=== PATIENT | male | born 1990 | race Caucasian/White ===

== ENCOUNTER 2017-04-11 17:52 | Emergency (ER) | payer BC ==
[2017-04-11 19:34] LABS: INFLUENZA A PATIENT NEGATIVE (NEGATIVE); INFLUENZA B PATIENT NEGATIVE (NEGATIVE); OBC FLU VALID
[2017-04-12 08:51] LABS: NEGATIVE OBC STREP NEG; POSITIVE OBC STREP POS
== END 2017-04-11 19:52 | disposition home or self-care (01) ==
LOC: ER 17:52
DX: J02.0 Streptococcal pharyngitis (principal); I10 Essential (primary) hypertension; J45.909 Unspecified asthma, uncomplicated; F12.10 Cannabis abuse, uncomplicated
CPT/HCPCS: 87804; 87804-59; 87880; 99284

== ENCOUNTER 2017-06-23 23:38 | Emergency (ER) | payer OTHER, BC ==
[2017-06-24] MEDS: IBUPROFEN 600 MG TABLET. PO (00:40)
== END 2017-06-24 01:28 | disposition home or self-care (01) ==
LOC: ER 23:38
DX: S90.01XA Contusion of right ankle, initial encounter (principal); J45.909 Unspecified asthma, uncomplicated; I10 Essential (primary) hypertension; W18.09XA Striking against other object with subsequent fall, initial encounter; Y93.89 Activity, other specified; Y99.8 Other external cause status; Y92.89 Other specified places as the place of occurrence of the external cause
CPT/HCPCS: 73610; 99284

== ENCOUNTER 2018-10-15 09:51 | Emergency (ER) | payer SELFPAY ==
[2017-06-23 23:46] VITALS: BP 152/89
[~2018-10-15 09:51] MED LIST: AMOX500C PO; IBUP-1060 PO
== END 2018-10-15 12:05 | disposition left against medical advice (07) ==
LOC: ER 09:51
DX: M25.561 Pain in right knee (principal); Z53.21 Procedure and treatment not carried out due to patient leaving prior to being seen by health care provider

== ENCOUNTER 2019-10-16 18:17 | Inpatient (IN) | payer SELFPAY ==
[~2019-10-16] VITALS: Ht 188 cm; Wt 114.4 kg
--- NOTE | 2019-10-16 21:08 | PHYS DOC ---
Past Medical History Past Medical History: Asthma, Hypertension Past Surgical History: No Surgical History Smoking Status: Current Every Day Smoker Alcohol Use: Occasionally Drug Use: Marijuana General Adult EDM: Chief Complaint: FATIGUE HPI: HPI: Patient is a 29 year old male who presents with painless jaundice for the last 3 weeks. Patient reports he was in [place] by a month ago denied any significant COVID exposure but reports that for the last 2 weeks he has had troubles with generalized body aches, fatigue and decrease in appetite. He denies any pain in his abdomen but does complain of some nausea. He also complains of early satiety. He reports that the food does not make him have any pain but also does make him feel any better either. His mom came over today and noticed that he had jaundice and sent him to the emergency room for further evaluation. Patient denies any fever, chills or sweats. He denies any cough shortness of breath or chest pain. He does complain of some edema in the lower extremities but denies any significant weight loss, night sweats. Review of Systems: Review of Systems: Constitutional: Denies fever or chills. [] Eyes: Denies change in visual acuity. [] HENT: Denies nasal congestion or sore throat. [] Respiratory: Denies cough or shortness of breath. [] Cardiovascular: Denies chest pain or edema. [] GI: See HPI [] : Denies dysuria. [] Musculoskeletal: Denies back pain or joint pain. [] Integument: Denies rash. [] Neurologic: Denies headache, focal weakness or sensory changes. [] Endocrine: Denies polyuria or polydipsia. [] Lymphatic: Denies swollen glands. [] Psychiatric: Denies depression or anxiety. [] Heart Score: Risk Factors: Risk Factors: DM, Current or recent (<one month) smoker, HTN, HLP, family history of CAD, obesity. Risk Scores: Score 0 - 3: 2.5% MACE over next 6 weeks - Discharge Home Score 4 - 6: 20.3% MACE over next 6 weeks - Admit for Clinical Observation Score 7 - 10: 72.7% MACE over next 6 weeks - Early Invasive Strategies Allergies: Allergies: Allergies Coded Allergies Type Severity Reaction Last Updated Verified No Known Drug Allergies 11/30/15 No Physical Exam: PE: Constitutional: Well developed, well nourished, no acute distress, non-toxic appearance. [] HENT: Normocephalic, atraumatic, bilateral external ears normal, oropharynx dry, no oral exudates, nose normal. [] Eyes: PERRLA, EOMI, conjunctiva normal, no discharge, jaundice. [] Neck: Normal range of motion, no tenderness, supple, no stridor. [] Cardiovascular: Tachycardic, no murmur, no S3 or S4, no shift of PMI, 2 of 2 pulses distally [] Lungs & Thorax: Bilateral breath sounds clear to auscultation [] Abdomen: Bowel sounds normal, soft, no tenderness, no masses, no pulsatile masses. No fluid wave, no hepatosplenomegaly, negative Diallo sign no guarding or rebound [] Skin: Warm, dry, no erythema, no rash. [] Back: No tenderness, no CVA tenderness. [] Extremities: No tenderness, no cyanosis, no clubbing, ROM intact, 1 mm pitting edema bilaterally [] Neurologic: Alert and oriented X 3, normal motor function, normal sensory function, no focal deficits noted. [] Psychologic: Affect normal, judgement normal, mood normal. [] EKG: EKG: [] Radiology/Procedures: Radiology/Procedures: [] Course & Med Decision Making: Course & Med Decision Making Pertinent Labs and Imaging studies reviewed. (See chart for details) 0220-the patient was seen and reevaluated on multiple occasions throughout his hospitalization here in the emergency department. The patient's differential diagnosis included sepsis, cirrhosis of the liver, acute hepatitis, acute pancreatitis, choledocholithiasis amongst others. Patient was worked up extensively and after review of ultrasound and CT scan is felt the patient does not have a surgical problem but most likely it is medical. However will consult surgery for their humble opinion. At this time the patient has been started on IV antibiotics and is received IV fluids. Patient was not ever hypotensive but does have an elevated lactic acid. Lactic acid did not seem to respond to IV fluids but he seems to be hemodynamically stable and at this time no further intervention other than supportive care care instituted including IV antibiotics is is needed. I discussed the case with the patient. [] Dragon Disclaimer: Dragon Disclaimer: This electronic medical record was generated, in whole or in part, using a voice recognition dictation system. Departure Departure Impression: Primary Impression: Acute colitis Additional Impressions: Sepsis Qualified Codes: A41.9 - Sepsis, unspecified organism; R65.20 - Severe sepsis without septic shock; K72.00 - Acute and subacute hepatic failure without coma Painless jaundice Dehydration Disposition: ADMITTED INPATIENT Condition: GUARDED Referrals: NO PCP (PCP) Justicifation of Admission Dx: Justifications for Admission: Justification of Admission Dx: Yes Sepsis: End-Organ Dysfunction Date and Time of Assessment Date: Oct 16, 2019 Time: 21:20 Vital Signs Vital Signs: Vital Signs Date Time Temp Pulse Resp B/P (MAP) Pulse Ox O2 Delivery O2 Flow Rate FiO2 10/16/19 20:35 98.1 104 18 153/81 (105) 95 Room Air 98.1 Temperature Source: Oral Respirations Respiratory Effort: Normal Respiratory Pattern: Normal Cardiovascular Pulse Rhythm: Regular Lung Sounds Breath Sounds: Clear Capillary Refil Capillary Refill: Rt Hand < 3 seconds Peripheral Pulse Pulse Location: Radial Pulse Strength: Normal (2+) Pulse Assessment Method: Palpation Integumentary Skin: Warm, Dry, No Rashes Skin Moisture: Dry Skin Turgor: Normal Skin Color: warm, dry Fingernail Color: WNL Date and Time of Reassessment Date: Oct 17, 2019 Time: 01:56 Fluid Challenge Is the fluid challenge complet: No IBW Target Volume Used: No BMI > 30: Yes Vital Signs Vital Signs: Vital Signs Date Time Temp Pulse Resp B/P (MAP) Pulse Ox O2 Delivery O2 Flow Rate FiO2 10/16/19 20:35 98.1 104 18 153/81 (105) 95 Room Air 98.1 Temperature Source: Oral Respirations Respiratory Effort: Normal Respiratory Pattern: Normal Cardiovascular Pulse Rhythm: Regular Heart: Nml rate, reg. rhythm Lung Sounds Breath Sounds: Clear Capillary Refil Capillary Refill: Rt Hand < 3 seconds Peripheral Pulse Pulse Location: Radial Pulse Strength: Normal (2+) Pulse Assessment Method: Palpation Integumentary Skin: Warm, Dry Skin Moisture: Dry Skin Turgor: Normal Skin Color: warm Fingernail Color: WNL Critical Care Note Total Time (mins): 45 Comments Critical care time was billed outside of any teaching or procedure time. Critical care was charged secondary to impending collapse of the cardiovascular system as well as emergent condition of the gastrointestinal system. Critical Care Time Critical care time was 45 minutes exclusive of procedures. GO SHELDON MD Oct 16, 2019 21:08
[2019-10-16] MEDS ORDERED: IV NORMAL SALINE 1000ML BAG 1,000 ML IV ONE (21:15)
[2019-10-16] MEDS ORDERED: ONDANSETRON PF 4 MG/2 ML VIAL. IVP ONE (21:15)
[2019-10-16] MEDS ORDERED: FAMOTIDINE 20 MG TABLET. PO ONE (21:15)
[2019-10-16 21:20] LABS: BASO # 0.1 x10^3/uL (0.0-0.2); BASO % 0 % (0-3); EOS # 0.3 x10^3/uL (0.0-0.7); EOS % 2 % (0-3); HEMATOCRIT 44.1 % (39.0-53.0); HEMOGLOBIN 15.5 g/dL (13.0-17.5); LYMPH # 1.6 x10^3/uL (1.0-4.8); LYMPH % 12 % (24-48); MEAN CORPUSCULAR HEMOGLOBIN 36 pg (25-35); MEAN CORPUSCULAR HGB CONC 35 g/dL (31-37); MEAN CORPUSCULAR VOLUME 101 fL (79-100); MONO # 1.6 x10^3/uL (0.0-1.1); MONO % 11 % (0-9); NEUT # 10.3 x10^3/uL (1.8-7.7); NEUT % 74 % (31-73); PLATELET COUNT 104 x10^3/uL (140-400); RED BLOOD COUNT 4.35 x10^6/uL (4.30-5.70); RED CELL DISTRIBUTION WIDTH 14.8 % (11.5-14.5); WHITE BLOOD COUNT 13.9 x10^3/uL (4.0-11.0)
[2019-10-16 21:29] LABS: PROTHROMBIN TIME PATIENT 24.4 SEC (11.7-14.0)
[2019-10-16 21:31] LABS: CALCIUM 8.3 mg/dL (8.5-10.1); CREATININE 0.7 mg/dL (0.7-1.3); GFR 133.3; POTASSIUM 3.8 mmol/L (3.5-5.1)
[2019-10-16 21:37] LABS: ALBUMIN 2.3 g/dL (3.4-5.0); ALBUMIN/GLOBULIN RATIO 0.5 (1.0-1.7); TOTAL BILIRUBIN 15.1 mg/dL (0.2-1.0); TOTAL PROTEIN 7.2 g/dL (6.4-8.2)
[2019-10-16] MEDS ORDERED: IOHEXOL 300 MG/ML 100ML VIAL. IV ONE (21:45)
[2019-10-16] MEDS ORDERED: CONTRAST GIVEN. MC PRN (22:00)
--- NOTE | 2019-10-16 22:22 | RAD ---
Exam: CT of abdomen and pelvis with contrast INDICATION: Painless jaundice TECHNIQUE: Sequential axial images through the abdomen and pelvis obtained following the administration of 75 mL of Omni 300 IV contrast. Sagittal and coronal reformatted images were reconstructed from the axial data and reviewed. Comparisons: None FINDINGS: Heart size is normal. No pericardial effusion. Visualized lung bases are clear. No pleural effusion. Diffuse hepatic steatosis. Spleen is enlarged measuring up to 16.5 cm in long axis. Pancreas and adrenals are unremarkable. Gallbladder demonstrates diffuse wall thickening. Kidneys demonstrate symmetric enhancement. No perinephric inflammation or hydronephrosis. No renal or ureteral calculi are identified. Bladder is decompressed not well evaluated. Prostate is not enlarged. Scattered diverticula noted in the descending colon without evidence of acute diverticulitis. There is diffuse wall thickening involving the ascending and transverse colon. Small bowel is unremarkable. No free intra-abdominal air. There is trace free fluid noted in the pelvis. Abdominal aorta has a normal course and caliber. Abdominal vasculature is patent. No enlarged abdominal lymph nodes are identified. No suspicious osseous lesions or acute fractures. IMPRESSION: 1. Decreased attenuation of liver with adjacent fat stranding. Findings can be seen in setting of steatohepatitis. 2. Gallbladder is nondistended with diffuse wall thickening, may be related to systemic state. Correlate with symptomatology to determine the need for further evaluation with ultrasound. 3. There is wall thickening involving the ascending colon, which may represent colitis. Exposure: One or more of the following in the visualized dose reduction techniques were utilized for this examination: 1. Automated exposure control 2. Adjustment of the MA and/or KV according to patient size 3. Use of iterative of reconstructive technique Electronically signed by: Camille Lazo MD (10/16/2019 10:19 PM) [id number]
[2019-10-16 23:47] LABS: BILIRUBIN,URINE LARGE (NEG); CLARITY,URINE CLOUDY; COLOR,URINE ORANGE; NITRITE,URINE POSITIVE (NEG); PROTEIN,URINE 30 mg/dL (NEG-TRACE)
[2019-10-16 23:58] LABS: BACTERIA,URINE FEW /HPF (0-FEW); GRANULAR CASTS,URINE OCCASIONAL /HPF; HYALINE CASTS, URINE OCCASIONAL /HPF; SQUAMOUS EPITHELIAL CELL,UR FEW /LPF
[2019-10-17] MEDS ORDERED: PIPERACILLIN/TAZOBACTAM 4.5 GM in IV NORMAL SALINE 100ML 100 ML IV ONE (00:45)
[2019-10-17] MEDS: IV NORMAL SALINE 1000ML BAG 1,000 ML IV SCH ×6 (01:20→15:35)
--- NOTE | 2019-10-17 01:28 | RAD ---
INDICATION: Reason: Evaluate Gallbladder; PUI; NAUSEA AND VOMITING. / Spl. Instructions: / History: COMPARISON: CT from one day prior TECHNIQUE: Grayscale and color ultrasound images obtained through the abdomen. FINDINGS: Aorta/IVC: Limited visualization secondary to bowel gas obscuring. Pancreas: Obscured by bowel gas Liver: Echogenic and prominent size. Large portions of the liver are not well seen Small free fluid. Gallbladder: Difficult evaluation and appears partially contracted and with thickened wall and echogenic intraluminal content. Common Bile Duct: 6 mm Right Kidney: No hydronephrosis. Only faintly visualized. IMPRESSION: * Limited evaluation secondary to overlying structures obscuring but there is apparent gallbladder wall thickening with debris within the lumen which could be from sludge or stones. This wall thickening is nonspecific in nature and could be related to primary gallbladder inflammation or reactive to adjacent hepatic disease. The gallbladder wall lesion is also not excluded. * Liver is echogenic. Nonspecific but can be seen with fatty infiltration. * Free fluid is seen. * Mildly prominent common bile duct up to 6 mm Electronically signed by: Ubaldo lAvarez MD (10/17/2019 1:25 AM) [id number]
[2019-10-17 03:00] VITALS: BP 146/71
[2019-10-17] MEDS ORDERED: [UNRECOGNIZED DRUG - OTHER] (04:37)
[2019-10-17] MEDS ORDERED: LISINOPRIL (04:37)
[2019-10-17] MEDS ORDERED: lisino (04:37)
[2019-10-17] MEDS ORDERED: inhaler (04:37)
--- NOTE | 2019-10-17 05:49 | NUR ---
last bag of bolus fluids hung by ED
[2019-10-17] MEDS: PIPERACILLIN/TAZOBACTAM 3.375 GM in IV NORMAL SALINE 50ML 50 ML IV SCH ×3 (05:52→17:44)
[2019-10-17] MEDS ORDERED: cloNIDine HCL 0.1 MG TABLET PO PRN (06:30)
[2019-10-17] MEDS ORDERED: HALOPERIDOL LACTATE 5 MG/ML VIAL. IVP PRN (06:30)
[2019-10-17] MEDS ORDERED: diphenhydrAMINE 50 MG/ML VIAL IVP PRN (06:30)
[2019-10-17] MEDS: MORPHINE SULFATE 2 MG/ML VIAL. IV PRN ×3 (06:51→20:04)
[2019-10-17 07:00] VITALS: BP 125/73
[2019-10-17] MEDS: MULTIVIT INFUSN,ADULT 4,VIT K 10 ML, THIAMINE INJ 100 MG, FOLIC ACID INJ 1 MG in IV NOR... IV SCH (08:37)
[2019-10-17 10:51] VITALS: BP 146/76
--- NOTE | 2019-10-17 11:31 | PDOC1 ---
History and Physical Date of Admission Date of Admission DATE: 10/17/19 TIME: 11:27 Identification/Chief Complaint Chief Complaint seen in er for jaundice , 29 year old male who presents with painless jaundice for the last 3 weeks. Patient reports he was in [place] by a month ago denied any significant COVID exposure but reports that for the last 2 weeks he has had troubles with generalized body aches, fatigue and decrease in appetite. He denies any pain in his abdomen but does complain of some nausea. He also complains of early satiety. He reports that the food does not make him have any pain but also does make him feel any better either. His mom came over today and noticed that he had jaundice and sent him to the emergency room for further evaluation. denies any fever, chills or sweats. He denies any cough shortness of breath or chest pain. w/o c/w alcohol associated hepatitis denies recent tick bites , admits to heavy alcohol intake sine high school, now drinking one pint of vodka daily Past Medical History Past Medical History Past Medical History Past Medical History Past Medical History: Asthma, Hypertension Past Surgical History: No Surgical History Smoking Status: Current Every Day Smoker Alcohol Use: Occasionally Drug Use: Marijuana fhx copd, obesity Psych: Addictions Family History Family History: Hypertension Social History Smoke: <1 pack per day ALCOHOL: heavy Drugs: Marijuana Current Problem List Problem List Problems Medical Problems: (1) Acute colitis Status: Acute (2) Dehydration Status: Acute (3) Painless jaundice Status: Acute (4) Sepsis Status: Acute Current Medications Current Medications Current Medications Sodium Chloride 1,000 ml @ 1,000 mls/hr 1X ONCE IV Last administered on 10/16/19at 21:19; Start 10/16/19 at 21:15; Stop 10/16/19 at 22:14; Status DC Ondansetron HCl (Zofran) 4 mg 1X ONCE IVP Last administered on 10/16/19at 21:19; Start 10/16/19 at 21:15; Stop 10/16/19 at 21:16; Status DC Famotidine (Pepcid) 20 mg 1X ONCE PO Last administered on 10/16/19at 21:20; Start 10/16/19 at 21:15; Stop 10/16/19 at 21:16; Status DC Iohexol (Omnipaque 300 Mg/ml) 75 ml 1X ONCE IV Last administered on 10/16/19at 21:54; Start 10/16/19 at 21:45; Stop 10/16/19 at 21:46; Status DC Info (CONTRAST GIVEN -- Rx MONITORING) 1 each PRN DAILY PRN MC SEE COMMENTS; Start 10/16/19 at 22:00; Stop 10/18/19 at 21:59 Piperacillin Sod/ Tazobactam Sod 4.5 gm/Sodium Chloride 100 ml @ 200 mls/hr 1X ONCE IV Last administered on 10/17/19at 01:24; Start 10/17/19 at 00:45; Stop 10/17/19 at 01:14; Status DC Sodium Chloride 1,000 ml @ 2,460 mls/hr Q25M IV Last administered on 10/17/19at 01:56; Start 10/17/19 at 00:30; Stop 10/17/19 at 01:30; Status DC Sodium Chloride 1,000 ml @ 75 mls/hr [id number] IV Last administered on 10/17/19at 03:49; Start 10/17/19 at 02:15; Stop 10/18/19 at 02:14 Piperacillin Sod/ Tazobactam Sod 3.375 gm/Sodium Chloride 50 ml @ 100 mls/hr Q6HRS IV Last administered on 10/17/19at 05:52; Start 10/17/19 at 06:00 Morphine Sulfate (Morphine Sulfate) 2 mg PRN Q2HR PRN IV PAIN Last administered on 10/17/19at 06:51; Start 10/17/19 at 06:30 Lorazepam (Ativan Inj) 2 mg PRN Q1HR PRN IV For CIWA 8-14 Last administered on 10/17/19at 08:38; Start 10/17/19 at 06:30 Lorazepam (Ativan Inj) 4 mg PRN Q1HR PRN IV For CIWA 15 or greater; Start 10/17/19 at 06:30 Haloperidol Lactate (Haldol Inj) 5 mg PRN Q4HRS PRN IVP Hallucinatns,Confusn,Delirium; Start 10/17/19 at 06:30 Diphenhydramine HCl (Benadryl) 25 mg PRN Q15MIN PRN IVP EPS symptoms 2'Haldol admin; Start 10/17/19 at 06:30 Clonidine HCl (Catapres) 0.1 mg PRN Q1HR PRN PO SBP > 180 or DBP > 100, MRX3; Start 10/17/19 at 06:30 Multivitamins 10 ml/Thiamine HCl 100 mg/Folic Acid 1 mg/Sodium Chloride 1,011.2 ml @ 100 mls/ hr DAILY IV Last administered on 10/17/19at 08:37; Start 10/17/19 at 09:00; Stop 10/21/19 at 19:07 Active Scripts Active Reported [inhaler] PRN [lisinopril +] DAILY [lisino] Allergies Allergies: Coded Allergies: No Known Drug Allergies (Unverified , 11/30/15) ROS Review of System Constitutional: Denies fever or chills. [] Eyes: Denies change in visual acuity. [] HENT: Denies nasal congestion or sore throat. [] Respiratory: Denies cough or shortness of breath. [] Cardiovascular: Denies chest pain or edema. [] GI: See HPI [] : Denies dysuria. [] Musculoskeletal: Denies back pain or joint pain. [] Integument: Denies rash. [] Neurologic: Denies headache, focal weakness or sensory changes. [] Endocrine: Denies polyuria or polydipsia. [] Lymphatic: Denies swollen glands. [] Psychiatric: Denies depression or anxiety. [] 14 pt ros otherwise neg General: YES: Fatigue, Malaise Hematological and Lymphatic: No: Bleeding Problems, Blood Clots, Blood Transfusions, Brusing, Night Sweats, Pallor, Swollen Lymph Nodes, Other Respiratory: No: Cough, Hemoptysis, Orthopnea, Pleuritic Pain, Shortness of breath, SOB with excertion, Sputum Changes, Stridor, Tachypnea, Wheezing, Other Cardiovascular: No Chest Pain, No Palpitations, No Orthopnea, No Paroxysmal Noc. Dyspnea, No Edema, No Lt Headedness, No Other Genitourinary: No Dysuria, No Frequency, No Incontinence, No Hematuria, No Retention, No Discharge, No Urgency, No Pain, No Flank Pain, No Other, No , No , No , No , No , No , No Neurological: Yes Dizziness Skin: Yes Skin Lesion Changes Physical Exam Physical Exam Constitutional: Well developed, well nourished, mild acute distress, non-toxic appearance. [] HENT: Normocephalic, atraumatic, bilateral external ears normal, oropharynx dry, no oral exudates, nose normal. [] Eyes: PERRLA, EOMI, conjunctiva normal, no discharge, jaundice. icteric [] Neck: Normal range of motion, no tenderness, supple, no stridor. [] Cardiovascular: Tachycardic, no murmur, no S3 or S4, no shift of PMI, 2 of 2 pulses distally [] Lungs & Thorax: Bilateral breath sounds clear to auscultation [] Abdomen: Bowel sounds normal, soft, no tenderness, no masses, no pulsatile masses. No fluid wave, no hepatosplenomegaly, negative Diallo sign no guarding or rebound [] Skin: Warm, dry, no erythema, no rash. jaundiced [] Back: No tenderness, no CVA tenderness. [] Extremities: No tenderness, no cyanosis, no clubbing, ROM intact, 1 mm pitting edema bilaterally [] Neurologic: Alert and oriented X 3, normal motor function, normal sensory function, no focal deficits noted. [] Psychologic: Affect normal, judgment poor , mood normal. [] General: Alert, Oriented X3, Cooperative, No acute distress, mild distress HEENT: Atraumatic, EOMI Lungs: Clear to auscultation Heart: RRR Abdomen: Normal bowel sounds, Soft Rectal Exam: not examined PELVIC: Examination not indicated Extremities: No cyanosis Skin: No rashes Neuro: Normal speech, Cranial nerves 3-12 NL Psych/Mental Status: Mental status NL, Mood NL Vitals Vitals Vital Signs Date Time Temp Pulse Resp B/P (MAP) Pulse Ox O2 Delivery O2 Flow Rate FiO2 10/17/19 10:51 98.1 98 18 146/76 (99) 95 98.1 10/17/19 06:51 Room Air Labs Labs Laboratory Tests Test 10/16/19 20:20 10/16/19 23:37 10/17/19 00:33 10/17/19 04:25 White Blood Count 13.9 x10^3/uL (4.0-11.0) Red Blood Count 4.35 x10^6/uL (4.30-5.70) Hemoglobin 15.5 g/dL (13.0-17.5) Hematocrit 44.1 % (39.0-53.0) Mean Corpuscular Volume 101 fL (79-100) Mean Corpuscular Hemoglobin 36 pg (25-35) Mean Corpuscular Hemoglobin Concent 35 g/dL (31-37) Red Cell Distribution Width 14.8 % (11.5-14.5) Platelet Count 104 x10^3/uL (140-400) Neutrophils (%) (Auto) 74 % (31-73) Lymphocytes (%) (Auto) 12 % (24-48) Monocytes (%) (Auto) 11 % (0-9) Eosinophils (%) (Auto) 2 % (0-3) Basophils (%) (Auto) 0 % (0-3) Neutrophils # (Auto) 10.3 x10^3/uL (1.8-7.7) Lymphocytes # (Auto) 1.6 x10^3/uL (1.0-4.8) Monocytes # (Auto) 1.6 x10^3/uL (0.0-1.1) Eosinophils # (Auto) 0.3 x10^3/uL (0.0-0.7) Basophils # (Auto) 0.1 x10^3/uL (0.0-0.2) Prothrombin Time 24.4 SEC (11.7-14.0) Prothromb Time International Ratio 2.2 (0.8-1.1) Activated Partial Thromboplast Time 51 SEC (24-38) Fibrinogen 245 mg/dL (200-440) Sodium Level 135 mmol/L (136-145) Potassium Level 3.8 mmol/L (3.5-5.1) Chloride Level 98 mmol/L (98-107) Carbon Dioxide Level 29 mmol/L (21-32) Anion Gap 8 (6-14) Blood Urea Nitrogen 4 mg/dL (8-26) Creatinine 0.7 mg/dL (0.7-1.3) Estimated GFR (Cockcroft-Gault) 133.3 BUN/Creatinine Ratio 6 (6-20) Glucose Level 82 mg/dL (70-99) Lactic Acid Level 4.4 mmol/L (0.4-2.0) 4.7 mmol/L (0.4-2.0) 4.2 mmol/L (0.4-2.0) Calcium Level 8.3 mg/dL (8.5-10.1) Total Bilirubin 15.1 mg/dL (0.2-1.0) Aspartate Amino Transf (AST/SGOT) 166 U/L (15-37) Alanine Aminotransferase (ALT/SGPT) 41 U/L (16-63) Alkaline Phosphatase 235 U/L (46-116) Total Protein 7.2 g/dL (6.4-8.2) Albumin 2.3 g/dL (3.4-5.0) Albumin/Globulin Ratio 0.5 (1.0-1.7) Lipase 162 U/L (73-393) Procalcitonin 0.25 ng/mL (0.00-0.10) Ethyl Alcohol Level 50 mg/dL (0-10) Hepatitis A IgM Antibody Nonreactive (Nonreactive) Hepatitis B Surface Antigen Nonreactive (Nonreactive) Hepatitis B Core IgM Antibody Nonreactive (Nonreactive) Hepatitis C IgG Antibody Nonreactive (Nonreactive) Urine Collection Type Unknown Urine Color [place] Urine Clarity Cloudy Urine pH 6.0 (<5.0-8.0) Urine Specific [place] >=1.030 (1.000-1.030) Urine Protein 30 mg/dL (NEG-TRACE) Urine Glucose (UA) Negative mg/dL (NEG) Urine Ketones (Stick) 15 mg/dL (NEG) Urine Blood Negative (NEG) Urine Nitrite Positive (NEG) Urine Bilirubin Large (NEG) Urine Urobilinogen Dipstick 1.0 mg/dL (0.2 mg/dL) Urine Leukocyte Esterase Small (NEG) Urine RBC 1-2 /HPF (0-2) Urine WBC 5-10 /HPF (0-4) Urine Squamous Epithelial Cells Few /LPF Urine Bacteria Few /HPF (0-FEW) Urine Cellular Casts Occ /HPF Urine Hyaline Casts Occasional /HPF Urine Granular Casts Occasional /HPF Urine Mucus Marked /LPF Test 10/17/19 08:15 Lactic Acid Level 2.9 mmol/L (0.4-2.0) Laboratory Tests Test 10/16/19 20:20 10/16/19 23:37 10/17/19 00:33 10/17/19 04:25 White Blood Count 13.9 x10^3/uL (4.0-11.0) Red Blood Count 4.35 x10^6/uL (4.30-5.70) Hemoglobin 15.5 g/dL (13.0-17.5) Hematocrit 44.1 % (39.0-53.0) Mean Corpuscular Volume 101 fL (79-100) Mean Corpuscular Hemoglobin 36 pg (25-35) Mean Corpuscular Hemoglobin Concent 35 g/dL (31-37) Red Cell Distribution Width 14.8 % (11.5-14.5) Platelet Count 104 x10^3/uL (140-400) Neutrophils (%) (Auto) 74 % (31-73) Lymphocytes (%) (Auto) 12 % (24-48) Monocytes (%) (Auto) 11 % (0-9) Eosinophils (%) (Auto) 2 % (0-3) Basophils (%) (Auto) 0 % (0-3) Neutrophils # (Auto) 10.3 x10^3/uL (1.8-7.7) Lymphocytes # (Auto) 1.6 x10^3/uL (1.0-4.8) Monocytes # (Auto) 1.6 x10^3/uL (0.0-1.1) Eosinophils # (Auto) 0.3 x10^3/uL (0.0-0.7) Basophils # (Auto) 0.1 x10^3/uL (0.0-0.2) Prothrombin Time 24.4 SEC (11.7-14.0) Prothromb Time International Ratio 2.2 (0.8-1.1) Activated Partial Thromboplast Time 51 SEC (24-38) Fibrinogen 245 mg/dL (200-440) Sodium Level 135 mmol/L (136-145) Potassium Level 3.8 mmol/L (3.5-5.1) Chloride Level 98 mmol/L (98-107) Carbon Dioxide Level 29 mmol/L (21-32) Anion Gap 8 (6-14) Blood Urea Nitrogen 4 mg/dL (8-26) Creatinine 0.7 mg/dL (0.7-1.3) Estimated GFR (Cockcroft-Gault) 133.3 BUN/Creatinine Ratio 6 (6-20) Glucose Level 82 mg/dL (70-99) Lactic Acid Level 4.4 mmol/L (0.4-2.0) 4.7 mmol/L (0.4-2.0) 4.2 mmol/L (0.4-2.0) Calcium Level 8.3 mg/dL (8.5-10.1) Total Bilirubin 15.1 mg/dL (0.2-1.0) Aspartate Amino Transf (AST/SGOT) 166 U/L (15-37) Alanine Aminotransferase (ALT/SGPT) 41 U/L (16-63) Alkaline Phosphatase 235 U/L (46-116) Total Protein 7.2 g/dL (6.4-8.2) Albumin 2.3 g/dL (3.4-5.0) Albumin/Globulin Ratio 0.5 (1.0-1.7) Lipase 162 U/L (73-393) Procalcitonin 0.25 ng/mL (0.00-0.10) Ethyl Alcohol Level 50 mg/dL (0-10) Hepatitis A IgM Antibody Nonreactive (Nonreactive) Hepatitis B Surface Antigen Nonreactive (Nonreactive) Hepatitis B Core IgM Antibody Nonreactive (Nonreactive) Hepatitis C IgG Antibody Nonreactive (Nonreactive) Urine Collection Type Unknown Urine Color [place] Urine Clarity Cloudy Urine pH 6.0 (<5.0-8.0) Urine Specific [place] >=1.030 (1.000-1.030) Urine Protein 30 mg/dL (NEG-TRACE) Urine Glucose (UA) Negative mg/dL (NEG) Urine Ketones (Stick) 15 mg/dL (NEG) Urine Blood Negative (NEG) Urine Nitrite Positive (NEG) Urine Bilirubin Large (NEG) Urine Urobilinogen Dipstick 1.0 mg/dL (0.2 mg/dL) Urine Leukocyte Esterase Small (NEG) Urine RBC 1-2 /HPF (0-2) Urine WBC 5-10 /HPF (0-4) Urine Squamous Epithelial Cells Few /LPF Urine Bacteria Few /HPF (0-FEW) Urine Cellular Casts Occ /HPF Urine Hyaline Casts Occasional /HPF Urine Granular Casts Occasional /HPF Urine Mucus Marked /LPF Test 10/17/19 08:15 Lactic Acid Level 2.9 mmol/L (0.4-2.0) Images Images STATUS: REG ER ORD. PHYSICIAN: GO SHELDON MD REASON: Evaluate Gallbladder; PUI; NAUSEA AND VOMITING. PROCEDURE: ABDOMEN LTD INDICATION: Reason: Evaluate Gallbladder; PUI; NAUSEA AND VOMITING. / Spl. Instructions: / History: COMPARISON: CT from one day prior TECHNIQUE: Grayscale and color ultrasound images obtained through the abdomen. FINDINGS: Aorta/IVC: Limited visualization secondary to bowel gas obscuring. Pancreas: Obscured by bowel gas Liver: Echogenic and prominent size. Large portions of the liver are not well seen Small free fluid. Gallbladder: Difficult evaluation and appears partially contracted and with thickened wall and echogenic intraluminal content. Common Bile Duct: 6 mm Right Kidney: No hydronephrosis. Only faintly visualized. IMPRESSION: * Limited evaluation secondary to overlying structures obscuring but there is apparent gallbladder wall thickening with debris within the lumen which could be from sludge or stones. This wall thickening is nonspecific in nature and could be related to primary gallbladder inflammation or reactive to adjacent hepatic disease. The gallbladder wall lesion is also not excluded. * Liver is echogenic. Nonspecific but can be seen with fatty infiltration. * Free fluid is seen. * Mildly prominent common bile duct up to 6 mm Electronically signed by: Ubaldo Alvarez MD (10/17/2019 1:25 AM) [id number] Exam: CT of abdomen and pelvis with contrast INDICATION: Painless jaundice TECHNIQUE: Sequential axial images through the abdomen and pelvis obtained following the administration of 75 mL of Omni 300 IV contrast. Sagittal and coronal reformatted images were reconstructed from the axial data and reviewed. Comparisons: None FINDINGS: Heart size is normal. No pericardial effusion. Visualized lung bases are clear. No pleural effusion. Diffuse hepatic steatosis. Spleen is enlarged measuring up to 16.5 cm in long axis. Pancreas and adrenals are unremarkable. Gallbladder demonstrates diffuse wall thickening. Kidneys demonstrate symmetric enhancement. No perinephric inflammation or hydronephrosis. No renal or ureteral calculi are identified. Bladder is decompressed not well evaluated. Prostate is not enlarged. Scattered diverticula noted in the descending colon without evidence of acute diverticulitis. There is diffuse wall thickening involving the ascending and transverse colon. Small bowel is unremarkable. No free intra-abdominal air. There is trace free fluid noted in the pelvis. Abdominal aorta has a normal course and caliber. Abdominal vasculature is patent. No enlarged abdominal lymph nodes are identified. No suspicious osseous lesions or acute fractures. IMPRESSION: 1. Decreased attenuation of liver with adjacent fat stranding. Findings can be seen in setting of steatohepatitis. 2. Gallbladder is nondistended with diffuse wall thickening, may be related to systemic state. Correlate with symptomatology to determine the need for further evaluation with ultrasound. 3. There is wall thickening involving the ascending colon, which may represent colitis. Exposure: One or more of the following in the visualized dose reduction techniques were utilized for this examination: 1. Automated exposure control 2. Adjustment of the MA and/or KV according to patient size VTE Prophylaxis Ordered VTE Prophylaxis Devices: No VTE Pharmacological Prophylaxi: Yes Assessment/Plan Assessment/Plan impression painless jaundice attenuation of liver with adjacent fat stranding. //steato-hepatitis. apparent gallbladder wall thickening with debris within the lumen which could be from sludge or stones. // wall thickening is nonspecific in nature and could be related to primary gallbladder inflammation or reactive to adjacent hepatic disease.// gallbladder wall lesion is also not excluded. ALCOHOL ABUSE , severe Leukocytosis lactic acidosis thc abuse thrombocytopenia plan ADMIT GI CONSULT Hepatitis dx panel ID CONSULT blood culture emperic iv antibiotics urine culture Justicifation of Admission Dx: Justifications for Admission: Justification of Admission Dx: Yes Sepsis: End-Organ Dysfunction SANDY ZHU MD Oct 17, 2019 11:31
--- NOTE | 2019-10-17 11:42 | PDOC ---
G I PROGRESS NOTE Reason for Follow-up Jaundice Subjective Achy all over Physical Exam Lungs clear CV S1 S2 ABD +BS, soft, mild RUQ tenderness Review of Relevant I have reviewed the following items larry (where applicable) has been applied. Labs Laboratory Tests Test 10/16/19 20:20 10/16/19 23:37 10/17/19 00:33 10/17/19 04:25 White Blood Count 13.9 x10^3/uL (4.0-11.0) Red Blood Count 4.35 x10^6/uL (4.30-5.70) Hemoglobin 15.5 g/dL (13.0-17.5) Hematocrit 44.1 % (39.0-53.0) Mean Corpuscular Volume 101 fL (79-100) Mean Corpuscular Hemoglobin 36 pg (25-35) Mean Corpuscular Hemoglobin Concent 35 g/dL (31-37) Red Cell Distribution Width 14.8 % (11.5-14.5) Platelet Count 104 x10^3/uL (140-400) Neutrophils (%) (Auto) 74 % (31-73) Lymphocytes (%) (Auto) 12 % (24-48) Monocytes (%) (Auto) 11 % (0-9) Eosinophils (%) (Auto) 2 % (0-3) Basophils (%) (Auto) 0 % (0-3) Neutrophils # (Auto) 10.3 x10^3/uL (1.8-7.7) Lymphocytes # (Auto) 1.6 x10^3/uL (1.0-4.8) Monocytes # (Auto) 1.6 x10^3/uL (0.0-1.1) Eosinophils # (Auto) 0.3 x10^3/uL (0.0-0.7) Basophils # (Auto) 0.1 x10^3/uL (0.0-0.2) Prothrombin Time 24.4 SEC (11.7-14.0) Prothromb Time International Ratio 2.2 (0.8-1.1) Activated Partial Thromboplast Time 51 SEC (24-38) Fibrinogen 245 mg/dL (200-440) Sodium Level 135 mmol/L (136-145) Potassium Level 3.8 mmol/L (3.5-5.1) Chloride Level 98 mmol/L (98-107) Carbon Dioxide Level 29 mmol/L (21-32) Anion Gap 8 (6-14) Blood Urea Nitrogen 4 mg/dL (8-26) Creatinine 0.7 mg/dL (0.7-1.3) Estimated GFR (Cockcroft-Gault) 133.3 BUN/Creatinine Ratio 6 (6-20) Glucose Level 82 mg/dL (70-99) Lactic Acid Level 4.4 mmol/L (0.4-2.0) 4.7 mmol/L (0.4-2.0) 4.2 mmol/L (0.4-2.0) Calcium Level 8.3 mg/dL (8.5-10.1) Total Bilirubin 15.1 mg/dL (0.2-1.0) Aspartate Amino Transf (AST/SGOT) 166 U/L (15-37) Alanine Aminotransferase (ALT/SGPT) 41 U/L (16-63) Alkaline Phosphatase 235 U/L (46-116) Total Protein 7.2 g/dL (6.4-8.2) Albumin 2.3 g/dL (3.4-5.0) Albumin/Globulin Ratio 0.5 (1.0-1.7) Lipase 162 U/L (73-393) Procalcitonin 0.25 ng/mL (0.00-0.10) Ethyl Alcohol Level 50 mg/dL (0-10) Hepatitis A IgM Antibody Nonreactive (Nonreactive) Hepatitis B Surface Antigen Nonreactive (Nonreactive) Hepatitis B Core IgM Antibody Nonreactive (Nonreactive) Hepatitis C IgG Antibody Nonreactive (Nonreactive) Urine Collection Type Unknown Urine Color [place] Urine Clarity Cloudy Urine pH 6.0 (<5.0-8.0) Urine Specific [place] >=1.030 (1.000-1.030) Urine Protein 30 mg/dL (NEG-TRACE) Urine Glucose (UA) Negative mg/dL (NEG) Urine Ketones (Stick) 15 mg/dL (NEG) Urine Blood Negative (NEG) Urine Nitrite Positive (NEG) Urine Bilirubin Large (NEG) Urine Urobilinogen Dipstick 1.0 mg/dL (0.2 mg/dL) Urine Leukocyte Esterase Small (NEG) Urine RBC 1-2 /HPF (0-2) Urine WBC 5-10 /HPF (0-4) Urine Squamous Epithelial Cells Few /LPF Urine Bacteria Few /HPF (0-FEW) Urine Cellular Casts Occ /HPF Urine Hyaline Casts Occasional /HPF Urine Granular Casts Occasional /HPF Urine Mucus Marked /LPF Test 10/17/19 08:15 Lactic Acid Level 2.9 mmol/L (0.4-2.0) Laboratory Tests Test 10/16/19 20:20 10/16/19 23:37 10/17/19 00:33 10/17/19 04:25 White Blood Count 13.9 x10^3/uL (4.0-11.0) Red Blood Count 4.35 x10^6/uL (4.30-5.70) Hemoglobin 15.5 g/dL (13.0-17.5) Hematocrit 44.1 % (39.0-53.0) Mean Corpuscular Volume 101 fL (79-100) Mean Corpuscular Hemoglobin 36 pg (25-35) Mean Corpuscular Hemoglobin Concent 35 g/dL (31-37) Red Cell Distribution Width 14.8 % (11.5-14.5) Platelet Count 104 x10^3/uL (140-400) Neutrophils (%) (Auto) 74 % (31-73) Lymphocytes (%) (Auto) 12 % (24-48) Monocytes (%) (Auto) 11 % (0-9) Eosinophils (%) (Auto) 2 % (0-3) Basophils (%) (Auto) 0 % (0-3) Neutrophils # (Auto) 10.3 x10^3/uL (1.8-7.7) Lymphocytes # (Auto) 1.6 x10^3/uL (1.0-4.8) Monocytes # (Auto) 1.6 x10^3/uL (0.0-1.1) Eosinophils # (Auto) 0.3 x10^3/uL (0.0-0.7) Basophils # (Auto) 0.1 x10^3/uL (0.0-0.2) Prothrombin Time 24.4 SEC (11.7-14.0) Prothromb Time International Ratio 2.2 (0.8-1.1) Activated Partial Thromboplast Time 51 SEC (24-38) Fibrinogen 245 mg/dL (200-440) Sodium Level 135 mmol/L (136-145) Potassium Level 3.8 mmol/L (3.5-5.1) Chloride Level 98 mmol/L (98-107) Carbon Dioxide Level 29 mmol/L (21-32) Anion Gap 8 (6-14) Blood Urea Nitrogen 4 mg/dL (8-26) Creatinine 0.7 mg/dL (0.7-1.3) Estimated GFR (Cockcroft-Gault) 133.3 BUN/Creatinine Ratio 6 (6-20) Glucose Level 82 mg/dL (70-99) Lactic Acid Level 4.4 mmol/L (0.4-2.0) 4.7 mmol/L (0.4-2.0) 4.2 mmol/L (0.4-2.0) Calcium Level 8.3 mg/dL (8.5-10.1) Total Bilirubin 15.1 mg/dL (0.2-1.0) Aspartate Amino Transf (AST/SGOT) 166 U/L (15-37) Alanine Aminotransferase (ALT/SGPT) 41 U/L (16-63) Alkaline Phosphatase 235 U/L (46-116) Total Protein 7.2 g/dL (6.4-8.2) Albumin 2.3 g/dL (3.4-5.0) Albumin/Globulin Ratio 0.5 (1.0-1.7) Lipase 162 U/L (73-393) Procalcitonin 0.25 ng/mL (0.00-0.10) Ethyl Alcohol Level 50 mg/dL (0-10) Hepatitis A IgM Antibody Nonreactive (Nonreactive) Hepatitis B Surface Antigen Nonreactive (Nonreactive) Hepatitis B Core IgM Antibody Nonreactive (Nonreactive) Hepatitis C IgG Antibody Nonreactive (Nonreactive) Urine Collection Type Unknown Urine Color [place] Urine Clarity Cloudy Urine pH 6.0 (<5.0-8.0) Urine Specific [place] >=1.030 (1.000-1.030) Urine Protein 30 mg/dL (NEG-TRACE) Urine Glucose (UA) Negative mg/dL (NEG) Urine Ketones (Stick) 15 mg/dL (NEG) Urine Blood Negative (NEG) Urine Nitrite Positive (NEG) Urine Bilirubin Large (NEG) Urine Urobilinogen Dipstick 1.0 mg/dL (0.2 mg/dL) Urine Leukocyte Esterase Small (NEG) Urine RBC 1-2 /HPF (0-2) Urine WBC 5-10 /HPF (0-4) Urine Squamous Epithelial Cells Few /LPF Urine Bacteria Few /HPF (0-FEW) Urine Cellular Casts Occ /HPF Urine Hyaline Casts Occasional /HPF Urine Granular Casts Occasional /HPF Urine Mucus Marked /LPF Test 10/17/19 08:15 Lactic Acid Level 2.9 mmol/L (0.4-2.0) Medications Current Medications Sodium Chloride 1,000 ml @ 1,000 mls/hr 1X ONCE IV Last administered on 10/16/19at 21:19; Start 10/16/19 at 21:15; Stop 10/16/19 at 22:14; Status DC Ondansetron HCl (Zofran) 4 mg 1X ONCE IVP Last administered on 10/16/19at 21:19; Start 10/16/19 at 21:15; Stop 10/16/19 at 21:16; Status DC Famotidine (Pepcid) 20 mg 1X ONCE PO Last administered on 10/16/19at 21:20; Start 10/16/19 at 21:15; Stop 10/16/19 at 21:16; Status DC Iohexol (Omnipaque 300 Mg/ml) 75 ml 1X ONCE IV Last administered on 10/16/19at 21:54; Start 10/16/19 at 21:45; Stop 10/16/19 at 21:46; Status DC Info (CONTRAST GIVEN -- Rx MONITORING) 1 each PRN DAILY PRN MC SEE COMMENTS; Start 10/16/19 at 22:00; Stop 10/18/19 at 21:59 Piperacillin Sod/ Tazobactam Sod 4.5 gm/Sodium Chloride 100 ml @ 200 mls/hr 1X ONCE IV Last administered on 10/17/19at 01:24; Start 10/17/19 at 00:45; Stop 10/17/19 at 01:14; Status DC Sodium Chloride 1,000 ml @ 2,460 mls/hr Q25M IV Last administered on 10/17/19at 01:56; Start 10/17/19 at 00:30; Stop 10/17/19 at 01:30; Status DC Sodium Chloride 1,000 ml @ 75 mls/hr [id number] IV Last administered on 10/17/19at 03:49; Start 10/17/19 at 02:15; Stop 10/18/19 at 02:14 Piperacillin Sod/ Tazobactam Sod 3.375 gm/Sodium Chloride 50 ml @ 100 mls/hr Q6HRS IV Last administered on 10/17/19at 05:52; Start 10/17/19 at 06:00 Morphine Sulfate (Morphine Sulfate) 2 mg PRN Q2HR PRN IV PAIN Last administered on 10/17/19at 06:51; Start 10/17/19 at 06:30 Lorazepam (Ativan Inj) 2 mg PRN Q1HR PRN IV For CIWA 8-14 Last administered on 10/17/19at 08:38; Start 10/17/19 at 06:30 Lorazepam (Ativan Inj) 4 mg PRN Q1HR PRN IV For CIWA 15 or greater; Start 10/17/19 at 06:30 Haloperidol Lactate (Haldol Inj) 5 mg PRN Q4HRS PRN IVP Hallucinatns,Confusn,Delirium; Start 10/17/19 at 06:30 Diphenhydramine HCl (Benadryl) 25 mg PRN Q15MIN PRN IVP EPS symptoms 2'Haldol admin; Start 10/17/19 at 06:30 Clonidine HCl (Catapres) 0.1 mg PRN Q1HR PRN PO SBP > 180 or DBP > 100, MRX3; Start 10/17/19 at 06:30 Multivitamins 10 ml/Thiamine HCl 100 mg/Folic Acid 1 mg/Sodium Chloride 1,011.2 ml @ 100 mls/ hr DAILY IV Last administered on 10/17/19at 08:37; Start 10/17/19 at 09:00; Stop 10/21/19 at 19:07 Active Scripts Active Reported [inhaler] PRN [lisinopril +] DAILY [lisino] Vitals/I & O Vital Sign - Last 24 Hours 10/16/19 10/16/19 10/16/19 10/16/19 20:35 20:44 20:51 21:14 Temp 98.1 98.1 Pulse 104 114 112 106 Resp 18 16 16 17 B/P (MAP) 153/81 (105) 153/81 (105) 141/82 (101) 140/66 (90) Pulse Ox 95 O2 Delivery Room Air Room Air Room Air Room Air 10/16/19 10/17/19 10/17/19 10/17/19 21:44 01:29 01:59 02:29 Pulse 104 104 104 98 Resp 16 19 17 15 B/P (MAP) 133/82 (99) 143/76 (98) 117/55 (75) 129/66 (87) O2 Delivery Room Air Room Air Room Air Room Air 10/17/19 10/17/19 10/17/19 10/17/19 03:00 06:51 07:00 07:55 Temp 97.9 97.8 97.9 97.8 Pulse 108 85 Resp 18 18 18 B/P (MAP) 146/71 (96) 125/73 (90) Pulse Ox 95 95 95 O2 Delivery Room Air Room Air Room Air 10/17/19 10:51 Temp 98.1 98.1 Pulse 98 Resp 18 B/P (MAP) 146/76 (99) Pulse Ox 95 Intake and Output 10/16/19 10/16/19 10/17/19 15:00 23:00 07:00 Intake Total 2200 ml Output Total 175 ml Balance 2025 ml Problem List Problems Medical Problems: (1) Acute colitis Status: Acute (2) Dehydration Status: Acute (3) Painless jaundice Status: Acute (4) Sepsis Status: Acute Assessment Jaundice- most likely secondary to alcoholi c hepatitis Plan medical therapy for withdrawal 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
[2019-10-17] MEDS ORDERED: MAG HYDROX/ALUMINUM HYD/SIMETH 30 ML ORAL.SUSP PO PRN (11:45)
[2019-10-17] MEDS ORDERED: DOCUSATE SODIUM 100 MG CAPSULE. PO PRN (11:45)
[2019-10-17] MEDS ORDERED: guaiFENesin ORAL 200 MG/10 ML LIQUID. PO PRN (11:45)
[2019-10-17] MEDS ORDERED: 0.9 % SODIUM CHLORIDE 10 ML DISP.SYRIN. IV PRN (11:45)
[2019-10-17] MEDS ORDERED: ENOXAPARIN 40 MG/0.4 ML SYRINGE. SQ SCH (12:00)
--- NOTE | 2019-10-17 14:07 | PDOC ---
Infectious Disease Note Vital Sign Vital Signs Vital Signs Date Time Temp Pulse Resp B/P (MAP) Pulse Ox O2 Delivery O2 Flow Rate FiO2 10/17/19 10:51 98.1 98 18 146/76 (99) 95 98.1 10/17/19 07:55 Room Air Labs Lab Laboratory Tests Test 10/16/19 20:20 10/16/19 23:37 10/17/19 00:33 10/17/19 04:25 White Blood Count 13.9 x10^3/uL (4.0-11.0) Red Blood Count 4.35 x10^6/uL (4.30-5.70) Hemoglobin 15.5 g/dL (13.0-17.5) Hematocrit 44.1 % (39.0-53.0) Mean Corpuscular Volume 101 fL (79-100) Mean Corpuscular Hemoglobin 36 pg (25-35) Mean Corpuscular Hemoglobin Concent 35 g/dL (31-37) Red Cell Distribution Width 14.8 % (11.5-14.5) Platelet Count 104 x10^3/uL (140-400) Neutrophils (%) (Auto) 74 % (31-73) Lymphocytes (%) (Auto) 12 % (24-48) Monocytes (%) (Auto) 11 % (0-9) Eosinophils (%) (Auto) 2 % (0-3) Basophils (%) (Auto) 0 % (0-3) Neutrophils # (Auto) 10.3 x10^3/uL (1.8-7.7) Lymphocytes # (Auto) 1.6 x10^3/uL (1.0-4.8) Monocytes # (Auto) 1.6 x10^3/uL (0.0-1.1) Eosinophils # (Auto) 0.3 x10^3/uL (0.0-0.7) Basophils # (Auto) 0.1 x10^3/uL (0.0-0.2) Prothrombin Time 24.4 SEC (11.7-14.0) Prothromb Time International Ratio 2.2 (0.8-1.1) Activated Partial Thromboplast Time 51 SEC (24-38) Fibrinogen 245 mg/dL (200-440) Sodium Level 135 mmol/L (136-145) Potassium Level 3.8 mmol/L (3.5-5.1) Chloride Level 98 mmol/L (98-107) Carbon Dioxide Level 29 mmol/L (21-32) Anion Gap 8 (6-14) Blood Urea Nitrogen 4 mg/dL (8-26) Creatinine 0.7 mg/dL (0.7-1.3) Estimated GFR (Cockcroft-Gault) 133.3 BUN/Creatinine Ratio 6 (6-20) Glucose Level 82 mg/dL (70-99) Lactic Acid Level 4.4 mmol/L (0.4-2.0) 4.7 mmol/L (0.4-2.0) 4.2 mmol/L (0.4-2.0) Calcium Level 8.3 mg/dL (8.5-10.1) Total Bilirubin 15.1 mg/dL (0.2-1.0) Aspartate Amino Transf (AST/SGOT) 166 U/L (15-37) Alanine Aminotransferase (ALT/SGPT) 41 U/L (16-63) Alkaline Phosphatase 235 U/L (46-116) Total Protein 7.2 g/dL (6.4-8.2) Albumin 2.3 g/dL (3.4-5.0) Albumin/Globulin Ratio 0.5 (1.0-1.7) Lipase 162 U/L (73-393) Procalcitonin 0.25 ng/mL (0.00-0.10) Ethyl Alcohol Level 50 mg/dL (0-10) Hepatitis A IgM Antibody Nonreactive (Nonreactive) Hepatitis B Surface Antigen Nonreactive (Nonreactive) Hepatitis B Core IgM Antibody Nonreactive (Nonreactive) Hepatitis C IgG Antibody Nonreactive (Nonreactive) Urine Collection Type Unknown Urine Color [place] Urine Clarity Cloudy Urine pH 6.0 (<5.0-8.0) Urine Specific [place] >=1.030 (1.000-1.030) Urine Protein 30 mg/dL (NEG-TRACE) Urine Glucose (UA) Negative mg/dL (NEG) Urine Ketones (Stick) 15 mg/dL (NEG) Urine Blood Negative (NEG) Urine Nitrite Positive (NEG) Urine Bilirubin Large (NEG) Urine Urobilinogen Dipstick 1.0 mg/dL (0.2 mg/dL) Urine Leukocyte Esterase Small (NEG) Urine RBC 1-2 /HPF (0-2) Urine WBC 5-10 /HPF (0-4) Urine Squamous Epithelial Cells Few /LPF Urine Bacteria Few /HPF (0-FEW) Urine Cellular Casts Occ /HPF Urine Hyaline Casts Occasional /HPF Urine Granular Casts Occasional /HPF Urine Mucus Marked /LPF Test 10/17/19 08:15 Lactic Acid Level 2.9 mmol/L (0.4-2.0) Objective Assessment Leukocytosis Jaundice Colitis ETOH abuse Alcoholic hepatitis Plan Plan of Care supportive care zosyn hydration withdrawal precautions d/w mother CINDY WHITEHEAD MD Oct 17, 2019 14:07
--- NOTE | 2019-10-17 14:45 | CONS ---
DATE OF CONSULTATION: 10/17/2019 REQUESTING PHYSICIAN: Dr. Mora. REASON FOR CONSULTATION: Leukocytosis and jaundice. HISTORY OF PRESENT ILLNESS: This patient is a 29-year-old male with a history of heavy alcohol use, who presented with complaints of generalized aches, fatigue, decreased appetite, and yellowing of skin. He was taking ibuprofen for symptom control. He is found to have a high bilirubin of 15.1 and AST of 166. CT abdomen and pelvis suggestive of steatohepatitis and colitis. He had an elevated white blood cell count of 13,900. Had lactic acid of 4.7. Cultures were ordered. He is started on Zosyn empirically. Today, the patient is still feeling quite tired. He says his stomach feels bloated. He denies fevers or chills. He denies difficulty voiding. He says his stools have been normal. Denies rash or itching. PAST MEDICAL HISTORY: Hypertension, asthma, panic disorder, anxiety. PAST SURGICAL HISTORY: No significant past surgical history. ALLERGIES: NO KNOWN DRUG ALLERGIES. MEDICATIONS: Reviewed on the MAR and includes Zosyn and probiotics. FAMILY HISTORY: Hypertension, COPD and obesity. SOCIAL HISTORY: The patient is unemployed. He has a history of heavy alcohol. He is a current smoker. He also has a history of marijuana. He has a dog. REVIEW OF SYSTEMS: Per HPI, otherwise all other review of systems are negative. PHYSICAL EXAMINATION: VITAL SIGNS: Temperature 98.1, blood pressure 146/76, heart rate 98, respiratory rate 18, pulse oximetry is 95% on room air. GENERAL: The patient is resting quietly. He arouses easily to name. HEENT: Pupils equally round, reactive. Mild icterus. Oropharynx pink and moist. No lesions seen. NECK: Supple. LUNGS: Clear to auscultation. HEART: S1, S2 regular. ABDOMEN: Obese, soft, nontender with bowel sounds present. EXTREMITIES: No gross edema or cyanosis. SKIN: Warm to touch without signs of rash. NEUROLOGIC: Sleepy, but answering questions appropriately. LABORATORY DATA: On admission, WBC 13.9, hemoglobin 15.5, platelets 104,000. Sodium 135, potassium 3.8, creatinine 0.7, BUN 4, glucose 82. Lactic acid 2.9 from 4.4. Total bilirubin is 15.1, AST 166, ALT 41, alkaline phosphatase 235, albumin 2.3, lipase 162. Procalcitonin 0.25. CT abdomen, pelvis per HPI. Ultrasound reviewed. Urinalysis unremarkable for infection. Blood cultures pending. IMPRESSION: 1. Leukocytosis. 2. Jaundice. 3. Colitis. 4. Alcohol abuse. 5. Alcoholic hepatitis. PLAN: 1. Continue empiric Zosyn. 2. Follow up on culture results. 3. Monitor WBC count and temperature. 4. Maintain hydration. 5. Withdrawal precautions. 6. Maintain aspiration precautions. 7. Supportive care. 8. Discussed with his mother at bedside. Thank you, Dr. Mora, for asking us to participate in this patient's care. Should you have further questions or concerns, please call. The patient seen and examined and plan of care implemented by Dr. Alexander Whitehead. ALEXANDER WHITEHEAD MD DR: JANETTE/kenney JOB#: [id number] / [id number]
[2019-10-17 15:00] VITALS: BP 129/74
[2019-10-17] MEDS: IPRATRPIUM/ALBUTEROL 0.5/2.5MG 3 ML NEBU. NEB SCH ×3 (16:11→21:07)
--- NOTE | 2019-10-17 16:45 | PDOC2 ---
CONSULT Date of Consult Date of Consult DATE: 10/17/19 TIME: 16:38 Reason for Consult Reason for Consult: abnormal GB, elevated LFTS Referring Physician Referring Physician: ER Identification/Chief Complaint Chief Complaint weakness Source Source: Caregiver, Chart review, Patient History of Present Illness Reason for Visit: Admitted with fatigue, painless jaundice. History noted of heavy alcohol abuse. Associated nausea. Past Medical History Cardiovascular: HTN Pulmonary: Asthma Psych: Addictions, Panic Past Surgical History Past Surgical History: No pertinent history Family History Family History: Hypertension Social History <1 pack per day ALCOHOL: heavy Drugs: Marijuana Current Problem List Problem List Problems Medical Problems: (1) Acute colitis Status: Acute (2) Dehydration Status: Acute (3) Painless jaundice Status: Acute (4) Sepsis Status: Acute Current Medications Current Medications Current Medications Sodium Chloride 1,000 ml @ 1,000 mls/hr 1X ONCE IV Last administered on 10/16/19at 21:19; Start 10/16/19 at 21:15; Stop 10/16/19 at 22:14; Status DC Ondansetron HCl (Zofran) 4 mg 1X ONCE IVP Last administered on 10/16/19at 21:19; Start 10/16/19 at 21:15; Stop 10/16/19 at 21:16; Status DC Famotidine (Pepcid) 20 mg 1X ONCE PO Last administered on 10/16/19at 21:20; Start 10/16/19 at 21:15; Stop 10/16/19 at 21:16; Status DC Iohexol (Omnipaque 300 Mg/ml) 75 ml 1X ONCE IV Last administered on 10/16/19at 21:54; Start 10/16/19 at 21:45; Stop 10/16/19 at 21:46; Status DC Info (CONTRAST GIVEN -- Rx MONITORING) 1 each PRN DAILY PRN MC SEE COMMENTS; Start 10/16/19 at 22:00; Stop 10/18/19 at 21:59 Piperacillin Sod/ Tazobactam Sod 4.5 gm/Sodium Chloride 100 ml @ 200 mls/hr 1X ONCE IV Last administered on 10/17/19at 01:24; Start 10/17/19 at 00:45; Stop 10/17/19 at 01:14; Status DC Sodium Chloride 1,000 ml @ 2,460 mls/hr Q25M IV Last administered on 10/17/19at 01:56; Start 10/17/19 at 00:30; Stop 10/17/19 at 01:30; Status DC Sodium Chloride 1,000 ml @ 75 mls/hr [id number] IV Last administered on 10/17/19at 03:49; Start 10/17/19 at 02:15; Stop 10/17/19 at 15:57; Status DC Piperacillin Sod/ Tazobactam Sod 3.375 gm/Sodium Chloride 50 ml @ 100 mls/hr Q6HRS IV Last administered on 10/17/19at 12:17; Start 10/17/19 at 06:00 Morphine Sulfate (Morphine Sulfate) 2 mg PRN Q2HR PRN IV PAIN Last administered on 10/17/19at 15:05; Start 10/17/19 at 06:30 Lorazepam (Ativan Inj) 2 mg PRN Q1HR PRN IV For CIWA 8-14 Last administered on 10/17/19at 08:38; Start 10/17/19 at 06:30 Lorazepam (Ativan Inj) 4 mg PRN Q1HR PRN IV For CIWA 15 or greater; Start 10/17/19 at 06:30 Haloperidol Lactate (Haldol Inj) 5 mg PRN Q4HRS PRN IVP Hallucinatns,Confusn,Delirium; Start 10/17/19 at 06:30 Diphenhydramine HCl (Benadryl) 25 mg PRN Q15MIN PRN IVP EPS symptoms 2'Haldol admin; Start 10/17/19 at 06:30 Clonidine HCl (Catapres) 0.1 mg PRN Q1HR PRN PO SBP > 180 or DBP > 100, MRX3; Start 10/17/19 at 06:30 Multivitamins 10 ml/Thiamine HCl 100 mg/Folic Acid 1 mg/Sodium Chloride 1,011.2 ml @ 100 mls/ hr DAILY IV Last administered on 10/17/19at 08:37; Start 10/17/19 at 09:00; Stop 10/21/19 at 19:07 Sodium Chloride (Normal Saline Flush) 3 ml QSHIFT PRN IV AFTER MEDS AND BLOOD DRAWS; Start 10/17/19 at 11:45 Sodium Chloride 1,000 ml @ 100 mls/hr Q10H IV Last administered on 10/17/19at 15:04; Start 10/17/19 at 11:38 Al Hydroxide/Mg Hydroxide (Mylanta Plus Xs) 30 ml PRN DAILY PRN PO HEARTBURN / GAS; Start 10/17/19 at 11:45 Docusate Sodium (Colace) 100 mg PRN BID PRN PO HARD STOOLS; Start 10/17/19 at 11:45 Albuterol/ Ipratropium (Duoneb) 3 ml Q4HRS NEB Last administered on 10/17/19at 16:11; Start 10/17/19 at 12:00 Guaifenesin (Robitussin) 200 mg PRN Q4HRS PRN PO COUGH; Start 10/17/19 at 11:45 Enoxaparin Sodium (Lovenox 40mg Syringe) 40 mg Q24H SQ Last administered on 10/16at 15:05; Start 10/17/19 at 12:00 Lactobacillus Rhamnosus (Culturelle) 1 cap BID PO ; Start 10/17/19 at 21:00 Active Scripts Active Reported [inhaler] PRN [lisinopril +] DAILY [lisino] Allergies Allergies: Coded Allergies: No Known Drug Allergies (Unverified , 11/30/15) ROS General: YES: Fatigue; No: Chills, Other (fevers ) PSYCHOLOGICAL ROS: YES: Anxiety; No: Depression Eyes: No Blurry vision, No Double vision HEENT: No: Heacaches, Sore Throat Hematological and Lymphatic: No: Bleeding Problems, Blood Clots Respiratory: No: Cough, Shortness of breath Cardiovascular: No Chest Pain, No Palpitations Gastrointestinal: Yes Nausea; No Melena Genitourinary: No Dysuria, No Hematuria Neurological: No Confusion, No Impaired Coord/balance Skin: No Pruritus, No Rash Physical Exam General: Alert, Cooperative, Other (lethargic ) HEENT: Other (jaundice) Lungs: Clear to auscultation, Normal air movement Heart: Regular rate, Normal S1, Normal S2 Abdomen: Soft, No tenderness Extremities: No clubbing, No cyanosis Skin: No rashes, No breakdown Neuro: Normal speech, Sensation intact Psych/Mental Status: Mental status NL, Mood NL Vitals VITALS Vital Signs Date Time Temp Pulse Resp B/P (MAP) Pulse Ox O2 Delivery O2 Flow Rate FiO2 10/17/19 16:11 95 Room Air 10/17/19 15:00 98.1 93 18 129/74 (92) 98.1 Labs Labs Laboratory Tests Test 10/16/19 20:20 10/16/19 23:37 10/17/19 00:33 10/17/19 04:25 White Blood Count 13.9 x10^3/uL (4.0-11.0) Red Blood Count 4.35 x10^6/uL (4.30-5.70) Hemoglobin 15.5 g/dL (13.0-17.5) Hematocrit 44.1 % (39.0-53.0) Mean Corpuscular Volume 101 fL (79-100) Mean Corpuscular Hemoglobin 36 pg (25-35) Mean Corpuscular Hemoglobin Concent 35 g/dL (31-37) Red Cell Distribution Width 14.8 % (11.5-14.5) Platelet Count 104 x10^3/uL (140-400) Neutrophils (%) (Auto) 74 % (31-73) Lymphocytes (%) (Auto) 12 % (24-48) Monocytes (%) (Auto) 11 % (0-9) Eosinophils (%) (Auto) 2 % (0-3) Basophils (%) (Auto) 0 % (0-3) Neutrophils # (Auto) 10.3 x10^3/uL (1.8-7.7) Lymphocytes # (Auto) 1.6 x10^3/uL (1.0-4.8) Monocytes # (Auto) 1.6 x10^3/uL (0.0-1.1) Eosinophils # (Auto) 0.3 x10^3/uL (0.0-0.7) Basophils # (Auto) 0.1 x10^3/uL (0.0-0.2) Prothrombin Time 24.4 SEC (11.7-14.0) Prothromb Time International Ratio 2.2 (0.8-1.1) Activated Partial Thromboplast Time 51 SEC (24-38) Fibrinogen 245 mg/dL (200-440) Sodium Level 135 mmol/L (136-145) Potassium Level 3.8 mmol/L (3.5-5.1) Chloride Level 98 mmol/L (98-107) Carbon Dioxide Level 29 mmol/L (21-32) Anion Gap 8 (6-14) Blood Urea Nitrogen 4 mg/dL (8-26) Creatinine 0.7 mg/dL (0.7-1.3) Estimated GFR (Cockcroft-Gault) 133.3 BUN/Creatinine Ratio 6 (6-20) Glucose Level 82 mg/dL (70-99) Lactic Acid Level 4.4 mmol/L (0.4-2.0) 4.7 mmol/L (0.4-2.0) 4.2 mmol/L (0.4-2.0) Calcium Level 8.3 mg/dL (8.5-10.1) Total Bilirubin 15.1 mg/dL (0.2-1.0) Aspartate Amino Transf (AST/SGOT) 166 U/L (15-37) Alanine Aminotransferase (ALT/SGPT) 41 U/L (16-63) Alkaline Phosphatase 235 U/L (46-116) Total Protein 7.2 g/dL (6.4-8.2) Albumin 2.3 g/dL (3.4-5.0) Albumin/Globulin Ratio 0.5 (1.0-1.7) Lipase 162 U/L (73-393) Procalcitonin 0.25 ng/mL (0.00-0.10) Ethyl Alcohol Level 50 mg/dL (0-10) Hepatitis A IgM Antibody Nonreactive (Nonreactive) Hepatitis B Surface Antigen Nonreactive (Nonreactive) Hepatitis B Core IgM Antibody Nonreactive (Nonreactive) Hepatitis C IgG Antibody Nonreactive (Nonreactive) Urine Collection Type Unknown Urine Color [place] Urine Clarity Cloudy Urine pH 6.0 (<5.0-8.0) Urine Specific [place] >=1.030 (1.000-1.030) Urine Protein 30 mg/dL (NEG-TRACE) Urine Glucose (UA) Negative mg/dL (NEG) Urine Ketones (Stick) 15 mg/dL (NEG) Urine Blood Negative (NEG) Urine Nitrite Positive (NEG) Urine Bilirubin Large (NEG) Urine Urobilinogen Dipstick 1.0 mg/dL (0.2 mg/dL) Urine Leukocyte Esterase Small (NEG) Urine RBC 1-2 /HPF (0-2) Urine WBC 5-10 /HPF (0-4) Urine Squamous Epithelial Cells Few /LPF Urine Bacteria Few /HPF (0-FEW) Urine Cellular Casts Occ /HPF Urine Hyaline Casts Occasional /HPF Urine Granular Casts Occasional /HPF Urine Mucus Marked /LPF Test 10/17/19 08:15 Lactic Acid Level 2.9 mmol/L (0.4-2.0) Laboratory Tests Test 10/16/19 20:20 10/16/19 23:37 10/17/19 00:33 10/17/19 04:25 White Blood Count 13.9 x10^3/uL (4.0-11.0) Red Blood Count 4.35 x10^6/uL (4.30-5.70) Hemoglobin 15.5 g/dL (13.0-17.5) Hematocrit 44.1 % (39.0-53.0) Mean Corpuscular Volume 101 fL (79-100) Mean Corpuscular Hemoglobin 36 pg (25-35) Mean Corpuscular Hemoglobin Concent 35 g/dL (31-37) Red Cell Distribution Width 14.8 % (11.5-14.5) Platelet Count 104 x10^3/uL (140-400) Neutrophils (%) (Auto) 74 % (31-73) Lymphocytes (%) (Auto) 12 % (24-48) Monocytes (%) (Auto) 11 % (0-9) Eosinophils (%) (Auto) 2 % (0-3) Basophils (%) (Auto) 0 % (0-3) Neutrophils # (Auto) 10.3 x10^3/uL (1.8-7.7) Lymphocytes # (Auto) 1.6 x10^3/uL (1.0-4.8) Monocytes # (Auto) 1.6 x10^3/uL (0.0-1.1) Eosinophils # (Auto) 0.3 x10^3/uL (0.0-0.7) Basophils # (Auto) 0.1 x10^3/uL (0.0-0.2) Prothrombin Time 24.4 SEC (11.7-14.0) Prothromb Time International Ratio 2.2 (0.8-1.1) Activated Partial Thromboplast Time 51 SEC (24-38) Fibrinogen 245 mg/dL (200-440) Sodium Level 135 mmol/L (136-145) Potassium Level 3.8 mmol/L (3.5-5.1) Chloride Level 98 mmol/L (98-107) Carbon Dioxide Level 29 mmol/L (21-32) Anion Gap 8 (6-14) Blood Urea Nitrogen 4 mg/dL (8-26) Creatinine 0.7 mg/dL (0.7-1.3) Estimated GFR (Cockcroft-Gault) 133.3 BUN/Creatinine Ratio 6 (6-20) Glucose Level 82 mg/dL (70-99) Lactic Acid Level 4.4 mmol/L (0.4-2.0) 4.7 mmol/L (0.4-2.0) 4.2 mmol/L (0.4-2.0) Calcium Level 8.3 mg/dL (8.5-10.1) Total Bilirubin 15.1 mg/dL (0.2-1.0) Aspartate Amino Transf (AST/SGOT) 166 U/L (15-37) Alanine Aminotransferase (ALT/SGPT) 41 U/L (16-63) Alkaline Phosphatase 235 U/L (46-116) Total Protein 7.2 g/dL (6.4-8.2) Albumin 2.3 g/dL (3.4-5.0) Albumin/Globulin Ratio 0.5 (1.0-1.7) Lipase 162 U/L (73-393) Procalcitonin 0.25 ng/mL (0.00-0.10) Ethyl Alcohol Level 50 mg/dL (0-10) Hepatitis A IgM Antibody Nonreactive (Nonreactive) Hepatitis B Surface Antigen Nonreactive (Nonreactive) Hepatitis B Core IgM Antibody Nonreactive (Nonreactive) Hepatitis C IgG Antibody Nonreactive (Nonreactive) Urine Collection Type Unknown Urine Color [place] Urine Clarity Cloudy Urine pH 6.0 (<5.0-8.0) Urine Specific [place] >=1.030 (1.000-1.030) Urine Protein 30 mg/dL (NEG-TRACE) Urine Glucose (UA) Negative mg/dL (NEG) Urine Ketones (Stick) 15 mg/dL (NEG) Urine Blood Negative (NEG) Urine Nitrite Positive (NEG) Urine Bilirubin Large (NEG) Urine Urobilinogen Dipstick 1.0 mg/dL (0.2 mg/dL) Urine Leukocyte Esterase Small (NEG) Urine RBC 1-2 /HPF (0-2) Urine WBC 5-10 /HPF (0-4) Urine Squamous Epithelial Cells Few /LPF Urine Bacteria Few /HPF (0-FEW) Urine Cellular Casts Occ /HPF Urine Hyaline Casts Occasional /HPF Urine Granular Casts Occasional /HPF Urine Mucus Marked /LPF Test 10/17/19 08:15 Lactic Acid Level 2.9 mmol/L (0.4-2.0) Assessment/Plan Assessment/Plan jaundice, elevated LFTS--underlying liver disease, alcohol abuse no surgical plans GI following EKATERINA RUIZ [employer] Oct 17, 2019 16:45
[2019-10-17 19:00] VITALS: BP 116/72
[2019-10-17] MEDS: LACTOBACILLUS RHAMNOSUS GG 1 CAPSULE. PO SCH (20:03)
[2019-10-17 23:00] VITALS: BP 99/65
[2019-10-18] MEDS: PIPERACILLIN/TAZOBACTAM 3.375 GM in IV NORMAL SALINE 50ML 50 ML IV SCH ×4 (00:18→17:15)
[2019-10-18] MEDS: IV NORMAL SALINE 1000ML BAG 1,000 ML IV SCH ×3 (00:18→20:57)
[2019-10-18] MEDS: IPRATRPIUM/ALBUTEROL 0.5/2.5MG 3 ML NEBU. NEB SCH (00:23)
[2019-10-18] MEDS ORDERED: ALBUTEROL SULFATE 2.5 MG/3 ML NEBU. NEB PRN (00:45)
[2019-10-18 03:00] VITALS: BP 116/75
[2019-10-18] MEDS: MORPHINE SULFATE 2 MG/ML VIAL. IV PRN ×4 (03:36→21:04)
[2019-10-18 07:00] VITALS: BP 126/67
[2019-10-18] MEDS: LACTOBACILLUS RHAMNOSUS GG 1 CAPSULE. PO SCH ×2 (07:58→20:57)
[2019-10-18 09:10] LABS: BASO # 0.1 x10^3/uL (0.0-0.2); BASO % 1 % (0-3); EOS # 0.4 x10^3/uL (0.0-0.7); EOS % 3 % (0-3); HEMATOCRIT 37.2 % (39.0-53.0); LYMPH # 1.3 x10^3/uL (1.0-4.8); LYMPH % 12 % (24-48); MEAN CORPUSCULAR HEMOGLOBIN 36 pg (25-35); MEAN CORPUSCULAR HGB CONC 35 g/dL (31-37); MEAN CORPUSCULAR VOLUME 102 fL (79-100); MONO % 9 % (0-9); NEUT # 8.3 x10^3/uL (1.8-7.7); NEUT % 76 % (31-73); PLATELET COUNT 83 x10^3/uL (140-400); RED BLOOD COUNT 3.66 x10^6/uL (4.30-5.70)
[2019-10-18 09:24] LABS: ALBUMIN 1.7 g/dL (3.4-5.0); ALBUMIN/GLOBULIN RATIO 0.5 (1.0-1.7); CREATININE 0.6 mg/dL (0.7-1.3); GFR 159.3; POTASSIUM 3.7 mmol/L (3.5-5.1); TOTAL BILIRUBIN 15.5 mg/dL (0.2-1.0); TOTAL PROTEIN 5.4 g/dL (6.4-8.2)
--- NOTE | 2019-10-18 09:31 | EKG ---
[facility] [address] [place] [address] Test Date: 2019-10-18 Test Time: 09:25:05 Pat Name: MARYANA COOPER Department: Room: [facility] Gender: M [employer]: : 1990 Requested By: SANDY ZHU Order Number: [id number] Reading MD: Measurements Intervals [place] Rate: 101 P: 49 SD: 118 QRS: 52 QRSD: 96 T: 19 QT: 348 QTc: 452 Interpretive Statements SINUS TACHYCARDIA QRS(T) CONTOUR ABNORMALITY CONSISTENT WITH INFERIOR MYOCARDIAL DAMAGE T ABNORMALITY IN ANTERIOR LEADS ABNORMAL ECG RI6.02 Compared to ECG 11/30/2015 17:39:09 T-wave abnormality now present Sinus rhythm no longer present
[2019-10-18] MEDS: MULTIVIT INFUSN,ADULT 4,VIT K 10 ML, THIAMINE INJ 100 MG, FOLIC ACID INJ 1 MG in IV NOR... IV SCH (09:38)
--- NOTE | 2019-10-18 10:47 | PDOC ---
PROGRESS NOTES Date of Service: DATE: 10/18/19 TIME: 10:46 Chief Complaint Chief Complaint VTE Prophylaxis Ordered VTE Prophylaxis Devices: No VTE Pharmacological Prophylaxi: Yes Assessment/Plan Assessment/Plan impression painless jaundice attenuation of liver with adjacent fat stranding. //steato-hepatitis. apparent gallbladder wall thickening with debris within the lumen which could be from sludge or stones. // wall thickening is nonspecific in nature and could be related to primary gallbladder inflammation or reactive to adjacent hepatic disease.// gallbladder wall lesion is also not excluded. ALCOHOL ABUSE , severe Leukocytosis lactic acidosis thc abuse thrombocytopenia severe protein-caloric malnutrition MAJOR Depression plan ADMIT GI CONSULT Hepatitis dx panel ID CONSULT blood culture emperic iv antibiotics urine culture d/c lovenox due to thrombocytopenia psych consult d/w family in room Justicifation of Admission Dx: Justifications for Admission: Justification of Admission Dx: Yes Sepsis: End-Organ Dysfunction History of Present Illness History of Present Illness Identification/Chief Complaint Chief Complaint seen in er for jaundice , 29 year old male who presents with painless jaundice for the last 3 weeks. Patient reports he was in [place] by a month ago denied any significant COVID exposure but reports that for the last 2 weeks he has had troubles with generalized body aches, fatigue and decrease in appetite. He denies any pain in his abdomen but does complain of some nausea. He also complains of early satiety. He reports that the food does not make him have any pain but also does make him feel any better either. His mom came over today and noticed that he had jaundice and sent him to the emergency room for further evaluation. denies any fever, chills or sweats. He denies any cough shortness of breath or chest pain. w/o c/w alcohol associated hepatitis denies recent tick bites , admits to heavy alcohol intake sine high school, now drinking one pint of vodka daily Vitals Vitals Vital Signs Date Time Temp Pulse Resp B/P (MAP) Pulse Ox O2 Delivery O2 Flow Rate FiO2 10/18/19 07:55 Room Air 10/18/19 07:00 98.7 105 18 126/67 (86) 93 98.7 Physical Exam General: Alert, Oriented X3, Cooperative, Other (lethargic , depressed) Heart: Regular rate, Normal S1, Normal S2 Lungs: Clear Abdomen: Normal bowel sounds, Soft, No tenderness Extremities: No clubbing, No cyanosis Skin: No rashes, No breakdown Labs LABS SOURCE: BLOOD ENTR: 10/17/19-8 JACKY COOLEY: LICHA [facility]OCANEGRA [facility]: ORDERED: BCULT Procedure Result BLOOD CULTURE Preliminary NO GROWTH AFTER 1 DAY -- Laboratory Tests Test 10/18/19 09:00 White Blood Count 11.0 x10^3/uL (4.0-11.0) Red Blood Count 3.66 x10^6/uL (4.30-5.70) Hemoglobin 13.0 g/dL (13.0-17.5) Hematocrit 37.2 % (39.0-53.0) Mean Corpuscular Volume 102 fL (79-100) Mean Corpuscular Hemoglobin 36 pg (25-35) Mean Corpuscular Hemoglobin Concent 35 g/dL (31-37) Red Cell Distribution Width 15.0 % (11.5-14.5) Platelet Count 83 x10^3/uL (140-400) Neutrophils (%) (Auto) 76 % (31-73) Lymphocytes (%) (Auto) 12 % (24-48) Monocytes (%) (Auto) 9 % (0-9) Eosinophils (%) (Auto) 3 % (0-3) Basophils (%) (Auto) 1 % (0-3) Neutrophils # (Auto) 8.3 x10^3/uL (1.8-7.7) Lymphocytes # (Auto) 1.3 x10^3/uL (1.0-4.8) Monocytes # (Auto) 1.0 x10^3/uL (0.0-1.1) Eosinophils # (Auto) 0.4 x10^3/uL (0.0-0.7) Basophils # (Auto) 0.1 x10^3/uL (0.0-0.2) Sodium Level 135 mmol/L (136-145) Potassium Level 3.7 mmol/L (3.5-5.1) Chloride Level 100 mmol/L (98-107) Carbon Dioxide Level 30 mmol/L (21-32) Anion Gap 5 (6-14) Blood Urea Nitrogen 3 mg/dL (8-26) Creatinine 0.6 mg/dL (0.7-1.3) Estimated GFR (Cockcroft-Gault) 159.3 BUN/Creatinine Ratio 5 (6-20) Glucose Level 95 mg/dL (70-99) Lactic Acid Level 2.0 mmol/L (0.4-2.0) Calcium Level 7.0 mg/dL (8.5-10.1) Total Bilirubin 15.5 mg/dL (0.2-1.0) Aspartate Amino Transf (AST/SGOT) 122 U/L (15-37) Alanine Aminotransferase (ALT/SGPT) 37 U/L (16-63) Alkaline Phosphatase 170 U/L (46-116) Total Protein 5.4 g/dL (6.4-8.2) Albumin 1.7 g/dL (3.4-5.0) Albumin/Globulin Ratio 0.5 (1.0-1.7) Assessment and Plan Assessmemt and Plan Problems Medical Problems: (1) Acute colitis Status: Acute (2) Dehydration Status: Acute (3) Painless jaundice Status: Acute (4) Sepsis Status: Acute Comment Review of Relevant I have reviewed the following items larry (where applicable) has been applied. Labs Laboratory Tests Test 10/16/19 20:20 10/16/19 23:37 10/17/19 00:33 10/17/19 04:25 White Blood Count 13.9 x10^3/uL (4.0-11.0) Red Blood Count 4.35 x10^6/uL (4.30-5.70) Hemoglobin 15.5 g/dL (13.0-17.5) Hematocrit 44.1 % (39.0-53.0) Mean Corpuscular Volume 101 fL (79-100) Mean Corpuscular Hemoglobin 36 pg (25-35) Mean Corpuscular Hemoglobin Concent 35 g/dL (31-37) Red Cell Distribution Width 14.8 % (11.5-14.5) Platelet Count 104 x10^3/uL (140-400) Neutrophils (%) (Auto) 74 % (31-73) Lymphocytes (%) (Auto) 12 % (24-48) Monocytes (%) (Auto) 11 % (0-9) Eosinophils (%) (Auto) 2 % (0-3) Basophils (%) (Auto) 0 % (0-3) Neutrophils # (Auto) 10.3 x10^3/uL (1.8-7.7) Lymphocytes # (Auto) 1.6 x10^3/uL (1.0-4.8) Monocytes # (Auto) 1.6 x10^3/uL (0.0-1.1) Eosinophils # (Auto) 0.3 x10^3/uL (0.0-0.7) Basophils # (Auto) 0.1 x10^3/uL (0.0-0.2) Prothrombin Time 24.4 SEC (11.7-14.0) Prothromb Time International Ratio 2.2 (0.8-1.1) Activated Partial Thromboplast Time 51 SEC (24-38) Fibrinogen 245 mg/dL (200-440) Sodium Level 135 mmol/L (136-145) Potassium Level 3.8 mmol/L (3.5-5.1) Chloride Level 98 mmol/L (98-107) Carbon Dioxide Level 29 mmol/L (21-32) Anion Gap 8 (6-14) Blood Urea Nitrogen 4 mg/dL (8-26) Creatinine 0.7 mg/dL (0.7-1.3) Estimated GFR (Cockcroft-Gault) 133.3 BUN/Creatinine Ratio 6 (6-20) Glucose Level 82 mg/dL (70-99) Lactic Acid Level 4.4 mmol/L (0.4-2.0) 4.7 mmol/L (0.4-2.0) 4.2 mmol/L (0.4-2.0) Calcium Level 8.3 mg/dL (8.5-10.1) Total Bilirubin 15.1 mg/dL (0.2-1.0) Aspartate Amino Transf (AST/SGOT) 166 U/L (15-37) Alanine Aminotransferase (ALT/SGPT) 41 U/L (16-63) Alkaline Phosphatase 235 U/L (46-116) Total Protein 7.2 g/dL (6.4-8.2) Albumin 2.3 g/dL (3.4-5.0) Albumin/Globulin Ratio 0.5 (1.0-1.7) Lipase 162 U/L (73-393) Procalcitonin 0.25 ng/mL (0.00-0.10) Ethyl Alcohol Level 50 mg/dL (0-10) Hepatitis A IgM Antibody Nonreactive (Nonreactive) Hepatitis B Surface Antigen Nonreactive (Nonreactive) Hepatitis B Core IgM Antibody Nonreactive (Nonreactive) Hepatitis C IgG Antibody Nonreactive (Nonreactive) Urine Collection Type Unknown Urine Color Issue Urine Clarity Cloudy Urine pH 6.0 (<5.0-8.0) Urine Specific [place] >=1.030 (1.000-1.030) Urine Protein 30 mg/dL (NEG-TRACE) Urine Glucose (UA) Negative mg/dL (NEG) Urine Ketones (Stick) 15 mg/dL (NEG) Urine Blood Negative (NEG) Urine Nitrite Positive (NEG) Urine Bilirubin Large (NEG) Urine Urobilinogen Dipstick 1.0 mg/dL (0.2 mg/dL) Urine Leukocyte Esterase Small (NEG) Urine RBC 1-2 /HPF (0-2) Urine WBC 5-10 /HPF (0-4) Urine Squamous Epithelial Cells Few /LPF Urine Bacteria Few /HPF (0-FEW) Urine Cellular Casts Occ /HPF Urine Hyaline Casts Occasional /HPF Urine Granular Casts Occasional /HPF Urine Mucus Marked /LPF Test 10/17/19 08:15 10/18/19 09:00 Lactic Acid Level 2.9 mmol/L (0.4-2.0) 2.0 mmol/L (0.4-2.0) White Blood Count 11.0 x10^3/uL (4.0-11.0) Red Blood Count 3.66 x10^6/uL (4.30-5.70) Hemoglobin 13.0 g/dL (13.0-17.5) Hematocrit 37.2 % (39.0-53.0) Mean Corpuscular Volume 102 fL (79-100) Mean Corpuscular Hemoglobin 36 pg (25-35) Mean Corpuscular Hemoglobin Concent 35 g/dL (31-37) Red Cell Distribution Width 15.0 % (11.5-14.5) Platelet Count 83 x10^3/uL (140-400) Neutrophils (%) (Auto) 76 % (31-73) Lymphocytes (%) (Auto) 12 % (24-48) Monocytes (%) (Auto) 9 % (0-9) Eosinophils (%) (Auto) 3 % (0-3) Basophils (%) (Auto) 1 % (0-3) Neutrophils # (Auto) 8.3 x10^3/uL (1.8-7.7) Lymphocytes # (Auto) 1.3 x10^3/uL (1.0-4.8) Monocytes # (Auto) 1.0 x10^3/uL (0.0-1.1) Eosinophils # (Auto) 0.4 x10^3/uL (0.0-0.7) Basophils # (Auto) 0.1 x10^3/uL (0.0-0.2) Sodium Level 135 mmol/L (136-145) Potassium Level 3.7 mmol/L (3.5-5.1) Chloride Level 100 mmol/L (98-107) Carbon Dioxide Level 30 mmol/L (21-32) Anion Gap 5 (6-14) Blood Urea Nitrogen 3 mg/dL (8-26) Creatinine 0.6 mg/dL (0.7-1.3) Estimated GFR (Cockcroft-Gault) 159.3 BUN/Creatinine Ratio 5 (6-20) Glucose Level 95 mg/dL (70-99) Calcium Level 7.0 mg/dL (8.5-10.1) Total Bilirubin 15.5 mg/dL (0.2-1.0) Aspartate Amino Transf (AST/SGOT) 122 U/L (15-37) Alanine Aminotransferase (ALT/SGPT) 37 U/L (16-63) Alkaline Phosphatase 170 U/L (46-116) Total Protein 5.4 g/dL (6.4-8.2) Albumin 1.7 g/dL (3.4-5.0) Albumin/Globulin Ratio 0.5 (1.0-1.7) Laboratory Tests Test 10/18/19 09:00 White Blood Count 11.0 x10^3/uL (4.0-11.0) Red Blood Count 3.66 x10^6/uL (4.30-5.70) Hemoglobin 13.0 g/dL (13.0-17.5) Hematocrit 37.2 % (39.0-53.0) Mean Corpuscular Volume 102 fL (79-100) Mean Corpuscular Hemoglobin 36 pg (25-35) Mean Corpuscular Hemoglobin Concent 35 g/dL (31-37) Red Cell Distribution Width 15.0 % (11.5-14.5) Platelet Count 83 x10^3/uL (140-400) Neutrophils (%) (Auto) 76 % (31-73) Lymphocytes (%) (Auto) 12 % (24-48) Monocytes (%) (Auto) 9 % (0-9) Eosinophils (%) (Auto) 3 % (0-3) Basophils (%) (Auto) 1 % (0-3) Neutrophils # (Auto) 8.3 x10^3/uL (1.8-7.7) Lymphocytes # (Auto) 1.3 x10^3/uL (1.0-4.8) Monocytes # (Auto) 1.0 x10^3/uL (0.0-1.1) Eosinophils # (Auto) 0.4 x10^3/uL (0.0-0.7) Basophils # (Auto) 0.1 x10^3/uL (0.0-0.2) Sodium Level 135 mmol/L (136-145) Potassium Level 3.7 mmol/L (3.5-5.1) Chloride Level 100 mmol/L (98-107) Carbon Dioxide Level 30 mmol/L (21-32) Anion Gap 5 (6-14) Blood Urea Nitrogen 3 mg/dL (8-26) Creatinine 0.6 mg/dL (0.7-1.3) Estimated GFR (Cockcroft-Gault) 159.3 BUN/Creatinine Ratio 5 (6-20) Glucose Level 95 mg/dL (70-99) Lactic Acid Level 2.0 mmol/L (0.4-2.0) Calcium Level 7.0 mg/dL (8.5-10.1) Total Bilirubin 15.5 mg/dL (0.2-1.0) Aspartate Amino Transf (AST/SGOT) 122 U/L (15-37) Alanine Aminotransferase (ALT/SGPT) 37 U/L (16-63) Alkaline Phosphatase 170 U/L (46-116) Total Protein 5.4 g/dL (6.4-8.2) Albumin 1.7 g/dL (3.4-5.0) Albumin/Globulin Ratio 0.5 (1.0-1.7) Microbiology 10/17/19 Blood Culture - Preliminary, Resulted NO GROWTH AFTER 1 DAY 10/16/19 Urine Culture - Final, Complete Medications Current Medications Sodium Chloride 1,000 ml @ 1,000 mls/hr 1X ONCE IV Last administered on 10/16/19at 21:19; Start 10/16/19 at 21:15; Stop 10/16/19 at 22:14; Status DC Ondansetron HCl (Zofran) 4 mg 1X ONCE IVP Last administered on 10/16/19at 21:19; Start 10/16/19 at 21:15; Stop 10/16/19 at 21:16; Status DC Famotidine (Pepcid) 20 mg 1X ONCE PO Last administered on 10/16/19at 21:20; Start 10/16/19 at 21:15; Stop 10/16/19 at 21:16; Status DC Iohexol (Omnipaque 300 Mg/ml) 75 ml 1X ONCE IV Last administered on 10/16/19at 21:54; Start 10/16/19 at 21:45; Stop 10/16/19 at 21:46; Status DC Info (CONTRAST GIVEN -- Rx MONITORING) 1 each PRN DAILY PRN MC SEE COMMENTS; Start 10/16/19 at 22:00; Stop 10/18/19 at 21:59 Piperacillin Sod/ Tazobactam Sod 4.5 gm/Sodium Chloride 100 ml @ 200 mls/hr 1X ONCE IV Last administered on 10/17/19at 01:24; Start 10/17/19 at 00:45; Stop 10/17/19 at 01:14; Status DC Sodium Chloride 1,000 ml @ 2,460 mls/hr Q25M IV Last administered on 10/17/19at 01:56; Start 10/17/19 at 00:30; Stop 10/17/19 at 01:30; Status DC Sodium Chloride 1,000 ml @ 75 mls/hr [id number] IV Last administered on 10/17/19at 03:49; Start 10/17/19 at 02:15; Stop 10/17/19 at 15:57; Status DC Piperacillin Sod/ Tazobactam Sod 3.375 gm/Sodium Chloride 50 ml @ 100 mls/hr Q6HRS IV Last administered on 10/18/19at 06:17; Start 10/17/19 at 06:00 Morphine Sulfate (Morphine Sulfate) 2 mg PRN Q2HR PRN IV PAIN Last administered on 10/18/19at 03:36; Start 10/17/19 at 06:30 Lorazepam (Ativan Inj) 2 mg PRN Q1HR PRN IV For CIWA 8-14 Last administered on 10/18/19at 07:58; Start 10/17/19 at 06:30 Lorazepam (Ativan Inj) 4 mg PRN Q1HR PRN IV For CIWA 15 or greater; Start 10/17/19 at 06:30 Haloperidol Lactate (Haldol Inj) 5 mg PRN Q4HRS PRN IVP Hallucinatns,Confusn,Delirium; Start 10/17/19 at 06:30 Diphenhydramine HCl (Benadryl) 25 mg PRN Q15MIN PRN IVP EPS symptoms 2'Haldol admin; Start 10/17/19 at 06:30 Clonidine HCl (Catapres) 0.1 mg PRN Q1HR PRN PO SBP > 180 or DBP > 100, MRX3; Start 10/17/19 at 06:30 Multivitamins 10 ml/Thiamine HCl 100 mg/Folic Acid 1 mg/Sodium Chloride 1,011.2 ml @ 100 mls/ hr DAILY IV Last administered on 10/18/19at 09:38; Start 10/17/19 at 09:00; Stop 10/21/19 at 19:07 Sodium Chloride (Normal Saline Flush) 3 ml QSHIFT PRN IV AFTER MEDS AND BLOOD DRAWS; Start 10/17/19 at 11:45 Sodium Chloride 1,000 ml @ 100 mls/hr Q10H IV Last administered on 10/18/19at 09:38; Start 10/17/19 at 11:38 Al Hydroxide/Mg Hydroxide (Mylanta Plus Xs) 30 ml PRN DAILY PRN PO HEARTBURN / GAS; Start 10/17/19 at 11:45 Docusate Sodium (Colace) 100 mg PRN BID PRN PO HARD STOOLS; Start 10/17/19 at 11:45 Albuterol/ Ipratropium (Duoneb) 3 ml Q4HRS NEB Last administered on 10/18/19at 00:23; Start 10/17/19 at 12:00; Stop 10/18/19 at 00:38; Status DC Guaifenesin (Robitussin) 200 mg PRN Q4HRS PRN PO COUGH; Start 10/17/19 at 11:45 Enoxaparin Sodium (Lovenox 40mg Syringe) 40 mg Q24H SQ Last administered on 10/17/19at 15:05; Start 10/17/19 at 12:00 Lactobacillus Rhamnosus (Culturelle) 1 cap BID PO Last administered on 10/18/19at 07:58; Start 10/17/19 at 21:00 Albuterol Sulfate (Ventolin Neb Soln) 2.5 mg PRN Q4HRS PRN NEB SHORTNESS OF BREATH; Start 10/18/19 at 00:45 Active Scripts Active Reported [inhaler] PRN [lisinopril +] DAILY Vitals/I & O Vital Sign - Last 24 Hours 10/17/19 10/17/19 10/17/19 10/17/19 10:51 15:00 15:05 15:57 Temp 98.1 98.1 98.1 98.1 Pulse 98 93 Resp 18 18 B/P (MAP) 146/76 (99) 129/74 (92) Pulse Ox 95 92 O2 Delivery Room Air Room Air 10/17/19 10/17/19 10/17/19 10/17/19 16:11 19:00 20:00 20:04 Temp 98.8 98.8 Pulse 103 Resp 18 16 B/P (MAP) 116/72 (87) Pulse Ox 95 91 95 O2 Delivery Room Air Room Air Room Air 10/17/19 10/17/19 10/17/19 10/18/19 20:34 21:09 23:00 00:23 Temp 98.8 98.8 Pulse 106 Resp 16 24 B/P (MAP) 99/65 (76) Pulse Ox 90 94 90 O2 Delivery Room Air Room Air Room Air 10/18/19 10/18/19 10/18/19 10/18/19 03:00 03:36 04:06 07:00 Temp 98.3 98.7 98.3 98.7 Pulse 102 105 Resp 20 18 18 18 B/P (MAP) 116/75 (89) 126/67 (86) Pulse Ox 93 92 92 93 O2 Delivery Room Air Room Air 10/18/19 07:55 O2 Delivery Room Air Intake and Output 10/17/19 10/17/19 10/18/19 15:00 23:00 07:00 Intake Total 220 ml 120 ml 120 ml Output Total 125 ml Balance 220 ml 120 ml -5 ml Justicifation of Admission Dx: Justifications for Admission: Justification of Admission Dx: Yes Sepsis: End-Organ Dysfunction SANDY ZHU MD Oct 18, 2019 10:47
[2019-10-18 11:00] VITALS: BP 139/88
--- NOTE | 2019-10-18 11:21 | PDOC ---
Infectious Disease Note Subjective Subjective Still feeling bloated and achy. ROS ROS Denies fever/chills Denies cough/SOA Denies N/V/D Vital Sign Vital Signs Vital Signs Date Time Temp Pulse Resp B/P (MAP) Pulse Ox O2 Delivery O2 Flow Rate FiO2 10/18/19 11:00 98.6 103 16 139/88 (105) 91 98.6 10/18/19 10:54 Room Air Physical Exam PHYSICAL EXAM GENERAL: Standing near the bed, alert in NAD HEENT: Pupils equally round, reactive. Mild icterus. Oropharynx pink and moist. No lesions seen. NECK: Supple. LUNGS: Clear to auscultation. HEART: S1, S2 regular. ABDOMEN: Obese, soft, nontender with bowel sounds present. EXTREMITIES: No gross edema or cyanosis. SKIN: Warm to touch without signs of rash. NEUROLOGIC: ALert, oriented. Labs Lab Laboratory Tests Test 10/18/19 09:00 White Blood Count 11.0 x10^3/uL (4.0-11.0) Red Blood Count 3.66 x10^6/uL (4.30-5.70) Hemoglobin 13.0 g/dL (13.0-17.5) Hematocrit 37.2 % (39.0-53.0) Mean Corpuscular Volume 102 fL (79-100) Mean Corpuscular Hemoglobin 36 pg (25-35) Mean Corpuscular Hemoglobin Concent 35 g/dL (31-37) Red Cell Distribution Width 15.0 % (11.5-14.5) Platelet Count 83 x10^3/uL (140-400) Neutrophils (%) (Auto) 76 % (31-73) Lymphocytes (%) (Auto) 12 % (24-48) Monocytes (%) (Auto) 9 % (0-9) Eosinophils (%) (Auto) 3 % (0-3) Basophils (%) (Auto) 1 % (0-3) Neutrophils # (Auto) 8.3 x10^3/uL (1.8-7.7) Lymphocytes # (Auto) 1.3 x10^3/uL (1.0-4.8) Monocytes # (Auto) 1.0 x10^3/uL (0.0-1.1) Eosinophils # (Auto) 0.4 x10^3/uL (0.0-0.7) Basophils # (Auto) 0.1 x10^3/uL (0.0-0.2) Sodium Level 135 mmol/L (136-145) Potassium Level 3.7 mmol/L (3.5-5.1) Chloride Level 100 mmol/L (98-107) Carbon Dioxide Level 30 mmol/L (21-32) Anion Gap 5 (6-14) Blood Urea Nitrogen 3 mg/dL (8-26) Creatinine 0.6 mg/dL (0.7-1.3) Estimated GFR (Cockcroft-Gault) 159.3 BUN/Creatinine Ratio 5 (6-20) Glucose Level 95 mg/dL (70-99) Lactic Acid Level 2.0 mmol/L (0.4-2.0) Calcium Level 7.0 mg/dL (8.5-10.1) Total Bilirubin 15.5 mg/dL (0.2-1.0) Aspartate Amino Transf (AST/SGOT) 122 U/L (15-37) Alanine Aminotransferase (ALT/SGPT) 37 U/L (16-63) Alkaline Phosphatase 170 U/L (46-116) Total Protein 5.4 g/dL (6.4-8.2) Albumin 1.7 g/dL (3.4-5.0) Albumin/Globulin Ratio 0.5 (1.0-1.7) Micro Microbiology 10/17/19 Blood Culture - Preliminary, Resulted NO GROWTH AFTER 1 DAY 10/16/19 URINE CULTURE Final Final No Growth on 10/18/19 at 0857 Objective Assessment Leukocytosis - improved Jaundice. Colitis. Alcohol abuse. Alcoholic hepatitis. Lactic acidosis - improved Plan Plan of Care Empiric Zosyn Cultures neg to date Hydration withdrawal precautions D/w family at bedside Attending Co-Sign The patient was seen and interviewed as well as examined at the bedside. The chart was reviewed. The case was discussed. Agree with the plan of care. SABINO VIDALES APRN Oct 18, 2019 11:21 CINDY WHITEHEAD MD Oct 18, 2019 11:26
--- NOTE | 2019-10-18 12:09 | PDOC ---
EKATERINA RUIZ REGISTERED ROUTE ASSOCIATE 10/18/19 1209: SURGICAL PROGRESS NOTE DATE: 10/18/19 TIME: 12:07 Subjective some improvement in pain ate breakfast ok Vital Signs Vital Signs Date Time Temp Pulse Resp B/P (MAP) Pulse Ox O2 Delivery O2 Flow Rate FiO2 10/18/19 11:38 Room Air 10/18/19 11:00 98.6 103 16 139/88 (105) 91 98.6 I&O Intake and Output 10/18/19 07:00 Intake Total 460 ml Output Total 125 ml Balance 335 ml Intake Oral 460 ml Output Urine Total 125 ml # Voids 1 # Bowel Movements 1 General: Cooperative, No acute distress Abdomen: Soft, Other (ND) Labs Laboratory Tests Test 10/16/19 20:20 10/16/19 23:37 10/17/19 00:33 10/17/19 04:25 White Blood Count 13.9 x10^3/uL (4.0-11.0) Red Blood Count 4.35 x10^6/uL (4.30-5.70) Hemoglobin 15.5 g/dL (13.0-17.5) Hematocrit 44.1 % (39.0-53.0) Mean Corpuscular Volume 101 fL (79-100) Mean Corpuscular Hemoglobin 36 pg (25-35) Mean Corpuscular Hemoglobin Concent 35 g/dL (31-37) Red Cell Distribution Width 14.8 % (11.5-14.5) Platelet Count 104 x10^3/uL (140-400) Neutrophils (%) (Auto) 74 % (31-73) Lymphocytes (%) (Auto) 12 % (24-48) Monocytes (%) (Auto) 11 % (0-9) Eosinophils (%) (Auto) 2 % (0-3) Basophils (%) (Auto) 0 % (0-3) Neutrophils # (Auto) 10.3 x10^3/uL (1.8-7.7) Lymphocytes # (Auto) 1.6 x10^3/uL (1.0-4.8) Monocytes # (Auto) 1.6 x10^3/uL (0.0-1.1) Eosinophils # (Auto) 0.3 x10^3/uL (0.0-0.7) Basophils # (Auto) 0.1 x10^3/uL (0.0-0.2) Prothrombin Time 24.4 SEC (11.7-14.0) Prothromb Time International Ratio 2.2 (0.8-1.1) Activated Partial Thromboplast Time 51 SEC (24-38) Fibrinogen 245 mg/dL (200-440) Sodium Level 135 mmol/L (136-145) Potassium Level 3.8 mmol/L (3.5-5.1) Chloride Level 98 mmol/L (98-107) Carbon Dioxide Level 29 mmol/L (21-32) Anion Gap 8 (6-14) Blood Urea Nitrogen 4 mg/dL (8-26) Creatinine 0.7 mg/dL (0.7-1.3) Estimated GFR (Cockcroft-Gault) 133.3 BUN/Creatinine Ratio 6 (6-20) Glucose Level 82 mg/dL (70-99) Lactic Acid Level 4.4 mmol/L (0.4-2.0) 4.7 mmol/L (0.4-2.0) 4.2 mmol/L (0.4-2.0) Calcium Level 8.3 mg/dL (8.5-10.1) Total Bilirubin 15.1 mg/dL (0.2-1.0) Aspartate Amino Transf (AST/SGOT) 166 U/L (15-37) Alanine Aminotransferase (ALT/SGPT) 41 U/L (16-63) Alkaline Phosphatase 235 U/L (46-116) Total Protein 7.2 g/dL (6.4-8.2) Albumin 2.3 g/dL (3.4-5.0) Albumin/Globulin Ratio 0.5 (1.0-1.7) Lipase 162 U/L (73-393) Procalcitonin 0.25 ng/mL (0.00-0.10) Ethyl Alcohol Level 50 mg/dL (0-10) Hepatitis A IgM Antibody Nonreactive (Nonreactive) Hepatitis B Surface Antigen Nonreactive (Nonreactive) Hepatitis B Core IgM Antibody Nonreactive (Nonreactive) Hepatitis C IgG Antibody Nonreactive (Nonreactive) Urine Collection Type Unknown Urine Color [place]en Urine Clarity Cloudy Urine pH 6.0 (<5.0-8.0) Urine Specific [employer] [place] >=1.030 (1.000-1.030) Urine Protein 30 mg/dL (NEG-TRACE) Urine Glucose (UA) Negative mg/dL (NEG) Urine Ketones (Stick) 15 mg/dL (NEG) Urine Blood Negative (NEG) Urine Nitrite Positive (NEG) Urine Bilirubin Large (NEG) Urine Urobilinogen Dipstick 1.0 mg/dL (0.2 mg/dL) Urine Leukocyte Esterase Small (NEG) Urine RBC 1-2 /HPF (0-2) Urine WBC 5-10 /HPF (0-4) Urine Squamous Epithelial Cells Few /LPF Urine Bacteria Few /HPF (0-FEW) Urine Cellular Casts Occ /HPF Urine Hyaline Casts Occasional /HPF Urine Granular Casts Occasional /HPF Urine Mucus Marked /LPF Test 10/17/19 08:15 10/18/19 09:00 Lactic Acid Level 2.9 mmol/L (0.4-2.0) 2.0 mmol/L (0.4-2.0) White Blood Count 11.0 x10^3/uL (4.0-11.0) Red Blood Count 3.66 x10^6/uL (4.30-5.70) Hemoglobin 13.0 g/dL (13.0-17.5) Hematocrit 37.2 % (39.0-53.0) Mean Corpuscular Volume 102 fL (79-100) Mean Corpuscular Hemoglobin 36 pg (25-35) Mean Corpuscular Hemoglobin Concent 35 g/dL (31-37) Red Cell Distribution Width 15.0 % (11.5-14.5) Platelet Count 83 x10^3/uL (140-400) Neutrophils (%) (Auto) 76 % (31-73) Lymphocytes (%) (Auto) 12 % (24-48) Monocytes (%) (Auto) 9 % (0-9) Eosinophils (%) (Auto) 3 % (0-3) Basophils (%) (Auto) 1 % (0-3) Neutrophils # (Auto) 8.3 x10^3/uL (1.8-7.7) Lymphocytes # (Auto) 1.3 x10^3/uL (1.0-4.8) Monocytes # (Auto) 1.0 x10^3/uL (0.0-1.1) Eosinophils # (Auto) 0.4 x10^3/uL (0.0-0.7) Basophils # (Auto) 0.1 x10^3/uL (0.0-0.2) Sodium Level 135 mmol/L (136-145) Potassium Level 3.7 mmol/L (3.5-5.1) Chloride Level 100 mmol/L (98-107) Carbon Dioxide Level 30 mmol/L (21-32) Anion Gap 5 (6-14) Blood Urea Nitrogen 3 mg/dL (8-26) Creatinine 0.6 mg/dL (0.7-1.3) Estimated GFR (Cockcroft-Gault) 159.3 BUN/Creatinine Ratio 5 (6-20) Glucose Level 95 mg/dL (70-99) Calcium Level 7.0 mg/dL (8.5-10.1) Total Bilirubin 15.5 mg/dL (0.2-1.0) Aspartate Amino Transf (AST/SGOT) 122 U/L (15-37) Alanine Aminotransferase (ALT/SGPT) 37 U/L (16-63) Alkaline Phosphatase 170 U/L (46-116) Total Protein 5.4 g/dL (6.4-8.2) Albumin 1.7 g/dL (3.4-5.0) Albumin/Globulin Ratio 0.5 (1.0-1.7) Laboratory Tests Test 10/18/19 09:00 White Blood Count 11.0 x10^3/uL (4.0-11.0) Red Blood Count 3.66 x10^6/uL (4.30-5.70) Hemoglobin 13.0 g/dL (13.0-17.5) Hematocrit 37.2 % (39.0-53.0) Mean Corpuscular Volume 102 fL (79-100) Mean Corpuscular Hemoglobin 36 pg (25-35) Mean Corpuscular Hemoglobin Concent 35 g/dL (31-37) Red Cell Distribution Width 15.0 % (11.5-14.5) Platelet Count 83 x10^3/uL (140-400) Neutrophils (%) (Auto) 76 % (31-73) Lymphocytes (%) (Auto) 12 % (24-48) Monocytes (%) (Auto) 9 % (0-9) Eosinophils (%) (Auto) 3 % (0-3) Basophils (%) (Auto) 1 % (0-3) Neutrophils # (Auto) 8.3 x10^3/uL (1.8-7.7) Lymphocytes # (Auto) 1.3 x10^3/uL (1.0-4.8) Monocytes # (Auto) 1.0 x10^3/uL (0.0-1.1) Eosinophils # (Auto) 0.4 x10^3/uL (0.0-0.7) Basophils # (Auto) 0.1 x10^3/uL (0.0-0.2) Sodium Level 135 mmol/L (136-145) Potassium Level 3.7 mmol/L (3.5-5.1) Chloride Level 100 mmol/L (98-107) Carbon Dioxide Level 30 mmol/L (21-32) Anion Gap 5 (6-14) Blood Urea Nitrogen 3 mg/dL (8-26) Creatinine 0.6 mg/dL (0.7-1.3) Estimated GFR (Cockcroft-Gault) 159.3 BUN/Creatinine Ratio 5 (6-20) Glucose Level 95 mg/dL (70-99) Lactic Acid Level 2.0 mmol/L (0.4-2.0) Calcium Level 7.0 mg/dL (8.5-10.1) Total Bilirubin 15.5 mg/dL (0.2-1.0) Aspartate Amino Transf (AST/SGOT) 122 U/L (15-37) Alanine Aminotransferase (ALT/SGPT) 37 U/L (16-63) Alkaline Phosphatase 170 U/L (46-116) Total Protein 5.4 g/dL (6.4-8.2) Albumin 1.7 g/dL (3.4-5.0) Albumin/Globulin Ratio 0.5 (1.0-1.7) Problem List Problems Medical Problems: (1) Acute colitis Status: Acute (2) Dehydration Status: Acute (3) Painless jaundice Status: Acute (4) Sepsis Status: Acute Assessment/Plan no surgical plans as per IPC, GI Justicifation of Admission Dx: Justifications for Admission: Justification of Admission Dx: Yes Sepsis: End-Organ Dysfunction ARIELA JUAREZ MD 10/19/19 1335: SURGICAL PROGRESS NOTE Assessment/Plan Agree with above EKATERINA RUIZ REGISTERED ROUTE ASSOCIATE Oct 18, 2019 12:09 ARIELA JUAREZ MD Oct 19, 2019 13:35
[2019-10-18 15:00] VITALS: BP 103/59
[2019-10-18] MEDS: ONDANSETRON PF 4 MG/2 ML VIAL. IVP PRN (17:17)
[2019-10-18 19:00] VITALS: BP 113/63
[2019-10-18 23:00] VITALS: BP 104/69
[2019-10-19] MEDS: PIPERACILLIN/TAZOBACTAM 3.375 GM in IV NORMAL SALINE 50ML 50 ML IV SCH ×4 (00:02→17:23)
[2019-10-19] MEDS: MORPHINE SULFATE 2 MG/ML VIAL. IV PRN ×5 (02:12→23:31)
[2019-10-19 03:00] VITALS: BP 106/64
[2019-10-19 05:27] LABS: BASO % 0 % (0-3); EOS # 0.3 x10^3/uL (0.0-0.7); EOS % 3 % (0-3); HEMATOCRIT 38.6 % (39.0-53.0); HEMOGLOBIN 13.2 g/dL (13.0-17.5); LYMPH # 1.3 x10^3/uL (1.0-4.8); LYMPH % 11 % (24-48); MEAN CORPUSCULAR HEMOGLOBIN 35 pg (25-35); MEAN CORPUSCULAR HGB CONC 34 g/dL (31-37); MEAN CORPUSCULAR VOLUME 102 fL (79-100); MONO # 1.1 x10^3/uL (0.0-1.1); MONO % 10 % (0-9); NEUT % 76 % (31-73); PLATELET COUNT 93 x10^3/uL (140-400); RED BLOOD COUNT 3.77 x10^6/uL (4.30-5.70); RED CELL DISTRIBUTION WIDTH 15.3 % (11.5-14.5); WHITE BLOOD COUNT 11.7 x10^3/uL (4.0-11.0)
[2019-10-19 05:48] LABS: ALBUMIN 1.8 g/dL (3.4-5.0); ALBUMIN/GLOBULIN RATIO 0.5 (1.0-1.7); CALCIUM 7.2 mg/dL (8.5-10.1); CREATININE 0.5 mg/dL (0.7-1.3); GFR 196.6; POTASSIUM 3.7 mmol/L (3.5-5.1); TOTAL BILIRUBIN 17.3 mg/dL (0.2-1.0); TOTAL PROTEIN 5.5 g/dL (6.4-8.2)
[2019-10-19] MEDS: IV NORMAL SALINE 1000ML BAG 1,000 ML IV SCH (06:23)
[2019-10-19 07:00] VITALS: BP 118/67
--- NOTE | 2019-10-19 07:51 | PDOC ---
F/U PHYSCH PROG NOTE Subjective: Comprehensive psychiatric evaluation: Identifying information: He is a 29-year-old young gentleman with alcohol use disorder, depression and anxiety. History of present illness: He is a 29-year-old gentleman with a history of alcohol use disorder, depression, anxiety seen for initial psychiatric assessment. Upon interview he appears cooperative and interactive. He is accompanied by his mother who has also participated in interview process. Stating, he is drinking came first. He started drinking heavily and later developed depression and anxiety because of his heavy drinking. He has been drinking 1 pint of liquor every day for more than 10 years. Additionally, he has received previous DUIs. Drinking is reportedly problematic for him because medical problems including alcoholic hepatitis and cirrhosis. Depression is reportedly 10/1009 is worse. Anxiety is reportedly 10/1009 is worse. Depression is characterized as low motivation, anhedonia, social isolation, and recurrent waves of suicidal ideation. States, he never attempted suicide. However endorsing suicidal ideation like waves that come and go. He is able to contract for safety. Anxiety corresponds to depression. Anxiety is usually get worse when coming out of alcohol. States, with worsening depression his anxiety gets very high. In addition to above symptoms endorsing auditory hallucinations sometimes, could not elaborate hallucinations further. Presently, he denies suicidal or homicidal thoughts. Denies auditory or visual hallucinations. He denies history of complicated alcohol withdrawals including DTs or seizures. Past psychiatric history:. Denies previous history of psychiatric hospitalization. Denies history of previous suicidal attempt or contemplating suicide. Denies nonsuicidal self-injurious behavior. Family history: Family history is significant for alcoholism in both sides of the family. Dep ression and anxiety is positive for both sides of the family. Social history: He lives with his roommate and a girlfriend. Never been has 2 sons. Denies use of illicit substance. Denies current legal ramifications. Medical history: Alcohol use disorder, depression, anxiety Liver cirrhosis Objective: 14 point review of system is otherwise negative except for as stated above. Vital Signs: Vital Signs Date Time Temp Pulse Resp B/P (MAP) Pulse Ox O2 Delivery O2 Flow Rate FiO2 10/19/19 07:03 18 Room Air 10/19/19 03:00 98.4 107 106/64 (78) 90 98.4 Labs: Laboratory Tests Test 10/18/19 09:00 10/19/19 05:10 White Blood Count 11.0 x10^3/uL (4.0-11.0) 11.7 x10^3/uL (4.0-11.0) H Red Blood Count 3.66 x10^6/uL (4.30-5.70) L 3.77 x10^6/uL (4.30-5.70) L Hemoglobin 13.0 g/dL (13.0-17.5) 13.2 g/dL (13.0-17.5) Hematocrit 37.2 % (39.0-53.0) L 38.6 % (39.0-53.0) L Mean Corpuscular Volume 102 fL (79-100) H 102 fL (79-100) H Mean Corpuscular Hemoglobin 36 pg (25-35) H 35 pg (25-35) Mean Corpuscular Hemoglobin Concent 35 g/dL (31-37) 34 g/dL (31-37) Red Cell Distribution Width 15.0 % (11.5-14.5) H 15.3 % (11.5-14.5) H Platelet Count 83 x10^3/uL (140-400) L 93 x10^3/uL (140-400) L Neutrophils (%) (Auto) 76 % (31-73) H 76 % (31-73) H Lymphocytes (%) (Auto) 12 % (24-48) L 11 % (24-48) L Monocytes (%) (Auto) 9 % (0-9) 10 % (0-9) H Eosinophils (%) (Auto) 3 % (0-3) 3 % (0-3) Basophils (%) (Auto) 1 % (0-3) 0 % (0-3) Neutrophils # (Auto) 8.3 x10^3/uL (1.8-7.7) H 9.0 x10^3/uL (1.8-7.7) H Lymphocytes # (Auto) 1.3 x10^3/uL (1.0-4.8) 1.3 x10^3/uL (1.0-4.8) Monocytes # (Auto) 1.0 x10^3/uL (0.0-1.1) 1.1 x10^3/uL (0.0-1.1) Eosinophils # (Auto) 0.4 x10^3/uL (0.0-0.7) 0.3 x10^3/uL (0.0-0.7) Basophils # (Auto) 0.1 x10^3/uL (0.0-0.2) 0.0 x10^3/uL (0.0-0.2) Sodium Level 135 mmol/L (136-145) L 136 mmol/L (136-145) Potassium Level 3.7 mmol/L (3.5-5.1) 3.7 mmol/L (3.5-5.1) Chloride Level 100 mmol/L (98-107) 101 mmol/L (98-107) Carbon Dioxide Level 30 mmol/L (21-32) 29 mmol/L (21-32) Anion Gap 5 (6-14) L 6 (6-14) Blood Urea Nitrogen 3 mg/dL (8-26) L 3 mg/dL (8-26) L Creatinine 0.6 mg/dL (0.7-1.3) L 0.5 mg/dL (0.7-1.3) L Estimated GFR (Cockcroft-Gault) 159.3 196.6 BUN/Creatinine Ratio 5 (6-20) L 6 (6-20) Glucose Level 95 mg/dL (70-99) 67 mg/dL (70-99) L Lactic Acid Level 2.0 mmol/L (0.4-2.0) Calcium Level 7.0 mg/dL (8.5-10.1) L 7.2 mg/dL (8.5-10.1) L Total Bilirubin 15.5 mg/dL (0.2-1.0) H 17.3 mg/dL (0.2-1.0) H Aspartate Amino Transferase (AST) 122 U/L (15-37) H 122 U/L (15-37) H Alanine Aminotransferase (ALT) 37 U/L (16-63) 37 U/L (16-63) Alkaline Phosphatase 170 U/L (46-116) H 175 U/L (46-116) H Total Protein 5.4 g/dL (6.4-8.2) L 5.5 g/dL (6.4-8.2) L Albumin 1.7 g/dL (3.4-5.0) L 1.8 g/dL (3.4-5.0) L Albumin/Globulin Ratio 0.5 (1.0-1.7) L 0.5 (1.0-1.7) L Laboratory Tests 10/18/19 09:00 10/19/19 05:10 Laboratory Tests 10/18/19 09:00 10/19/19 05:10 Medications: Current Medications Medications (Trade) Dose Ordered Sig/Kelly Start Time Stop Time Status Last Admin Dose Admin Al Hydroxide/Mg Hydroxide (Mylanta Plus Xs) 30 ml PRN DAILY PRN 10/17/19 11:45 Albuterol Sulfate (Ventolin Neb Soln) 2.5 mg PRN Q4HRS PRN 10/18/19 00:45 Albuterol/ Ipratropium (Duoneb) 3 ml Q4HRS 10/17/19 12:00 10/18/19 00:38 DC 10/18/19 00:23 3 ML Clonidine HCl (Catapres) 0.1 mg PRN Q1HR PRN 10/17/19 06:30 Diphenhydramine HCl (Benadryl) 25 mg PRN Q15MIN PRN 10/17/19 06:30 Docusate Sodium (Colace) 100 mg PRN BID PRN 10/17/19 11:45 Enoxaparin Sodium (Lovenox 40mg Syringe) 40 mg Q24H 10/17/19 12:00 10/18/19 10:49 DC 10/17/19 15:05 40 MG Famotidine (Pepcid) 20 mg 1X ONCE 10/16/19 21:15 10/16/19 21:16 DC 10/16/19 21:20 20 MG Guaifenesin (Robitussin) 200 mg PRN Q4HRS PRN 10/17/19 11:45 Haloperidol Lactate (Haldol Inj) 5 mg PRN Q4HRS PRN 10/17/19 06:30 Info (CONTRAST GIVEN -- Rx MONITORING) 1 each PRN DAILY PRN 10/16/19 22:00 10/18/19 21:59 DC Iohexol (Omnipaque 300 Mg/ml) 75 ml 1X ONCE 10/16/19 21:45 10/16/19 21:46 DC 10/16/19 21:54 75 ML Lactobacillus Rhamnosus (Culturelle) 1 cap BID 10/17/19 21:00 10/18/19 20:57 1 CAP Lorazepam (Ativan Inj) 4 mg PRN Q1HR PRN 10/17/19 06:30 Morphine Sulfate (Morphine Sulfate) 2 mg PRN Q2HR PRN 10/17/19 06:30 10/19/19 06:33 2 MG Multivitamins 10 ml/Thiamine HCl 100 mg/Folic Acid 1 mg/Sodium Chloride 1,011.2 ml @ 100 mls/ hr DAILY 10/17/19 09:00 10/21/19 19:07 10/18/19 09:38 100 MLS/HR Ondansetron HCl (Zofran) 4 mg PRN Q6HRS PRN 10/18/19 17:15 10/18/19 17:17 4 MG Piperacillin Sod/ Tazobactam Sod 3.375 gm/Sodium Chloride 50 ml @ 100 mls/hr Q6HRS 10/17/19 06:00 10/19/19 06:23 100 MLS/HR Piperacillin Sod/ Tazobactam Sod 4.5 gm/Sodium Chloride 100 ml @ 200 mls/hr 1X ONCE 10/17/19 00:45 10/17/19 01:14 DC 10/17/19 01:24 200 MLS/HR Sodium Chloride 1,000 ml @ 100 mls/hr Q10H 10/17/19 11:38 10/19/19 06:23 100 MLS/HR Sodium Chloride (Normal Saline Flush) 3 ml QSHIFT PRN 10/17/19 11:45 Physical Exam: Mental Status Exam: Young gentleman appears as a stated age, fairly groomed, fairly nourished Cooperative and interactive appears tired Fully oriented Thought processes linear and mostly goal-directed Denies auditory or visual hallucinations No abnormal perception noted. Denies suicidal or homicidal thoughts. Mood is down and depressed Affect is dysthymic Insight is fair Judgment is fair Attention span and concentration fair Recent and remote memory intact. Physical Exam: Refer to Physician's note. RN MIDWIFE: No focal deficit MSK: No EPS, TDK, or abnormal involuntary movements Diagnosis: 1. Alcohol use disorder, recurrent, severe 2. Major depressive disorder, recurrent, moderate 3. Generalized anxiety disorder 4. Rule out major depression/generalized anxiety due to substance use. Assessment: Young gentleman struggling with alcohol use disorder with medical complications. Additionally, struggling with psychiatric complications of alcohol including depression and anxiety. It is important at this point to select antidepressant which does not need too much adjustment in liver disease. Recommending to start Remeron which would help him with insomnia, depression, anxiety. Gabapentin to cut down alcohol craving and complicated withdrawals. Plan: Start gabapentin 100 mg 3 times daily for alcohol craving and withdrawal prevention. Start Remeron 15 mg nightly for depression, anxiety, and insomnia. Risk, benefits, alternatives of the treatment are discussed. He is in agreement with plan and expressed understanding. Adverse drug reaction of the medications prescribed were discussed in detail. He is accepting medications and consented verbally. Monitor for symptomatology, mood, and safety. Will adjust medications accordingly. Thank you for involving inpatient care. VANNESA JUNIOR MD Oct 19, 2019 07:51
[2019-10-19] MEDS: LACTOBACILLUS RHAMNOSUS GG 1 CAPSULE. PO SCH ×2 (09:00→23:32)
[2019-10-19] MEDS: MULTIVIT INFUSN,ADULT 4,VIT K 10 ML, THIAMINE INJ 100 MG, FOLIC ACID INJ 1 MG in IV NOR... IV SCH (09:01)
--- NOTE | 2019-10-19 10:09 | PDOC ---
PROGRESS NOTES Date of Service: DATE: 10/19/19 TIME: 10:06 Chief Complaint Chief Complaint VTE Prophylaxis Ordered VTE Prophylaxis Devices: No VTE Pharmacological Prophylaxi: Yes Assessment/Plan Assessment/Plan impression painless jaundice attenuation of liver with adjacent fat stranding. //steato-hepatitis. apparent gallbladder wall thickening with debris within the lumen which could be from sludge or stones. // wall thickening is nonspecific in nature and could be related to primary gallbladder inflammation or reactive to adjacent hepatic disease.// gallbladder wall lesion is also not excluded. ALCOHOL ABUSE , severe Leukocytosis lactic acidosis thc abuse thrombocytopenia severe protein-caloric malnutrition MAJOR Depression 10/18 inc edema, weigh, d/c iv fluids, iv lasix 40mg bid, NH4 LEVEL hepatic vein doppler plan ADMIT GI CONSULT Hepatitis dx panel ID CONSULT blood culture emperic iv antibiotics, iv zosyn urine culture d/c lovenox due to thrombocytopenia psych consult d/w family in room 38 min pt exam, chart review, > 50% of time spent with exam, chart review, pt care coordination Justicifation of Admission Dx: Justifications for Admission: Justification of Admission Dx: Yes Sepsis: End-Organ Dysfunction History of Present Illness History of Present Illness Identification/Chief Complaint Chief Complaint seen in er for jaundice , 29 year old male who presents with painless jaundice for the last 3 weeks. Patient reports he was in [place] by a month ago denied any significant COVID exposure but reports that for the last 2 weeks he has had troubles with generalized body aches, fatigue and decrease in appetite. He denies any pain in his abdomen but does complain of some nausea. He also complains of early satiety. He reports that the food does not make him have any pain but also does make him feel any better either. His mom came over today and noticed that he had jaundice and sent him to the emergency room for further evaluation. denies any fever, chills or sweats. He denies any cough shortness of breath or chest pain. w/o c/w alcohol associated hepatitis denies recent tick bites , admits to heavy alcohol intake sine high school, now drinking one pint of vodka daily, USING thc last week in [place] Vitals Vitals Vital Signs Date Time Temp Pulse Resp B/P (MAP) Pulse Ox O2 Delivery O2 Flow Rate FiO2 10/19/19 07:03 18 Room Air 10/19/19 07:00 98.0 113 118/67 (29) 93 98.0 Physical Exam Physical Exam GENERAL: Standing near the bed, alert in NAD HEENT: Pupils equally round, reactive. Mild icterus. Oropharynx pink and moist. No lesions seen. NECK: Supple. LUNGS: Clear to auscultation. HEART: S1, S2 regular. ABDOMEN: Obese, soft, nontender with bowel sounds present. EXTREMITIES: No gross edema or cyanosis. SKIN: Warm to touch without signs of rash. NEUROLOGIC: ALert, oriented. General: Alert, Oriented X3, Cooperative, No acute distress, Other (lethargic , depressed) Heart: Regular rate, Normal S1, Normal S2 Lungs: Clear Abdomen: Normal bowel sounds, Soft, No tenderness Extremities: No clubbing, No cyanosis, Other (2 PLUS ANKLE EDEMA) Skin: No rashes, No breakdown Labs LABS ORDERED: BCULT Procedure Result BLOOD CULTURE Preliminary NO GROWTH AFTER 2 DAYS Laboratory Tests Test 10/19/19 05:10 White Blood Count 11.7 x10^3/uL (4.0-11.0) Red Blood Count 3.77 x10^6/uL (4.30-5.70) Hemoglobin 13.2 g/dL (13.0-17.5) Hematocrit 38.6 % (39.0-53.0) Mean Corpuscular Volume 102 fL (79-100) Mean Corpuscular Hemoglobin 35 pg (25-35) Mean Corpuscular Hemoglobin Concent 34 g/dL (31-37) Red Cell Distribution Width 15.3 % (11.5-14.5) Platelet Count 93 x10^3/uL (140-400) Neutrophils (%) (Auto) 76 % (31-73) Lymphocytes (%) (Auto) 11 % (24-48) Monocytes (%) (Auto) 10 % (0-9) Eosinophils (%) (Auto) 3 % (0-3) Basophils (%) (Auto) 0 % (0-3) Neutrophils # (Auto) 9.0 x10^3/uL (1.8-7.7) Lymphocytes # (Auto) 1.3 x10^3/uL (1.0-4.8) Monocytes # (Auto) 1.1 x10^3/uL (0.0-1.1) Eosinophils # (Auto) 0.3 x10^3/uL (0.0-0.7) Basophils # (Auto) 0.0 x10^3/uL (0.0-0.2) Sodium Level 136 mmol/L (136-145) Potassium Level 3.7 mmol/L (3.5-5.1) Chloride Level 101 mmol/L (98-107) Carbon Dioxide Level 29 mmol/L (21-32) Anion Gap 6 (6-14) Blood Urea Nitrogen 3 mg/dL (8-26) Creatinine 0.5 mg/dL (0.7-1.3) Estimated GFR (Cockcroft-Gault) 196.6 BUN/Creatinine Ratio 6 (6-20) Glucose Level 67 mg/dL (70-99) Calcium Level 7.2 mg/dL (8.5-10.1) Total Bilirubin 17.3 mg/dL (0.2-1.0) Aspartate Amino Transf (AST/SGOT) 122 U/L (15-37) Alanine Aminotransferase (ALT/SGPT) 37 U/L (16-63) Alkaline Phosphatase 175 U/L (46-116) Total Protein 5.5 g/dL (6.4-8.2) Albumin 1.8 g/dL (3.4-5.0) Albumin/Globulin Ratio 0.5 (1.0-1.7) Assessment and Plan Assessmemt and Plan Problems Medical Problems: (1) Acute colitis Status: Acute (2) Dehydration Status: Acute (3) Painless jaundice Status: Acute (4) Sepsis Status: Acute Comment Review of Relevant I have reviewed the following items larry (where applicable) has been applied. Labs Laboratory Tests Test 10/18/19 09:00 10/19/19 05:10 White Blood Count 11.0 x10^3/uL (4.0-11.0) 11.7 x10^3/uL (4.0-11.0) Red Blood Count 3.66 x10^6/uL (4.30-5.70) 3.77 x10^6/uL (4.30-5.70) Hemoglobin 13.0 g/dL (13.0-17.5) 13.2 g/dL (13.0-17.5) Hematocrit 37.2 % (39.0-53.0) 38.6 % (39.0-53.0) Mean Corpuscular Volume 102 fL (79-100) 102 fL (79-100) Mean Corpuscular Hemoglobin 36 pg (25-35) 35 pg (25-35) Mean Corpuscular Hemoglobin Concent 35 g/dL (31-37) 34 g/dL (31-37) Red Cell Distribution Width 15.0 % (11.5-14.5) 15.3 % (11.5-14.5) Platelet Count 83 x10^3/uL (140-400) 93 x10^3/uL (140-400) Neutrophils (%) (Auto) 76 % (31-73) 76 % (31-73) Lymphocytes (%) (Auto) 12 % (24-48) 11 % (24-48) Monocytes (%) (Auto) 9 % (0-9) 10 % (0-9) Eosinophils (%) (Auto) 3 % (0-3) 3 % (0-3) Basophils (%) (Auto) 1 % (0-3) 0 % (0-3) Neutrophils # (Auto) 8.3 x10^3/uL (1.8-7.7) 9.0 x10^3/uL (1.8-7.7) Lymphocytes # (Auto) 1.3 x10^3/uL (1.0-4.8) 1.3 x10^3/uL (1.0-4.8) Monocytes # (Auto) 1.0 x10^3/uL (0.0-1.1) 1.1 x10^3/uL (0.0-1.1) Eosinophils # (Auto) 0.4 x10^3/uL (0.0-0.7) 0.3 x10^3/uL (0.0-0.7) Basophils # (Auto) 0.1 x10^3/uL (0.0-0.2) 0.0 x10^3/uL (0.0-0.2) Sodium Level 135 mmol/L (136-145) 136 mmol/L (136-145) Potassium Level 3.7 mmol/L (3.5-5.1) 3.7 mmol/L (3.5-5.1) Chloride Level 100 mmol/L (98-107) 101 mmol/L (98-107) Carbon Dioxide Level 30 mmol/L (21-32) 29 mmol/L (21-32) Anion Gap 5 (6-14) 6 (6-14) Blood Urea Nitrogen 3 mg/dL (8-26) 3 mg/dL (8-26) Creatinine 0.6 mg/dL (0.7-1.3) 0.5 mg/dL (0.7-1.3) Estimated GFR (Cockcroft-Gault) 159.3 196.6 BUN/Creatinine Ratio 5 (6-20) 6 (6-20) Glucose Level 95 mg/dL (70-99) 67 mg/dL (70-99) Lactic Acid Level 2.0 mmol/L (0.4-2.0) Calcium Level 7.0 mg/dL (8.5-10.1) 7.2 mg/dL (8.5-10.1) Total Bilirubin 15.5 mg/dL (0.2-1.0) 17.3 mg/dL (0.2-1.0) Aspartate Amino Transf (AST/SGOT) 122 U/L (15-37) 122 U/L (15-37) Alanine Aminotransferase (ALT/SGPT) 37 U/L (16-63) 37 U/L (16-63) Alkaline Phosphatase 170 U/L (46-116) 175 U/L (46-116) Total Protein 5.4 g/dL (6.4-8.2) 5.5 g/dL (6.4-8.2) Albumin 1.7 g/dL (3.4-5.0) 1.8 g/dL (3.4-5.0) Albumin/Globulin Ratio 0.5 (1.0-1.7) 0.5 (1.0-1.7) Laboratory Tests Test 10/19/19 05:10 White Blood Count 11.7 x10^3/uL (4.0-11.0) Red Blood Count 3.77 x10^6/uL (4.30-5.70) Hemoglobin 13.2 g/dL (13.0-17.5) Hematocrit 38.6 % (39.0-53.0) Mean Corpuscular Volume 102 fL (79-100) Mean Corpuscular Hemoglobin 35 pg (25-35) Mean Corpuscular Hemoglobin Concent 34 g/dL (31-37) Red Cell Distribution Width 15.3 % (11.5-14.5) Platelet Count 93 x10^3/uL (140-400) Neutrophils (%) (Auto) 76 % (31-73) Lymphocytes (%) (Auto) 11 % (24-48) Monocytes (%) (Auto) 10 % (0-9) Eosinophils (%) (Auto) 3 % (0-3) Basophils (%) (Auto) 0 % (0-3) Neutrophils # (Auto) 9.0 x10^3/uL (1.8-7.7) Lymphocytes # (Auto) 1.3 x10^3/uL (1.0-4.8) Monocytes # (Auto) 1.1 x10^3/uL (0.0-1.1) Eosinophils # (Auto) 0.3 x10^3/uL (0.0-0.7) Basophils # (Auto) 0.0 x10^3/uL (0.0-0.2) Sodium Level 136 mmol/L (136-145) Potassium Level 3.7 mmol/L (3.5-5.1) Chloride Level 101 mmol/L (98-107) Carbon Dioxide Level 29 mmol/L (21-32) Anion Gap 6 (6-14) Blood Urea Nitrogen 3 mg/dL (8-26) Creatinine 0.5 mg/dL (0.7-1.3) Estimated GFR (Cockcroft-Gault) 196.6 BUN/Creatinine Ratio 6 (6-20) Glucose Level 67 mg/dL (70-99) Calcium Level 7.2 mg/dL (8.5-10.1) Total Bilirubin 17.3 mg/dL (0.2-1.0) Aspartate Amino Transf (AST/SGOT) 122 U/L (15-37) Alanine Aminotransferase (ALT/SGPT) 37 U/L (16-63) Alkaline Phosphatase 175 U/L (46-116) Total Protein 5.5 g/dL (6.4-8.2) Albumin 1.8 g/dL (3.4-5.0) Albumin/Globulin Ratio 0.5 (1.0-1.7) Microbiology 10/17/19 Blood Culture - Preliminary, Resulted NO GROWTH AFTER 1 DAY 10/16/19 Urine Culture - Final, Complete Medications Current Medications Sodium Chloride 1,000 ml @ 1,000 mls/hr 1X ONCE IV Last administered on 10/16/19at 21:19; Start 10/16/19 at 21:15; Stop 10/16/19 at 22:14; Status DC Ondansetron HCl (Zofran) 4 mg 1X ONCE IVP Last administered on 10/16/19at 21:19; Start 10/16/19 at 21:15; Stop 10/16/19 at 21:16; Status DC Famotidine (Pepcid) 20 mg 1X ONCE PO Last administered on 10/16/19at 21:20; Start 10/16/19 at 21:15; Stop 10/16/19 at 21:16; Status DC Iohexol (Omnipaque 300 Mg/ml) 75 ml 1X ONCE IV Last administered on 10/16/19at 21:54; Start 10/16/19 at 21:45; Stop 10/16/19 at 21:46; Status DC Info (CONTRAST GIVEN -- Rx MONITORING) 1 each PRN DAILY PRN MC SEE COMMENTS; Start 10/16/19 at 22:00; Stop 10/18/19 at 21:59; Status DC Piperacillin Sod/ Tazobactam Sod 4.5 gm/Sodium Chloride 100 ml @ 200 mls/hr 1X ONCE IV Last administered on 10/17/19at 01:24; Start 10/17/19 at 00:45; Stop 10/17/19 at 01:14; Status DC Sodium Chloride 1,000 ml @ 2,460 mls/hr Q25M IV Last administered on 10/17/19at 01:56; Start 10/17/19 at 00:30; Stop 10/17/19 at 01:30; Status DC Sodium Chloride 1,000 ml @ 75 mls/hr [id number] IV Last administered on 10/17/19at 03:49; Start 10/17/19 at 02:15; Stop 10/17/19 at 15:57; Status DC Piperacillin Sod/ Tazobactam Sod 3.375 gm/Sodium Chloride 50 ml @ 100 mls/hr Q6HRS IV Last administered on 10/19/19at 06:23; Start 10/17/19 at 06:00 Morphine Sulfate (Morphine Sulfate) 2 mg PRN Q2HR PRN IV PAIN Last administered on 10/19/19at 06:33; Start 10/17/19 at 06:30 Lorazepam (Ativan Inj) 2 mg PRN Q1HR PRN IV For CIWA 8-14 Last administered on 10/19/19at 06:33; Start 10/17/19 at 06:30 Lorazepam (Ativan Inj) 4 mg PRN Q1HR PRN IV For CIWA 15 or greater; Start 10/17/19 at 06:30 Haloperidol Lactate (Haldol Inj) 5 mg PRN Q4HRS PRN IVP Hallucinatns,Confusn,Delirium; Start 10/17/19 at 06:30 Diphenhydramine HCl (Benadryl) 25 mg PRN Q15MIN PRN IVP EPS symptoms 2'Haldol admin; Start 10/17/19 at 06:30 Clonidine HCl (Catapres) 0.1 mg PRN Q1HR PRN PO SBP > 180 or DBP > 100, MRX3; Start 10/17/19 at 06:30 Multivitamins 10 ml/Thiamine HCl 100 mg/Folic Acid 1 mg/Sodium Chloride 1,011.2 ml @ 100 mls/ hr DAILY IV Last administered on 10/19/19at 09:01; Start 10/17/19 at 09:00; Stop 10/21/19 at 19:07 Sodium Chloride (Normal Saline Flush) 3 ml QSHIFT PRN IV AFTER MEDS AND BLOOD DRAWS; Start 10/17/19 at 11:45 Sodium Chloride 1,000 ml @ 100 mls/hr Q10H IV Last administered on 10/19/19at 06:23; Start 10/17/19 at 11:38 Al Hydroxide/Mg Hydroxide (Mylanta Plus Xs) 30 ml PRN DAILY PRN PO HEARTBURN / GAS; Start 10/17/19 at 11:45 Docusate Sodium (Colace) 100 mg PRN BID PRN PO HARD STOOLS; Start 10/17/19 at 1 1:45 Albuterol/ Ipratropium (Duoneb) 3 ml Q4HRS NEB Last administered on 10/18/19at 00:23; Start 10/17/19 at 12:00; Stop 10/18/19 at 00:38; Status DC Guaifenesin (Robitussin) 200 mg PRN Q4HRS PRN PO COUGH; Start 10/17/19 at 11:45 Enoxaparin Sodium (Lovenox 40mg Syringe) 40 mg Q24H SQ Last administered on 10/17/19at 15:05; Start 10/17/19 at 12:00; Stop 10/18/19 at 10:49; Status DC Lactobacillus Rhamnosus (Culturelle) 1 cap BID PO Last administered on 10/19/19at 09:00; Start 10/17/19 at 21:00 Albuterol Sulfate (Ventolin Neb Soln) 2.5 mg PRN Q4HRS PRN NEB SHORTNESS OF BREATH; Start 10/18/19 at 00:45 Ondansetron HCl (Zofran) 4 mg PRN Q6HRS PRN IVP NAUSEA/VOMITING Last administered on 10/18/19at 17:17; Start 8/9/20 at 17:15 Active Scripts Active Reported [inhaler] PRN [lisinopril +] DAILY Vitals/I & O Vital Sign - Last 24 Hours 10/18/19 10/18/19 10/18/19 10/18/19 10:54 11:00 11:38 15:00 Temp 98.6 98.2 98.6 98.2 Pulse 103 98 Resp 16 16 B/P (MAP) 139/88 (105) 103/59 (74) Pulse Ox 91 96 O2 Delivery Room Air Room Air 10/18/19 10/18/19 10/18/19 10/18/19 17:14 18:18 19:00 20:30 Temp 98.5 98.5 Pulse 105 Resp 16 B/P (MAP) 113/63 (80) Pulse Ox 90 O2 Delivery Room Air Room Air Room Air 10/18/19 10/18/19 10/18/19 10/19/19 21:04 21:34 23:00 02:12 Temp 98.1 98.1 Pulse 101 Resp 20 18 18 20 B/P (MAP) 104/69 (81) Pulse Ox 90 O2 Delivery Room Air Room Air Room Air 10/19/19 10/19/19 10/19/19 10/19/19 02:42 03:00 06:33 07:00 Temp 98.4 98.0 98.4 98.0 Pulse 107 113 Resp 20 16 20 20 B/P (MAP) 106/64 (78) 118/67 (84) Pulse Ox 90 93 O2 Delivery Room Air Room Air 10/19/19 07:03 Resp 18 O2 Delivery Room Air Intake and Output 10/18/19 10/18/19 10/19/19 15:00 23:00 07:00 Intake Total 260 ml 1050 ml 2011.2 ml Output Total 100 ml 300 ml Balance 260 ml 950 ml 1711.2 ml Justicifation of Admission Dx: Justifications for Admission: Justification of Admission Dx: Yes Sepsis: End-Organ Dysfunction SANDY ZHU MD Oct 19, 2019 10:09
--- NOTE | 2019-10-19 10:44 | PDOC ---
Infectious Disease Note Subjective: Subjective Still feeling bloated some nausea Vital Signs: Vital Signs Vital Signs Date Time Temp Pulse Resp B/P (MAP) Pulse Ox O2 Delivery O2 Flow Rate FiO2 10/19/19 07:03 18 Room Air 10/19/19 07:00 98.0 113 118/67 (84) 93 98.0 Physical Exam: PHYSICAL EXAM GENERAL: alert in NAD HEENT: Pupils equally round, reactive. Mild icterus. Oropharynx pink and moist. No lesions seen. NECK: Supple. LUNGS: Clear to auscultation. HEART: S1, S2 regular. ABDOMEN: Obese,distended, soft, nontender with bowel sounds present. EXTREMITIES: No gross edema or cyanosis. SKIN: Warm to touch without signs of rash. NEUROLOGIC: ALert, oriented. Medications: Inpatient Meds: Current Medications Medications (Trade) Dose Ordered Sig/Kelly Start Time Stop Time Status Last Admin Dose Admin Al Hydroxide/Mg Hydroxide (Mylanta Plus Xs) 30 ml PRN DAILY PRN 10/17/19 11:45 Albuterol Sulfate (Ventolin Neb Soln) 2.5 mg PRN Q4HRS PRN 10/18/19 00:45 Albuterol/ Ipratropium (Duoneb) 3 ml Q4HRS 10/17/19 12:00 10/18/19 00:38 DC 10/18/19 00:23 3 ML Clonidine HCl (Catapres) 0.1 mg PRN Q1HR PRN 10/17/19 06:30 Diphenhydramine HCl (Benadryl) 25 mg PRN Q15MIN PRN 10/17/19 06:30 Docusate Sodium (Colace) 100 mg PRN BID PRN 10/17/19 11:45 Enoxaparin Sodium (Lovenox 40mg Syringe) 40 mg Q24H 10/17/19 12:00 10/18/19 10:49 DC 10/17/19 15:05 40 MG Famotidine (Pepcid) 20 mg 1X ONCE 10/16/19 21:15 10/16/19 21:16 DC 10/16/19 21:20 20 MG Guaifenesin (Robitussin) 200 mg PRN Q4HRS PRN 10/17/19 11:45 Haloperidol Lactate (Haldol Inj) 5 mg PRN Q4HRS PRN 10/17/19 06:30 Info (CONTRAST GIVEN -- Rx MONITORING) 1 each PRN DAILY PRN 10/16/19 22:00 10/18/19 21:59 DC Iohexol (Omnipaque 300 Mg/ml) 75 ml 1X ONCE 10/16/19 21:45 10/16/19 21:46 DC 10/16/19 21:54 75 ML Lactobacillus Rhamnosus (Culturelle) 1 cap BID 10/17/19 21:00 10/19/19 09:00 1 CAP Lorazepam (Ativan Inj) 4 mg PRN Q1HR PRN 10/17/19 06:30 Morphine Sulfate (Morphine Sulfate) 2 mg PRN Q2HR PRN 10/17/19 06:30 10/19/19 06:33 2 MG Multivitamins 10 ml/Thiamine HCl 100 mg/Folic Acid 1 mg/Sodium Chloride 1,011.2 ml @ 100 mls/ hr DAILY 10/17/19 09:00 10/21/19 19:07 10/19/19 09:01 100 MLS/HR Ondansetron HCl (Zofran) 4 mg PRN Q6HRS PRN 10/18/19 17:15 10/18/19 17:17 4 MG Piperacillin Sod/ Tazobactam Sod 3.375 gm/Sodium Chloride 50 ml @ 100 mls/hr Q6HRS 10/17/19 06:00 10/19/19 06:23 100 MLS/HR Piperacillin Sod/ Tazobactam Sod 4.5 gm/Sodium Chloride 100 ml @ 200 mls/hr 1X ONCE 10/17/19 00:45 10/17/19 01:14 DC 10/17/19 01:24 200 MLS/HR Sodium Chloride 1,000 ml @ 100 mls/hr Q10H 10/17/19 11:38 10/19/19 06:23 100 MLS/HR Sodium Chloride (Normal Saline Flush) 3 ml QSHIFT PRN 10/17/19 11:45 Labs: Lab Laboratory Tests Test 10/19/19 05:10 White Blood Count 11.7 x10^3/uL (4.0-11.0) Red Blood Count 3.77 x10^6/uL (4.30-5.70) Hemoglobin 13.2 g/dL (13.0-17.5) Hematocrit 38.6 % (39.0-53.0) Mean Corpuscular Volume 102 fL (79-100) Mean Corpuscular Hemoglobin 35 pg (25-35) Mean Corpuscular Hemoglobin Concent 34 g/dL (31-37) Red Cell Distribution Width 15.3 % (11.5-14.5) Platelet Count 93 x10^3/uL (140-400) Neutrophils (%) (Auto) 76 % (31-73) Lymphocytes (%) (Auto) 11 % (24-48) Monocytes (%) (Auto) 10 % (0-9) Eosinophils (%) (Auto) 3 % (0-3) Basophils (%) (Auto) 0 % (0-3) Neutrophils # (Auto) 9.0 x10^3/uL (1.8-7.7) Lymphocytes # (Auto) 1.3 x10^3/uL (1.0-4.8) Monocytes # (Auto) 1.1 x10^3/uL (0.0-1.1) Eosinophils # (Auto) 0.3 x10^3/uL (0.0-0.7) Basophils # (Auto) 0.0 x10^3/uL (0.0-0.2) Sodium Level 136 mmol/L (136-145) Potassium Level 3.7 mmol/L (3.5-5.1) Chloride Level 101 mmol/L (98-107) Carbon Dioxide Level 29 mmol/L (21-32) Anion Gap 6 (6-14) Blood Urea Nitrogen 3 mg/dL (8-26) Creatinine 0.5 mg/dL (0.7-1.3) Estimated GFR (Cockcroft-Gault) 196.6 BUN/Creatinine Ratio 6 (6-20) Glucose Level 67 mg/dL (70-99) Calcium Level 7.2 mg/dL (8.5-10.1) Total Bilirubin 17.3 mg/dL (0.2-1.0) Aspartate Amino Transf (AST/SGOT) 122 U/L (15-37) Alanine Aminotransferase (ALT/SGPT) 37 U/L (16-63) Alkaline Phosphatase 175 U/L (46-116) Total Protein 5.5 g/dL (6.4-8.2) Albumin 1.8 g/dL (3.4-5.0) Albumin/Globulin Ratio 0.5 (1.0-1.7) Objective: Assessment: Leukocytosis - improved Jaundice. Colitis. Alcohol abuse. Alcoholic hepatitis. Lactic acidosis - improved Plan: Plan of Care Empiric Zosyn Cultures neg to date Hydration withdrawal precautions f/u u/s of abdomen D/wmother at bedside MADISYN WHITEHEAD MD Oct 19, 2019 10:44
[2019-10-19 11:00] VITALS: BP 132/83
[2019-10-19] MEDS ORDERED: POTASSIUM BICARB 20 MEQ EFFERVESCENT TABLET. PO SCH (11:00)
--- NOTE | 2019-10-19 11:07 | NUR ---
SW following. Discussed with RN, pt from home room air, cardiac diet, no surgical plans. PT/OT ordered, IV zosyn, psych consult. PAT referral for ETOH use/abuse. MARCIAL will continue to follow. Addendum: 10/19/19 at 1257 by JEAN MARIE CEJA Alessandro came to visit pt, pt reported not feeling very well, will try again tomorrow (10/20/2019). MARCIAL will continue to follow.
[2019-10-19] MEDS: FUROSEMIDE 40 MG/4 ML VIAL. IVP SCH ×2 (11:13→15:51)
[2019-10-19 11:19] LABS: BARBITURATES NEG (NEG); BENZODIAZEPINES POS (NEG); CANNABINOIDS POS (NEG); COCAINE NEG (NEG); METHADONE NEG (NEG); OPIATES POS (NEG); PHENCYCLIDINE NEG (NEG)
[2019-10-19 11:21] LABS: AMPHETAMINE/METHAMPHETAMINE NEG (NEG)
--- NOTE | 2019-10-19 11:24 | PDOC ---
Date of Service: DATE: 10/19/19 TIME: 11:11 Subjective: Subjective: Mother present - says he is not urinating. Abdomen is more distended. Has been eating a little fruit. He says he has some LUQ discomfort w/ movement but can really have pain all over abdomen at different times. Will have a normal stool and then urge to stool again but nothing much happens. Objective: Vital Signs: Vital Signs Date Time Temp Pulse Resp B/P (MAP) Pulse Ox O2 Delivery O2 Flow Rate FiO2 10/19/19 08:00 Room Air 10/19/19 07:03 18 10/19/19 07:00 98.0 113 118/67 (84) 93 98.0 Labs: URINE CULTURE Final Final No Growth on 10/18/19 at 0857 BLOOD CULTURE Preliminary NO GROWTH AFTER 2 DAYS Imaging: CT A/P 10/15 IMPRESSION: 1. Decreased attenuation of liver with adjacent fat stranding. Findings can be seen in setting of steatohepatitis. 2. Gallbladder is nondistended with diffuse wall thickening, may be related to systemic state. Correlate with symptomatology to determine the need for further evaluation with ultrasound. 3. There is wall thickening involving the ascending colon, which may represent colitis. Abd US 10/16 IMPRESSION: * Limited evaluation secondary to overlying structures obscuring but there is apparent gallbladder wall thickening with debris within the lumen which could be from sludge or stones. This wall thickening is nonspecific in nature and could be related to primary gallbladder inflammation or reactive to adjacent hepatic disease. The gallbladder wall lesion is also not excluded. * Liver is echogenic. Nonspecific but can be seen with fatty infiltration. * Free fluid is seen. * Mildly prominent common bile duct up to 6 mm PE: GEN: NAD LUNGS: clear anteriorly HEART: tachycardic ABD: distended, tender over left ribs EXTREMITY: No edema SKIN: +jaundice NEURO/PSYCH: drowsy w/ Ativa A/P: Alcoholic hepatitis - viral Hep panel negative, ceruloplasmin pending Fatty liver, thrombocytopenia, macrocytosis, coagulopathy Leukocytosis, lactic acidosis - better -- Since I have seen, Lasix, ammonia, and abd doppler ordered. Await these. Will review "wall thickening" in ascending colon on CT w/ Dr. Mclean. Justicifation of Admission Dx: Justifications for Admission: Justification of Admission Dx: Yes Sepsis: End-Organ Dysfunction THOMAS DUBON Oct 19, 2019 11:24
[2019-10-19] MEDS ORDERED: POTASSIUM BICARB 20 MEQ EFFERVESCENT TABLET. FT ONE (11:30)
[2019-10-19] MEDS ORDERED: POTASSIUM BICARB 20 MEQ EFFERVESCENT TABLET. PO PRN (13:00)
--- NOTE | 2019-10-19 13:41 | RAD ---
Limited hepatic venous duplex ultrasound study without comparison for hepatic vein thrombosis. TECHNIQUE AND FINDINGS: Real-time emerson scale and color Doppler evaluation of the right upper quadrant is performed. This exam is severely limited by habitus and diffuse fatty infiltration throughout the liver. Vascular structures are not identified. If there is clinical concern for acute hepatic vein thrombosis, consider further evaluation with multiphase CT scan of the abdomen. It is noted that a CT scan of the abdomen on October 152019 revealed patency of the hepatic veins at that time. IMPRESSION: 1. Diffuse fatty infiltration of the liver. The exam is markedly limited for interrogation of vascular structures on the basis of habitus and overlying bowel gas. Electronically signed by: Javy Jeronimo MD (10/19/2019 1:38 PM) [id number]
[2019-10-19] MEDS: MAGNESIUM SULFATE 2GM 50 ML IV SCH (13:55)
--- NOTE | 2019-10-19 14:49 | RAD ---
INDICATION: Reason: tachycardia / Spl. Instructions: / History: COMPARISON: None. FINDINGS: Single view of chest obtained. Hypoexpanded examination of the lungs. Cardiac silhouette is upper limits of normal and likely exaggerated by portable technique. Mild linear opacity at left lung base. IMPRESSION: * Hypoexpanded exam with linear opacity at the left lung base most likely secondary to atelectasis. Electronically signed by: Ubaldo Alvarez MD (10/19/2019 2:46 PM) [id number]
[2019-10-19 15:00] VITALS: BP 132/71
[2019-10-19] MEDS: LACTULOSE 20 GM/30 ML SOLUTION. PO SCH (15:51)
[2019-10-19 19:00] VITALS: BP 119/76
[2019-10-19] MEDS ORDERED: POTASSIUM & SODIUM PHOSPHATES PACKET. PO PRN (21:00)
[2019-10-19 23:00] VITALS: BP 108/69
[2019-10-19] MEDS: MIRTAZAPINE 15 MG TABLET PO SCH (23:32)
[2019-10-20] MEDS: PIPERACILLIN/TAZOBACTAM 3.375 GM in IV NORMAL SALINE 50ML 50 ML IV SCH ×2 (01:49→05:14)
[2019-10-20 03:00] VITALS: BP 102/55
[2019-10-20] MEDS: MORPHINE SULFATE 2 MG/ML VIAL. IV PRN ×2 (05:15→21:33)
[2019-10-20 07:00] VITALS: BP 118/59
[2019-10-20 08:05] LABS: ALBUMIN 1.7 g/dL (3.4-5.0); ALBUMIN/GLOBULIN RATIO 0.4 (1.0-1.7); CALCIUM 6.7 mg/dL (8.5-10.1); CREATININE 0.7 mg/dL (0.7-1.3); GFR 133.3; PHOSPHORUS 1.6 mg/dL (2.6-4.7); POTASSIUM 3.2 mmol/L (3.5-5.1); TOTAL BILIRUBIN 16.9 mg/dL (0.2-1.0); TOTAL PROTEIN 5.6 g/dL (6.4-8.2)
--- NOTE | 2019-10-20 08:07 | PDOC ---
Infectious Disease Note Subjective: Subjective Still feeling bloated . complains of pain all over denies any f/n/v Vital Signs: Vital Signs Vital Signs Date Time Temp Pulse Resp B/P (MAP) Pulse Ox O2 Delivery O2 Flow Rate FiO2 10/20/19 05:45 20 Room Air 10/20/19 03:00 98.7 104 102/55 (71) 94 2.0 98.7 Physical Exam: PHYSICAL EXAM GENERAL: Standing near the bed, alert in NAD HEENT: Pupils equally round, reactive. Mild icterus. Oropharynx pink and moist. No lesions seen. NECK: Supple. LUNGS: Clear to auscultation. HEART: S1, S2 regular. ABDOMEN: Obese, soft, nontender with bowel sounds present. EXTREMITIES: No gross edema or cyanosis. SKIN: Warm to touch without signs of rash. NEUROLOGIC: ALert, oriented. Medications: Inpatient Meds: Current Medications Medications (Trade) Dose Ordered Sig/Kelly Start Time Stop Time Status Last Admin Dose Admin Al Hydroxide/Mg Hydroxide (Mylanta Plus Xs) 30 ml PRN DAILY PRN 10/17/19 11:45 Albuterol Sulfate (Ventolin Neb Soln) 2.5 mg PRN Q4HRS PRN 10/18/19 00:45 Albuterol/ Ipratropium (Duoneb) 3 ml Q4HRS 10/17/19 12:00 10/18/19 00:38 DC 10/18/19 00:23 3 ML Clonidine HCl (Catapres) 0.1 mg PRN Q1HR PRN 10/17/19 06:30 Diphenhydramine HCl (Benadryl) 25 mg PRN Q15MIN PRN 10/17/19 06:30 Docusate Sodium (Colace) 100 mg PRN BID PRN 10/17/19 11:45 Enoxaparin Sodium (Lovenox 40mg Syringe) 40 mg Q24H 10/17/19 12:00 10/18/19 10:49 DC 10/17/19 15:05 40 MG Famotidine (Pepcid) 20 mg 1X ONCE 10/16/19 21:15 10/16/19 21:16 DC 10/16/19 21:20 20 MG Folic Acid (Folic Acid) 1 mg DAILY 10/20/19 09:00 Furosemide (Lasix) 40 mg BID92 10/19/19 11:00 10/19/19 15:51 40 MG Guaifenesin (Robitussin) 200 mg PRN Q4HRS PRN 10/17/19 11:45 Haloperidol Lactate (Haldol Inj) 5 mg PRN Q4HRS PRN 10/17/19 06:30 Info (CONTRAST GIVEN -- Rx MONITORING) 1 each PRN DAILY PRN 10/16/19 22:00 10/18/19 21:59 DC Iohexol (Omnipaque 300 Mg/ml) 75 ml 1X ONCE 10/16/19 21:45 10/16/19 21:46 DC 10/16/19 21:54 75 ML Lactobacillus Rhamnosus (Culturelle) 1 cap BID 10/17/19 21:00 10/19/19 23:32 1 CAP Lactulose (Lactulose) 20 gm DAILY08 10/19/19 14:15 10/19/19 15:51 20 GM Lorazepam (Ativan Inj) 4 mg PRN Q1HR PRN 10/17/19 06:30 Magnesium Sulfate 50 ml @ 25 mls/hr Q24H 10/19/19 12:00 10/21/19 13:59 10/19/19 13:55 25 MLS/HR Mirtazapine (Remeron) 15 mg QHS 10/19/19 21:00 10/19/19 23:32 15 MG Morphine Sulfate (Morphine Sulfate) 2 mg PRN Q2HR PRN 10/17/19 06:30 10/20/19 05:15 2 MG Multivitamins (Thera M Plus) 1 tab DAILY 10/20/19 09:00 Multivitamins 10 ml/Thiamine HCl 100 mg/Folic Acid 1 mg/Sodium Chloride 1,011.2 ml @ 100 mls/ hr DAILY 10/17/19 09:00 10/19/19 10:57 DC 10/19/19 09:01 100 MLS/HR Ondansetron HCl (Zofran) 4 mg PRN Q6HRS PRN 10/18/19 17:15 10/18/19 17:17 4 MG Piperacillin Sod/ Tazobactam Sod 3.375 gm/Sodium Chloride 50 ml @ 100 mls/hr Q6HRS 10/17/19 06:00 10/20/19 05:14 100 MLS/HR Piperacillin Sod/ Tazobactam Sod 4.5 gm/Sodium Chloride 100 ml @ 200 mls/hr 1X ONCE 10/17/19 00:45 10/17/19 01:14 DC 10/17/19 01:24 200 MLS/HR Potassium Bicarbonate (Potassium Effervescent Tablet) 40 meq PRN Q4HRS PRN 10/19/19 13:00 Potassium Phos/ Sodium Phos (Phos-Nak) 1 pkt PRN BID PRN 10/19/19 21:00 Sodium Chloride 1,000 ml @ 100 mls/hr Q10H 10/17/19 11:38 10/19/19 10:50 DC 10/19/19 06:23 100 MLS/HR Sodium Chloride (Normal Saline Flush) 3 ml QSHIFT PRN 10/17/19 11:45 Thiamine Mononitrate (Vitamin B-1) 100 mg DAILY 10/20/19 09:00 Labs: Lab Laboratory Tests Test 10/19/19 11:00 10/19/19 12:01 Urine Opiates Screen Pos (NEG) Urine Methadone Screen Neg (NEG) Urine Barbiturates Neg (NEG) Urine Phencyclidine Screen Neg (NEG) Urine Amphetamine/Methamphetamine Neg (NEG) Urine Benzodiazepines Screen Pos (NEG) Urine Cocaine Screen Neg (NEG) Urine Cannabinoids Screen Pos (NEG) Urine Ethyl Alcohol Neg (NEG) Ammonia 35 mcmol/L (11-34) Objective: Assessment: Leukocytosis - improved Jaundice. Colitis. Alcohol abuse. Alcoholic hepatitis. Lactic acidosis - improved Plan: Plan of Care nallely cruz Observe off antibiotics Cultures neg to date Hydration withdrawal precautions d/w RN D/w family at bedside MADISYN WHITEHEAD MD Oct 20, 2019 08:07
--- NOTE | 2019-10-20 10:00 | NUR ---
MARCIAL following. Discussed with RN, pt from home, room air, cardiac diet. PAT to return to eval pt today. MARCIAL will continue to follow. Addendum: 10/20/19 at 1559 by JEAN MARIE CEJA Alessandro attempted to meet with pt, pt too groggy to talk - currently on a morphine pump. MARCIAL will continue to follow.
--- NOTE | 2019-10-20 10:22 | PDOC ---
Date of Service: DATE: 10/20/19 TIME: 10:19 Subjective: Subjective: Ivone feels bad all over. Ate eggs, stooled twice. Feels bloated. Objective: Vital Signs: Vital Signs Date Time Temp Pulse Resp B/P (MAP) Pulse Ox O2 Delivery O2 Flow Rate FiO2 10/20/19 08:58 93 Room Air 10/20/19 07:00 97.8 108 16 118/59 (78) 97.8 10/20/19 03:00 2.0 Labs: Laboratory Tests Test 10/19/19 11:00 10/19/19 12:01 10/20/19 05:50 Urine Opiates Screen Pos Urine Methadone Screen Neg Urine Barbiturates Neg Urine Phencyclidine Screen Neg Urine Amphetamine/Methamphetamine Neg Urine Benzodiazepines Screen Pos Urine Cocaine Screen Neg Urine Cannabinoids Screen Pos Urine Ethyl Alcohol Neg Ammonia 35 mcmol/L Sodium Level 136 mmol/L Potassium Level 3.2 mmol/L Chloride Level 101 mmol/L Carbon Dioxide Level 29 mmol/L Anion Gap 6 Blood Urea Nitrogen 4 mg/dL Creatinine 0.7 mg/dL Estimated GFR (Cockcroft-Gault) 133.3 BUN/Creatinine Ratio 6 Glucose Level 67 mg/dL Calcium Level 6.7 mg/dL Phosphorus Level 1.6 mg/dL Total Bilirubin 16.9 mg/dL Aspartate Amino Transf (AST/SGOT) 117 U/L Alanine Aminotransferase (ALT/SGPT) 30 U/L Alkaline Phosphatase 171 U/L Total Protein 5.6 g/dL Albumin 1.7 g/dL Albumin/Globulin Ratio 0.4 Imaging: CXR IMPRESSION: * Hypoexpanded exam with linear opacity at the left lung base most likely secondary to atelectasis. Hepatic Duplex IMPRESSION: 1. Diffuse fatty infiltration of the liver. The exam is markedly limited for interrogation of vascular structures on the basis of habitus and overlying bowel gas. PE: GEN: NAD LUNGS: clear HEART: mildly tachycardic ABD: some distention, soft, non-tender NEURO/PSYCH: drowsy but more alert today A/P: Alcoholic hepatitis Fatty liver, thrombocytopenia, macrocytosis, coagulopathy -- Continue support. Justicifation of Admission Dx: Justifications for Admission: Justification of Admission Dx: Yes Sepsis: End-Organ Dysfunction THOMAS DUBON Oct 20, 2019 10:22
--- NOTE | 2019-10-20 10:40 | PDOC ---
PROGRESS NOTES Date of Service: DATE: 10/20/19 TIME: 10:38 Chief Complaint Chief Complaint VTE Prophylaxis Ordered VTE Prophylaxis Devices: No VTE Pharmacological Prophylaxi: Yes Assessment/Plan Assessment/Plan impression painless jaundice attenuation of liver with adjacent fat stranding. //steato-hepatitis. apparent gallbladder wall thickening with debris within the lumen which could be from sludge or stones. // wall thickening is nonspecific in nature and could be related to primary gallbladder inflammation or reactive to adjacent hepatic disease.// gallbladder wall lesion is also not excluded. ALCOHOL ABUSE , severe Leukocytosis lactic acidosis thc abuse thrombocytopenia severe protein-caloric malnutrition MAJOR Depression 10/18 inc edema, weigh, d/c iv fluids, iv lasix 40mg bid, NH4 LEVEL hepatic vein doppler plan ADMIT GI CONSULT Hepatitis dx panel ID CONSULT blood culture emperic iv antibiotics, iv zosyn urine culture d/c lovenox due to thrombocytopenia psych consult echo CARDIOLOGY CONSULT CONT TELE d/w family in room 37 min pt exam, chart review, > 50% of time spent with exam, chart review, pt care coordination Justicifation of Admission Dx: Justifications for Admission: Justification of Admission Dx: Yes Sepsis: End-Organ Dysfunction History of Present Illness History of Present Illness Identification/Chief Complaint Chief Complaint seen in er for jaundice , 29 year old male who presents with painless jaundice for the last 3 weeks. Patient reports he was in [place] by a month ago denied any significant COVID exposure but reports that for the last 2 weeks he has had troubles with generalized body aches, fatigue and decrease in appetite. He denies any pain in his abdomen but does complain of some nausea. He also complains of early satiety. He reports that the food does not make him have any pain but also does make him feel any better either. His mom came over today and noticed that he had jaundice and sent him to the emergency room for further evaluation. denies any fever, chills or sweats. He denies any cough shortness of breath or chest pain. w/o c/w alcohol associated hepatitis denies recent tick bites , admits to heavy alcohol intake sine high school, now drinking one pint of vodka daily, USING thc last week in [place] Vitals Vitals Vital Signs Date Time Temp Pulse Resp B/P (MAP) Pulse Ox O2 Delivery O2 Flow Rate FiO2 10/20/19 08:58 93 Room Air 10/20/19 07:00 97.8 108 16 118/59 (78) 97.8 10/20/19 03:00 2.0 Physical Exam Physical Exam GENERAL: alert in NAD HEENT: Pupils equally round, reactive. Mild icterus. Oropharynx pink and moist. No lesions seen. NECK: Supple. LUNGS: Clear to auscultation. HEART: S1, S2 regular. ABDOMEN: Obese,distended, soft, nontender with bowel sounds present. EXTREMITIES: No gross edema or cyanosis. SKIN: Warm to touch without signs of rash. NEUROLOGIC: ALert, oriented. General: Alert, Oriented X3, Cooperative, No acute distress, mild distress, Other (MILD TREMOR depressed) Heart: Regular rate, Normal S1, Normal S2, No murmurs Lungs: Clear Abdomen: Normal bowel sounds, Soft, No tenderness Extremities: No clubbing, No cyanosis, Other (2 PLUS ANKLE EDEMA) Skin: No rashes, No breakdown Labs LABS INDICATION: Reason: tachycardia / Spl. Instructions: / History: COMPARISON: None. FINDINGS: Single view of chest obtained. Hypoexpanded examination of the lungs. Cardiac silhouette is upper limits of normal and likely exaggerated by portable technique. Mild linear opacity at left lung base. IMPRESSION: * Hypoexpanded exam with linear opacity at the left lung base most likely secondary to atelectasis. Electronically signed by: Donnie Alvarez MD (10/19/2019 2:46 PM) [id number] DICTATED and SIGNED BY: DONNIE ALVAREZ MD Laboratory Tests Test 10/19/19 11:00 10/19/19 12:01 10/20/19 05:50 Urine Opiates Screen Pos (NEG) Urine Methadone Screen Neg (NEG) Urine Barbiturates Neg (NEG) Urine Phencyclidine Screen Neg (NEG) Urine Amphetamine/Methamphetamine Neg (NEG) Urine Benzodiazepines Screen Pos (NEG) Urine Cocaine Screen Neg (NEG) Urine Cannabinoids Screen Pos (NEG) Urine Ethyl Alcohol Neg (NEG) Ammonia 35 mcmol/L (11-34) Sodium Level 136 mmol/L (136-145) Potassium Level 3.2 mmol/L (3.5-5.1) Chloride Level 101 mmol/L (98-107) Carbon Dioxide Level 29 mmol/L (21-32) Anion Gap 6 (6-14) Blood Urea Nitrogen 4 mg/dL (8-26) Creatinine 0.7 mg/dL (0.7-1.3) Estimated GFR (Cockcroft-Gault) 133.3 BUN/Creatinine Ratio 6 (6-20) Glucose Level 67 mg/dL (70-99) Calcium Level 6.7 mg/dL (8.5-10.1) Phosphorus Level 1.6 mg/dL (2.6-4.7) Total Bilirubin 16.9 mg/dL (0.2-1.0) Aspartate Amino Transf (AST/SGOT) 117 U/L (15-37) Alanine Aminotransferase (ALT/SGPT) 30 U/L (16-63) Alkaline Phosphatase 171 U/L (46-116) Total Protein 5.6 g/dL (6.4-8.2) Albumin 1.7 g/dL (3.4-5.0) Albumin/Globulin Ratio 0.4 (1.0-1.7) Assessment and Plan Assessmemt and Plan Problems Medical Problems: (1) Acute colitis Status: Acute (2) Dehydration Status: Acute (3) Painless jaundice Status: Acute (4) Sepsis Status: Acute Comment Review of Relevant I have reviewed the following items larry (where applicable) has been applied. Labs Laboratory Tests Test 10/19/19 05:10 10/19/19 11:00 10/19/19 12:01 10/20/19 05:50 White Blood Count 11.7 x10^3/uL (4.0-11.0) Red Blood Count 3.77 x10^6/uL (4.30-5.70) Hemoglobin 13.2 g/dL (13.0-17.5) Hematocrit 38.6 % (39.0-53.0) Mean Corpuscular Volume 102 fL (79-100) Mean Corpuscular Hemoglobin 35 pg (25-35) Mean Corpuscular Hemoglobin Concent 34 g/dL (31-37) Red Cell Distribution Width 15.3 % (11.5-14.5) Platelet Count 93 x10^3/uL (140-400) Neutrophils (%) (Auto) 76 % (31-73) Lymphocytes (%) (Auto) 11 % (24-48) Monocytes (%) (Auto) 10 % (0-9) Eosinophils (%) (Auto) 3 % (0-3) Basophils (%) (Auto) 0 % (0-3) Neutrophils # (Auto) 9.0 x10^3/uL (1.8-7.7) Lymphocytes # (Auto) 1.3 x10^3/uL (1.0-4.8) Monocytes # (Auto) 1.1 x10^3/uL (0.0-1.1) Eosinophils # (Auto) 0.3 x10^3/uL (0.0-0.7) Basophils # (Auto) 0.0 x10^3/uL (0.0-0.2) Sodium Level 136 mmol/L (136-145) 136 mmol/L (136-145) Potassium Level 3.7 mmol/L (3.5-5.1) 3.2 mmol/L (3.5-5.1) Chloride Level 101 mmol/L (98-107) 101 mmol/L (98-107) Carbon Dioxide Level 29 mmol/L (21-32) 29 mmol/L (21-32) Anion Gap 6 (6-14) 6 (6-14) Blood Urea Nitrogen 3 mg/dL (8-26) 4 mg/dL (8-26) Creatinine 0.5 mg/dL (0.7-1.3) 0.7 mg/dL (0.7-1.3) Estimated GFR (Cockcroft-Gault) 196.6 133.3 BUN/Creatinine Ratio 6 (6-20) 6 (6-20) Glucose Level 67 mg/dL (70-99) 67 mg/dL (70-99) Calcium Level 7.2 mg/dL (8.5-10.1) 6.7 mg/dL (8.5-10.1) Magnesium Level 1.3 mg/dL (1.8-2.4) Total Bilirubin 17.3 mg/dL (0.2-1.0) 16.9 mg/dL (0.2-1.0) Aspartate Amino Transf (AST/SGOT) 122 U/L (15-37) 117 U/L (15-37) Alanine Aminotransferase (ALT/SGPT) 37 U/L (16-63) 30 U/L (16-63) Alkaline Phosphatase 175 U/L (46-116) 171 U/L (46-116) Total Protein 5.5 g/dL (6.4-8.2) 5.6 g/dL (6.4-8.2) Albumin 1.8 g/dL (3.4-5.0) 1.7 g/dL (3.4-5.0) Albumin/Globulin Ratio 0.5 (1.0-1.7) 0.4 (1.0-1.7) Urine Opiates Screen Pos (NEG) Urine Methadone Screen Neg (NEG) Urine Barbiturates Neg (NEG) Urine Phencyclidine Screen Neg (NEG) Urine Amphetamine/Methamphetamine Neg (NEG) Urine Benzodiazepines Screen Pos (NEG) Urine Cocaine Screen Neg (NEG) Urine Cannabinoids Screen Pos (NEG) Urine Ethyl Alcohol Neg (NEG) Ammonia 35 mcmol/L (11-34) Phosphorus Level 1.6 mg/dL (2.6-4.7) Laboratory Tests Test 10/19/19 11:00 10/19/19 12:01 10/20/19 05:50 Urine Opiates Screen Pos (NEG) Urine Methadone Screen Neg (NEG) Urine Barbiturates Neg (NEG) Urine Phencyclidine Screen Neg (NEG) Urine Amphetamine/Methamphetamine Neg (NEG) Urine Benzodiazepines Screen Pos (NEG) Urine Cocaine Screen Neg (NEG) Urine Cannabinoids Screen Pos (NEG) Urine Ethyl Alcohol Neg (NEG) Ammonia 35 mcmol/L (11-34) Sodium Level 136 mmol/L (136-145) Potassium Level 3.2 mmol/L (3.5-5.1) Chloride Level 101 mmol/L (98-107) Carbon Dioxide Level 29 mmol/L (21-32) Anion Gap 6 (6-14) Blood Urea Nitrogen 4 mg/dL (8-26) Creatinine 0.7 mg/dL (0.7-1.3) Estimated GFR (Cockcroft-Gault) 133.3 BUN/Creatinine Ratio 6 (6-20) Glucose Level 67 mg/dL (70-99) Calcium Level 6.7 mg/dL (8.5-10.1) Phosphorus Level 1.6 mg/dL (2.6-4.7) Total Bilirubin 16.9 mg/dL (0.2-1.0) Aspartate Amino Transf (AST/SGOT) 117 U/L (15-37) Alanine Aminotransferase (ALT/SGPT) 30 U/L (16-63) Alkaline Phosphatase 171 U/L (46-116) Total Protein 5.6 g/dL (6.4-8.2) Albumin 1.7 g/dL (3.4-5.0) Albumin/Globulin Ratio 0.4 (1.0-1.7) Microbiology 10/17/19 Blood Culture - Preliminary, Resulted NO GROWTH AFTER 2 DAYS 10/16/19 Urine Culture - Final, Complete Medications Current Medications Sodium Chloride 1,000 ml @ 1,000 mls/hr 1X ONCE IV Last administered on 10/16/19at 21:19; Start 10/16/19 at 21:15; Stop 10/16/19 at 22:14; Status DC Ondansetron HCl (Zofran) 4 mg 1X ONCE IVP Last administered on 10/16/19at 21:19; Start 10/16/19 at 21:15; Stop 10/16/19 at 21:16; Status DC Famotidine (Pepcid) 20 mg 1X ONCE PO Last administered on 10/16/19at 21:20; Start 10/16/19 at 21:15; Stop 10/16/19 at 21:16; Status DC Iohexol (Omnipaque 300 Mg/ml) 75 ml 1X ONCE IV Last administered on 10/16/19at 21:54; Start 10/16/19 at 21:45; Stop 10/16/19 at 21:46; Status DC Info (CONTRAST GIVEN -- Rx MONITORING) 1 each PRN DAILY PRN MC SEE COMMENTS; Start 10/16/19 at 22:00; Stop 10/18/19 at 21:59; Status DC Piperacillin Sod/ Tazobactam Sod 4.5 gm/Sodium Chloride 100 ml @ 200 mls/hr 1X ONCE IV Last administered on 10/17/19at 01:24; Start 10/17/19 at 00:45; Stop 10/17/19 at 01:14; Status DC Sodium Chloride 1,000 ml @ 2,460 mls/hr Q25M IV Last administered on 10/17/19at 01:56; Start 10/17/19 at 00:30; Stop 10/17/19 at 01:30; Status DC Sodium Chloride 1,000 ml @ 75 mls/hr [id number] IV Last administered on 10/17/19at 03:49; Start 10/17/19 at 02:15; Stop 10/17/19 at 15:57; Status DC Piperacillin Sod/ Tazobactam Sod 3.375 gm/Sodium Chloride 50 ml @ 100 mls/hr Q6HRS IV Last administered on 10/20/19at 05:14; Start 10/17/19 at 06:00; Stop 10/20/19 at 09:10; Status DC Morphine Sulfate (Morphine Sulfate) 2 mg PRN Q2HR PRN IV PAIN Last administered on 10/20/19at 05:15; Start 10/17/19 at 06:30 Lorazepam (Ativan Inj) 2 mg PRN Q1HR PRN IV For CIWA 8-14 Last administered on 10/19/19at 23:30; Start 10/17/19 at 06:30 Lorazepam (Ativan Inj) 4 mg PRN Q1HR PRN IV For CIWA 15 or greater; Start 10/17/19 at 06:30 Haloperidol Lactate (Haldol Inj) 5 mg PRN Q4HRS PRN IVP Hallucinatns,Confusn,Delirium; Start 10/17/19 at 06:30 Diphenhydramine HCl (Benadryl) 25 mg PRN Q15MIN PRN IVP EPS symptoms 2'Haldol admin; Start 10/17/19 at 06:30 Clonidine HCl (Catapres) 0.1 mg PRN Q1HR PRN PO SBP > 180 or DBP > 100, MRX3; Start 10/17/19 at 06:30 Multivitamins 10 ml/Thiamine HCl 100 mg/Folic Acid 1 mg/Sodium Chloride 1,011.2 ml @ 100 mls/ hr DAILY IV Last administered on 10/19/19at 09:01; Start 10/17/19 at 09:00; Stop 10/19/19 at 10:57; Status DC Sodium Chloride (Normal Saline Flush) 3 ml QSHIFT PRN IV AFTER MEDS AND BLOOD DRAWS; Start 10/17/19 at 11:45 Sodium Chloride 1,000 ml @ 100 mls/hr Q10H IV Last administered on 10/19/19at 06:23; Start 10/17/19 at 11:38; Stop 10/19/19 at 10:50; Status DC Al Hydroxide/Mg Hydroxide (Mylanta Plus Xs) 30 ml PRN DAILY PRN PO HEARTBURN / GAS; Start 10/17/19 at 11:45 Docusate Sodium (Colace) 100 mg PRN BID PRN PO HARD STOOLS; Start 10/17/19 at 11:45 Albuterol/ Ipratropium (Duoneb) 3 ml Q4HRS NEB Last administered on 10/18/19at 00:23; Start 10/17/19 at 12:00; Stop 10/18/19 at 00:38; Status DC Guaifenesin (Robitussin) 200 mg PRN Q4HRS PRN PO COUGH; Start 10/17/19 at 11:45 Enoxaparin Sodium (Lovenox 40mg Syringe) 40 mg Q24H SQ Last administered on 10/17/19at 15:05; Start 10/17/19 at 12:00; Stop 10/18/19 at 10:49; Status DC Lactobacillus Rhamnosus (Culturelle) 1 cap BID PO Last administered on 10/19/19at 23:32; Start 10/17/19 at 21:00 Albuterol Sulfate (Ventolin Neb Soln) 2.5 mg PRN Q4HRS PRN NEB SHORTNESS OF BREATH; Start 10/18/19 at 00:45 Ondansetron HCl (Zofran) 4 mg PRN Q6HRS PRN IVP NAUSEA/VOMITING Last administered on 10/18/19at 17:17; Start 10/18/19 at 17:15 Furosemide (Lasix) 40 mg BID92 IVP Last administered on 10/19/19at 15:51; Start 10/19/19 at 11:00 Folic Acid (Folic Acid) 1 mg DAILY PO ; Start 10/20/19 at 09:00 Thiamine Mononitrate (Vitamin B-1) 100 mg DAILY PO ; Start 10/20/19 at 09:00 Potassium Bicarbonate (Potassium Effervescent Tablet) 40 meq 1X ONCE FT ; Start 10/19/19 at 11:30; Stop 10/19/19 at 11:31; Status DC Magnesium Sulfate 50 ml @ 25 mls/hr Q24H IV Last administered on 10/19/19at 13:55; Start 10/19/19 at 12:00; Stop 10/21/19 at 13:59 Potassium Phos/ Sodium Phos (Phos-Nak) 1 pkt PRN BID PRN PO COMMENTS; Start 10/19/19 at 21:00 Potassium Bicarbonate (Potassium Effervescent Tablet) 40 meq Q4H PO ; Start 10/19/19 at 11:00; Stop 10/19/19 at 12:55; Status DC Multivitamins (Thera M Plus) 1 tab DAILY PO ; Start 10/20/19 at 09:00 Potassium Bicarbonate (Potassium Effervescent Tablet) 40 meq PRN Q4HRS PRN PO COMMENTS; Start 10/19/19 at 13:00 Lactulose (Lactulose) 20 gm DAILY08 PO Last administered on 10/19/19at 15:51; Start 10/19/19 at 14:15 Mirtazapine (Remeron) 15 mg QHS PO Last administered on 10/19/19at 23:32; Start 10/19/19 at 21:00 Active Scripts Active Reported [inhaler] PRN [lisinopril +] DAILY Vitals/I & O Vital Sign - Last 24 Hours 10/19/19 10/19/19 10/19/19 10/19/19 11:00 11:22 12:00 15:00 Temp 98.1 98.3 98.1 98.3 Pulse 105 101 Resp 18 19 18 B/P (MAP) 132/83 (99) 132/71 (91) Pulse Ox 92 94 93 90 O2 Delivery Room Air Room Air 10/19/19 10/19/19 10/19/19 10/19/19 19:00 19:54 20:00 23:00 Temp 98.3 98.5 98.3 98.5 Pulse 101 99 Resp 20 B/P (MAP) 119/76 (90) 108/69 (82) Pulse Ox 94 95 O2 Delivery Room Air Room Air Room Air Nasal Cannula O2 Flow Rate 2.0 10/19/19 10/20/19 10/20/19 10/20/19 23:31 00:01 03:00 05:15 Temp 98.7 98.7 Pulse 104 Resp B/P (MAP) 102/55 (71) Pulse Ox 94 O2 Delivery Room Air Room Air Nasal Cannula Room Air O2 Flow Rate 2.0 10/20/19 10/20/19 10/20/19 05:45 07:00 08:58 Temp 97.8 97.8 Pulse 108 Resp 20 16 B/P (MAP) 118/59 (78) Pulse Ox 94 93 O2 Delivery Room Air Room Air Room Air Intake and Output 10/19/19 10/19/19 10/20/19 15:00 23:00 07:00 Intake Total 50 ml 1250 ml 550 ml Output Total 400 ml 300 ml 500 ml Balance -350 ml 950 ml 50 ml Justicifation of Admission Dx: Justifications for Admission: Justification of Admission Dx: Yes Sepsis: End-Organ Dysfunction SANDY ZHU MD Oct 20, 2019 10:40
[2019-10-20] MEDS: LACTULOSE 20 GM/30 ML SOLUTION. PO SCH (12:08)
[2019-10-20] MEDS: THIAMINE 100 MG TABLET. PO SCH (12:09)
[2019-10-20] MEDS: FUROSEMIDE 40 MG/4 ML VIAL. IVP SCH ×2 (12:09→15:21)
[2019-10-20 12:10] VITALS: BP 116/69
[2019-10-20] MEDS: FOLIC ACID 1 MG TABLET. PO SCH (12:10)
[2019-10-20] MEDS: MULTIVITAMIN with MINERAL TABLET. PO SCH (12:10)
[2019-10-20] MEDS: LACTOBACILLUS RHAMNOSUS GG 1 CAPSULE. PO SCH ×2 (12:10→21:31)
[2019-10-20] MEDS: MAGNESIUM SULFATE 2GM 50 ML IV SCH ×2 (12:45→15:29)
[2019-10-20] MEDS ORDERED: POTASSIUM BICARB 20 MEQ EFFERVESCENT TABLET. FT ONE (13:30)
--- NOTE | 2019-10-20 13:45 | PDOC2 ---
CARDIAC CONSULT DATE OF CONSULT Date of Consult DATE: 10/20/19 TIME: 13:35 REASON FOR CONSULT Reason for Consult: edema, ? CHF REFERRING PHYSICIAN Referring Physician: Dr. Mora SOURCE Source: Chart review, Patient HISTORY OF PRESENT ILLNESS HISTORY OF PRESENT ILLNESS This is a 29 yo male who presented secondary to jaundice, generalized body aches, fatigue, and decreased appetite. C/o feeling bloated and fluid retention, which prompted this consult. Denies any chest pain, palpitations, dizziness, or, diaphoresis. Has had some nausea. PAST MEDICAL HISTORY Cardiovascular: HTN Pulmonary: Asthma Psych: Anxiety, Addictions, Depression, Panic PAST SURGICAL HISTORY Past Surgical History: No pertinent history FAMILY HISTORY Family History: Hypertension SOCIAL HISTORY Smoke: <1 pack per day ALCOHOL: heavy Drugs: Marijuana Lives: Roommate CURRENT MEDICATIONS CURRENT MEDICATIONS Current Medications Medications (Trade) Dose Ordered Sig/Kelly Route PRN Reason Start Time Stop Time Status Last Admin Dose Admin Folic Acid (Folic Acid) 1 mg DAILY PO 10/20/19 09:00 10/20/19 12:10 Thiamine Mononitrate (Vitamin B-1) 100 mg DAILY PO 10/20/19 09:00 10/20/19 12:09 Multivitamins (Thera M Plus) 1 tab DAILY PO 10/20/19 09:00 10/20/19 12:10 Lactulose (Lactulose) 20 gm DAILY08 PO 10/19/19 14:15 10/20/19 12:08 Mirtazapine (Remeron) 15 mg QHS PO 10/19/19 21:00 10/19/19 23:32 ALLERGIES ALLERGIES: Coded Allergies: No Known Drug Allergies (Unverified , 11/30/15) ROS Review of System 14 point ROS conducted with pertinent positives noted above in hPI PHYSICAL EXAM General: Alert, No acute distress, Other (drowsy ) HEENT: Atraumatic Heart: Regular rate (SR/ST) Abdomen: Other (ascites ) Extremities: Other (trace bilateral LE edema ) Skin: Other (jaundiced ) Neuro: Sensation intact Psych/Mental Status: Other (drowsy) VITALS/I&O VITALS/I&O: Vital Signs Date Time Temp Pulse Resp B/P (MAP) Pulse Ox O2 Delivery O2 Flow Rate FiO2 10/20/19 12:10 98.7 105 18 116/69 (85) 91 Room Air 98.7 10/20/19 03:00 2.0 I & O 10/19/19 10/19/19 10/20/19 15:00 23:00 07:00 Intake Total 50 ml 1250 ml 550 ml Output Total 400 ml 300 ml 500 ml Balance -350 ml 950 ml 50 ml LABS Lab: Laboratory Tests Test 10/20/19 05:50 Sodium Level 136 mmol/L (136-145) Potassium Level 3.2 mmol/L (3.5-5.1) L Chloride Level 101 mmol/L (98-107) Carbon Dioxide Level 29 mmol/L (21-32) Anion Gap 6 (6-14) Blood Urea Nitrogen 4 mg/dL (8-26) L Creatinine 0.7 mg/dL (0.7-1.3) Estimated GFR (Cockcroft-Gault) 133.3 BUN/Creatinine Ratio 6 (6-20) Glucose Level 67 mg/dL (70-99) L Calcium Level 6.7 mg/dL (8.5-10.1) L Phosphorus Level 1.6 mg/dL (2.6-4.7) L Total Bilirubin 16.9 mg/dL (0.2-1.0) H Aspartate Amino Transferase (AST) 117 U/L (15-37) H Alanine Aminotransferase (ALT) 30 U/L (16-63) Alkaline Phosphatase 171 U/L (46-116) H FN-Zsb-P-Type Natriuretic Peptide 146 pg/mL (0-124) H Total Protein 5.6 g/dL (6.4-8.2) L Albumin 1.7 g/dL (3.4-5.0) L Albumin/Globulin Ratio 0.4 (1.0-1.7) L Laboratory Tests 10/20/19 05:50 ASSESSMENT/PLAN ASSESSMENT/PLAN 1. Leukocytosis, lactic acidosis; cultures negative 2. Jaundice 3. Alcoholic hepatitis 4. Thrombocytopenia, coagulopathy 5. ETOH abuse; longstanding history of heavy use 6. Hypokalemia, hypomagnesemia 7. Ascites; most probably secondary to liver disease. Less likely overt HF. S/p IV Lasix 8. Tobaccoism and marijuana use Recommendations Echo ordered to assess LV systolic function SONU Traylor APRN Oct 20, 2019 13:45
[2019-10-20 15:00] VITALS: BP 126/69
--- NOTE | 2019-10-20 16:14 | EKG ---
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
[2019-10-20] MEDS ORDERED: MAGNESIUM SULFATE 2GM 50 ML IV ONE (16:15)
[2019-10-20] MEDS: POTASSIUM BICARB 20 MEQ EFFERVESCENT TABLET. PO SCH ×2 (17:30→18:24)
[2019-10-20 19:00] VITALS: BP 109/67
--- NOTE | 2019-10-20 21:26 | PDOC ---
F/U PHYSCH PROG NOTE Subjective: Gentleman is seen for routine follow-up. Progress is reviewed with nursing staff. No major emotional or behavioral breakdown reported. According to the nursing staff, patient has been sleeping a lot more than usual. Likely, he is sleeping due to first dose of Remeron that he received last night. When seen, he is appears fully alert and oriented. However he continues to be dysphoric and somewhat irritable. Stating he is anxious and depressed. Denies suicidal or homicidal thoughts. Denies auditory or visual hallucinations. No evidence of breann. Tolerating medications and denies adverse drug reaction. Objective: 14 point review of system is otherwise negative except for stated in subjective history Vital Signs: Vital Signs Date Time Temp Pulse Resp B/P (MAP) Pulse Ox O2 Delivery O2 Flow Rate FiO2 10/20/19 19:00 98.0 103 18 109/67 (81) 95 Room Air 98.0 10/20/19 15:00 2.0 Labs: Laboratory Tests Test 10/20/19 05:50 Sodium Level 136 mmol/L (136-145) Potassium Level 3.2 mmol/L (3.5-5.1) L Chloride Level 101 mmol/L (98-107) Carbon Dioxide Level 29 mmol/L (21-32) Anion Gap 6 (6-14) Blood Urea Nitrogen 4 mg/dL (8-26) L Creatinine 0.7 mg/dL (0.7-1.3) Estimated GFR (Cockcroft-Gault) 133.3 BUN/Creatinine Ratio 6 (6-20) Glucose Level 67 mg/dL (70-99) L Calcium Level 6.7 mg/dL (8.5-10.1) L Phosphorus Level 1.6 mg/dL (2.6-4.7) L Magnesium Level 1.6 mg/dL (1.8-2.4) L Total Bilirubin 16.9 mg/dL (0.2-1.0) H Aspartate Amino Transferase (AST) 117 U/L (15-37) H Alanine Aminotransferase (ALT) 30 U/L (16-63) Alkaline Phosphatase 171 U/L (46-116) H PC-Iuc-D-Type Natriuretic Peptide 146 pg/mL (0-124) H Total Protein 5.6 g/dL (6.4-8.2) L Albumin 1.7 g/dL (3.4-5.0) L Albumin/Globulin Ratio 0.4 (1.0-1.7) L Laboratory Tests 10/20/19 05:50 Medications: Current Medications Medications (Trade) Dose Ordered Sig/Kelly Start Time Stop Time Status Last Admin Dose Admin Al Hydroxide/Mg Hydroxide (Mylanta Plus Xs) 30 ml PRN DAILY PRN 10/17/19 11:45 Albuterol Sulfate (Ventolin Neb Soln) 2.5 mg PRN Q4HRS PRN 10/18/19 00:45 Albuterol/ Ipratropium (Duoneb) 3 ml Q4HRS 10/17/19 12:00 10/18/19 00:38 DC 10/18/19 00:23 3 ML Clonidine HCl (Catapres) 0.1 mg PRN Q1HR PRN 10/17/19 06:30 Diphenhydramine HCl (Benadryl) 25 mg PRN Q15MIN PRN 10/17/19 06:30 Docusate Sodium (Colace) 100 mg PRN BID PRN 10/17/19 11:45 Enoxaparin Sodium (Lovenox 40mg Syringe) 40 mg Q24H 10/17/19 12:00 10/18/19 10:49 DC 10/17/19 15:05 40 MG Famotidine (Pepcid) 20 mg 1X ONCE 10/16/19 21:15 10/16/19 21:16 DC 10/16/19 21:20 20 MG Folic Acid (Folic Acid) 1 mg DAILY 10/20/19 09:00 10/20/19 12:10 1 MG Furosemide (Lasix) 40 mg BID92 10/19/19 11:00 10/20/19 15:21 40 MG Guaifenesin (Robitussin) 200 mg PRN Q4HRS PRN 10/17/19 11:45 Haloperidol Lactate (Haldol Inj) 5 mg PRN Q4HRS PRN 10/17/19 06:30 Info (CONTRAST GIVEN -- Rx MONITORING) 1 each PRN DAILY PRN 10/16/19 22:00 10/18/19 21:59 DC Iohexol (Omnipaque 300 Mg/ml) 75 ml 1X ONCE 10/16/19 21:45 10/16/19 21:46 DC 10/16/19 21:54 75 ML Lactobacillus Rhamnosus (Culturelle) 1 cap BID 10/17/19 21:00 10/20/19 12:10 1 CAP Lactulose (Lactulose) 20 gm DAILY08 10/19/19 14:15 10/20/19 12:08 20 GM Lorazepam (Ativan Inj) 4 mg PRN Q1HR PRN 10/17/19 06:30 Magnesium Sulfate 50 ml @ 25 mls/hr 1X ONCE 10/20/19 16:15 10/20/19 18:14 DC 10/20/19 18:22 25 MLS/HR Mirtazapine (Remeron) 15 mg QHS 10/19/19 21:00 10/19/19 23:32 15 MG Morphine Sulfate (Morphine Sulfate) 2 mg PRN Q2HR PRN 10/17/19 06:30 10/20/19 05:15 2 MG Multivitamins (Thera M Plus) 1 tab DAILY 10/20/19 09:00 10/20/19 12:10 1 TAB Multivitamins 10 ml/Thiamine HCl 100 mg/Folic Acid 1 mg/Sodium Chloride 1,011.2 ml @ 100 mls/ hr DAILY 10/17/19 09:00 10/19/19 10:57 DC 10/19/19 09:01 100 MLS/HR Ondansetron HCl (Zofran) 4 mg PRN Q6HRS PRN 10/18/19 17:15 10/18/19 17:17 4 MG Piperacillin Sod/ Tazobactam Sod 3.375 gm/Sodium Chloride 50 ml @ 100 mls/hr Q6HRS 10/17/19 06:00 10/20/19 09:10 DC 10/20/19 05:14 100 MLS/HR Piperacillin Sod/ Tazobactam Sod 4.5 gm/Sodium Chloride 100 ml @ 200 mls/hr 1X ONCE 10/17/19 00:45 10/17/19 01:14 DC 10/17/19 01:24 200 MLS/HR Potassium Bicarbonate (Potassium Effervescent Tablet) 40 meq Q4H 10/20/19 13:30 10/20/19 17:31 DC 10/20/19 17:30 40 MEQ Potassium Phos/ Sodium Phos (Phos-Nak) 1 pkt BID 10/20/19 21:00 10/21/19 09:01 Sodium Chloride 1,000 ml @ 100 mls/hr Q10H 10/17/19 11:38 10/19/19 10:50 DC 10/19/19 06:23 100 MLS/HR Sodium Chloride (Normal Saline Flush) 3 ml QSHIFT PRN 10/17/19 11:45 Thiamine Mononitrate (Vitamin B-1) 100 mg DAILY 10/20/19 09:00 10/20/19 12:09 100 MG Physical Exam: Mental Status Exam: Young gentleman appears as a stated age, fairly groomed, fairly nourished Cooperative and interactive appears tired Fully oriented Thought processes linear and mostly goal-directed Denies auditory or visual hallucinations No abnormal perception noted. Denies suicidal or homicidal thoughts. Mood is down and depressed Affect is dysthymic Insight is fair Judgment is fair Attention span and concentration fair Recent and remote memory intact. Physical Exam: Refer to Physician's note. SPA ASSOCIATE: No focal deficit MSK: No EPS, TDK, or abnormal involuntary movements Diagnosis: 1. Alcohol use disorder, recurrent, severe 2. Major depressive disorder, recurrent, moderate 3. Generalized anxiety disorder 4. Rule out major depression/generalized anxiety due to substance use. Assessment: Young gentleman struggling with alcohol use disorder with medical complications. Additionally, struggling with psychiatric complications of alcohol including depression and anxiety. It is important at this point to select antidepressant which does not need too much adjustment in liver disease. Recommending to start Remeron which would help him with insomnia, depression, anxiety. Gabapentin to cut down alcohol craving and complicated withdrawals. Today, except for sleep overall his status is the same. He continues to be d epressed and anxious. Plan: Continue gabapentin 100 mg 3 times daily for alcohol craving and withdrawal prevention. Continue Remeron 15 mg nightly for depression, anxiety, and insomnia. Risk, benefits, alternatives of the treatment are discussed. He is in agreement with plan and expressed understanding. Adverse drug reaction of the medications prescribed were discussed in detail. He is accepting medications and consented verbally. Monitor for symptomatology, mood, and safety. Will adjust medications accordingly. Thank you for involving inpatient care VANNESA JUNIOR MD Oct 20, 2019 21:26
[2019-10-20] MEDS: MIRTAZAPINE 15 MG TABLET PO SCH (21:32)
[2019-10-20] MEDS: POTASSIUM & SODIUM PHOSPHATES PACKET. PO SCH (21:32)
[2019-10-20 23:00] VITALS: BP 105/67
[2019-10-21 03:00] VITALS: BP 113/69
[2019-10-21] MEDS: MORPHINE SULFATE 2 MG/ML VIAL. IV PRN ×2 (04:38→10:48)
[2019-10-21 06:29] LABS: BASO # 0.1 x10^3/uL (0.0-0.2); BASO % 1 % (0-3); EOS # 0.2 x10^3/uL (0.0-0.7); EOS % 2 % (0-3); HEMATOCRIT 39.9 % (39.0-53.0); LYMPH # 1.3 x10^3/uL (1.0-4.8); LYMPH % 10 % (24-48); MEAN CORPUSCULAR HEMOGLOBIN 36 pg (25-35); MEAN CORPUSCULAR HGB CONC 35 g/dL (31-37); MEAN CORPUSCULAR VOLUME 102 fL (79-100); MONO # 1.4 x10^3/uL (0.0-1.1); MONO % 11 % (0-9); NEUT # 10.6 x10^3/uL (1.8-7.7); NEUT % 78 % (31-73); PLATELET COUNT 128 x10^3/uL (140-400); RED BLOOD COUNT 3.93 x10^6/uL (4.30-5.70); RED CELL DISTRIBUTION WIDTH 15.9 % (11.5-14.5); WHITE BLOOD COUNT 13.6 x10^3/uL (4.0-11.0)
[2019-10-21 06:50] LABS: ALBUMIN 1.8 g/dL (3.4-5.0); ALBUMIN/GLOBULIN RATIO 0.4 (1.0-1.7); CALCIUM 7.5 mg/dL (8.5-10.1); CREATININE 0.7 mg/dL (0.7-1.3); GFR 133.3; MAGNESIUM 2.4 mg/dL (1.8-2.4); PHOSPHORUS 2.3 mg/dL (2.6-4.7); POTASSIUM 3.2 mmol/L (3.5-5.1); TOTAL BILIRUBIN 17.5 mg/dL (0.2-1.0); TOTAL PROTEIN 5.9 g/dL (6.4-8.2)
[2019-10-21 07:00] VITALS: BP 115/74
--- NOTE | 2019-10-21 09:12 | CARD ---
MR#: [id number] Date of Study: 10/21/2019 Ordering Physician: SANDY ZHU, Referring Physician: SANDY ZHU, Tech: Carolin Rice RDCS APPROVED REPORT EXAM: Two-dimensional and M-mode echocardiogram with Doppler and color Doppler. Other Information Quality : Good INDICATION Congestive Heart Failure 2D DIMENSIONS RVDd2.6 (2.9-3.5cm)Left Atrium(2D)4.2 (1.6-4.0cm) IVSd0.9 (0.7-1.1cm)Aortic Root(2D)3.0 (2.0-3.7cm) LVDd5.2 (3.9-5.9cm)LVOT Diameter2.4 (1.8-2.4cm) PWd0.9 (0.7-1.1cm)LVDs3.7 (2.5-4.0cm) FS (%) 29.7 %SV73.7 ml LVEF(%)55.0 (>50%) Aortic Valve AoV Peak Tony.132.5cm/sAoV VTI20.7cm AO Peak GR.7.0mmHgLVOT Peak Tony.130.2cm/s AO Mean GR.4mmHgAVA (VMAX)4.30cm2 SHIREEN (VTI)4.90cm2 Mitral Valve MV E Tofomaze17.4cm/sMV DECEL [id number] MV A Qngulhnk28.5cm/sE/A Ratio1.0 Tricuspid Valve TR P. Mekvwpev996ia/sRAP [id number] TR Peak Gr.87qxWoTUUF14vbGk Pulmonary Vein S1 Apyzanhf70.5cm/sD2 Cirncfro04.4cm/s LEFT VENTRICLE The left ventricle is normal size. There is normal left ventricular wall thickness. The left ventricu lar systolic function is normal and the ejection fraction is within normal range. The Ejection Fracti on is 55%. There is normal LV segmental wall motion. The left ventricular diastolic function and fill ing is normal for age. RIGHT VENTRICLE The right ventricle is normal size. The right ventricular systolic function is normal. ATRIA The left atrium is mildly dilated. The right atrium size is normal. The interatrial septum is intact with no evidence for an atrial septal defect or patent foramen ovale as noted on 2-D or Doppler imagi ng. AORTIC VALVE The aortic valve is normal in structure and function. Doppler and Color Flow revealed no significant aortic regurgitation. There is no significant aortic valvular stenosis. MITRAL VALVE The mitral valve is calcified but opens well. There is no evidence of mitral valve prolapse. There is no mitral valve stenosis. Doppler and Color Flow revealed no mitral valve regurgitation noted. TRICUSPID VALVE The tricuspid valve is normal in structure and function. Doppler and Color Flow revealed no tricuspid valve regurgitation noted. There is no tricuspid valve stenosis. PULMONIC VALVE The pulmonary valve is normal in structure and function. Doppler and Color Flow revealed trace pulmon ic valvular regurgitation. There is no pulmonic valvular stenosis. GREAT VESSELS The aortic root is normal in size. The ascending aorta is not well seen. The IVC was not visualized. PERICARDIAL EFFUSION There is no evidence of significant pericardial effusion. Critical Notification Critical Value: No <Conclusion> The left ventricular systolic function is normal and the ejection fraction is within normal range. Th e Ejection Fraction is 55%. There is normal LV segmental wall motion. Signed by : Jude Obrien, Electronically Approved : 10/21/2019 09:11:46
--- NOTE | 2019-10-21 09:58 | PDOC ---
PROGRESS NOTES Date of Service: DATE: 10/21/19 TIME: 09:58 Chief Complaint Chief Complaint VTE Prophylaxis Ordered VTE Prophylaxis Devices: No VTE Pharmacological Prophylaxi: Yes Assessment/Plan Assessment/Plan impression painless jaundice attenuation of liver with adjacent fat stranding. //steato-hepatitis. apparent gallbladder wall thickening with debris within the lumen which could be from sludge or stones. // wall thickening is nonspecific in nature and could be related to primary gallbladder inflammation or reactive to adjacent hepatic disease.// gallbladder wall lesion is also not excluded. ALCOHOL ABUSE , severe Leukocytosis lactic acidosis thc abuse thrombocytopenia severe protein-caloric malnutrition MAJOR Depression 10/18 inc edema, weigh, d/c iv fluids, iv lasix 40mg bid, NH4 LEVEL hepatic vein doppler 10/20 continues to be dysphoric and somewhat irritable. Stating he is anxious and depressed, CHK AM, PM SERUM CORTISOL plan ADMIT GI CONSULT Hepatitis dx panel ID CONSULT blood culture emperic iv antibiotics, iv zosyn urine culture d/c lovenox due to thrombocytopenia psych consult REVIEWED echo CARDIOLOGY CONSULT CONT TELE D/W MOTHER IN HALLWAY 10/20 d/w family in room 37 min pt exam, chart review, > 50% of time spent with exam, chart review, pt care coordination Justicifation of Admission Dx: Justifications for Admission: Justification of Admission Dx: Yes Sepsis: End-Organ Dysfunction History of Present Illness History of Present Illness Identification/Chief Complaint Chief Complaint seen in er for jaundice , 29 year old male who presents with painless jaundice for the last 3 weeks. Patient reports he was in [place] by a month ago denied any significant COVID exposure but reports that for the last 2 weeks he has had troubles with generalized body aches, fatigue and decrease in appetite. He denies any pain in his abdomen but does complain of some nausea. He also complains of early satiety. He reports that the food does not make him have any pain but also does make him feel any better either. His mom came over today and noticed that he had jaundice and sent him to the emergency room for further evaluation. denies any fever, chills or sweats. He denies any cough shortness of breath or chest pain. w/o c/w alcohol associated hepatitis denies recent tick bites , admits to heavy alcohol intake sine high school, now drinking one pint of vodka daily, USING thc last week in [place] Vitals Vitals Vital Signs Date Time Temp Pulse Resp B/P (MAP) Pulse Ox O2 Delivery O2 Flow Rate FiO2 10/21/19 07:00 98.2 94 16 115/74 (88) 90 Room Air 98.2 10/20/19 15:00 2.0 Physical Exam Physical Exam GENERAL: alert in NAD HEENT: Pupils equally round, reactive. Mild icterus. Oropharynx pink and moist. No lesions seen. NECK: Supple. LUNGS: Clear to auscultation. HEART: S1, S2 regular. ABDOMEN: Obese,distended, soft, nontender with bowel sounds present. EXTREMITIES: No gross edema or cyanosis. SKIN: Warm to touch without signs of rash. NEUROLOGIC: ALert, oriented. General: Alert, No acute distress, Other (drowsy ) Heart: Regular rate (SR/ST) Lungs: Clear Abdomen: Other (ascites ) Extremities: Other (trace bilateral LE edema ) Skin: Other (jaundiced ) Labs LABS Mitral Valve MV E Velocity 73.4cm/s MV DECEL TIME 178ms MV A Velocity 74.5cm/s E/A Ratio 1.0 Tricuspid Valve TR P. Velocity 236cm/s RAP ESTIMATE 3mmHg TR Peak Gr. 22mmHg RVSP 25mmHg Pulmonary Vein S1 Velocity 92.5cm/s D2 Velocity 68.4cm/s LEFT VENTRICLE The left ventricle is normal size. There is normal left ventricular wall thickness. The left ventricular systolic function is normal and the ejection fraction is within normal range. The Ejection Fraction is 55%. There is normal LV segmental wall motion. The left ventricular diastolic function and filling is normal for age. RIGHT VENTRICLE The right ventricle is normal size. The right ventricular systolic function is normal. ATRIA The left atrium is mildly dilated. The right atrium size is normal. The interatrial septum is intact with no evidence for an atrial septal defect or patent foramen ovale as noted on 2-D or Doppler imaging. AORTIC VALVE The aortic valve is normal in structure and function. Doppler and Color Flow revealed no significant aortic regurgitation. There is no significant aortic valvular stenosis. MITRAL VALVE The mitral valve is calcified but opens well. There is no evidence of mitral valve prolapse. There is no mitral valve stenosis. Doppler and Color Flow revealed no mitral valve regurgitation noted. TRICUSPID VALVE The tricuspid valve is normal in structure and function. Doppler and Color Flow revealed no tricuspid valve regurgitation noted. There is no tricuspid valve stenosis. PULMONIC VALVE The pulmonary valve is normal in structure and function. Doppler and Color Flow revealed trace pulmonic valvular regurgitation. There is no pulmonic valvular stenosis. GREAT VESSELS The aortic root is normal in size. The ascending aorta is not well seen. The IVC was not visualized. PERICARDIAL EFFUSION There is no evidence of significant pericardial effusion. Critical Notification Critical Value: No <Conclusion> The left ventricular systolic function is normal and the ejection fraction is within normal range. The Ejection Fraction is 55%. There is normal LV segmental wall motion. Signed by : Prudencio Vernon, Electronically Approved : 10/21/2019 09:11:46 DICTATED and SIGNED BY: PRUDENCIO VERNON MD DATE: 10/21/1956 Laboratory Tests Test 10/21/19 05:55 White Blood Count 13.6 x10^3/uL (4.0-11.0) Red Blood Count 3.93 x10^6/uL (4.30-5.70) Hemoglobin 14.0 g/dL (13.0-17.5) Hematocrit 39.9 % (39.0-53.0) Mean Corpuscular Volume 102 fL (79-100) Mean Corpuscular Hemoglobin 36 pg (25-35) Mean Corpuscular Hemoglobin Concent 35 g/dL (31-37) Red Cell Distribution Width 15.9 % (11.5-14.5) Platelet Count 128 x10^3/uL (140-400) Neutrophils (%) (Auto) 78 % (31-73) Lymphocytes (%) (Auto) 10 % (24-48) Monocytes (%) (Auto) 11 % (0-9) Eosinophils (%) (Auto) 2 % (0-3) Basophils (%) (Auto) 1 % (0-3) Neutrophils # (Auto) 10.6 x10^3/uL (1.8-7.7) Lymphocytes # (Auto) 1.3 x10^3/uL (1.0-4.8) Monocytes # (Auto) 1.4 x10^3/uL (0.0-1.1) Eosinophils # (Auto) 0.2 x10^3/uL (0.0-0.7) Basophils # (Auto) 0.1 x10^3/uL (0.0-0.2) Sodium Level 136 mmol/L (136-145) Potassium Level 3.2 mmol/L (3.5-5.1) Chloride Level 99 mmol/L (98-107) Carbon Dioxide Level 31 mmol/L (21-32) Anion Gap 6 (6-14) Blood Urea Nitrogen 5 mg/dL (8-26) Creatinine 0.7 mg/dL (0.7-1.3) Estimated GFR (Cockcroft-Gault) 133.3 BUN/Creatinine Ratio 7 (6-20) Glucose Level 71 mg/dL (70-99) Calcium Level 7.5 mg/dL (8.5-10.1) Phosphorus Level 2.3 mg/dL (2.6-4.7) Magnesium Level 2.4 mg/dL (1.8-2.4) Total Bilirubin 17.5 mg/dL (0.2-1.0) Aspartate Amino Transf (AST/SGOT) 117 U/L (15-37) Alanine Aminotransferase (ALT/SGPT) 36 U/L (16-63) Alkaline Phosphatase 186 U/L (46-116) Total Protein 5.9 g/dL (6.4-8.2) Albumin 1.8 g/dL (3.4-5.0) Albumin/Globulin Ratio 0.4 (1.0-1.7) Assessment and Plan Assessmemt and Plan Problems Medical Problems: (1) Acute colitis Status: Acute (2) Dehydration Status: Acute (3) Painless jaundice Status: Acute (4) Sepsis Status: Acute Comment Review of Relevant I have reviewed the following items larry (where applicable) has been applied. Labs Laboratory Tests Test 10/19/19 11:00 10/19/19 12:01 10/20/19 05:50 10/21/19 05:55 Urine Opiates Screen Pos (NEG) Urine Methadone Screen Neg (NEG) Urine Barbiturates Neg (NEG) Urine Phencyclidine Screen Neg (NEG) Urine Amphetamine/Methamphetamine Neg (NEG) Urine Benzodiazepines Screen Pos (NEG) Urine Cocaine Screen Neg (NEG) Urine Cannabinoids Screen Pos (NEG) Urine Ethyl Alcohol Neg (NEG) Ammonia 35 mcmol/L (11-34) Sodium Level 136 mmol/L (136-145) 136 mmol/L (136-145) Potassium Level 3.2 mmol/L (3.5-5.1) 3.2 mmol/L (3.5-5.1) Chloride Level 101 mmol/L (98-107) 99 mmol/L (98-107) Carbon Dioxide Level 29 mmol/L (21-32) 31 mmol/L (21-32) Anion Gap 6 (6-14) 6 (6-14) Blood Urea Nitrogen 4 mg/dL (8-26) 5 mg/dL (8-26) Creatinine 0.7 mg/dL (0.7-1.3) 0.7 mg/dL (0.7-1.3) Estimated GFR (Cockcroft-Gault) 133.3 133.3 BUN/Creatinine Ratio 6 (6-20) 7 (6-20) Glucose Level 67 mg/dL (70-99) 71 mg/dL (70-99) Calcium Level 6.7 mg/dL (8.5-10.1) 7.5 mg/dL (8.5-10.1) Phosphorus Level 1.6 mg/dL (2.6-4.7) 2.3 mg/dL (2.6-4.7) Magnesium Level 1.6 mg/dL (1.8-2.4) 2.4 mg/dL (1.8-2.4) Total Bilirubin 16.9 mg/dL (0.2-1.0) 17.5 mg/dL (0.2-1.0) Aspartate Amino Transf (AST/SGOT) 117 U/L (15-37) 117 U/L (15-37) Alanine Aminotransferase (ALT/SGPT) 30 U/L (16-63) 36 U/L (16-63) Alkaline Phosphatase 171 U/L (46-116) 186 U/L (46-116) RL-Omd-S-Type Natriuretic Peptide 146 pg/mL (0-124) Total Protein 5.6 g/dL (6.4-8.2) 5.9 g/dL (6.4-8.2) Albumin 1.7 g/dL (3.4-5.0) 1.8 g/dL (3.4-5.0) Albumin/Globulin Ratio 0.4 (1.0-1.7) 0.4 (1.0-1.7) White Blood Count 13.6 x10^3/uL (4.0-11.0) Red Blood Count 3.93 x10^6/uL (4.30-5.70) Hemoglobin 14.0 g/dL (13.0-17.5) Hematocrit 39.9 % (39.0-53.0) Mean Corpuscular Volume 102 fL (79-100) Mean Corpuscular Hemoglobin 36 pg (25-35) Mean Corpuscular Hemoglobin Concent 35 g/dL (31-37) Red Cell Distribution Width 15.9 % (11.5-14.5) Platelet Count 128 x10^3/uL (140-400) Neutrophils (%) (Auto) 78 % (31-73) Lymphocytes (%) (Auto) 10 % (24-48) Monocytes (%) (Auto) 11 % (0-9) Eosinophils (%) (Auto) 2 % (0-3) Basophils (%) (Auto) 1 % (0-3) Neutrophils # (Auto) 10.6 x10^3/uL (1.8-7.7) Lymphocytes # (Auto) 1.3 x10^3/uL (1.0-4.8) Monocytes # (Auto) 1.4 x10^3/uL (0.0-1.1) Eosinophils # (Auto) 0.2 x10^3/uL (0.0-0.7) Basophils # (Auto) 0.1 x10^3/uL (0.0-0.2) Laboratory Tests Test 10/21/19 05:55 White Blood Count 13.6 x10^3/uL (4.0-11.0) Red Blood Count 3.93 x10^6/uL (4.30-5.70) Hemoglobin 14.0 g/dL (13.0-17.5) Hematocrit 39.9 % (39.0-53.0) Mean Corpuscular Volume 102 fL (79-100) Mean Corpuscular Hemoglobin 36 pg (25-35) Mean Corpuscular Hemoglobin Concent 35 g/dL (31-37) Red Cell Distribution Width 15.9 % (11.5-14.5) Platelet Count 128 x10^3/uL (140-400) Neutrophils (%) (Auto) 78 % (31-73) Lymphocytes (%) (Auto) 10 % (24-48) Monocytes (%) (Auto) 11 % (0-9) Eosinophils (%) (Auto) 2 % (0-3) Basophils (%) (Auto) 1 % (0-3) Neutrophils # (Auto) 10.6 x10^3/uL (1.8-7.7) Lymphocytes # (Auto) 1.3 x10^3/uL (1.0-4.8) Monocytes # (Auto) 1.4 x10^3/uL (0.0-1.1) Eosinophils # (Auto) 0.2 x10^3/uL (0.0-0.7) Basophils # (Auto) 0.1 x10^3/uL (0.0-0.2) Sodium Level 136 mmol/L (136-145) Potassium Level 3.2 mmol/L (3.5-5.1) Chloride Level 99 mmol/L (98-107) Carbon Dioxide Level 31 mmol/L (21-32) Anion Gap 6 (6-14) Blood Urea Nitrogen 5 mg/dL (8-26) Creatinine 0.7 mg/dL (0.7-1.3) Estimated GFR (Cockcroft-Gault) 133.3 BUN/Creatinine Ratio 7 (6-20) Glucose Level 71 mg/dL (70-99) Calcium Level 7.5 mg/dL (8.5-10.1) Phosphorus Level 2.3 mg/dL (2.6-4.7) Magnesium Level 2.4 mg/dL (1.8-2.4) Total Bilirubin 17.5 mg/dL (0.2-1.0) Aspartate Amino Transf (AST/SGOT) 117 U/L (15-37) Alanine Aminotransferase (ALT/SGPT) 36 U/L (16-63) Alkaline Phosphatase 186 U/L (46-116) Total Protein 5.9 g/dL (6.4-8.2) Albumin 1.8 g/dL (3.4-5.0) Albumin/Globulin Ratio 0.4 (1.0-1.7) Microbiology 10/17/19 Blood Culture - Preliminary, Resulted NO GROWTH AFTER 3 DAYS 10/16/19 Urine Culture - Final, Complete Medications Current Medications Sodium Chloride 1,000 ml @ 1,000 mls/hr 1X ONCE IV Last administered on 10/16/19at 21:19; Start 10/16/19 at 21:15; Stop 10/16/19 at 22:14; Status DC Ondansetron HCl (Zofran) 4 mg 1X ONCE IVP Last administered on 10/16/19at 21:19; Start 10/16/19 at 21:15; Stop 10/16/19 at 21:16; Status DC Famotidine (Pepcid) 20 mg 1X ONCE PO Last administered on 10/16/19at 21:20; Start 10/16/19 at 21:15; Stop 10/16/19 at 21:16; Status DC Iohexol (Omnipaque 300 Mg/ml) 75 ml 1X ONCE IV Last administered on 10/16/19at 21:54; Start 10/16/19 at 21:45; Stop 10/16/19 at 21:46; Status DC Info (CONTRAST GIVEN -- Rx MONITORING) 1 each PRN DAILY PRN MC SEE COMMENTS; Start 10/16/19 at 22:00; Stop 10/18/19 at 21:59; Status DC Piperacillin Sod/ Tazobactam Sod 4.5 gm/Sodium Chloride 100 ml @ 200 mls/hr 1X ONCE IV Last administered on 10/17/19at 01:24; Start 10/17/19 at 00:45; Stop 10/17/19 at 01:14; Status DC Sodium Chloride 1,000 ml @ 2,460 mls/hr Q25M IV Last administered on 10/17/19at 01:56; Start 10/17/19 at 00:30; Stop 10/17/19 at 01:30; Status DC Sodium Chloride 1,000 ml @ 75 mls/hr [id number] IV Last administered on 10/17/19at 03:49; Start 10/17/19 at 02:15; Stop 10/17/19 at 15:57; Status DC Piperacillin Sod/ Tazobactam Sod 3.375 gm/Sodium Chloride 50 ml @ 100 mls/hr Q6HRS IV Last administered on 10/20/19at 05:14; Start 10/17/19 at 06:00; Stop 10/20/19 at 09:10; Status DC Morphine Sulfate (Morphine Sulfate) 2 mg PRN Q2HR PRN IV PAIN Last administered on 10/21/19at 04:38; Start 10/17/19 at 06:30 Lorazepam (Ativan Inj) 2 mg PRN Q1HR PRN IV For CIWA 8-14 Last administered on 10/21/19at 04:39; Start 10/17/19 at 06:30 Lorazepam (Ativan Inj) 4 mg PRN Q1HR PRN IV For CIWA 15 or greater; Start 10/17/19 at 06:30 Haloperidol Lactate (Haldol Inj) 5 mg PRN Q4HRS PRN IVP Hallucinatns,Confusn,Delirium; Start 10/17/19 at 06:30 Diphenhydramine HCl (Benadryl) 25 mg PRN Q15MIN PRN IVP EPS symptoms 2'Haldol admin; Start 10/17/19 at 06:30 Clonidine HCl (Catapres) 0.1 mg PRN Q1HR PRN PO SBP > 180 or DBP > 100, MRX3; Start 10/17/19 at 06:30 Multivitamins 10 ml/Thiamine HCl 100 mg/Folic Acid 1 mg/Sodium Chloride 1,011.2 ml @ 100 mls/ hr DAILY IV Last administered on 10/19/19at 09:01; Start 10/17/19 at 09:00; Stop 10/19/19 at 10:57; Status DC Sodium Chloride (Normal Saline Flush) 3 ml QSHIFT PRN IV AFTER MEDS AND BLOOD DRAWS; Start 10/17/19 at 11:45 Sodium Chloride 1,000 ml @ 100 mls/hr Q10H IV Last administered on 10/19/19at 06:23; Start 10/17/19 at 11:38; Stop 10/19/19 at 10:50; Status DC Al Hydroxide/Mg Hydroxide (Mylanta Plus Xs) 30 ml PRN DAILY PRN PO HEARTBURN / GAS; Start 10/17/19 at 11:45 Docusate Sodium (Colace) 100 mg PRN BID PRN PO HARD STOOLS; Start 10/17/19 at 11:45 Albuterol/ Ipratropium (Duoneb) 3 ml Q4HRS NEB Last administered on 10/18/19at 00:23; Start 10/17/19 at 12:00; Stop 10/18/19 at 00:38; Status DC Guaifenesin (Robitussin) 200 mg PRN Q4HRS PRN PO COUGH; Start 10/17/19 at 11:45 Enoxaparin Sodium (Lovenox 40mg Syringe) 40 mg Q24H SQ Last administered on 10/17/19at 15:05; Start 10/17/19 at 12:00; Stop 10/18/19 at 10:49; Status DC Lactobacillus Rhamnosus (Culturelle) 1 cap BID PO Last administered on 10/20/19at 21:31; Start 10/17/19 at 21:00 Albuterol Sulfate (Ventolin Neb Soln) 2.5 mg PRN Q4HRS PRN NEB SHORTNESS OF BREATH; Start 10/18/19 at 00:45 Ondansetron HCl (Zofran) 4 mg PRN Q6HRS PRN IVP NAUSEA/VOMITING Last administered on 10/18/19at 17:17; Start 10/18/19 at 17:15 Furosemide (Lasix) 40 mg BID92 IVP Last administered on 10/20/19at 15:21; Start 10/19/19 at 11:00 Folic Acid (Folic Acid) 1 mg DAILY PO Last administered on 10/20/19at 12:10; Start 10/20/19 at 09:00 Thiamine Mononitrate (Vitamin B-1) 100 mg DAILY PO Last administered on 10/20/19 at 12:09; Start 10/20/19 at 09:00 Potassium Bicarbonate (Potassium Effervescent Tablet) 40 meq 1X ONCE FT ; Start 10/19/19 at 11:30; Stop 10/19/19 at 11:31; Status DC Magnesium Sulfate 50 ml @ 25 mls/hr Q24H IV Last administered on 10/20/19at 12:45; Start 10/19/19 at 12:00; Stop 10/21/19 at 13:59 Potassium Phos/ Sodium Phos (Phos-Nak) 1 pkt PRN BID PRN PO COMMENTS; Start 10/19/19 at 21:00 Potassium Bicarbonate (Potassium Effervescent Tablet) 40 meq Q4H PO ; Start 10/19/19 at 11:00; Stop 10/19/19 at 12:55; Status DC Multivitamins (Thera M Plus) 1 tab DAILY PO Last administered on 10/20/19at 12:10; Start 10/20/19 at 09:00 Potassium Bicarbonate (Potassium Effervescent Tablet) 40 meq PRN Q4HRS PRN PO COMMENTS; Start 10/19/19 at 13:00 Lactulose (Lactulose) 20 gm DAILY08 PO Last administered on 10/20/19at 12:08; Start 10/19/19 at 14:15 Mirtazapine (Remeron) 15 mg QHS PO Last administered on 10/20/19at 21:32; Start 10/19/19 at 21:00 Potassium Bicarbonate (Potassium Effervescent Tablet) 40 meq 1X ONCE FT Last administered on 10/20/19at 15:22; Start 10/20/19 at 13:30; Stop 10/20/19 at 13:31; Status DC Magnesium Sulfate 50 ml @ 25 mls/hr Q24H IV Last administered on 10/20/19at 15:29; Start 10/20/19 at 13:30; Stop 10/22/19 at 15:29 Potassium Phos/ Sodium Phos (Phos-Nak) 1 pkt BID PO Last administered on 10/20/19at 21:32; Start 10/20/19 at 21:00; Stop 10/21/19 at 09:01; Status DC Potassium Bicarbonate (Potassium Effervescent Tablet) 40 meq Q4H PO Last administered on 10/20/19at 17:30; Start 10/20/19 at 13:30; Stop 10/20/19 at 17:31; Status DC Magnesium Sulfate 50 ml @ 25 mls/hr 1X ONCE IV Last administered on 10/20/19at 18:22; Start 10/20/19 at 16:15; Stop 10/20/19 at 18:14; Status DC Active Scripts Active Reported [inhaler] PRN [lisinopril +] DAILY Vitals/I & O Vital Sign - Last 24 Hours 10/20/19 10/20/19 10/20/19 10/20/19 12:10 15:00 19:00 19:50 Temp 98.7 98.7 98.0 98.7 98.7 98.0 Pulse 105 107 103 Resp 18 16 18 B/P (MAP) 116/69 (85) 126/69 (88) 109/67 (81) Pulse Ox 91 98 95 O2 Delivery Room Air Nasal Cannula Room Air Room Air O2 Flow Rate 2.0 8/11/20 8/11/20 8/11/20 8/12/20 21:33 22:03 23:00 03:00 Temp 98.4 98.1 98.4 98.1 Pulse 98 98 Resp 18 20 18 18 B/P (MAP) 105/67 (80) 113/69 (84) Pulse Ox 90 90 O2 Delivery Room Air Room Air Room Air Room Air 10/21/19 10/21/19 10/21/19 04:38 05:08 07:00 Temp 98.2 98.2 Pulse 94 Resp 18 20 16 B/P (MAP) 115/74 (88) Pulse Ox 90 O2 Delivery Room Air Room Air Room Air Intake and Output 10/20/19 10/20/19 10/21/19 15:00 23:00 07:00 Intake Total 200 ml 500 ml Output Total 900 ml 600 ml Balance -700 ml -100 ml Justicifation of Admission Dx: Justifications for Admission: Justification of Admission Dx: Yes Sepsis: End-Organ Dysfunction SANDY ZHU MD Oct 21, 2019 09:58
[2019-10-21] MEDS: MAGNESIUM SULFATE 2GM 50 ML IV SCH ×2 (10:33)
[2019-10-21] MEDS: MULTIVITAMIN with MINERAL TABLET. PO SCH (10:37)
[2019-10-21] MEDS: LACTOBACILLUS RHAMNOSUS GG 1 CAPSULE. PO SCH ×2 (10:37→20:56)
[2019-10-21] MEDS: POTASSIUM & SODIUM PHOSPHATES PACKET. PO SCH (10:37)
[2019-10-21] MEDS: THIAMINE 100 MG TABLET. PO SCH (10:37)
[2019-10-21] MEDS: FUROSEMIDE 40 MG/4 ML VIAL. IVP SCH ×2 (10:38→14:12)
[2019-10-21] MEDS: LACTULOSE 20 GM/30 ML SOLUTION. PO SCH (10:38)
[2019-10-21] MEDS: FOLIC ACID 1 MG TABLET. PO SCH (10:38)
[2019-10-21 11:00] VITALS: BP 136/83
--- NOTE | 2019-10-21 11:04 | PDOC ---
Date of Service: DATE: 10/21/19 TIME: 11:02 Objective: Objective: D/w nurse - family says more awake today, no new GI concerns. PAT team to visit today? Vital Signs: Vital Signs Date Time Temp Pulse Resp B/P (MAP) Pulse Ox O2 Delivery O2 Flow Rate FiO2 10/21/19 10:48 Room Air 10/21/19 07:00 98.2 94 16 115/74 (88) 90 98.2 10/20/19 15:00 2.0 Labs: Laboratory Tests Test 10/21/19 05:55 White Blood Count 13.6 x10^3/uL Red Blood Count 3.93 x10^6/uL Hemoglobin 14.0 g/dL Hematocrit 39.9 % Mean Corpuscular Volume 102 fL Mean Corpuscular Hemoglobin 36 pg Mean Corpuscular Hemoglobin Concent 35 g/dL Red Cell Distribution Width 15.9 % Platelet Count 128 x10^3/uL Neutrophils (%) (Auto) 78 % Lymphocytes (%) (Auto) 10 % Monocytes (%) (Auto) 11 % Eosinophils (%) (Auto) 2 % Basophils (%) (Auto) 1 % Neutrophils # (Auto) 10.6 x10^3/uL Lymphocytes # (Auto) 1.3 x10^3/uL Monocytes # (Auto) 1.4 x10^3/uL Eosinophils # (Auto) 0.2 x10^3/uL Basophils # (Auto) 0.1 x10^3/uL Sodium Level 136 mmol/L Potassium Level 3.2 mmol/L Chloride Level 99 mmol/L Carbon Dioxide Level 31 mmol/L Anion Gap 6 Blood Urea Nitrogen 5 mg/dL Creatinine 0.7 mg/dL Estimated GFR (Cockcroft-Gault) 133.3 BUN/Creatinine Ratio 7 Glucose Level 71 mg/dL Calcium Level 7.5 mg/dL Phosphorus Level 2.3 mg/dL Magnesium Level 2.4 mg/dL Total Bilirubin 17.5 mg/dL Aspartate Amino Transf (AST/SGOT) 117 U/L Alanine Aminotransferase (ALT/SGPT) 36 U/L Alkaline Phosphatase 186 U/L Total Protein 5.9 g/dL Albumin 1.8 g/dL Albumin/Globulin Ratio 0.4 PE: GEN: on commode, mother present and says she is trying to give him privacy A/P: Alcoholic hepatitis, fatty liver -- Continue support. Justicifation of Admission Dx: Justifications for Admission: Justification of Admission Dx: Yes Sepsis: End-Organ Dysfunction THOMAS DUBON Oct 21, 2019 11:04
--- NOTE | 2019-10-21 12:08 | PDOC ---
Infectious Disease Note Subjective: Subjective Patient is resting Her mother at bedside somewhat improved Complains of abdominal bloating and discomfort no f/n/v/d Vital Signs: Vital Signs Vital Signs Date Time Temp Pulse Resp B/P (MAP) Pulse Ox O2 Delivery O2 Flow Rate FiO2 10/21/19 11:55 Room Air 10/21/19 11:00 97.7 98 22 136/83 (100) 100 97.7 10/20/19 15:00 2.0 Physical Exam: PHYSICAL EXAM GENERAL: alert in NAD HEENT: Pupils equally round, reactive. Mild icterus. Oropharynx pink and moist. No lesions seen. NECK: Supple. LUNGS: Clear to auscultation. HEART: S1, S2 regular. ABDOMEN: Obese,distended, soft, nontender with bowel sounds present. EXTREMITIES: No gross edema or cyanosis. SKIN: Warm to touch without signs of rash. NEUROLOGIC: ALert, oriented. Medications: Inpatient Meds: Current Medications Medications (Trade) Dose Ordered Sig/Kelly Start Time Stop Time Status Last Admin Dose Admin Al Hydroxide/Mg Hydroxide (Mylanta Plus Xs) 30 ml PRN DAILY PRN 10/17/19 11:45 Albuterol Sulfate (Ventolin Neb Soln) 2.5 mg PRN Q4HRS PRN 10/18/19 00:45 Albuterol/ Ipratropium (Duoneb) 3 ml Q4HRS 10/17/19 12:00 10/18/19 00:38 DC 10/18/19 00:23 3 ML Clonidine HCl (Catapres) 0.1 mg PRN Q1HR PRN 10/17/19 06:30 Diphenhydramine HCl (Benadryl) 25 mg PRN Q15MIN PRN 10/17/19 06:30 Docusate Sodium (Colace) 100 mg PRN BID PRN 10/17/19 11:45 Enoxaparin Sodium (Lovenox 40mg Syringe) 40 mg Q24H 10/17/19 12:00 10/18/19 10:49 DC 10/17/19 15:05 40 MG Famotidine (Pepcid) 20 mg 1X ONCE 10/16/19 21:15 10/16/19 21:16 DC 10/16/19 21:20 20 MG Folic Acid (Folic Acid) 1 mg DAILY 8/11/20 09:00 10/21/19 10:38 1 MG Furosemide (Lasix) 40 mg BID92 10/19/19 11:00 10/21/19 10:38 40 MG Guaifenesin (Robitussin) 200 mg PRN Q4HRS PRN 10/17/19 11:45 Haloperidol Lactate (Haldol Inj) 5 mg PRN Q4HRS PRN 10/17/19 06:30 Info (CONTRAST GIVEN -- Rx MONITORING) 1 each PRN DAILY PRN 10/16/19 22:00 10/18/19 21:59 DC Iohexol (Omnipaque 300 Mg/ml) 75 ml 1X ONCE 10/16/19 21:45 10/16/19 21:46 DC 10/16/19 21:54 75 ML Lactobacillus Rhamnosus (Culturelle) 1 cap BID 10/17/19 21:00 10/21/19 10:37 1 CAP Lactulose (Lactulose) 20 gm DAILY08 10/19/19 14:15 10/21/19 10:38 20 GM Lorazepam (Ativan Inj) 4 mg PRN Q1HR PRN 10/17/19 06:30 Magnesium Sulfate 50 ml @ 25 mls/hr 1X ONCE 10/20/19 16:15 10/20/19 18:14 DC 10/20/19 18:22 25 MLS/HR Mirtazapine (Remeron) 15 mg QHS 10/19/19 21:00 10/20/19 21:32 15 MG Morphine Sulfate (Morphine Sulfate) 2 mg PRN Q2HR PRN 10/17/19 06:30 10/21/19 10:48 2 MG Multivitamins (Thera M Plus) 1 tab DAILY 10/20/19 09:00 10/21/19 10:37 1 TAB Multivitamins 10 ml/Thiamine HCl 100 mg/Folic Acid 1 mg/Sodium Chloride 1,011.2 ml @ 100 mls/ hr DAILY 10/17/19 09:00 10/19/19 10:57 DC 10/19/19 09:01 100 MLS/HR Ondansetron HCl (Zofran) 4 mg PRN Q6HRS PRN 10/18/19 17:15 10/18/19 17:17 4 MG Piperacillin Sod/ Tazobactam Sod 3.375 gm/Sodium Chloride 50 ml @ 100 mls/hr Q6HRS 10/17/19 06:00 10/20/19 09:10 DC 10/20/19 05:14 100 MLS/HR Piperacillin Sod/ Tazobactam Sod 4.5 gm/Sodium Chloride 100 ml @ 200 mls/hr 1X ONCE 10/17/19 00:45 10/17/19 01:14 DC 10/17/19 01:24 200 MLS/HR Potassium Bicarbonate (Potassium Effervescent Tablet) 40 meq Q4H 10/20/19 13:30 10/20/19 17:31 DC 10/20/19 17:30 40 MEQ Potassium Phos/ Sodium Phos (Phos-Nak) 1 pkt BID 10/20/19 21:00 10/21/19 09:01 DC 10/21/19 10:37 1 PKT Sodium Chloride 1,000 ml @ 100 mls/hr Q10H 10/17/19 11:38 10/19/19 10:50 DC 10/19/19 06:23 100 MLS/HR Sodium Chloride (Normal Saline Flush) 3 ml QSHIFT PRN 10/17/19 11:45 Thiamine Mononitrate (Vitamin B-1) 100 mg DAILY 10/20/19 09:00 10/21/19 10:37 100 MG Labs: Lab Laboratory Tests Test 10/21/19 05:55 White Blood Count 13.6 x10^3/uL (4.0-11.0) Red Blood Count 3.93 x10^6/uL (4.30-5.70) Hemoglobin 14.0 g/dL (13.0-17.5) Hematocrit 39.9 % (39.0-53.0) Mean Corpuscular Volume 102 fL (79-100) Mean Corpuscular Hemoglobin 36 pg (25-35) Mean Corpuscular Hemoglobin Concent 35 g/dL (31-37) Red Cell Distribution Width 15.9 % (11.5-14.5) Platelet Count 128 x10^3/uL (140-400) Neutrophils (%) (Auto) 78 % (31-73) Lymphocytes (%) (Auto) 10 % (24-48) Monocytes (%) (Auto) 11 % (0-9) Eosinophils (%) (Auto) 2 % (0-3) Basophils (%) (Auto) 1 % (0-3) Neutrophils # (Auto) 10.6 x10^3/uL (1.8-7.7) Lymphocytes # (Auto) 1.3 x10^3/uL (1.0-4.8) Monocytes # (Auto) 1.4 x10^3/uL (0.0-1.1) Eosinophils # (Auto) 0.2 x10^3/uL (0.0-0.7) Basophils # (Auto) 0.1 x10^3/uL (0.0-0.2) Sodium Level 136 mmol/L (136-145) Potassium Level 3.2 mmol/L (3.5-5.1) Chloride Level 99 mmol/L (98-107) Carbon Dioxide Level 31 mmol/L (21-32) Anion Gap 6 (6-14) Blood Urea Nitrogen 5 mg/dL (8-26) Creatinine 0.7 mg/dL (0.7-1.3) Estimated GFR (Cockcroft-Gault) 133.3 BUN/Creatinine Ratio 7 (6-20) Glucose Level 71 mg/dL (70-99) Calcium Level 7.5 mg/dL (8.5-10.1) Phosphorus Level 2.3 mg/dL (2.6-4.7) Magnesium Level 2.4 mg/dL (1.8-2.4) Total Bilirubin 17.5 mg/dL (0.2-1.0) Aspartate Amino Transf (AST/SGOT) 117 U/L (15-37) Alanine Aminotransferase (ALT/SGPT) 36 U/L (16-63) Alkaline Phosphatase 186 U/L (46-116) Total Protein 5.9 g/dL (6.4-8.2) Albumin 1.8 g/dL (3.4-5.0) Albumin/Globulin Ratio 0.4 (1.0-1.7) Objective: Assessment: Leukocytosis - improved Jaundice. Colitis. Alcohol abuse. Alcoholic hepatitis. Lactic acidosis - improved Plan: Plan of Care Observe off antibiotics Leukocytosis mild could be reactive Cultures neg to date D/w mother at bedside MADISYN WHITEHEAD MD Oct 21, 2019 12:08
--- NOTE | 2019-10-21 13:15 | NUR ---
SW following. Reviewed chart and discussed with RN. Pt from home, room air, regular diet. No PT/OT needs. Spoke with Alessandro from [facility] team who will meet with pt and provide resources for out-patient follow up r/t ETOH. Pt to discharge on oral medications after echo today. No further SW needs at this time. Addendum: 10/21/19 at 1409 by JUDIE SZYMANSKI SW Alessandro from [facility] met with pt and pt's mother and provided resources. RN notified pt cleared by [facility].
[2019-10-21 15:00] VITALS: BP 111/55
--- NOTE | 2019-10-21 18:28 | PDOC ---
F/U PHYSCH PROG NOTE Subjective: Gentleman seen for routine follow-up. Progress is reviewed with nursing staff. No major emotional or behavioral breakdown reported. He is accompanied by his mother in room. He appears less anxious and restless compared to previous days. Stating, today is a 4 stated that he is feeling better not as sedated and as in previous few days. Overall improving. Mother also reports improvement in sedation and wellbeing. Denies suicidal or homicidal thoughts. Denies auditory or visual hallucinations. Denies alcohol craving. No agitation noted. Objective: 14 point review of system is otherwise negative except for stated in H&P. Vital Signs: Vital Signs Date Time Temp Pulse Resp B/P (MAP) Pulse Ox O2 Delivery O2 Flow Rate FiO2 10/21/19 15:00 97.9 94 20 111/55 (73) 92 Room Air 97.9 10/20/19 15:00 2.0 Labs: Laboratory Tests Test 10/21/19 05:55 10/21/19 13:31 White Blood Count 13.6 x10^3/uL (4.0-11.0) H Red Blood Count 3.93 x10^6/uL (4.30-5.70) L Hemoglobin 14.0 g/dL (13.0-17.5) Hematocrit 39.9 % (39.0-53.0) Mean Corpuscular Volume 102 fL (79-100) H Mean Corpuscular Hemoglobin 36 pg (25-35) H Mean Corpuscular Hemoglobin Concent 35 g/dL (31-37) Red Cell Distribution Width 15.9 % (11.5-14.5) H Platelet Count 128 x10^3/uL (140-400) L Neutrophils (%) (Auto) 78 % (31-73) H Lymphocytes (%) (Auto) 10 % (24-48) L Monocytes (%) (Auto) 11 % (0-9) H Eosinophils (%) (Auto) 2 % (0-3) Basophils (%) (Auto) 1 % (0-3) Neutrophils # (Auto) 10.6 x10^3/uL (1.8-7.7) H Lymphocytes # (Auto) 1.3 x10^3/uL (1.0-4.8) Monocytes # (Auto) 1.4 x10^3/uL (0.0-1.1) H Eosinophils # (Auto) 0.2 x10^3/uL (0.0-0.7) Basophils # (Auto) 0.1 x10^3/uL (0.0-0.2) Sodium Level 136 mmol/L (136-145) Potassium Level 3.2 mmol/L (3.5-5.1) L Chloride Level 99 mmol/L (98-107) Carbon Dioxide Level 31 mmol/L (21-32) Anion Gap 6 (6-14) Blood Urea Nitrogen 5 mg/dL (8-26) L Creatinine 0.7 mg/dL (0.7-1.3) Estimated GFR (Cockcroft-Gault) 133.3 BUN/Creatinine Ratio 7 (6-20) Glucose Level 71 mg/dL (70-99) Calcium Level 7.5 mg/dL (8.5-10.1) L Phosphorus Level 2.3 mg/dL (2.6-4.7) L Magnesium Level 2.4 mg/dL (1.8-2.4) Total Bilirubin 17.5 mg/dL (0.2-1.0) H Aspartate Amino Transferase (AST) 117 U/L (15-37) H Alanine Aminotransferase (ALT) 36 U/L (16-63) Alkaline Phosphatase 186 U/L (46-116) H Total Protein 5.9 g/dL (6.4-8.2) L Albumin 1.8 g/dL (3.4-5.0) L Albumin/Globulin Ratio 0.4 (1.0-1.7) L Cortisol AM Sample 13.3 ug/dL (4.3-22.4) Cortisol PM Sample 15.8 ug/dL (3.1-16.7) Laboratory Tests 10/21/19 05:55 Laboratory Tests 10/21/19 05:55 Medications: Current Medications Medications (Trade) Dose Ordered Sig/Kelly Start Time Stop Time Status Last Admin Dose Admin Al Hydroxide/Mg Hydroxide (Mylanta Plus Xs) 30 ml PRN DAILY PRN 10/17/19 11:45 Albuterol Sulfate (Ventolin Neb Soln) 2.5 mg PRN Q4HRS PRN 10/18/19 00:45 Albuterol/ Ipratropium (Duoneb) 3 ml Q4HRS 10/17/19 12:00 8/9/20 00:38 DC 10/18/19 00:23 3 ML Clonidine HCl (Catapres) 0.1 mg PRN Q1HR PRN 10/17/19 06:30 Diphenhydramine HCl (Benadryl) 25 mg PRN Q15MIN PRN 10/17/19 06:30 Docusate Sodium (Colace) 100 mg PRN BID PRN 10/17/19 11:45 Enoxaparin Sodium (Lovenox 40mg Syringe) 40 mg Q24H 10/17/19 12:00 10/18/19 10:49 DC 10/17/19 15:05 40 MG Famotidine (Pepcid) 20 mg 1X ONCE 10/16/19 21:15 10/16/19 21:16 DC 10/16/19 21:20 20 MG Folic Acid (Folic Acid) 1 mg DAILY 10/20/19 09:00 10/21/19 10:38 1 MG Furosemide (Lasix) 40 mg BID92 10/19/19 11:00 10/21/19 14:12 40 MG Guaifenesin (Robitussin) 200 mg PRN Q4HRS PRN 10/17/19 11:45 Haloperidol Lactate (Haldol Inj) 5 mg PRN Q4HRS PRN 10/17/19 06:30 Info (CONTRAST GIVEN -- Rx MONITORING) 1 each PRN DAILY PRN 10/16/19 22:00 10/18/19 21:59 DC Iohexol (Omnipaque 300 Mg/ml) 75 ml 1X ONCE 10/16/19 21:45 10/16/19 21:46 DC 10/16/19 21:54 75 ML Lactobacillus Rhamnosus (Culturelle) 1 cap BID 10/17/19 21:00 10/21/19 10:37 1 CAP Lactulose (Lactulose) 20 gm DAILY08 10/19/19 14:15 10/21/19 10:38 20 GM Lorazepam (Ativan Inj) 4 mg PRN Q1HR PRN 10/17/19 06:30 Magnesium Sulfate 50 ml @ 25 mls/hr 1X ONCE 10/20/19 16:15 10/20/19 18:14 DC 10/20/19 18:22 25 MLS/HR Mirtazapine (Remeron) 15 mg QHS 10/19/19 21:00 10/20/19 21:32 15 MG Morphine Sulfate (Morphine Sulfate) 2 mg PRN Q2HR PRN 10/17/19 06:30 10/21/19 10:48 2 MG Multivitamins (Thera M Plus) 1 tab DAILY 10/20/19 09:00 10/21/19 10:37 1 TAB Multivitamins 10 ml/Thiamine HCl 100 mg/Folic Acid 1 mg/Sodium Chloride 1,011.2 ml @ 100 mls/ hr DAILY 10/17/19 09:00 10/19/19 10:57 DC 10/19/19 09:01 100 MLS/HR Ondansetron HCl (Zofran) 4 mg PRN Q6HRS PRN 10/18/19 17:15 10/18/19 17:17 4 MG Piperacillin Sod/ Tazobactam Sod 3.375 gm/Sodium Chloride 50 ml @ 100 mls/hr Q6HRS 10/17/19 06:00 10/20/19 09:10 DC 10/20/19 05:14 100 MLS/HR Piperacillin Sod/ Tazobactam Sod 4.5 gm/Sodium Chloride 100 ml @ 200 mls/hr 1X ONCE 10/17/19 00:45 10/17/19 01:14 DC 10/17/19 01:24 200 MLS/HR Potassium Bicarbonate (Potassium Effervescent Tablet) 40 meq Q4H 10/20/19 13:30 10/20/19 17:31 DC 10/20/19 17:30 40 MEQ Potassium Phos/ Sodium Phos (Phos-Nak) 1 pkt BID 10/20/19 21:00 10/21/19 09:01 DC 10/21/19 10:37 1 PKT Sodium Chloride 1,000 ml @ 100 mls/hr Q10H 10/17/19 11:38 10/19/19 10:50 DC 10/19/19 06:23 100 MLS/HR Sodium Chloride (Normal Saline Flush) 3 ml QSHIFT PRN 10/17/19 11:45 Thiamine Mononitrate (Vitamin B-1) 100 mg DAILY 10/20/19 09:00 10/21/19 10:37 100 MG Physical Exam: Mental Status Exam: Young gentleman appears as a stated age, fairly groomed, fairly nourished Cooperative and interactive appears tired Fully oriented Thought processes linear and mostly goal-directed Denies auditory or visual hallucinations No abnormal perception noted. Denies suicidal or homicidal thoughts. Mood is improving Affect is dysthymic Insight is fair Judgment is fair Attention span and concentration fair Recent and remote memory intact. Physical Exam: Refer to Physician's note. ACCOUNT DEVELOPMENT ASSOCIATE: No focal deficit MSK: No EPS, TDK, or abnormal involuntary movements Diagnosis: 1. Alcohol use disorder, recurrent, severe 2. Major depressive disorder, recurrent, moderate 3. Generalized anxiety disorder 4. Rule out major depression/generalized anxiety due to substance use. Assessment: Young gentleman struggling with alcohol use disorder with medical complications. Additionally, struggling with psychiatric complications of alcohol including depression and anxiety. It is important at this point to select antidepressant which does not need too much adjustment in liver disease. Recommending to start Remeron which would help him with insomnia, depression, anxiety. Gabapentin to cut down alcohol craving and complicated withdrawals. Today, except for sleep overall his status is the same. He continues to be depressed and anxious. 10/21/2019: Today he is reporting for state that he is feeling, calm and less restless. He is not as sedated as he was in previous couple of days. Gradually noticing improvement in his overall condition. Denies alcohol craving. Mother also endorsing improvement. Plan: Continue gabapentin 100 mg 3 times daily for alcohol craving and withdrawal prevention. Continue Remeron 15 mg nightly for depression, anxiety, and insomnia. Risk, benefits, alternatives of the treatment are discussed. He is in agreement with plan and expressed understanding. Adverse drug reaction of the medications prescribed were discussed in detail. He is accepting medications and consented verbally. Monitor for symptomatology, mood, and safety. Will adjust medications accordingly. Thank you for involving inpatient care VANNESA JUNIOR MD Oct 21, 2019 18:28
[2019-10-21 19:00] VITALS: BP 116/56
[2019-10-21] MEDS: GABAPENTIN 100 MG CAPSULE. PO SCH (20:56)
[2019-10-21] MEDS: MIRTAZAPINE 15 MG TABLET PO SCH (20:56)
[2019-10-21] MEDS: traMADol 50 MG TABLET PO PRN (22:27)
[2019-10-21 22:35] VITALS: BP 110/61
[2019-10-22 02:40] VITALS: BP 114/53
[2019-10-22] MEDS: traMADol 50 MG TABLET PO PRN ×2 (05:33→16:15)
[2019-10-22 06:57] LABS: CALCIUM 7.6 mg/dL (8.5-10.1); CREATININE 0.8 mg/dL (0.7-1.3); GFR 114.3
[2019-10-22 07:07] LABS: POTASSIUM 2.9 mmol/L (3.5-5.1)
[2019-10-22 07:15] VITALS: BP 120/65
--- NOTE | 2019-10-22 08:07 | PDOC ---
PROGRESS NOTES Date of Service: DATE: 10/22/19 TIME: 08:05 Chief Complaint Chief Complaint VTE Prophylaxis Ordered VTE Prophylaxis Devices: No VTE Pharmacological Prophylaxi: Yes Assessment/Plan Assessment/Plan impression painless jaundice attenuation of liver with adjacent fat stranding. //steato-hepatitis. apparent gallbladder wall thickening with debris within the lumen which could be from sludge or stones. // wall thickening is nonspecific in nature and could be related to primary gallbladder inflammation or reactive to adjacent hepatic disease.// gallbladder wall lesion is also not excluded. ALCOHOL ABUSE , severe Leukocytosis lactic acidosis thc abuse thrombocytopenia severe protein-caloric malnutrition MAJOR Depression metabolic encephalopathy 10/18 inc edema, weigh, d/c iv fluids, iv lasix 40mg bid, NH4 LEVEL hepatic vein doppler 10/21 continues to be dysphoric and somewhat irritable. Stating he is anxious and depressed, CHK AM, PM SERUM CORTISOL k=2.9 chg lasix to 40mg po daily 10/21 Continue gabapentin 100 mg 3 times daily for alcohol craving and withdrawal prevention.Continue Remeron 15 mg nightly for depression, anxiety, and insomnia. plan ADMIT GI CONSULT Hepatitis dx panel ID CONSULT blood culture emperic iv antibiotics, iv zosyn urine culture d/c lovenox due to thrombocytopenia psych consult REVIEWED echo CARDIOLOGY CONSULT CONT TELE chg po lasix 40mg daily CT HEAD 10/21 D/W MOTHER IN [place] 10/21, mother notes he vomited most of his beeakfast this am 38 min pt exam, chart review, > 50% of time spent with exam, chart review, pt care coordination Justicifation of Admission Dx: Justifications for Admission: Justification of Admission Dx: Yes Sepsis: End-Organ Dysfunction History of Present Illness History of Present Illness Identification/Chief Complaint Chief Complaint seen in er for jaundice , 29 year old male who presents with painless jaundice for the last 3 weeks. Patient reports he was in [place] by a month ago denied any significant COVID exposure but reports that for the last 2 weeks he has had troubles with generalized body aches, fatigue and decrease in appetite. He denies any pain in his abdomen but does complain of some nausea. He also complains of early satiety. He reports that the food does not make him have any pain but also does make him feel any better either. His mom came over today and noticed that he had jaundice and sent him to the emergency room for further evaluation. denies any fever, chills or sweats. He denies any cough shortness of breath or chest pain. w/o c/w alcohol associated hepatitis denies recent tick bites , admits to heavy alcohol intake sine high school, now drinking one pint of vodka daily, USING thc last week in [place] Vitals Vitals Vital Signs Date Time Temp Pulse Resp B/P (MAP) Pulse Ox O2 Delivery O2 Flow Rate FiO2 10/22/19 06:33 16 96 Room Air 10/22/19 02:40 98.0 97 114/53 (73) 98.0 10/21/19 22:27 2.0 Physical Exam Physical Exam GENERAL: alert in NAD , SLEEPY gait unstable HEENT: Pupils equally round, reactive. Mild icterus. Oropharynx pink and moist. No lesions seen. NECK: Supple. LUNGS: Clear to auscultation. HEART: S1, S2 regular. ABDOMEN: Obese,distended, soft, nontender with bowel sounds present. EXTREMITIES: No gross edema or cyanosis. SKIN: Warm to touch without signs of rash. NEUROLOGIC: ALert, oriented. General: Alert, Oriented X3, Cooperative, No acute distress, mild distress, Other (drowsy ) Heart: Regular rate (SR/ST), Normal S1 Lungs: Clear Abdomen: Soft, Other (ascites ) Extremities: No cyanosis, Other (trace bilateral LE edema ) Skin: Other (jaundiced ) Labs LABS ORDERED: BCULT Procedure Result BLOOD CULTURE Final NO GROWTH AFTER 5 DAYS ------ ------ Limited hepatic venous duplex ultrasound study without comparison for hepatic vein thrombosis. TECHNIQUE AND FINDINGS: Real-time emerson scale and color Doppler evaluation of the right upper quadrant is performed. This exam is severely limited by habitus and diffuse fatty infiltration throughout the liver. Vascular structures are not identified. If there is clinical concern for acute hepatic vein thrombosis, consider further evaluation with multiphase CT scan of the abdomen. It is noted that a CT scan of the abdomen on October 152019 revealed patency of the hepatic veins at that time. IMPRESSION: 1. Diffuse fatty infiltration of the liver. The exam is markedly limited for interrogation of vascular structures on the basis of habitus and overlying bowel gas. Electronically signed by: Javy Mcneal MD (10/19/2019 1:38 PM) [id number] DICTATED and SIGNED BY: JAVY MCNEAL MD DATE: 10/19/19 1338 PEC #: [id number] GILBERTO: 10/17/19 STATUS: RES REQ #: [id number] RECD: 10/17/[address] [facility] [address]: RICHARD ANGUIANO III, DO SOURCE: BLOOD ENTR: 10/17/19 [facility] DR: CINDY WHITEHEAD MD [facility]: ARIELA JUAREZ MD, MICHAEL F MD ORDERED: BCULT Procedure Result BLOOD CULTURE Preliminary NO GROWTH AFTER 4 DAYS Laboratory Tests Test 10/21/19 13:31 10/22/19 05:30 Cortisol PM Sample 15.8 ug/dL (3.1-16.7) Sodium Level 137 mmol/L (136-145) Potassium Level 2.9 mmol/L (3.5-5.1) Chloride Level 98 mmol/L (98-107) Carbon Dioxide Level 32 mmol/L (21-32) Anion Gap 7 (6-14) Blood Urea Nitrogen 7 mg/dL (8-26) Creatinine 0.8 mg/dL (0.7-1.3) Estimated GFR (Cockcroft-Gault) 114.3 Glucose Level 82 mg/dL (70-99) Calcium Level 7.6 mg/dL (8.5-10.1) Assessment and Plan Assessmemt and Plan Problems Medical Problems: (1) Acute colitis Status: Acute (2) Dehydration Status: Acute (3) Painless jaundice Status: Acute (4) Sepsis Status: Acute * Hip Abd/Add. Supine Exercises Comments * x 10 reps; educated pt and his Mother re: supine LE ther; rec [id number] Other Information * PT recommends OT reeval; RN plans to talk with MD about recommendation. Problem List (body system elements) * Impaired fnctnl mobility * Strength * Balance * Coordination * Knowledge-safe techniques * Pain Other Problems * Jaundice from ETOH hepatitis Clinical Presentation * Evolving Evaluation Complexity Level * Moderate Complexity Pt/caregiver agrees with plan of care/goals * Yes * Decreased Mentation Patient condition at conclusion of therapy * Pt in bed * Bed alarm on * Call light in reach * Phone in reach * PtIn no apparent distress * Pt denies further needs * Visitor with patient Communicated Patient Care With (Name, Title) * JEFFERY Young; CARMEN De La Cruz Goal 1 - Bed Mobility Assistance Required * Independent Goal 2 - Transfers Assistance Required * Independent Goal 2 - Transfer Type * Sit to Stand Goal 3 - Ambulation Assistance Required * Independent Goal 3 - Ambulation Distance * 100' Goal 3 - Ambulation Device * Roller Walker Goal 4 - Stairs Assistance Required * Independent Goal 4 - Number of Stairs * 2-4 Goal 4 - Device on Stairs * Roller Walker * Rail on Right Treatment Plan * Therapeutic Exercise * Bed Mobility Training * Transfer training * Gait Training Frequency of Treatment Expected * 7 visits/week Duration of Treatment Expected * 2 weeks Discharge Recommendations * [facility] Discharge Recommendation - DME * Rolling Walker needed * and ambulation safely Discharge Recommendation Comments * rehab; AD TBD pending progress Comment Review of Relevant I have reviewed the following items larry (where applicable) has been applied. Labs Laboratory Tests Test 10/21/19 05:55 10/21/19 13:31 10/22/19 05:30 White Blood Count 13.6 x10^3/uL (4.0-11.0) Red Blood Count 3.93 x10^6/uL (4.30-5.70) Hemoglobin 14.0 g/dL (13.0-17.5) Hematocrit 39.9 % (39.0-53.0) Mean Corpuscular Volume 102 fL (79-100) Mean Corpuscular Hemoglobin 36 pg (25-35) Mean Corpuscular Hemoglobin Concent 35 g/dL (31-37) Red Cell Distribution Width 15.9 % (11.5-14.5) Platelet Count 128 x10^3/uL (140-400) Neutrophils (%) (Auto) 78 % (31-73) Lymphocytes (%) (Auto) 10 % (24-48) Monocytes (%) (Auto) 11 % (0-9) Eosinophils (%) (Auto) 2 % (0-3) Basophils (%) (Auto) 1 % (0-3) Neutrophils # (Auto) 10.6 x10^3/uL (1.8-7.7) Lymphocytes # (Auto) 1.3 x10^3/uL (1.0-4.8) Monocytes # (Auto) 1.4 x10^3/uL (0.0-1.1) Eosinophils # (Auto) 0.2 x10^3/uL (0.0-0.7) Basophils # (Auto) 0.1 x10^3/uL (0.0-0.2) Sodium Level 136 mmol/L (136-145) 137 mmol/L (136-145) Potassium Level 3.2 mmol/L (3.5-5.1) 2.9 mmol/L (3.5-5.1) Chloride Level 99 mmol/L (98-107) 98 mmol/L (98-107) Carbon Dioxide Level 31 mmol/L (21-32) 32 mmol/L (21-32) Anion Gap 6 (6-14) 7 (6-14) Blood Urea Nitrogen 5 mg/dL (8-26) 7 mg/dL (8-26) Creatinine 0.7 mg/dL (0.7-1.3) 0.8 mg/dL (0.7-1.3) Estimated GFR (Cockcroft-Gault) 133.3 114.3 BUN/Creatinine Ratio 7 (6-20) Glucose Level 71 mg/dL (70-99) 82 mg/dL (70-99) Calcium Level 7.5 mg/dL (8.5-10.1) 7.6 mg/dL (8.5-10.1) Phosphorus Level 2.3 mg/dL (2.6-4.7) Magnesium Level 2.4 mg/dL (1.8-2.4) Total Bilirubin 17.5 mg/dL (0.2-1.0) Aspartate Amino Transf (AST/SGOT) 117 U/L (15-37) Alanine Aminotransferase (ALT/SGPT) 36 U/L (16-63) Alkaline Phosphatase 186 U/L (46-116) Total Protein 5.9 g/dL (6.4-8.2) Albumin 1.8 g/dL (3.4-5.0) Albumin/Globulin Ratio 0.4 (1.0-1.7) Cortisol AM Sample 13.3 ug/dL (4.3-22.4) Cortisol PM Sample 15.8 ug/dL (3.1-16.7) Laboratory Tests Test 10/21/19 13:31 10/22/19 05:30 Cortisol PM Sample 15.8 ug/dL (3.1-16.7) Sodium Level 137 mmol/L (136-145) Potassium Level 2.9 mmol/L (3.5-5.1) Chloride Level 98 mmol/L (98-107) Carbon Dioxide Level 32 mmol/L (21-32) Anion Gap 7 (6-14) Blood Urea Nitrogen 7 mg/dL (8-26) Creatinine 0.8 mg/dL (0.7-1.3) Estimated GFR (Cockcroft-Gault) 114.3 Glucose Level 82 mg/dL (70-99) Calcium Level 7.6 mg/dL (8.5-10.1) Microbiology 10/17/19 Blood Culture - Preliminary, Resulted NO GROWTH AFTER 4 DAYS 10/16/19 Urine Culture - Final, Complete Medications Current Medications Sodium Chloride 1,000 ml @ 1,000 mls/hr 1X ONCE IV Last administered on 10/16/19at 21:19; Start 10/16/19 at 21:15; Stop 10/16/19 at 22:14; Status DC Ondansetron HCl (Zofran) 4 mg 1X ONCE IVP Last administered on 10/16/19at 21:19; Start 10/16/19 at 21:15; Stop 10/16/19 at 21:16; Status DC Famotidine (Pepcid) 20 mg 1X ONCE PO Last administered on 10/16/19at 21:20; Start 10/16/19 at 21:15; Stop 10/16/19 at 21:16; Status DC Iohexol (Omnipaque 300 Mg/ml) 75 ml 1X ONCE IV Last administered on 10/16/19at 21:54; Start 10/16/19 at 21:45; Stop 10/16/19 at 21:46; Status DC Info (CONTRAST GIVEN -- Rx MONITORING) 1 each PRN DAILY PRN MC SEE COMMENTS; Start 10/16/19 at 22:00; Stop 10/18/19 at 21:59; Status DC Piperacillin Sod/ Tazobactam Sod 4.5 gm/Sodium Chloride 100 ml @ 200 mls/hr 1X ONCE IV Last administered on 10/17/19at 01:24; Start 10/17/19 at 00:45; Stop 10/17/19 at 01:14; Status DC Sodium Chloride 1,000 ml @ 2,460 mls/hr Q25M IV Last administered on 10/17/19at 01:56; Start 10/17/19 at 00:30; Stop 10/17/19 at 01:30; Status DC Sodium Chloride 1,000 ml @ 75 mls/hr [id number] IV Last administered on 10/17/19at 03:49; Start 10/17/19 at 02:15; Stop 10/17/19 at 15:57; Status DC Piperacillin Sod/ Tazobactam Sod 3.375 gm/Sodium Chloride 50 ml @ 100 mls/hr Q6HRS IV Last administered on 10/20/19at 05:14; Start 10/17/19 at 06:00; Stop 10/20/19 at 09:10; Status DC Morphine Sulfate (Morphine Sulfate) 2 mg PRN Q2HR PRN IV PAIN Last administered on 10/21/19at 10:48; Start 10/17/19 at 06:30 Lorazepam (Ativan Inj) 2 mg PRN Q1HR PRN IV For CIWA 8-14 Last administered on 10/21/19at 04:39; Start 10/17/19 at 06:30 Lorazepam (Ativan Inj) 4 mg PRN Q1HR PRN IV For CIWA 15 or greater; Start 10/17/19 at 06:30 Haloperidol Lactate (Haldol Inj) 5 mg PRN Q4HRS PRN IVP Hallucinatn s,Confusn,Delirium; Start 10/17/19 at 06:30 Diphenhydramine HCl (Benadryl) 25 mg PRN Q15MIN PRN IVP EPS symptoms 2'Haldol admin; Start 10/17/19 at 06:30 Clonidine HCl (Catapres) 0.1 mg PRN Q1HR PRN PO SBP > 180 or DBP > 100, MRX3; Start 10/17/19 at 06:30 Multivitamins 10 ml/Thiamine HCl 100 mg/Folic Acid 1 mg/Sodium Chloride 1,011.2 ml @ 100 mls/ hr DAILY IV Last administered on 10/19/19at 09:01; Start 10/17/19 at 09:00; Stop 10/19/19 at 10:57; Status DC Sodium Chloride (Normal Saline Flush) 3 ml QSHIFT PRN IV AFTER MEDS AND BLOOD DRAWS; Start 10/17/19 at 11:45 Sodium Chloride 1,000 ml @ 100 mls/hr Q10H IV Last administered on 10/19/19at 06:23; Start 10/17/19 at 11:38; Stop 10/19/19 at 10:50; Status DC Al Hydroxide/Mg Hydroxide (Mylanta Plus Xs) 30 ml PRN DAILY PRN PO HEARTBURN / GAS; Start 10/17/19 at 11:45 Docusate Sodium (Colace) 100 mg PRN BID PRN PO HARD STOOLS; Start 10/17/19 at 11:45 Albuterol/ Ipratropium (Duoneb) 3 ml Q4HRS NEB Last administered on 10/18/19at 00:23; Start 10/17/19 at 12:00; Stop 10/18/19 at 00:38; Status DC Guaifenesin (Robitussin) 200 mg PRN Q4HRS PRN PO COUGH; Start 10/17/19 at 11:45 Enoxaparin Sodium (Lovenox 40mg Syringe) 40 mg Q24H SQ Last administered on 10/17/19at 15:05; Start 10/17/19 at 12:00; Stop 10/18/19 at 10:49; Status DC Lactobacillus Rhamnosus (Culturelle) 1 cap BID PO Last administered on 10/21/19at 20:56; Start 10/17/19 at 21:00 Albuterol Sulfate (Ventolin Neb Soln) 2.5 mg PRN Q4HRS PRN NEB SHORTNESS OF BREATH; Start 10/18/19 at 00:45 Ondansetron HCl (Zofran) 4 mg PRN Q6HRS PRN IVP NAUSEA/VOMITING Last administered on 10/18/19at 17:17; Start 10/18/19 at 17:15 Furosemide (Lasix) 40 mg BID92 IVP Last administered on 10/21/19at 14:12; Start 10/19/19 at 11:00 Folic Acid (Folic Acid) 1 mg DAILY PO Last administered on 10/21/19at 10:38; Start 10/20/19 at 09:00 Thiamine Mononitrate (Vitamin B-1) 100 mg DAILY PO Last administered on 10/21/19at 10:37; Start 10/20/19 at 09:00 Potassium Bicarbonate (Potassium Effervescent Tablet) 40 meq 1X ONCE FT ; Start 10/19/19 at 11:30; Stop 10/19/19 at 11:31; Status DC Magnesium Sulfate 50 ml @ 25 mls/hr Q24H IV Last administered on 10/20/19at 12:45; Start 10/19/19 at 12:00; Stop 10/21/19 at 13:59; Status DC Potassium Phos/ Sodium Phos (Phos-Nak) 1 pkt PRN BID PRN PO COMMENTS; Start 10/19/19 at 21:00 Potassium Bicarbonate (Potassium Effervescent Tablet) 40 meq Q4H PO ; Start 10/19/19 at 11:00; Stop 10/19/19 at 12:55; Status DC Multivitamins (Thera M Plus) 1 tab DAILY PO Last administered on 10/21/19at 10:37; Start 10/20/19 at 09:00 Potassium Bicarbonate (Potassium Effervescent Tablet) 40 meq PRN Q4HRS PRN PO COMMENTS; Start 10/19/19 at 13:00 Lactulose (Lactulose) 20 gm DAILY08 PO Last administered on 10/21/19at 10:38; Start 10/19/19 at 14:15 Mirtazapine (Remeron) 15 mg QHS PO Last administered on 10/21/19at 20:56; Start 10/19/19 at 21:00 Potassium Bicarbonate (Potassium Effervescent Tablet) 40 meq 1X ONCE FT Last administered on 10/20/19at 15:22; Start 10/20/19 at 13:30; Stop 10/20/19 at 13:31; Status DC Magnesium Sulfate 50 ml @ 25 mls/hr Q24H IV Last administered on 10/20/19at 15:29; Start 10/20/19 at 13:30; Stop 10/22/19 at 15:29 Potassium Phos/ Sodium Phos (Phos-Nak) 1 pkt BID PO Last administered on 10/21/19at 10:37; Start 10/20/19 at 21:00; Stop 10/21/19 at 09:01; Status DC Potassium Bicarbonate (Potassium Effervescent Tablet) 40 meq Q4H PO Last administered on 10/20/19at 17:30; Start 10/20/19 at 13:30; Stop 10/20/19 at 17:31; Status DC Magnesium Sulfate 50 ml @ 25 mls/hr 1X ONCE IV Last administered on 10/20/19at 18:22; Start 10/20/19 at 16:15; Stop 10/20/19 at 18:14; Status DC Gabapentin (Neurontin) 100 mg TID PO Last administered on 10/21/19at 20:56; Start 10/21/19 at 21:00 Tramadol HCl (Ultram) 50 mg PRN Q6HRS PRN PO MODERATE PAIN 4-6 Last administered on 10/22/19at 05:33; Start 10/21/19 at 22:00 Active Scripts Active Reported [inhaler] PRN [lisinopril +] DAILY Vitals/I & O Vital Sign - Last 24 Hours 10/21/19 10/21/19 10/21/19 10/21/19 10:48 11:00 11:55 15:00 Temp 97.7 97.9 97.7 97.9 Pulse 98 94 Resp 22 20 B/P (MAP) 136/83 (100) 111/55 (73) Pulse Ox 100 92 O2 Delivery Room Air Room Air Room Air Room Air 10/21/19 10/21/19 10/21/19 10/21/19 19:00 20:00 22:27 22:35 Temp 98.0 98.0 98.0 98.0 Pulse 100 108 Resp 18 20 B/P (MAP) 116/56 (76) 110/61 (77) Pulse Ox 94 94 95 O2 Delivery Nasal Cannula Room Air Room Air Room Air O2 Flow Rate 2.0 10/21/19 10/22/19 10/22/19 10/22/19 23:27 02:40 05:33 06:33 Temp 98.0 98.0 Pulse 97 Resp 16 20 18 16 B/P (MAP) 114/53 (73) Pulse Ox 95 96 96 96 O2 Delivery Room Air Room Air Room Air Room Air Intake and Output 10/21/19 10/21/19 10/22/19 15:00 23:00 07:00 Intake Total 360 ml 400 ml Output Total 150 ml 0 ml 0 ml Balance 210 ml 400 ml 0 ml Justicifation of Admission Dx: Justifications for Admission: Justification of Admission Dx: Yes Sepsis: End-Organ Dysfunction SANDY ZHU MD Oct 22, 2019 08:07
[2019-10-22] MEDS ORDERED: POTASSIUM CHLORIDE 20 MEQ TABLET.ER. PO ONE (08:30)
[2019-10-22] MEDS: LACTULOSE 20 GM/30 ML SOLUTION. PO SCH ×2 (08:36→21:47)
[2019-10-22] MEDS: GABAPENTIN 100 MG CAPSULE. PO SCH ×3 (08:36→21:47)
[2019-10-22] MEDS: MULTIVITAMIN with MINERAL TABLET. PO SCH (08:36)
[2019-10-22] MEDS: THIAMINE 100 MG TABLET. PO SCH (08:36)
[2019-10-22] MEDS: LACTOBACILLUS RHAMNOSUS GG 1 CAPSULE. PO SCH ×2 (08:36→21:47)
[2019-10-22] MEDS: FUROSEMIDE 40 MG TABLET. PO SCH (08:36)
[2019-10-22] MEDS: FOLIC ACID 1 MG TABLET. PO SCH (08:36)
--- NOTE | 2019-10-22 08:42 | NUR ---
Pagedee Mora for critical potassium, orders received to give 40 of KCL PO X1 and to hold lasix today.
[2019-10-22 11:00] VITALS: BP 112/64
--- NOTE | 2019-10-22 11:50 | PDOC ---
Infectious Disease Note Subjective: Subjective Patient complains of nausea He vomited once this morning with breakfast Complains of abdominal bloating and generalized aches and pains Has intermittent loose bowel movement on lactulose Vital Signs: Vital Signs Vital Signs Date Time Temp Pulse Resp B/P (MAP) Pulse Ox O2 Delivery O2 Flow Rate FiO2 10/22/19 11:00 98.0 94 18 112/64 (80) 93 Room Air 98.0 10/21/19 22:27 2.0 Physical Exam: PHYSICAL EXAM GENERAL: alert in NAD HEENT: Pupils equally round, reactive. Mild icterus. Oropharynx pink and moist. No lesions seen. NECK: Supple. LUNGS: Clear to auscultation. HEART: S1, S2 regular. ABDOMEN: Obese,distended, soft, nontender with bowel sounds present. EXTREMITIES: No gross edema or cyanosis. SKIN: Warm to touch without signs of rash. NEUROLOGIC: ALert, oriented. Medications: Inpatient Meds: Current Medications Medications (Trade) Dose Ordered Sig/Kelly Start Time Stop Time Status Last Admin Dose Admin Al Hydroxide/Mg Hydroxide (Mylanta Plus Xs) 30 ml PRN DAILY PRN 10/17/19 11:45 Albuterol Sulfate (Ventolin Neb Soln) 2.5 mg PRN Q4HRS PRN 10/18/19 00:45 Albuterol/ Ipratropium (Duoneb) 3 ml Q4HRS 10/17/19 12:00 10/18/19 00:38 DC 10/18/19 00:23 3 ML Clonidine HCl (Catapres) 0.1 mg PRN Q1HR PRN 10/17/19 06:30 Diphenhydramine HCl (Benadryl) 25 mg PRN Q15MIN PRN 10/17/19 06:30 Docusate Sodium (Colace) 100 mg PRN BID PRN 10/17/19 11:45 Enoxaparin Sodium (Lovenox 40mg Syringe) 40 mg Q24H 10/17/19 12:00 10/18/19 10:49 DC 10/17/19 15:05 40 MG Famotidine (Pepcid) 20 mg 1X ONCE 10/16/19 21:15 10/16/19 21:16 DC 10/16/19 21:20 20 MG Folic Acid (Folic Acid) 1 mg DAILY 10/20/19 09:00 10/22/19 08:36 1 MG Furosemide (Lasix) 40 mg DAILY 10/22/19 09:00 Gabapentin (Neurontin) 100 mg TID 10/21/19 21:00 10/22/19 08:36 100 MG Guaifenesin (Robitussin) 200 mg PRN Q4HRS PRN 10/17/19 11:45 Haloperidol Lactate (Haldol Inj) 5 mg PRN Q4HRS PRN 10/17/19 06:30 Info (CONTRAST GIVEN -- Rx MONITORING) 1 each PRN DAILY PRN 10/16/19 22:00 10/18/19 21:59 DC Iohexol (Omnipaque 300 Mg/ml) 75 ml 1X ONCE 10/16/19 21:45 10/16/19 21:46 DC 10/16/19 21:54 75 ML Lactobacillus Rhamnosus (Culturelle) 1 cap BID 10/17/19 21:00 10/22/19 08:36 1 CAP Lactulose (Lactulose) 20 gm DAILY08 10/19/19 14:15 10/22/19 08:36 20 GM Lorazepam (Ativan Inj) 4 mg PRN Q1HR PRN 10/17/19 06:30 Magnesium Sulfate 50 ml @ 25 mls/hr 1X ONCE 10/20/19 16:15 10/20/19 18:14 DC 10/20/19 18:22 25 MLS/HR Mirtazapine (Remeron) 15 mg QHS 10/19/19 21:00 10/21/19 20:56 15 MG Morphine Sulfate (Morphine Sulfate) 2 mg PRN Q2HR PRN 10/17/19 06:30 10/21/19 10:48 2 MG Multivitamins (Thera M Plus) 1 tab DAILY 10/20/19 09:00 10/22/19 08:36 1 TAB Multivitamins 10 ml/Thiamine HCl 100 mg/Folic Acid 1 mg/Sodium Chloride 1,011.2 ml @ 100 mls/ hr DAILY 10/17/19 09:00 10/19/19 10:57 DC 10/19/19 09:01 100 MLS/HR Ondansetron HCl (Zofran) 4 mg PRN Q6HRS PRN 10/18/19 17:15 10/18/19 17:17 4 MG Piperacillin Sod/ Tazobactam Sod 3.375 gm/Sodium Chloride 50 ml @ 100 mls/hr Q6HRS 10/17/19 06:00 10/20/19 09:10 DC 10/20/19 05:14 100 MLS/HR Piperacillin Sod/ Tazobactam Sod 4.5 gm/Sodium Chloride 100 ml @ 200 mls/hr 1X ONCE 10/17/19 00:45 10/17/19 01:14 DC 10/17/19 01:24 200 MLS/HR Potassium Bicarbonate (Potassium Effervescent Tablet) 40 meq Q4H 10/20/19 13:30 10/20/19 17:31 DC 10/20/19 17:30 40 MEQ Potassium Phosphate 13.6 mmol/Sodium Chloride 254.5333 ml @ 127.... Q2H 10/22/19 12:00 10/22/19 15:59 Potassium Chloride (Klor-Con) 40 meq 1X ONCE 10/22/19 08:30 10/22/19 08:31 DC 10/22/19 08:35 40 MEQ Potassium Phos/ Sodium Phos (Phos-Nak) 1 pkt BID 10/20/19 21:00 10/21/19 09:01 DC 10/21/19 10:37 1 PKT Sodium Chloride 1,000 ml @ 100 mls/hr Q10H 10/17/19 11:38 10/19/19 10:50 DC 10/19/19 06:23 100 MLS/HR Sodium Chloride (Normal Saline Flush) 3 ml QSHIFT PRN 10/17/19 11:45 Thiamine Mononitrate (Vitamin B-1) 100 mg DAILY 10/20/19 09:00 10/22/19 08:36 100 MG Tramadol HCl (Ultram) 50 mg PRN Q6HRS PRN 10/21/19 22:00 10/22/19 05:33 50 MG Labs: Lab Laboratory Tests Test 10/21/19 13:31 10/22/19 05:30 Cortisol PM Sample 15.8 ug/dL (3.1-16.7) Sodium Level 137 mmol/L (136-145) Potassium Level 2.9 mmol/L (3.5-5.1) Chloride Level 98 mmol/L (98-107) Carbon Dioxide Level 32 mmol/L (21-32) Anion Gap 7 (6-14) Blood Urea Nitrogen 7 mg/dL (8-26) Creatinine 0.8 mg/dL (0.7-1.3) Estimated GFR (Cockcroft-Gault) 114.3 Glucose Level 82 mg/dL (70-99) Calcium Level 7.6 mg/dL (8.5-10.1) Objective: Assessment: Leukocytosis likely reactive Nausea and vomiting Jaundice. Colitis. Diarrhea from lactulose Alcohol abuse. Alcoholic hepatitis. Lactic acidosis - improved Plan: Plan of Care Observe off antibiotics Leukocytosis mild could be reactive Cultures neg to date D/w mother at bedside Discussed with nursing staff MADISYN WHITEHEAD MD Oct 22, 2019 11:50
[2019-10-22] MEDS: POTASSIUM PHOS,M-BASIC-D-BASIC 13.6 MMOL in IV NORMAL SALINE 250ML 250 ML IV SCH ×2 (12:30→18:38)
--- NOTE | 2019-10-22 12:36 | PDOC ---
Date of Service: DATE: 10/22/19 TIME: 12:34 Subjective: Subjective: Mother present - thinks he's doing better, did throw up a little bit. Objective: Objective: No GI concerns per nurse. Vital Signs: Vital Signs Date Time Temp Pulse Resp B/P (MAP) Pulse Ox O2 Delivery O2 Flow Rate FiO2 10/22/19 11:00 98.0 94 18 112/64 (80) 93 Room Air 98.0 10/21/19 22:27 2.0 Labs: Laboratory Tests Test 10/21/19 13:31 10/22/19 05:30 Cortisol PM Sample 15.8 ug/dL Sodium Level 137 mmol/L Potassium Level 2.9 mmol/L Chloride Level 98 mmol/L Carbon Dioxide Level 32 mmol/L Anion Gap 7 Blood Urea Nitrogen 7 mg/dL Creatinine 0.8 mg/dL Estimated GFR (Cockcroft-Gault) 114.3 Glucose Level 82 mg/dL Calcium Level 7.6 mg/dL BLOOD CULTURE Final NO GROWTH AFTER 5 DAYS Imaging: Echo <Conclusion> The left ventricular systolic function is normal and the ejection fraction is within normal range. The Ejection Fraction is 55%. There is normal LV segmental wall motion. PE: GEN: NAD NEURO/PSYCH: sleeping, not disturbed A/P: Alcoholic hepatitis, fatty liver Hypokalemia -- Continue abstinence from alcohol - discussed several times in detail w/ supportive family. Justicifation of Admission Dx: Justifications for Admission: Justification of Admission Dx: Yes Sepsis: End-Organ Dysfunction THOMAS DUBON Oct 22, 2019 12:36
--- NOTE | 2019-10-22 13:14 | RAD ---
CT HEAD WO CONTRAST History:Lethargy Comparison: None. Technique: Noncontrast CT imaging was performed of the head. Exposure: One or more of the following individualized dose reduction techniques were utilized for this examination: 1. Automated exposure control 2. Adjustment of the mA and/or kV according to patient size 3. Use of iterative reconstruction technique. Findings: No acute extra-axial or parenchymal hemorrhage is identified. There is no significant intra-axial mass effect, midline shift, or extra-axial fluid collection. The emerson-white differentiation of the major vascular territories is preserved. The ventricles, sulci, and cisterns are within normal limits in size and configuration. The mastoid air cells and the visualized paranasal sinuses are aerated. No acute calvarial abnormality is identified. Impression: 1. No acute intracranial abnormality is identified. Electronically signed by: Amish Hedrick MD (10/22/2019 1:11 PM) [id number]
[2019-10-22 15:00] VITALS: BP 145/86
--- NOTE | 2019-10-22 15:08 | PDOC ---
F/U PHYSCH PROG NOTE Subjective: Gentleman seen for routine follow-up. Progress is reviewed with nursing staff. No major event reported overnight. He appears tired and groggy. He states he does not know why he is tired however he is not able to sleep well last night. Anxiety is reportedly high. Mood is still depressed. Denies suicidal or homicidal thoughts. Denies auditory or visual hallucinations. No evidence of breann or hypomania. Tolerating medications denies adverse drug reaction. Objective: 14 point review of system is otherwise negative except for as stated above. Vital Signs: Vital Signs Date Time Temp Pulse Resp B/P (MAP) Pulse Ox O2 Delivery O2 Flow Rate FiO2 10/22/19 11:00 98.0 94 18 112/64 (80) 93 Room Air 98.0 10/21/19 22:27 2.0 Labs: Laboratory Tests Test 10/22/19 05:30 10/22/19 13:17 Sodium Level 137 mmol/L (136-145) Potassium Level 2.9 mmol/L (3.5-5.1) *L Chloride Level 98 mmol/L (98-107) Carbon Dioxide Level 32 mmol/L (21-32) Anion Gap 7 (6-14) Blood Urea Nitrogen 7 mg/dL (8-26) L Creatinine 0.8 mg/dL (0.7-1.3) Estimated GFR (Cockcroft-Gault) 114.3 Glucose Level 82 mg/dL (70-99) Calcium Level 7.6 mg/dL (8.5-10.1) L Ammonia < 10 mcmol/L (11-34) L Laboratory Tests 10/22/19 05:30 Medications: Current Medications Medications (Trade) Dose Ordered Sig/Kelly Start Time Stop Time Status Last Admin Dose Admin Al Hydroxide/Mg Hydroxide (Mylanta Plus Xs) 30 ml PRN DAILY PRN 10/17/19 11:45 Albuterol Sulfate (Ventolin Neb Soln) 2.5 mg PRN Q4HRS PRN 10/18/19 00:45 Albuterol/ Ipratropium (Duoneb) 3 ml Q4HRS 10/17/19 12:00 10/18/19 00:38 DC 10/18/19 00:23 3 ML Clonidine HCl (Catapres) 0.1 mg PRN Q1HR PRN 10/17/19 06:30 Diphenhydramine HCl (Benadryl) 25 mg PRN Q15MIN PRN 10/17/19 06:30 Docusate Sodium (Colace) 100 mg PRN BID PRN 10/17/19 11:45 Enoxaparin Sodium (Lovenox 40mg Syringe) 40 mg Q24H 10/17/19 12:00 10/18/19 10:49 DC 10/17/19 15:05 40 MG Famotidine (Pepcid) 20 mg 1X ONCE 10/16/19 21:15 10/16/19 21:16 DC 10/16/19 21:20 20 MG Folic Acid (Folic Acid) 1 mg DAILY 10/20/19 09:00 10/22/19 08:36 1 MG Furosemide (Lasix) 40 mg DAILY 10/22/19 09:00 Gabapentin (Neurontin) 100 mg TID 10/21/19 21:00 10/22/19 08:36 100 MG Guaifenesin (Robitussin) 200 mg PRN Q4HRS PRN 10/17/19 11:45 Haloperidol Lactate (Haldol Inj) 5 mg PRN Q4HRS PRN 10/17/19 06:30 Info (CONTRAST GIVEN -- Rx MONITORING) 1 each PRN DAILY PRN 10/16/19 22:00 10/18/19 21:59 DC Iohexol (Omnipaque 300 Mg/ml) 75 ml 1X ONCE 10/16/19 21:45 10/16/19 21:46 DC 10/16/19 21:54 75 ML Lactobacillus Rhamnosus (Culturelle) 1 cap BID 10/17/19 21:00 10/22/19 08:36 1 CAP Lactulose (Lactulose) 20 gm BID 10/22/19 21:00 Lorazepam (Ativan Inj) 4 mg PRN Q1HR PRN 10/17/19 06:30 Magnesium Sulfate 50 ml @ 25 mls/hr 1X ONCE 10/20/19 16:15 10/20/19 18:14 DC 10/20/19 18:22 25 MLS/HR Mirtazapine (Remeron) 15 mg QHS 10/19/19 21:00 10/21/19 20:56 15 MG Morphine Sulfate (Morphine Sulfate) 2 mg PRN Q2HR PRN 10/17/19 06:30 10/21/19 10:48 2 MG Multivitamins (Thera M Plus) 1 tab DAILY 10/20/19 09:00 10/22/19 08:36 1 TAB Multivitamins 10 ml/Thiamine HCl 100 mg/Folic Acid 1 mg/Sodium Chloride 1,011.2 ml @ 100 mls/ hr DAILY 10/17/19 09:00 10/19/19 10:57 DC 10/19/19 09:01 100 MLS/HR Ondansetron HCl (Zofran) 4 mg PRN Q6HRS PRN 10/18/19 17:15 10/18/19 17:17 4 MG Piperacillin Sod/ Tazobactam Sod 3.375 gm/Sodium Chloride 50 ml @ 100 mls/hr Q6HRS 10/17/19 06:00 10/20/19 09:10 DC 10/20/19 05:14 100 MLS/HR Piperacillin Sod/ Tazobactam Sod 4.5 gm/Sodium Chloride 100 ml @ 200 mls/hr 1X ONCE 10/17/19 00:45 10/17/19 01:14 DC 10/17/19 01:24 200 MLS/HR Potassium Bicarbonate (Potassium Effervescent Tablet) 40 meq Q4H 10/20/19 13:30 10/20/19 17:31 DC 10/20/19 17:30 40 MEQ Potassium Phosphate 13.6 mmol/Sodium Chloride 254.5333 ml @ 127.... Q2H 10/22/19 12:00 10/22/19 15:59 10/22/19 12:30 127.267 MLS/HR Potassium Chloride (Klor-Con) 40 meq 1X ONCE 10/22/19 08:30 10/22/19 08:31 DC 10/22/19 08:35 40 MEQ Potassium Phos/ Sodium Phos (Phos-Nak) 1 pkt BID 10/20/19 21:00 10/21/19 09:01 DC 10/21/19 10:37 1 PKT Sodium Chloride 1,000 ml @ 100 mls/hr Q10H 10/17/19 11:38 10/19/19 10:50 DC 10/19/19 06:23 100 MLS/HR Sodium Chloride (Normal Saline Flush) 3 ml QSHIFT PRN 10/17/19 11:45 Thiamine Mononitrate (Vitamin B-1) 100 mg DAILY 10/20/19 09:00 10/22/19 08:36 100 MG Tramadol HCl (Ultram) 50 mg PRN Q6HRS PRN 10/21/19 22:00 10/22/19 05:33 50 MG Physical Exam: Mental Status Exam: Young gentleman appears as a stated age, fairly groomed, fairly nourished Cooperative and interactive appears tired Fully oriented Thought processes linear and mostly goal-directed Denies auditory or visual hallucinations No abnormal perception noted. Denies suicidal or homicidal thoughts. Mood is improving Affect is euthymic Insight is fair Judgment is fair Attention span and concentration fair Recent and remote memory intact. Physical Exam: Refer to Physician's note. 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 Alcohol use disorder, recurrent, severe 2. Major depressive disorder, recurrent, moderate 3. Generalized anxiety disorder 4. Rule out major depression/generalized anxiety due to substance use. Assessment: Young gentleman struggling with alcohol use disorder with medical complications. Additionally, struggling with psychiatric complications of al cohol including depression and anxiety. It is important at this point to select antidepressant which does not need too much adjustment in liver disease. Recommending to start Remeron which would help him with insomnia, depression, anxiety. Gabapentin to cut down alcohol craving and complicated withdrawals. Today, except for sleep overall his status is the same. He continues to be depressed and anxious. 10/21/2019: Today he is reporting for state that he is feeling, calm and less restless. He is not as sedated as he was in previous couple of days. Gradually noticing improvement in his overall condition. Denies alcohol craving. Mother also endorsing improvement. Plan: Continue gabapentin 100 mg 3 times daily for alcohol craving and withdrawal prevention. Continue Remeron 15 mg nightly for depression, anxiety, and insomnia. Risk, benefits, alternatives of the treatment are discussed. He is in agreement with plan and expressed understanding. Adverse drug reaction of the medications prescribed were discussed in detail. He is accepting medications and consented verbally. Monitor for symptomatology, mood, and safety. Will adjust medications accordingly. Plan: Continue gabapentin 100 mg 3 times daily for alcohol craving and withdrawal prevention. Continue Remeron 15 mg nightly for depression, anxiety, and insomnia. Risk, benefits, alternatives of the treatment are discussed. He is in agreement with plan and expressed understanding. Adverse drug reaction of the medications prescribed were discussed in detail. He is accepting medications and consented verbally. Monitor for symptomatology, mood, and safety. Will adjust medications accordingly. VANNESA JUNIOR MD Oct 22, 2019 15:08
--- NOTE | 2019-10-22 15:17 | PDOC2 ---
NEUROLOGY CONSULT Date of Service DOS: DATE: 10/22/19 TIME: 15:11 Reason for Consult Reason for Consult: Altered mental status Referring Physician Referring Physician: Dr. Mora Source Source: Caregiver (Girlfriend), Chart review, Patient History of Present Illness History of Present Illness The patient is a 29-year-old right-handed male omitted 5 days ago for jaundice, found to have alcoholic hepatitis and fatty liver disease. Psychiatry has diagnosed generalized anxiety disorder and depression. Girlfriend says the patient is actually doing better. She does not know what changed today that might have prompted Dr. Mora to consult me. Patient does have a history of a seizure in his teens. He has been drinking at least a pint of vodka a day for up to several years. There is no history of stroke or head injury. Past Medical History Cardiovascular: HTN Pulmonary: Asthma Hepatobiliary: Other (Alcoholic hepatitis, fatty liver) Psych: Anxiety, Depression Past Surgical History Past Surgical History: No pertinent history Family History Family History: Other (Father has alcoholic dementia) Social History Social History Single, has significant other, 1 pint of alcohol a day, occasional marijuana, currently unemployed, has been working in a [employer] Current Medications Current Medications Current Medications Sodium Chloride 1,000 ml @ 1,000 mls/hr 1X ONCE IV Last administered on 10/16/19at 21:19; Start 10/16/19 at 21:15; Stop 10/16/19 at 22:14; Status DC Ondansetron HCl (Zofran) 4 mg 1X ONCE IVP Last administered on 10/16/19at 21:19; Start 10/16/19 at 21:15; Stop 10/16/19 at 21:16; Status DC Famotidine (Pepcid) 20 mg 1X ONCE PO Last administered on 10/16/19at 21:20; Start 10/16/19 at 21:15; Stop 10/16/19 at 21:16; Status DC Iohexol (Omnipaque 300 Mg/ml) 75 ml 1X ONCE IV Last administered on 10/16/19at 21:54; Start 10/16/19 at 21:45; Stop 10/16/19 at 21:46; Status DC Info (CONTRAST GIVEN -- Rx MONITORING) 1 each PRN DAILY PRN MC SEE COMMENTS; Start 10/16/19 at 22:00; Stop 10/18/19 at 21:59; Status DC Piperacillin Sod/ Tazobactam Sod 4.5 gm/Sodium Chloride 100 ml @ 200 mls/hr 1X ONCE IV Last administered on 10/17/19at 01:24; Start 10/17/19 at 00:45; Stop 10/17/19 at 01:14; Status DC Sodium Chloride 1,000 ml @ 2,460 mls/hr Q25M IV Last administered on 10/17/19at 01:56; Start 10/17/19 at 00:30; Stop 10/17/19 at 01:30; Status DC Sodium Chloride 1,000 ml @ 75 mls/hr [id number] IV Last administered on 10/17/19at 03:49; Start 10/17/19 at 02:15; Stop 10/17/19 at 15:57; Status DC Piperacillin Sod/ Tazobactam Sod 3.375 gm/Sodium Chloride 50 ml @ 100 mls/hr Q6HRS IV Last administered on 10/20/19at 05:14; Start 10/17/19 at 06:00; Stop 10/20/19 at 09:10; Status DC Morphine Sulfate (Morphine Sulfate) 2 mg PRN Q2HR PRN IV PAIN Last administered on 10/21/19at 10:48; Start 10/17/19 at 06:30 Lorazepam (Ativan Inj) 2 mg PRN Q1HR PRN IV For CIWA 8-14 Last administered on 10/21/19at 04:39; Start 10/17/19 at 06:30 Lorazepam (Ativan Inj) 4 mg PRN Q1HR PRN IV For CIWA 15 or greater; Start 10/17/19 at 06:30 Haloperidol Lactate (Haldol Inj) 5 mg PRN Q4HRS PRN IVP Hallucinatns,Confusn,Delirium; Start 10/17/19 at 06:30 Diphenhydramine HCl (Benadryl) 25 mg PRN Q15MIN PRN IVP EPS symptoms 2'Haldol admin; Start 10/17/19 at 06:30 Clonidine HCl (Catapres) 0.1 mg PRN Q1HR PRN PO SBP > 180 or DBP > 100, MRX3; Start 10/17/19 at 06:30 Multivitamins 10 ml/Thiamine HCl 100 mg/Folic Acid 1 mg/Sodium Chloride 1,011.2 ml @ 100 mls/ hr DAILY IV Last administered on 10/19/19at 09:01; Start 10/17/19 at 09:00; Stop 10/19/19 at 10:57; Status DC Sodium Chloride (Normal Saline Flush) 3 ml QSHIFT PRN IV AFTER MEDS AND BLOOD DRAWS; Start 10/17/19 at 11:45 Sodium Chloride 1,000 ml @ 100 mls/hr Q10H IV Last administered on 10/19/19at 06:23; Start 10/17/19 at 11:38; Stop 10/19/19 at 10:50; Status DC Al Hydroxide/Mg Hydroxide (Mylanta Plus Xs) 30 ml PRN DAILY PRN PO HEARTBURN / GAS; Start 10/17/19 at 11:45 Docusate Sodium (Colace) 100 mg PRN BID PRN PO HARD STOOLS; Start 10/17/19 at 11:45 Albuterol/ Ipratropium (Duoneb) 3 ml Q4HRS NEB Last administered on 10/18/19at 00:23; Start 10/17/19 at 12:00; Stop 10/18/19 at 00:38; Status DC Guaifenesin (Robitussin) 200 mg PRN Q4HRS PRN PO COUGH; Start 10/17/19 at 11:45 Enoxaparin Sodium (Lovenox 40mg Syringe) 40 mg Q24H SQ Last administered on 10/17/19at 15:05; Start 10/17/19 at 12:00; Stop 10/18/19 at 10:49; Status DC Lactobacillus Rhamnosus (Culturelle) 1 cap BID PO Last administered on 10/22/19at 08:36; Start 10/17/19 at 21:00 Albuterol Sulfate (Ventolin Neb Soln) 2.5 mg PRN Q4HRS PRN NEB SHORTNESS OF BREATH; Start 10/18/19 at 00:45 Ondansetron HCl (Zofran) 4 mg PRN Q6HRS PRN IVP NAUSEA/VOMITING Last administered on 10/18/19at 17:17; Start 10/18/19 at 17:15 Furosemide (Lasix) 40 mg BID92 IVP Last administered on 10/21/19at 14:12; Start 10/19/19 at 11:00; Stop 10/22/19 at 08:06; Status DC Folic Acid (Folic Acid) 1 mg DAILY PO Last administered on 10/22/19at 08:36; Start 10/20/19 at 09:00 Thiamine Mononitrate (Vitamin B-1) 100 mg DAILY PO Last administered on 10/22/19at 08:36; Start 10/20/19 at 09:00 Potassium Bicarbonate (Potassium Effervescent Tablet) 40 meq 1X ONCE FT ; Start 10/19/19 at 11:30; Stop 10/19/19 at 11:31; Status DC Magnesium Sulfate 50 ml @ 25 mls/hr Q24H IV Last administered on 10/20/19at 12:45; Start 10/19/19 at 12:00; Stop 10/21/19 at 13:59; Status DC Potassium Phos/ Sodium Phos (Phos-Nak) 1 pkt PRN BID PRN PO COMMENTS; Start 10/19/19 at 21:00 Potassium Bicarbonate (Potassium Effervescent Tablet) 40 meq Q4H PO ; Start 10/19/19 at 11:00; Stop 10/19/19 at 12:55; Status DC Multivitamins (Thera M Plus) 1 tab DAILY PO Last administered on 10/22/19at 08:36; Start 10/20/19 at 09:00 Potassium Bicarbonate (Potassium Effervescent Tablet) 40 meq PRN Q4HRS PRN PO COMMENTS; Start 10/19/19 at 13:00 Lactulose (Lactulose) 20 gm DAILY08 PO Last administered on 10/22/19at 08:36; Start 10/19/19 at 14:15; Stop 10/22/19 at 12:31; Status DC Mirtazapine (Remeron) 15 mg QHS PO Last administered on 10/21/19at 20:56; Start 10/19/19 at 21:00 Potassium Bicarbonate (Potassium Effervescent Tablet) 40 meq 1X ONCE FT Last administered on 10/20/19at 15:22; Start 10/20/19 at 13:30; Stop 10/20/19 at 13:31; Status DC Magnesium Sulfate 50 ml @ 25 mls/hr Q24H IV Last administered on 10/20/19at 15:29; Start 10/20/19 at 13:30; Stop 10/22/19 at 15:29 Potassium Phos/ Sodium Phos (Phos-Nak) 1 pkt BID PO Last administered on 10/21/19at 10:37; Start 10/20/19 at 21:00; Stop 10/21/19 at 09:01; Status DC Potassium Bicarbonate (Potassium Effervescent Tablet) 40 meq Q4H PO Last administered on 10/20/19at 17:30; Start 10/20/19 at 13:30; Stop 10/20/19 at 17:31; Status DC Magnesium Sulfate 50 ml @ 25 mls/hr 1X ONCE IV Last administered on 10/20/19at 18:22; Start 10/20/19 at 16:15; Stop 10/20/19 at 18:14; Status DC Gabapentin (Neurontin) 100 mg TID PO Last administered on 10/22/19at 08:36; Start 10/21/19 at 21:00 Tramadol HCl (Ultram) 50 mg PRN Q6HRS PRN PO MODERATE PAIN 4-6 Last administered on 10/22/19at 05:33; Start 10/21/19 at 22:00 Furosemide (Lasix) 40 mg DAILY PO ; Start 10/22/19 at 09:00 Potassium Chloride (Klor-Con) 40 meq 1X ONCE PO Last administered on 10/22/19at 08:35; Start 10/22/19 at 08:30; Stop 10/22/19 at 08:31; Status DC Potassium Phosphate 13.6 mmol/Sodium Chloride 254.5333 ml @ 127.... Q2H IV Last administered on 10/22/19at 12:30; Start 10/22/19 at 12:00; Stop 10/22/19 at 15:59 Lactulose (Lactulose) 20 gm BID PO ; Start 10/22/19 at 21:00 Active Scripts Active Reported [inhaler] PRN [lisinopril +] DAILY Allergies Allergies: Coded Allergies: No Known Drug Allergies (Unverified , 11/30/15) ROS Review of System Negative for fever, chills, weight loss, shortness of breath, chest pain, hematochezia, melena, and dysuria. Positive for indigestion. Full 14-point review of systems is negative. Physical Exam Physical Examination General: Well-developed, well-nourished white male in no acute distress. Jaundiced HEENT: Normocephalic andatraumatic.Temporal arteriespulsatile and nontender. Neck: Supple without bruit, no meningismus Musculoskeletal: Stability:see neurologic. Gait exam:see neurologic. Tone:see neurologic.Strength:see neurologic. Neurological: Mental Status:intact, orientation, memory, attention span/concentration, language, fund of knowledge normal. Cranial Nerves:Pupils equal and reactive to light, extraocular movements areintact, visual corona are full to confrontation. Facial sensation is normal. There is no facial asymmetry. Vestibulo-ocular reflex is intact. Palate elevates and tongue protrudes in midline. All other cranial related problems are negative except as mentioned before.Reflexes:2+ and symmetric with flexor plantar responses. Motor:5/5 strength with normal tone and bulk. Coordination:Finger-nose finger and [id number] testing are normal. Rapid alternating movements and fine finger movements are intact. Gait:Unsteady. Sensory:Stocking loss. Vitals VITALS Vital Signs Date Time Temp Pulse Resp B/P (MAP) Pulse Ox O2 Delivery O2 Flow Rate FiO2 10/22/19 11:00 98.0 94 18 112/64 (80) 93 Room Air 98.0 10/21/19 22:27 2.0 Labs Labs Laboratory Tests Test 10/21/19 05:55 10/21/19 13:31 10/22/19 05:30 10/22/19 13:17 White Blood Count 13.6 x10^3/uL (4.0-11.0) Red Blood Count 3.93 x10^6/uL (4.30-5.70) Hemoglobin 14.0 g/dL (13.0-17.5) Hematocrit 39.9 % (39.0-53.0) Mean Corpuscular Volume 102 fL (79-100) Mean Corpuscular Hemoglobin 36 pg (25-35) Mean Corpuscular Hemoglobin Concent 35 g/dL (31-37) Red Cell Distribution Width 15.9 % (11.5-14.5) Platelet Count 128 x10^3/uL (140-400) Neutrophils (%) (Auto) 78 % (31-73) Lymphocytes (%) (Auto) 10 % (24-48) Monocytes (%) (Auto) 11 % (0-9) Eosinophils (%) (Auto) 2 % (0-3) Basophils (%) (Auto) 1 % (0-3) Neutrophils # (Auto) 10.6 x10^3/uL (1.8-7.7) Lymphocytes # (Auto) 1.3 x10^3/uL (1.0-4.8) Monocytes # (Auto) 1.4 x10^3/uL (0.0-1.1) Eosinophils # (Auto) 0.2 x10^3/uL (0.0-0.7) Basophils # (Auto) 0.1 x10^3/uL (0.0-0.2) Sodium Level 136 mmol/L (136-145) 137 mmol/L (136-145) Potassium Level 3.2 mmol/L (3.5-5.1) 2.9 mmol/L (3.5-5.1) Chloride Level 99 mmol/L (98-107) 98 mmol/L (98-107) Carbon Dioxide Level 31 mmol/L (21-32) 32 mmol/L (21-32) Anion Gap 6 (6-14) 7 (6-14) Blood Urea Nitrogen 5 mg/dL (8-26) 7 mg/dL (8-26) Creatinine 0.7 mg/dL (0.7-1.3) 0.8 mg/dL (0.7-1.3) Estimated GFR (Cockcroft-Gault) 133.3 114.3 BUN/Creatinine Ratio 7 (6-20) Glucose Level 71 mg/dL (70-99) 82 mg/dL (70-99) Calcium Level 7.5 mg/dL (8.5-10.1) 7.6 mg/dL (8.5-10.1) Phosphorus Level 2.3 mg/dL (2.6-4.7) Magnesium Level 2.4 mg/dL (1.8-2.4) Total Bilirubin 17.5 mg/dL (0.2-1.0) Aspartate Amino Transf (AST/SGOT) 117 U/L (15-37) Alanine Aminotransferase (ALT/SGPT) 36 U/L (16-63) Alkaline Phosphatase 186 U/L (46-116) Total Protein 5.9 g/dL (6.4-8.2) Albumin 1.8 g/dL (3.4-5.0) Albumin/Globulin Ratio 0.4 (1.0-1.7) Cortisol AM Sample 13.3 ug/dL (4.3-22.4) Cortisol PM Sample 15.8 ug/dL (3.1-16.7) Ammonia < 10 mcmol/L (11-34) Laboratory Tests Test 10/22/19 05:30 10/22/19 13:17 Sodium Level 137 mmol/L (136-145) Potassium Level 2.9 mmol/L (3.5-5.1) Chloride Level 98 mmol/L (98-107) Carbon Dioxide Level 32 mmol/L (21-32) Anion Gap 7 (6-14) Blood Urea Nitrogen 7 mg/dL (8-26) Creatinine 0.8 mg/dL (0.7-1.3) Estimated GFR (Cockcroft-Gault) 114.3 Glucose Level 82 mg/dL (70-99) Calcium Level 7.6 mg/dL (8.5-10.1) Ammonia < 10 mcmol/L (11-34) Images Images CT HEAD WO CONTRAST History:Lethargy Comparison: None. Technique: Noncontrast CT imaging was performed of the head. Exposure: One or more of the following individualized dose reduction techniques were utilized for this examination: 1. Automated exposure control 2. Adjustment of the mA and/or kV according to patient size 3. Use of iterative reconstruction technique. Findings: No acute extra-axial or parenchymal hemorrhage is identified. There is no significant intra-axial mass effect, midline shift, or extra-axial fluid collection. The emerson-white differentiation of the major vascular territories is preserved. The ventricles, sulci, and cisterns are within normal limits in size and configuration. The mastoid air cells and the visualized paranasal sinuses are aerated. No acute calvarial abnormality is identified. Impression: 1. No acute intracranial abnormality is identified. Assessment/Plan Assessment/Plan Impression: Alcoholic neuropathy Metabolic encephalopathy, he is quite clear now, rule out medication effects, most likely just related to his liver dysfunction. History of single seizure remotely Recommendations: Additional laboratory studies, see orders As per psychiatry No need for additional neurological studies such as EEG. Fully discussed with patient and his girlfriend. Thank you for letting me help with the patient's care. ANITHA GRANADOS MD Oct 22, 2019 15:17
[2019-10-22] MEDS: MAGNESIUM SULFATE 2GM 50 ML IV SCH (16:22)
--- NOTE | 2019-10-22 16:57 | NUR ---
SW following. Reviewed chart and discussed with RN. Pt from home, room air, regular diet. No PT/OT needs at this time. PAT cleared this pt for discharge when stable. Discharge held per critical potassium. SW to follow as needed.
[2019-10-22 19:00] VITALS: BP 122/67
[2019-10-22] MEDS: MIRTAZAPINE 15 MG TABLET PO SCH (21:47)
[2019-10-22 23:00] VITALS: BP 108/66
[2019-10-23 03:11] VITALS: BP 123/70
[2019-10-23] MEDS: traMADol 50 MG TABLET PO PRN ×3 (04:03→23:32)
[2019-10-23 04:31] LABS: BASO # 0.1 x10^3/uL (0.0-0.2); BASO % 1 % (0-3); EOS # 0.4 x10^3/uL (0.0-0.7); EOS % 3 % (0-3); HEMATOCRIT 40.6 % (39.0-53.0); HEMOGLOBIN 14.1 g/dL (13.0-17.5); LYMPH # 1.9 x10^3/uL (1.0-4.8); LYMPH % 14 % (24-48); MEAN CORPUSCULAR HEMOGLOBIN 36 pg (25-35); MEAN CORPUSCULAR HGB CONC 35 g/dL (31-37); MEAN CORPUSCULAR VOLUME 102 fL (79-100); MONO # 1.4 x10^3/uL (0.0-1.1); MONO % 11 % (0-9); NEUT # 9.6 x10^3/uL (1.8-7.7); NEUT % 72 % (31-73); PLATELET COUNT 139 x10^3/uL (140-400); RED BLOOD COUNT 3.97 x10^6/uL (4.30-5.70); RED CELL DISTRIBUTION WIDTH 16.3 % (11.5-14.5); WHITE BLOOD COUNT 13.5 x10^3/uL (4.0-11.0)
[2019-10-23 04:57] LABS: ALBUMIN 1.5 g/dL (3.4-5.0); ALBUMIN/GLOBULIN RATIO 0.3 (1.0-1.7); CALCIUM 7.7 mg/dL (8.5-10.1); CREATININE 0.8 mg/dL (0.7-1.3); GFR 114.3; TOTAL BILIRUBIN 17.7 mg/dL (0.2-1.0); TOTAL PROTEIN 5.8 g/dL (6.4-8.2)
[2019-10-23 07:15] VITALS: BP 120/66
--- NOTE | 2019-10-23 08:27 | PDOC ---
PROGRESS NOTES Assessment Problems Medical Problems: (1) Acute colitis Status: Acute (2) Dehydration Status: Acute (3) Painless jaundice Status: Acute (4) Sepsis Status: Acute Alcoholic neuropathy Metabolic encephalopathy, he is quite clear now, rule out medication effects, most likely just related to his liver dysfunction. History of single seizure remotely Elevated TSH Plan Thyroid treatment per IM, I ordered rest of thyroid profile As per psychiatry No need for additional neurological studies such as EEG. Fully discussed with patient and his girlfriend. Subjective Eating a little, appetite poor Objective Vital Signs Date Time Temp Pulse Resp B/P (MAP) Pulse Ox O2 Delivery O2 Flow Rate FiO2 10/23/19 05:03 16 95 Room Air 10/23/19 03:11 97.5 94 123/70 (87) 97.5 Intake and Output 10/23/19 07:00 Output Total 300 ml Balance -300 ml Output Urine Total 300 ml # Voids 1 # Bowel Movements 1 PHYSICAL EXAM Jaundiced Alert. Oriented to time, place and person. PERRL. EOMI. CN: no focal findings. Muscle tone: normal. Muscle strength: 5/5 DTR: 2+ Plantar reflex: flexor Gait: not examined in bed. Sensory exam: no abnormal findings. No cerebellar signs elicited. Review of Relevant I have reviewed the following items larry (where applicable) has been applied. Labs Laboratory Tests Test 10/21/19 13:31 10/22/19 05:30 10/22/19 13:17 10/23/19 03:45 Cortisol PM Sample 15.8 ug/dL (3.1-16.7) Sodium Level 137 mmol/L (136-145) 137 mmol/L (136-145) Potassium Level 2.9 mmol/L (3.5-5.1) 3.0 mmol/L (3.5-5.1) Chloride Level 98 mmol/L (98-107) 100 mmol/L (98-107) Carbon Dioxide Level 32 mmol/L (21-32) 31 mmol/L (21-32) Anion Gap 7 (6-14) 6 (6-14) Blood Urea Nitrogen 7 mg/dL (8-26) 6 mg/dL (8-26) Creatinine 0.8 mg/dL (0.7-1.3) 0.8 mg/dL (0.7-1.3) Estimated GFR (Cockcroft-Gault) 114.3 114.3 Glucose Level 82 mg/dL (70-99) 77 mg/dL (70-99) Calcium Level 7.6 mg/dL (8.5-10.1) 7.7 mg/dL (8.5-10.1) Ammonia < 10 mcmol/L (11-34) White Blood Count 13.5 x10^3/uL (4.0-11.0) Red Blood Count 3.97 x10^6/uL (4.30-5.70) Hemoglobin 14.1 g/dL (13.0-17.5) Hematocrit 40.6 % (39.0-53.0) Mean Corpuscular Volume 102 fL (79-100) Mean Corpuscular Hemoglobin 36 pg (25-35) Mean Corpuscular Hemoglobin Concent 35 g/dL (31-37) Red Cell Distribution Width 16.3 % (11.5-14.5) Platelet Count 139 x10^3/uL (140-400) Neutrophils (%) (Auto) 72 % (31-73) Lymphocytes (%) (Auto) 14 % (24-48) Monocytes (%) (Auto) 11 % (0-9) Eosinophils (%) (Auto) 3 % (0-3) Basophils (%) (Auto) 1 % (0-3) Neutrophils # (Auto) 9.6 x10^3/uL (1.8-7.7) Lymphocytes # (Auto) 1.9 x10^3/uL (1.0-4.8) Monocytes # (Auto) 1.4 x10^3/uL (0.0-1.1) Eosinophils # (Auto) 0.4 x10^3/uL (0.0-0.7) Basophils # (Auto) 0.1 x10^3/uL (0.0-0.2) BUN/Creatinine Ratio 8 (6-20) Phosphorus Level 3.3 mg/dL (2.6-4.7) Total Bilirubin 17.7 mg/dL (0.2-1.0) Aspartate Amino Transf (AST/SGOT) 110 U/L (15-37) Alanine Aminotransferase (ALT/SGPT) 30 U/L (16-63) Alkaline Phosphatase 182 U/L (46-116) Total Protein 5.8 g/dL (6.4-8.2) Albumin 1.5 g/dL (3.4-5.0) Albumin/Globulin Ratio 0.3 (1.0-1.7) Thyroid Stimulating Hormone (TSH) 6.763 uIU/mL (0.358-3.74) Laboratory Tests Test 10/22/19 13:17 10/23/19 03:45 Ammonia < 10 mcmol/L (11-34) White Blood Count 13.5 x10^3/uL (4.0-11.0) Red Blood Count 3.97 x10^6/uL (4.30-5.70) Hemoglobin 14.1 g/dL (13.0-17.5) Hematocrit 40.6 % (39.0-53.0) Mean Corpuscular Volume 102 fL (79-100) Mean Corpuscular Hemoglobin 36 pg (25-35) Mean Corpuscular Hemoglobin Concent 35 g/dL (31-37) Red Cell Distribution Width 16.3 % (11.5-14.5) Platelet Count 139 x10^3/uL (140-400) Neutrophils (%) (Auto) 72 % (31-73) Lymphocytes (%) (Auto) 14 % (24-48) Monocytes (%) (Auto) 11 % (0-9) Eosinophils (%) (Auto) 3 % (0-3) Basophils (%) (Auto) 1 % (0-3) Neutrophils # (Auto) 9.6 x10^3/uL (1.8-7.7) Lymphocytes # (Auto) 1.9 x10^3/uL (1.0-4.8) Monocytes # (Auto) 1.4 x10^3/uL (0.0-1.1) Eosinophils # (Auto) 0.4 x10^3/uL (0.0-0.7) Basophils # (Auto) 0.1 x10^3/uL (0.0-0.2) Sodium Level 137 mmol/L (136-145) Potassium Level 3.0 mmol/L (3.5-5.1) Chloride Level 100 mmol/L (98-107) Carbon Dioxide Level 31 mmol/L (21-32) Anion Gap 6 (6-14) Blood Urea Nitrogen 6 mg/dL (8-26) Creatinine 0.8 mg/dL (0.7-1.3) Estimated GFR (Cockcroft-Gault) 114.3 BUN/Creatinine Ratio 8 (6-20) Glucose Level 77 mg/dL (70-99) Calcium Level 7.7 mg/dL (8.5-10.1) Phosphorus Level 3.3 mg/dL (2.6-4.7) Total Bilirubin 17.7 mg/dL (0.2-1.0) Aspartate Amino Transf (AST/SGOT) 110 U/L (15-37) Alanine Aminotransferase (ALT/SGPT) 30 U/L (16-63) Alkaline Phosphatase 182 U/L (46-116) Total Protein 5.8 g/dL (6.4-8.2) Albumin 1.5 g/dL (3.4-5.0) Albumin/Globulin Ratio 0.3 (1.0-1.7) Thyroid Stimulating Hormone (TSH) 6.763 uIU/mL (0.358-3.74) Microbiology 10/17/19 Blood Culture - Final, Complete NO GROWTH AFTER 5 DAYS 10/16/19 Urine Culture - Final, Complete Medications Current Medications Sodium Chloride 1,000 ml @ 1,000 mls/hr 1X ONCE IV Last administered on 10/16/19at 21:19; Start 10/16/19 at 21:15; Stop 10/16/19 at 22:14; Status DC Ondansetron HCl (Zofran) 4 mg 1X ONCE IVP Last administered on 10/16/19at 21:19; Start 10/16/19 at 21:15; Stop 10/16/19 at 21:16; Status DC Famotidine (Pepcid) 20 mg 1X ONCE PO Last administered on 10/16/19at 21:20; Start 10/16/19 at 21:15; Stop 10/16/19 at 21:16; Status DC Iohexol (Omnipaque 300 Mg/ml) 75 ml 1X ONCE IV Last administered on 10/16/19at 21:54; Start 10/16/19 at 21:45; Stop 10/16/19 at 21:46; Status DC Info (CONTRAST GIVEN -- Rx MONITORING) 1 each PRN DAILY PRN MC SEE COMMENTS; Start 10/16/19 at 22:00; Stop 10/18/19 at 21:59; Status DC Piperacillin Sod/ Tazobactam Sod 4.5 gm/Sodium Chloride 100 ml @ 200 mls/hr 1X ONCE IV Last administered on 10/17/19at 01:24; Start 10/17/19 at 00:45; Stop at 01:14; Status DC Sodium Chloride 1,000 ml @ 2,460 mls/hr Q25M IV Last administered on 10/17/19at 01:56; Start 10/17/19 at 00:30; Stop 10/17/19 at 01:30; Status DC Sodium Chloride 1,000 ml @ 75 mls/hr [id number] IV Last administered on 10/17/19at 03:49; Start 10/17/19 at 02:15; Stop 10/17/19 at 15:57; Status DC Piperacillin Sod/ Tazobactam Sod 3.375 gm/Sodium Chloride 50 ml @ 100 mls/hr Q6HRS IV Last administered on 10/20/19at 05:14; Start 10/17/19 at 06:00; Stop 10/20/19 at 09:10; Status DC Morphine Sulfate (Morphine Sulfate) 2 mg PRN Q2HR PRN IV PAIN Last administered on 10/21/19at 10:48; Start 10/17/19 at 06:30 Lorazepam (Ativan Inj) 2 mg PRN Q1HR PRN IV For CIWA 8-14 Last administered on 10/22/19at 16:13; Start 10/17/19 at 06:30 Lorazepam (Ativan Inj) 4 mg PRN Q1HR PRN IV For CIWA 15 or greater; Start 10/17/19 at 06:30 Haloperidol Lactate (Haldol Inj) 5 mg PRN Q4HRS PRN IVP Haynes ucinatns,Confusn,Delirium; Start 10/17/19 at 06:30 Diphenhydramine HCl (Benadryl) 25 mg PRN Q15MIN PRN IVP EPS symptoms 2'Haldol admin; Start 10/17/19 at 06:30 Clonidine HCl (Catapres) 0.1 mg PRN Q1HR PRN PO SBP > 180 or DBP > 100, MRX3; Start 10/17/19 at 06:30 Multivitamins 10 ml/Thiamine HCl 100 mg/Folic Acid 1 mg/Sodium Chloride 1,011.2 ml @ 100 mls/ hr DAILY IV Last administered on 10/19/19at 09:01; Start 10/17/19 at 09:00; Stop 10/19/19 at 10:57; Status DC Sodium Chloride (Normal Saline Flush) 3 ml QSHIFT PRN IV AFTER MEDS AND BLOOD DRAWS; Start 10/17/19 at 11:45 Sodium Chloride 1,000 ml @ 100 mls/hr Q10H IV Last administered on 10/19/19at 06:23; Start 10/17/19 at 11:38; Stop 10/19/19 at 10:50; Status DC Al Hydroxide/Mg Hydroxide (Mylanta Plus Xs) 30 ml PRN DAILY PRN PO HEARTBURN / GAS; Start 10/17/19 at 11:45 Docusate Sodium (Colace) 100 mg PRN BID PRN PO HARD STOOLS; Start 10/17/19 at 11:45 Albuterol/ Ipratropium (Duoneb) 3 ml Q4HRS NEB Last administered on 10/18/19at 00:23; Start 10/17/19 at 12:00; Stop 10/18/19 at 00:38; Status DC Guaifenesin (Robitussin) 200 mg PRN Q4HRS PRN PO COUGH; Start 10/17/19 at 11:45 Enoxaparin Sodium (Lovenox 40mg Syringe) 40 mg Q24H SQ Last administered on 10/17/19at 15:05; Start 10/17/19 at 12:00; Stop 10/18/19 at 10:49; Status DC Lactobacillus Rhamnosus (Culturelle) 1 cap BID PO Last administered on 10/22/19at 21:47; Start 10/17/19 at 21:00 Albuterol Sulfate (Ventolin Neb Soln) 2.5 mg PRN Q4HRS PRN NEB SHORTNESS OF BREATH; Start 10/18/19 at 00:45 Ondansetron HCl (Zofran) 4 mg PRN Q6HRS PRN IVP NAUSEA/VOMITING Last administered on 10/18/19at 17:17; Start 10/18/19 at 17:15 Furosemide (Lasix) 40 mg [id number] IVP Last administered on 10/21/19at 14:12; Start 10/19/19 at 11:00; Stop 10/22/19 at 08:06; Status DC Folic Acid (Folic Acid) 1 mg DAILY PO Last administered on 10/22/19at 08:36; Start 10/20/19 at 09:00 Thiamine Mononitrate (Vitamin B-1) 100 mg DAILY PO Last administered on 10/22/19at 08:36; Start 10/20/19 at 09:00 Potassium Bicarbonate (Potassium Effervescent Tablet) 40 meq 1X ONCE FT ; Start 10/19/19 at 11:30; Stop 10/19/19 at 11:31; Status DC Magnesium Sulfate 50 ml @ 25 mls/hr Q24H IV Last administered on 10/20/19at 12:45; Start 10/19/19 at 12:00; Stop 10/21/19 at 13:59; Status DC Potassium Phos/ Sodium Phos (Phos-Nak) 1 pkt PRN BID PRN PO COMMENTS; Start 10/19/19 at 21:00 Potassium Bicarbonate (Potassium Effervescent Tablet) 40 meq Q4H PO ; Start 12/28 at 11:00; Stop 10/19/19 at 12:55; Status DC Multivitamins (Thera M Plus) 1 tab DAILY PO Last administered on 10/22/19at 0 8:36; Start 10/20/19 at 09:00 Potassium Bicarbonate (Potassium Effervescent Tablet) 40 meq PRN Q4HRS PRN PO COMMENTS; Start 10/19/19 at 13:00 Lactulose (Lactulose) 20 gm DAILY08 PO Last administered on 10/22/19at 08:36; Start 10/19/19 at 14:15; Stop 10/22/19 at 12:31; Status DC Mirtazapine (Remeron) 15 mg QHS PO Last administered on 10/22/19at 21:47; Start 10/19/19 at 21:00 Potassium Bicarbonate (Potassium Effervescent Tablet) 40 meq 1X ONCE FT Last administered on 10/20/19at 15:22; Start 10/20/19 at 13:30; Stop 10/20/19 at 13:31; Status DC Magnesium Sulfate 50 ml @ 25 mls/hr Q24H IV Last administered on 10/22/19at 16:22; Start 10/20/19 at 13:30; Stop 10/22/19 at 15:29; Status DC Potassium Phos/ Sodium Phos (Phos-Nak) 1 pkt BID PO Last administered on 10/21/19at 10:37; Start 10/20/19 at 21:00; Stop 10/21/19 at 09:01; Status DC Potassium Bicarbonate (Potassium Effervescent Tablet) 40 meq Q4H PO Last administered on 10/20/19at 17:30; Start 10/20/19 at 13:30; Stop 10/20/19 at 17:31; Status DC Magnesium Sulfate 50 ml @ 25 mls/hr 1X ONCE IV Last administered on 10/20/19at 18:22; Start 10/20/19 at 16:15; Stop 10/20/19 at 18:14; Status DC Gabapentin (Neurontin) 100 mg TID PO Last administered on 10/22/19at 21:47; Start 10/21/19 at 21:00 Tramadol HCl (Ultram) 50 mg PRN Q6HRS PRN PO MODERATE PAIN 4-6 Last administered on 10/23/19at 04:03; Start 10/21/19 at 22:00 Furosemide (Lasix) 40 mg DAILY PO ; Start 10/22/19 at 09:00 Potassium Chloride (Klor-Con) 40 meq 1X ONCE PO Last administered on 10/22/19at 08:35; Start 10/22/19 at 08:30; Stop 10/22/19 at 08:31; Status DC Potassium Phosphate 13.6 mmol/Sodium Chloride 254.5333 ml @ 127.... Q2H IV Last administered on 10/22/19at 18:38; Start 10/22/19 at 12:00; Stop 10/22/19 at 15:59; Status DC Lactulose (Lactulose) 20 gm BID PO Last administered on 10/22/19at 21:47; Start 10/22/19 at 21:00 Active Scripts Active Reported [inhaler] PRN [lisinopril +] DAILY Vitals/I & O Vital Sign - Last 24 Hours 10/22/19 10/22/19 10/22/19 10/22/19 11:00 15:00 16:15 18:39 Temp 98.0 97.8 98.0 97.8 Pulse 94 94 Resp 18 16 B/P (MAP) 112/64 (80) 145/86 (105) Pulse Ox 93 92 O2 Delivery Room Air Room Air Room Air Room Air 10/22/19 10/22/19 10/22/19 10/23/19 19:00 20:00 23:00 03:11 Temp 98.0 98.1 97.5 98.0 98.1 97.5 Pulse 94 98 94 Resp 18 18 20 B/P (MAP) 122/67 (85) 108/66 (80) 123/70 (87) Pulse Ox 93 93 95 O2 Delivery Room Air Room Air Room Air Room Air 10/23/19 10/23/19 04:03 05:03 Resp 18 16 Pulse Ox 95 95 O2 Delivery Room Air Room Air Intake and Output 10/22/19 10/22/19 10/23/19 15:00 23:00 07:00 Output Total 300 ml Balance -300 ml Justicifation of Admission Dx: Justifications for Admission: Justification of Admission Dx: Yes Sepsis: End-Organ Dysfunction ANITHA GRANADOS MD Oct 23, 2019 08:27
--- NOTE | 2019-10-23 08:33 | PDOC ---
PROGRESS NOTES Date of Service: DATE: 10/23/19 TIME: 08:31 Chief Complaint Chief Complaint VTE Prophylaxis Ordered VTE Prophylaxis Devices: No VTE Pharmacological Prophylaxi: Yes Assessment/Plan Assessment/Plan impression painless jaundice attenuation of liver with adjacent fat stranding. //steato-hepatitis. apparent gallbladder wall thickening with debris within the lumen which could be from sludge or stones. // wall thickening is nonspecific in nature and could be related to primary gallbladder inflammation or reactive to adjacent hepatic disease.// gallbladder wall lesion is also not excluded. ALCOHOL ABUSE , severe Leukocytosis lactic acidosis thc abuse thrombocytopenia severe protein-caloric malnutrition MAJOR Depression metabolic encephalopathy hypothyroid state 10/18 inc edema, weigh, d/c iv fluids, iv lasix 40mg bid, NH4 LEVEL hepatic vein doppler 10/21 continues to be dysphoric and somewhat irritable. Stating he is anxious and depressed, CHK AM, PM SERUM CORTISOL k=2.9 chg lasix to 40mg po daily 10/21 Continue gabapentin 100 mg 3 times daily for alcohol craving and withdrawal prevention.Continue Remeron 15 mg nightly for depression, anxiety, and insomnia. plan ADMIT GI CONSULT Hepatitis dx panel ID CONSULT blood culture emperic iv antibiotics, iv zosyn urine culture d/c lovenox due to thrombocytopenia psych consult REVIEWED echo CARDIOLOGY CONSULT CONT TELE chg po lasix 40mg daily CT HEAD 10/21 synthroid 0.088 mg po daily 10/22 D/W MOTHER IN [place] 10/21, mother notes he vomited most of his beeakfast this am 38 min pt exam, chart review, > 50% of time spent with exam, chart review, pt care coordination Justicifation of Admission Dx: Justifications for Admission: Justification of Admission Dx: Yes Sepsis: End-Organ Dysfunction History of Present Illness History of Present Illness Identification/Chief Complaint Chief Complaint seen in er for jaundice , 29 year old male who presents with painless jaundice for the last 3 weeks. Patient reports he was in [place] by a month ago denied any significant COVID exposure but reports that for the last 2 weeks he has had troubles with generalized body aches, fatigue and decrease in appetite. He denies any pain in his abdomen but does complain of some nausea. He also complains of early satiety. He reports that the food does not make him have any pain but also does make him feel any better either. His mom came over today and noticed that he had jaundice and sent him to the emergency room for further evaluation. denies any fever, chills or sweats. He denies any cough shortness of breath or chest pain. w/o c/w alcohol associated hepatitis denies recent tick bites , admits to heavy alcohol intake sine high school, now drinking one pint of vodka daily, USING thc last week in [place] Vitals Vitals Vital Signs Date Time Temp Pulse Resp B/P (MAP) Pulse Ox O2 Delivery O2 Flow Rate FiO2 10/23/19 05:03 16 95 Room Air 10/23/19 03:11 97.5 94 123/70 (87) 97.5 Physical Exam Physical Exam GENERAL: alert in NAD , SLEEPY gait unstable HEENT: Pupils equally round, reactive. Mild icterus. Oropharynx pink and moist. No lesions seen. NECK: Supple. LUNGS: Clear to auscultation. HEART: S1, S2 regular. ABDOMEN: Obese,distended, soft, nontender with bowel sounds present. EXTREMITIES: No gross edema or cyanosis. SKIN: Warm to touch without signs of rash. NEUROLOGIC: ALert, oriented. General: Alert, Oriented X3, Cooperative, No acute distress, mild distress, Other (drowsy ) Heart: Regular rate (SR/ST), Normal S1 Lungs: Clear Abdomen: Soft, Other (ascites ) Extremities: No cyanosis, Other (trace bilateral LE edema ) Skin: Other (jaundiced ) Labs LABS Laboratory Tests Test 10/22/19 13:17 10/23/19 03:45 Ammonia < 10 mcmol/L (11-34) White Blood Count 13.5 x10^3/uL (4.0-11.0) Red Blood Count 3.97 x10^6/uL (4.30-5.70) Hemoglobin 14.1 g/dL (13.0-17.5) Hematocrit 40.6 % (39.0-53.0) Mean Corpuscular Volume 102 fL (79-100) Mean Corpuscular Hemoglobin 36 pg (25-35) Mean Corpuscular Hemoglobin Concent 35 g/dL (31-37) Red Cell Distribution Width 16.3 % (11.5-14.5) Platelet Count 139 x10^3/uL (140-400) Neutrophils (%) (Auto) 72 % (31-73) Lymphocytes (%) (Auto) 14 % (24-48) Monocytes (%) (Auto) 11 % (0-9) Eosinophils (%) (Auto) 3 % (0-3) Basophils (%) (Auto) 1 % (0-3) Neutrophils # (Auto) 9.6 x10^3/uL (1.8-7.7) Lymphocytes # (Auto) 1.9 x10^3/uL (1.0-4.8) Monocytes # (Auto) 1.4 x10^3/uL (0.0-1.1) Eosinophils # (Auto) 0.4 x10^3/uL (0.0-0.7) Basophils # (Auto) 0.1 x10^3/uL (0.0-0.2) Sodium Level 137 mmol/L (136-145) Potassium Level 3.0 mmol/L (3.5-5.1) Chloride Level 100 mmol/L (98-107) Carbon Dioxide Level 31 mmol/L (21-32) Anion Gap 6 (6-14) Blood Urea Nitrogen 6 mg/dL (8-26) Creatinine 0.8 mg/dL (0.7-1.3) Estimated GFR (Cockcroft-Gault) 114.3 BUN/Creatinine Ratio 8 (6-20) Glucose Level 77 mg/dL (70-99) Calcium Level 7.7 mg/dL (8.5-10.1) Phosphorus Level 3.3 mg/dL (2.6-4.7) Total Bilirubin 17.7 mg/dL (0.2-1.0) Aspartate Amino Transf (AST/SGOT) 110 U/L (15-37) Alanine Aminotransferase (ALT/SGPT) 30 U/L (16-63) Alkaline Phosphatase 182 U/L (46-116) Total Protein 5.8 g/dL (6.4-8.2) Albumin 1.5 g/dL (3.4-5.0) Albumin/Globulin Ratio 0.3 (1.0-1.7) Thyroid Stimulating Hormone (TSH) 6.763 uIU/mL (0.358-3.74) Assessment and Plan Assessmemt and Plan Problems Medical Problems: (1) Acute colitis Status: Acute (2) Dehydration Status: Acute (3) Painless jaundice Status: Acute (4) Sepsis Status: Acute * Visitor with patient Communicated Patient Care With (Name, Title) * Cadence RN; CARMEN De La Cruz Goal 1 - Bed Mobility Assistance Required * Independent Goal 1 Assessment * Appropriate - Continue Goal 2 - Transfers Assistance Required * Independent Goal 2 - Transfer Type * Sit to Stand Goal 2 Assessment * Appropriate - Continue Goal 3 - Ambulation Assistance Required * Independent Goal 3 - Ambulation Distance * 100' Goal 3 - Ambulation Device * Roller Walker Goal 3 Assessment * Appropriate - Continue Goal 4 - Stairs Assistance Required * Independent Goal 4 - Number of Stairs * 2-4 Goal 4 - Device on Stairs * Roller Walker * Rail on Right Goal 4 Assessment * Appropriate - Continue Treatment Plan * Therapeutic Exercise * Bed Mobility Training * Transfer training * Gait Training Frequency of Treatment Expected * 7 visits/week Duration of Treatment Expected * 2 weeks Discharge Recommendations * Snf Unit Discharge Recommendation - DME * Rolling Walker needed * and ambulation safely Discharge Recommendation Comments * rehab; AD TBD pending progress Comment Review of Relevant I have reviewed the following items larry (where applicable) has been applied. Labs Laboratory Tests Test 10/21/19 13:31 10/22/19 05:30 10/22/19 13:17 10/23/19 03:45 Cortisol PM Sample 15.8 ug/dL (3.1-16.7) Sodium Level 137 mmol/L (136-145) 137 mmol/L (136-145) Potassium Level 2.9 mmol/L (3.5-5.1) 3.0 mmol/L (3.5-5.1) Chloride Level 98 mmol/L (98-107) 100 mmol/L (98-107) Carbon Dioxide Level 32 mmol/L (21-32) 31 mmol/L (21-32) Anion Gap 7 (6-14) 6 (6-14) Blood Urea Nitrogen 7 mg/dL (8-26) 6 mg/dL (8-26) Creatinine 0.8 mg/dL (0.7-1.3) 0.8 mg/dL (0.7-1.3) Estimated GFR (Cockcroft-Gault) 114.3 114.3 Glucose Level 82 mg/dL (70-99) 77 mg/dL (70-99) Calcium Level 7.6 mg/dL (8.5-10.1) 7.7 mg/dL (8.5-10.1) Ammonia < 10 mcmol/L (11-34) White Blood Count 13.5 x10^3/uL (4.0-11.0) Red Blood Count 3.97 x10^6/uL (4.30-5.70) Hemoglobin 14.1 g/dL (13.0-17.5) Hematocrit 40.6 % (39.0-53.0) Mean Corpuscular Volume 102 fL (79-100) Mean Corpuscular Hemoglobin 36 pg (25-35) Mean Corpuscular Hemoglobin Concent 35 g/dL (31-37) Red Cell Distribution Width 16.3 % (11.5-14.5) Platelet Count 139 x10^3/uL (140-400) Neutrophils (%) (Auto) 72 % (31-73) Lymphocytes (%) (Auto) 14 % (24-48) Monocytes (%) (Auto) 11 % (0-9) Eosinophils (%) (Auto) 3 % (0-3) Basophils (%) (Auto) 1 % (0-3) Neutrophils # (Auto) 9.6 x10^3/uL (1.8-7.7) Lymphocytes # (Auto) 1.9 x10^3/uL (1.0-4.8) Monocytes # (Auto) 1.4 x10^3/uL (0.0-1.1) Eosinophils # (Auto) 0.4 x10^3/uL (0.0-0.7) Basophils # (Auto) 0.1 x10^3/uL (0.0-0.2) BUN/Creatinine Ratio 8 (6-20) Phosphorus Level 3.3 mg/dL (2.6-4.7) Total Bilirubin 17.7 mg/dL (0.2-1.0) Aspartate Amino Transf (AST/SGOT) 110 U/L (15-37) Alanine Aminotransferase (ALT/SGPT) 30 U/L (16-63) Alkaline Phosphatase 182 U/L (46-116) Total Protein 5.8 g/dL (6.4-8.2) Albumin 1.5 g/dL (3.4-5.0) Albumin/Globulin Ratio 0.3 (1.0-1.7) Thyroid Stimulating Hormone (TSH) 6.763 uIU/mL (0.358-3.74) Laboratory Tests Test 10/22/19 13:17 10/23/19 03:45 Ammonia < 10 mcmol/L (11-34) White Blood Count 13.5 x10^3/uL (4.0-11.0) Red Blood Count 3.97 x10^6/uL (4.30-5.70) Hemoglobin 14.1 g/dL (13.0-17.5) Hematocrit 40.6 % (39.0-53.0) Mean Corpuscular Volume 102 fL (79-100) Mean Corpuscular Hemoglobin 36 pg (25-35) Mean Corpuscular Hemoglobin Concent 35 g/dL (31-37) Red Cell Distribution Width 16.3 % (11.5-14.5) Platelet Count 139 x10^3/uL (140-400) Neutrophils (%) (Auto) 72 % (31-73) Lymphocytes (%) (Auto) 14 % (24-48) Monocytes (%) (Auto) 11 % (0-9) Eosinophils (%) (Auto) 3 % (0-3) Basophils (%) (Auto) 1 % (0-3) Neutrophils # (Auto) 9.6 x10^3/uL (1.8-7.7) Lymphocytes # (Auto) 1.9 x10^3/uL (1.0-4.8) Monocytes # (Auto) 1.4 x10^3/uL (0.0-1.1) Eosinophils # (Auto) 0.4 x10^3/uL (0.0-0.7) Basophils # (Auto) 0.1 x10^3/uL (0.0-0.2) Sodium Level 137 mmol/L (136-145) Potassium Level 3.0 mmol/L (3.5-5.1) Chloride Level 100 mmol/L (98-107) Carbon Dioxide Level 31 mmol/L (21-32) Anion Gap 6 (6-14) Blood Urea Nitrogen 6 mg/dL (8-26) Creatinine 0.8 mg/dL (0.7-1.3) Estimated GFR (Cockcroft-Gault) 114.3 BUN/Creatinine Ratio 8 (6-20) Glucose Level 77 mg/dL (70-99) Calcium Level 7.7 mg/dL (8.5-10.1) Phosphorus Level 3.3 mg/dL (2.6-4.7) Total Bilirubin 17.7 mg/dL (0.2-1.0) Aspartate Amino Transf (AST/SGOT) 110 U/L (15-37) Alanine Aminotransferase (ALT/SGPT) 30 U/L (16-63) Alkaline Phosphatase 182 U/L (46-116) Total Protein 5.8 g/dL (6.4-8.2) Albumin 1.5 g/dL (3.4-5.0) Albumin/Globulin Ratio 0.3 (1.0-1.7) Thyroid Stimulating Hormone (TSH) 6.763 uIU/mL (0.358-3.74) Microbiology 10/17/19 Blood Culture - Final, Complete NO GROWTH AFTER 5 DAYS 10/16/19 Urine Culture - Final, Complete Medications Current Medications Sodium Chloride 1,000 ml @ 1,000 mls/hr 1X ONCE IV Last administered on 10/16/19at 21:19; Start 10/16/19 at 21:15; Stop 10/16/19 at 22:14; Status DC Ondansetron HCl (Zofran) 4 mg 1X ONCE IVP Last administered on 10/16/19at 21:19; Start 10/16/19 at 21:15; Stop 10/16/19 at 21:16; Status DC Famotidine (Pepcid) 20 mg 1X ONCE PO Last administered on 10/16/19at 21:20; Start 10/16/19 at 21:15; Stop 10/16/19 at 21:16; Status DC Iohexol (Omnipaque 300 Mg/ml) 75 ml 1X ONCE IV Last administered on 10/16/19at 21:54; Start 10/16/19 at 21:45; Stop 10/16/19 at 21:46; Status DC Info (CONTRAST GIVEN -- Rx MONITORING) 1 each PRN DAILY PRN MC SEE COMMENTS; Start 10/16/19 at 22:00; Stop 10/18/19 at 21:59; Status DC Piperacillin Sod/ Tazobactam Sod 4.5 gm/Sodium Chloride 100 ml @ 200 mls/hr 1X ONCE IV Last administered on 10/17/19at 01:24; Start 10/17/19 at 00:45; Stop 10/17/19 at 01:14; Status DC Sodium Chloride 1,000 ml @ 2,460 mls/hr Q25M IV Last administered on 10/17/19at 01:56; Start 10/17/19 at 00:30; Stop 10/17/19 at 01:30; Status DC Sodium Chloride 1,000 ml @ 75 mls/hr [id number] IV Last administered on 10/17/19at 03:49; Start 10/17/19 at 02:15; Stop 10/17/19 at 15:57; Status DC Piperacillin Sod/ Tazobactam Sod 3.375 gm/Sodium Chloride 50 ml @ 100 mls/hr Q6HRS IV Last administered on 10/20/19at 05:14; Start 10/17/19 at 06:00; Stop 10/20/19 at 09:10; Status DC Morphine Sulfate (Morphine Sulfate) 2 mg PRN Q2HR PRN IV PAIN Last administered on 10/21/19at 10:48; Start 10/17/19 at 06:30 Lorazepam (Ativan Inj) 2 mg PRN Q1HR PRN IV For CIWA 8-14 Last administered on 10/22/19at 16:13; Start 10/17/19 at 06:30 Lorazepam (Ativan Inj) 4 mg PRN Q1HR PRN IV For CIWA 15 or greater; Start 10/17/19 at 06:30 Haloperidol Lactate (Haldol Inj) 5 mg PRN Q4HRS PRN IVP Hallucinatns,Confusn,Delirium; Start 10/17/19 at 06:30 Diphenhydramine HCl (Benadryl) 25 mg PRN Q15MIN PRN IVP EPS symptoms 2'Haldol admin; Start 10/17/19 at 06:30 Clonidine HCl (Catapres) 0.1 mg PRN Q1HR PRN PO SBP > 180 or DBP > 100, MRX3; Start 10/17/19 at 06:30 Multivitamins 10 ml/Thiamine HCl 100 mg/Folic Acid 1 mg/Sodium Chloride 1,011.2 ml @ 100 mls/ hr DAILY IV Last administered on 10/19/19at 09:01; Start 10/17/19 at 09:00; Stop 10/19/19 at 10:57; Status DC Sodium Chloride (Normal Saline Flush) 3 ml QSHIFT PRN IV AFTER MEDS AND BLOOD DRAWS; Start 10/17/19 at 11:45 Sodium Chloride 1,000 ml @ 100 mls/hr Q10H IV Last administered on 10/19/19at 06:23; Start 10/17/19 at 11:38; Stop 10/19/19 at 10:50; Status DC Al Hydroxide/Mg Hydroxide (Mylanta Plus Xs) 30 ml PRN DAILY PRN PO HEARTBURN / GAS; Start 10/17/19 at 11:45 Docusate Sodium (Colace) 100 mg PRN BID PRN PO HARD STOOLS; Start 10/17/19 at 11:45 Albuterol/ Ipratropium (Duoneb) 3 ml Q4HRS NEB Last administered on 10/18/19at 00:23; Start 10/17/19 at 12:00; Stop 10/18/19 at 00:38; Status DC Guaifenesin (Robitussin) 200 mg PRN Q4HRS PRN PO COUGH; Start 10/17/19 at 11:45 Enoxaparin Sodium (Lovenox 40mg Syringe) 40 mg Q24H SQ Last administered on 10/17/19at 15:05; Start 10/17/19 at 12:00; Stop 10/18/19 at 10:49; Status DC Lactobacillus Rhamnosus (Culturelle) 1 cap BID PO Last administered on 10/22/19at 21:47; Start 10/17/19 at 21:00 Albuterol Sulfate (Ventolin Neb Soln) 2.5 mg PRN Q4HRS PRN NEB SHORTNESS OF BREATH; Start 10/18/19 at 00:45 Ondansetron HCl (Zofran) 4 mg PRN Q6HRS PRN IVP NAUSEA/VOMITING Last administered on 10/18/19at 17:17; Start 10/18/19 at 17:15 Furosemide (Lasix) 40 mg BID92 IVP Last administered on 10/21/19at 14:12; Start 10/19/19 at 11:00; Stop 10/22/19 at 08:06; Status DC Folic Acid (Folic Acid) 1 mg DAILY PO Last administered on 10/22/19at 08:36; Start 10/20/19 at 09:00 Thiamine Mononitrate (Vitamin B-1) 100 mg DAILY PO Last administered on 10/22/19 08:36; Start 10/20/19 at 09:00 Potassium Bicarbonate (Potassium Effervescent Tablet) 40 meq 1X ONCE FT ; Start 10/19/19 at 11:30; Stop 10/19/19 at 11:31; Status DC Magnesium Sulfate 50 ml @ 25 mls/hr Q24H IV Last administered on 10/20/19at 12:45; Start 10/19/19 at 12:00; Stop 10/21/19 at 13:59; Status DC Potassium Phos/ Sodium Phos (Phos-Nak) 1 pkt PRN BID PRN PO COMMENTS; Start 10/19/19 at 21:00 Potassium Bicarbonate (Potassium Effervescent Tablet) 40 meq Q4H PO ; Start 10/19/19 at 11:00; Stop 10/19/19 at 12:55; Status DC Multivitamins (Thera M Plus) 1 tab DAILY PO Last administered on 10/22/19at 08:36; Start 10/20/19 at 09:00 Potassium Bicarbonate (Potassium Effervescent Tablet) 40 meq PRN Q4HRS PRN PO COMMENTS; Start 10/19/19 at 13:00 Lactulose (Lactulose) 20 gm DAILY08 PO Last administered on 10/22/19at 08:36; Start 10/19/19 at 14:15; Stop 10/22/19 at 12:31; Status DC Mirtazapine (Remeron) 15 mg QHS PO Last administered on 10/22/19at 21:47; Start 10/19/19 at 21:00 Potassium Bicarbonate (Potassium Effervescent Tablet) 40 meq 1X ONCE FT Last administered on 10/20/19at 15:22; Start 10/20/19 at 13:30; Stop 10/20/19 at 13:31; Status DC Magnesium Sulfate 50 ml @ 25 mls/hr Q24H IV Last administered on 10/22/19at 16:22; Start 10/20/19 at 13:30; Stop 10/22/19 at 15:29; Status DC Potassium Phos/ Sodium Phos (Phos-Nak) 1 pkt BID PO Last administered on 10/21/19at 10:37; Start 10/20/19 at 21:00; Stop 10/21/19 at 09:01; Status DC Potassium Bicarbonate (Potassium Effervescent Tablet) 40 meq Q4H PO Last administered on 10/20/19 17:30; Start 10/20/19 at 13:30; Stop 10/20/19 at 17:31; Status DC Magnesium Sulfate 50 ml @ 25 mls/hr 1X ONCE IV Last administered on 10/20/19at 18:22; Start 10/20/19 at 16:15; Stop 10/20/19 at 18:14; Status DC Gabapentin (Neurontin) 100 mg TID PO Last administered on 10/22/19at 21:47; Start 10/21/19 at 21:00 Tramadol HCl (Ultram) 50 mg PRN Q6HRS PRN PO MODERATE PAIN 4-6 Last administered on 10/23/19 04:03; Start 10/21/19 at 22:00 Furosemide (Lasix) 40 mg DAILY PO ; Start 10/22/19 at 09:00 Potassium Chloride (Klor-Con) 40 meq 1X ONCE PO Last administered on 10/22/19at 08:35; Start 10/22/19 at 08:30; Stop 10/22/19 at 08:31; Status DC Potassium Phosphate 13.6 mmol/Sodium Chloride 254.5333 ml @ 127.... Q2H IV Last administered on 10/22/19at 18:38; Start 10/22/19 at 12:00; Stop 10/22/19 at 15:59; Status DC Lactulose (Lactulose) 20 gm BID PO Last administered on 10/22/19at 21:47; Start 10/22/19 at 21:00 Active Scripts Active Reported [inhaler] PRN [lisinopril +] DAILY Vitals/I & O Vital Sign - Last 24 Hours 10/22/19 10/22/19 10/22/19 10/22/19 11:00 15:00 16:15 18:39 Temp 98.0 97.8 98.0 97.8 Pulse 94 94 Resp 18 16 B/P (MAP) 112/64 (80) 145/86 (105) Pulse Ox 93 92 O2 Delivery Room Air Room Air Room Air Room Air 10/22/19 10/22/19 10/22/19 10/23/19 19:00 20:00 23:00 03:11 Temp 98.0 98.1 97.5 98.0 98.1 97.5 Pulse 94 98 94 Resp 18 18 20 B/P (MAP) 122/67 (85) 108/66 (80) 123/70 (87) Pulse Ox 93 93 95 O2 Delivery Room Air Room Air Room Air Room Air 10/23/19 10/23/19 04:03 05:03 Resp 18 16 Pulse Ox 95 95 O2 Delivery Room Air Room Air Intake and Output 10/22/19 10/22/19 10/23/19 15:00 23:00 07:00 Output Total 300 ml Balance -300 ml Justicifation of Admission Dx: Justifications for Admission: Justification of Admission Dx: Yes Sepsis: End-Organ Dysfunction SANDY ZHU MD Oct 23, 2019 08:33
[2019-10-23] MEDS: LACTOBACILLUS RHAMNOSUS GG 1 CAPSULE. PO SCH ×2 (10:30→23:30)
[2019-10-23] MEDS: GABAPENTIN 100 MG CAPSULE. PO SCH ×4 (10:30→23:30)
[2019-10-23] MEDS: MULTIVITAMIN with MINERAL TABLET. PO SCH (10:30)
[2019-10-23] MEDS: ONDANSETRON PF 4 MG/2 ML VIAL. IVP PRN (10:30)
[2019-10-23] MEDS: THIAMINE 100 MG TABLET. PO SCH (10:30)
[2019-10-23] MEDS: FOLIC ACID 1 MG TABLET. PO SCH (10:30)
[2019-10-23] MEDS: LACTULOSE 20 GM/30 ML SOLUTION. PO SCH ×2 (10:30→23:31)
[2019-10-23] MEDS: FUROSEMIDE 40 MG TABLET. PO SCH (10:31)
[2019-10-23] MEDS: LEVOTHYROXINE 88 MCG TABLET PO SCH (10:32)
[2019-10-23] MEDS ORDERED: POTASSIUM CHLORIDE 20 MEQ TABLET.ER. PO ONE (10:45)
--- NOTE | 2019-10-23 10:54 | PDOC ---
Infectious Disease Note Subjective: Subjective Patient resting He continues to have abdominal swelling, bloating, nausea, some vomiting Complains of generalized aches and pains Has intermittent loose bowel movement on lactulose Vital Signs: Vital Signs Vital Signs Date Time Temp Pulse Resp B/P (MAP) Pulse Ox O2 Delivery O2 Flow Rate FiO2 10/23/19 10:31 95 Room Air 2.0 10/23/19 07:15 98.1 99 16 120/66 (84) 98.1 Physical Exam: PHYSICAL EXAM GENERAL: alert in NAD , SLEEPY gait unstable HEENT: Pupils equally round, reactive. Mild icterus. Oropharynx pink and moist. No lesions seen. NECK: Supple. LUNGS: Clear to auscultation. HEART: S1, S2 regular. ABDOMEN: Obese,distended, soft, nontender with bowel sounds present. EXTREMITIES: No gross edema or cyanosis. SKIN: Warm to touch without signs of rash. NEUROLOGIC: ALert, oriented. Medications: Inpatient Meds: Current Medications Medications (Trade) Dose Ordered Sig/Kelly Start Time Stop Time Status Last Admin Dose Admin Al Hydroxide/Mg Hydroxide (Mylanta Plus Xs) 30 ml PRN DAILY PRN 10/17/19 11:45 Albuterol Sulfate (Ventolin Neb Soln) 2.5 mg PRN Q4HRS PRN 10/18/19 00:45 Albuterol/ Ipratropium (Duoneb) 3 ml Q4HRS 10/17/19 12:00 10/18/19 00:38 DC 10/18/19 00:23 3 ML Clonidine HCl (Catapres) 0.1 mg PRN Q1HR PRN 10/17/19 06:30 Diphenhydramine HCl (Benadryl) 25 mg PRN Q15MIN PRN 10/17/19 06:30 Docusate Sodium (Colace) 100 mg PRN BID PRN 10/17/19 11:45 Enoxaparin Sodium (Lovenox 40mg Syringe) 40 mg Q24H 10/17/19 12:00 10/18/19 10:49 DC 10/17/19 15:05 40 MG Famotidine (Pepcid) 20 mg 1X ONCE 10/16/19 21:15 10/16/19 21:16 DC 10/16/19 21:20 20 MG Folic Acid (Folic Acid) 1 mg DAILY 10/20/19 09:00 10/23/19 10:30 1 MG Furosemide (Lasix) 40 mg DAILY 10/22/19 09:00 10/23/19 10:31 40 MG Gabapentin (Neurontin) 100 mg TID 10/21/19 21:00 10/23/19 10:30 100 MG Guaifenesin (Robitussin) 200 mg PRN Q4HRS PRN 10/17/19 11:45 Haloperidol Lactate (Haldol Inj) 5 mg PRN Q4HRS PRN 10/17/19 06:30 Info (CONTRAST GIVEN -- Rx MONITORING) 1 each PRN DAILY PRN 10/16/19 22:00 10/18/19 21:59 DC Iohexol (Omnipaque 300 Mg/ml) 75 ml 1X ONCE 10/16/19 21:45 10/16/19 21:46 DC 10/16/19 21:54 75 ML Lactobacillus Rhamnosus (Culturelle) 1 cap BID 10/17/19 21:00 10/23/19 10:30 1 CAP Lactulose (Lactulose) 20 gm BID 10/22/19 21:00 10/23/19 10:30 20 GM Levothyroxine Sodium (Synthroid) 88 mcg DAILY06 10/23/19 10:30 10/23/19 10:32 88 MCG Lorazepam (Ativan Inj) 4 mg PRN Q1HR PRN 10/17/19 06:30 Magnesium Sulfate 50 ml @ 25 mls/hr 1X ONCE 10/20/19 16:15 10/20/19 18:14 DC 10/20/19 18:22 25 MLS/HR Mirtazapine (Remeron) 15 mg QHS 10/19/19 21:00 10/22/19 21:47 15 MG Morphine Sulfate (Morphine Sulfate) 2 mg PRN Q2HR PRN 10/17/19 06:30 10/21/19 10:48 2 MG Multivitamins (Thera M Plus) 1 tab DAILY 10/20/19 09:00 10/23/19 10:30 1 TAB Multivitamins 10 ml/Thiamine HCl 100 mg/Folic Acid 1 mg/Sodium Chloride 1,011.2 ml @ 100 mls/ hr DAILY 10/17/19 09:00 10/19/19 10:57 DC 10/19/19 09:01 100 MLS/HR Ondansetron HCl (Zofran) 4 mg PRN Q6HRS PRN 10/18/19 17:15 10/23/19 10:30 4 MG Piperacillin Sod/ Tazobactam Sod 3.375 gm/Sodium Chloride 50 ml @ 100 mls/hr Q6HRS 10/17/19 06:00 10/20/19 09:10 DC 10/20/19 05:14 100 MLS/HR Piperacillin Sod/ Tazobactam Sod 4.5 gm/Sodium Chloride 100 ml @ 200 mls/hr 1X ONCE 10/17/19 00:45 10/17/19 01:14 DC 10/17/19 01:24 200 MLS/HR Potassium Bicarbonate (Potassium Effervescent Tablet) 40 meq Q4H 10/20/19 13:30 10/20/19 17:31 DC 10/20/19 17:30 40 MEQ Potassium Phosphate 13.6 mmol/Sodium Chloride 254.5333 ml @ 127.... Q2H 10/22/19 12:00 10/22/19 15:59 DC 10/22/19 18:38 127.267 MLS/HR Potassium Chloride (Klor-Con) 40 meq 1X ONCE 10/23/19 10:45 10/23/19 10:47 DC Potassium Phos/ Sodium Phos (Phos-Nak) 1 pkt BID 10/20/19 21:00 10/21/19 09:01 DC 10/21/19 10:37 1 PKT Sodium Chloride 1,000 ml @ 100 mls/hr Q10H 10/17/19 11:38 10/19/19 10:50 DC 10/19/19 06:23 100 MLS/HR Sodium Chloride (Normal Saline Flush) 3 ml QSHIFT PRN 10/17/19 11:45 Thiamine Mononitrate (Vitamin B-1) 100 mg DAILY 10/20/19 09:00 10/23/19 10:30 100 MG Tramadol HCl (Ultram) 50 mg PRN Q6HRS PRN 10/21/19 22:00 10/23/19 10:31 50 MG Labs: Lab Laboratory Tests Test 10/22/19 13:17 10/23/19 03:45 Ammonia < 10 mcmol/L (11-34) White Blood Count 13.5 x10^3/uL (4.0-11.0) Red Blood Count 3.97 x10^6/uL (4.30-5.70) Hemoglobin 14.1 g/dL (13.0-17.5) Hematocrit 40.6 % (39.0-53.0) Mean Corpuscular Volume 102 fL (79-100) Mean Corpuscular Hemoglobin 36 pg (25-35) Mean Corpuscular Hemoglobin Concent 35 g/dL (31-37) Red Cell Distribution Width 16.3 % (11.5-14.5) Platelet Count 139 x10^3/uL (140-400) Neutrophils (%) (Auto) 72 % (31-73) Lymphocytes (%) (Auto) 14 % (24-48) Monocytes (%) (Auto) 11 % (0-9) Eosinophils (%) (Auto) 3 % (0-3) Basophils (%) (Auto) 1 % (0-3) Neutrophils # (Auto) 9.6 x10^3/uL (1.8-7.7) Lymphocytes # (Auto) 1.9 x10^3/uL (1.0-4.8) Monocytes # (Auto) 1.4 x10^3/uL (0.0-1.1) Eosinophils # (Auto) 0.4 x10^3/uL (0.0-0.7) Basophils # (Auto) 0.1 x10^3/uL (0.0-0.2) Sodium Level 137 mmol/L (136-145) Potassium Level 3.0 mmol/L (3.5-5.1) Chloride Level 100 mmol/L (98-107) Carbon Dioxide Level 31 mmol/L (21-32) Anion Gap 6 (6-14) Blood Urea Nitrogen 6 mg/dL (8-26) Creatinine 0.8 mg/dL (0.7-1.3) Estimated GFR (Cockcroft-Gault) 114.3 BUN/Creatinine Ratio 8 (6-20) Glucose Level 77 mg/dL (70-99) Calcium Level 7.7 mg/dL (8.5-10.1) Phosphorus Level 3.3 mg/dL (2.6-4.7) Total Bilirubin 17.7 mg/dL (0.2-1.0) Aspartate Amino Transf (AST/SGOT) 110 U/L (15-37) Alanine Aminotransferase (ALT/SGPT) 30 U/L (16-63) Alkaline Phosphatase 182 U/L (46-116) Total Protein 5.8 g/dL (6.4-8.2) Albumin 1.5 g/dL (3.4-5.0) Albumin/Globulin Ratio 0.3 (1.0-1.7) Vitamin B12 Level > 2000 pg/mL (247-911) Thyroid Stimulating Hormone (TSH) 6.763 uIU/mL (0.358-3.74) Objective: Assessment: Leukocytosis likely multifactorial alcoholic hepatitis and possibly reactive Nausea and vomiting Jaundice. Diarrhea from lactulose Alcohol abuse. Alcoholic hepatitis. Lactic acidosis - improved Plan: Plan of Care Observe off antibiotics Maintain aspiration precaution Cultures neg to date D/w mother at bedside Discussed with nursing staff ID will sign off please call with any questions MADISYN WHITEHEAD MD Oct 23, 2019 10:54
[2019-10-23 11:15] VITALS: BP 127/76
--- NOTE | 2019-10-23 12:32 | PDOC ---
Date of Service: DATE: 10/23/19 TIME: 12:28 Subjective: Subjective: Mom says more awake. Says other doctors concerned w/ elevated liver tests. Wonders what he can take at home for pain. Wonders how long labs will be abnormal. Pt says he has back pain. Has been up to restroom and walked in hallway. Mom reports h/o GERD. Objective: Objective: No new concerns per nurse. Vital Signs: Vital Signs Date Time Temp Pulse Resp B/P (MAP) Pulse Ox O2 Delivery O2 Flow Rate FiO2 10/23/19 12:23 93 Room Air 10/23/19 10:31 2.0 10/23/19 07:15 98.1 99 16 120/66 (84) 98.1 Labs: Laboratory Tests Test 10/22/19 13:17 10/23/19 03:45 Ammonia < 10 mcmol/L White Blood Count 13.5 x10^3/uL Red Blood Count 3.97 x10^6/uL Hemoglobin 14.1 g/dL Hematocrit 40.6 % Mean Corpuscular Volume 102 fL Mean Corpuscular Hemoglobin 36 pg Mean Corpuscular Hemoglobin Concent 35 g/dL Red Cell Distribution Width 16.3 % Platelet Count 139 x10^3/uL Neutrophils (%) (Auto) 72 % Lymphocytes (%) (Auto) 14 % Monocytes (%) (Auto) 11 % Eosinophils (%) (Auto) 3 % Basophils (%) (Auto) 1 % Neutrophils # (Auto) 9.6 x10^3/uL Lymphocytes # (Auto) 1.9 x10^3/uL Monocytes # (Auto) 1.4 x10^3/uL Eosinophils # (Auto) 0.4 x10^3/uL Basophils # (Auto) 0.1 x10^3/uL Sodium Level 137 mmol/L Potassium Level 3.0 mmol/L Chloride Level 100 mmol/L Carbon Dioxide Level 31 mmol/L Anion Gap 6 Blood Urea Nitrogen 6 mg/dL Creatinine 0.8 mg/dL Estimated GFR (Cockcroft-Gault) 114.3 BUN/Creatinine Ratio 8 Glucose Level 77 mg/dL Calcium Level 7.7 mg/dL Phosphorus Level 3.3 mg/dL Total Bilirubin 17.7 mg/dL Aspartate Amino Transf (AST/SGOT) 110 U/L Alanine Aminotransferase (ALT/SGPT) 30 U/L Alkaline Phosphatase 182 U/L Total Protein 5.8 g/dL Albumin 1.5 g/dL Albumin/Globulin Ratio 0.3 Vitamin B12 Level > 2000 pg/mL Thyroid Stimulating Hormone (TSH) 6.763 uIU/mL Current Medicatio PE: GEN: NAD ABD: non-tender SKIN: jaundice NEURO/PSYCH: drowsy A/P: Alcoholic hepatitis -- Stable. Will review any new recommendations w/ Dr. Mclean. Justicifation of Admission Dx: Justifications for Admission: Justification of Admission Dx: Yes Sepsis: End-Organ Dysfunction THOMAS DUBON Oct 23, 2019 12:32
[2019-10-23 15:00] VITALS: BP 149/90
--- NOTE | 2019-10-23 15:04 | NUR ---
SW following. Spoke with RN and reviewed chart. Spoke with Dorothy from PT. Pt to discharge home with assistance from significant other and roommate at discharge. Pt not ready for discharge at this time. SW to follow as needed.
[2019-10-23 19:00] VITALS: BP 119/77
--- NOTE | 2019-10-23 19:10 | PDOC ---
F/U PHYSCH PROG NOTE Subjective: Gentleman is seen for routine follow-up. Progress is reviewed with nursing staff. No major emotional or behavioral breakdown reported. Today he is feeling better. He is accompanied by his significant other who also endorsed improvement. Not as depressed or anxious as he was yesterday. Not feeling as tired. Denies suicidal or homicidal thoughts. Denies auditory or visual hallucinations. No evidence of breann or hypomania. Tolerating medications. He is in agreement to increase dose of gabapentin to 300 mg 3 times a day which would also take care of anxiety. Objective: 14 point review of system is otherwise negative except for stated above. Vital Signs: Vital Signs Date Time Temp Pulse Resp B/P (MAP) Pulse Ox O2 Delivery O2 Flow Rate FiO2 10/23/19 15:00 98.2 111 16 149/90 (109) 90 Room Air 98.2 10/23/19 10:31 2.0 Labs: Laboratory Tests Test 10/23/19 03:45 White Blood Count 13.5 x10^3/uL (4.0-11.0) H Red Blood Count 3.97 x10^6/uL (4.30-5.70) L Hemoglobin 14.1 g/dL (13.0-17.5) Hematocrit 40.6 % (39.0-53.0) Mean Corpuscular Volume 102 fL (79-100) H Mean Corpuscular Hemoglobin 36 pg (25-35) H Mean Corpuscular Hemoglobin Concent 35 g/dL (31-37) Red Cell Distribution Width 16.3 % (11.5-14.5) H Platelet Count 139 x10^3/uL (140-400) L Neutrophils (%) (Auto) 72 % (31-73) Lymphocytes (%) (Auto) 14 % (24-48) L Monocytes (%) (Auto) 11 % (0-9) H Eosinophils (%) (Auto) 3 % (0-3) Basophils (%) (Auto) 1 % (0-3) Neutrophils # (Auto) 9.6 x10^3/uL (1.8-7.7) H Lymphocytes # (Auto) 1.9 x10^3/uL (1.0-4.8) Monocytes # (Auto) 1.4 x10^3/uL (0.0-1.1) H Eosinophils # (Auto) 0.4 x10^3/uL (0.0-0.7) Basophils # (Auto) 0.1 x10^3/uL (0.0-0.2) Sodium Level 137 mmol/L (136-145) Potassium Level 3.0 mmol/L (3.5-5.1) L Chloride Level 100 mmol/L (98-107) Carbon Dioxide Level 31 mmol/L (21-32) Anion Gap 6 (6-14) Blood Urea Nitrogen 6 mg/dL (8-26) L Creatinine 0.8 mg/dL (0.7-1.3) Estimated GFR (Cockcroft-Gault) 114.3 BUN/Creatinine Ratio 8 (6-20) Glucose Level 77 mg/dL (70-99) Calcium Level 7.7 mg/dL (8.5-10.1) L Phosphorus Level 3.3 mg/dL (2.6-4.7) Total Bilirubin 17.7 mg/dL (0.2-1.0) H Aspartate Amino Transferase (AST) 110 U/L (15-37) H Alanine Aminotransferase (ALT) 30 U/L (16-63) Alkaline Phosphatase 182 U/L (46-116) H Total Protein 5.8 g/dL (6.4-8.2) L Albumin 1.5 g/dL (3.4-5.0) L Albumin/Globulin Ratio 0.3 (1.0-1.7) L Vitamin B12 Level > 2000 pg/mL (247-911) H Thyroid Stimulating Hormone (TSH) 6.763 uIU/mL (0.358-3.74) H Thyroxine (T4) 6.0 ug/dL (4.5-12.0) Total Triiodothyronine (TT3) 115 ng/dL (71-180) Laboratory Tests 10/23/19 03:45 Laboratory Tests 10/23/19 03:45 Medications: Current Medications Medications (Trade) Dose Ordered Sig/Kelly Start Time Stop Time Status Last Admin Dose Admin Al Hydroxide/Mg Hydroxide (Mylanta Plus Xs) 30 ml PRN DAILY PRN 10/17/19 11:45 Albuterol Sulfate (Ventolin Neb Soln) 2.5 mg PRN Q4HRS PRN 10/18/19 00:45 Albuterol/ Ipratropium (Duoneb) 3 ml Q4HRS 10/17/19 12:00 10/18/19 00:38 DC 10/18/19 00:23 3 ML Clonidine HCl (Catapres) 0.1 mg PRN Q1HR PRN 10/17/19 06:30 Diphenhydramine HCl (Benadryl) 25 mg PRN Q15MIN PRN 10/17/19 06:30 Docusate Sodium (Colace) 100 mg PRN BID PRN 10/17/19 11:45 Enoxaparin Sodium (Lovenox 40mg Syringe) 40 mg Q24H 10/17/19 12:00 10/18/19 10:49 DC 10/17/19 15:05 40 MG Famotidine (Pepcid) 20 mg QHS 10/23/19 21:00 Folic Acid (Folic Acid) 1 mg DAILY 10/20/19 09:00 10/23/19 10:30 1 MG Furosemide (Lasix) 40 mg DAILY 10/22/19 09:00 10/23/19 10:31 40 MG Gabapentin (Neurontin) 100 mg TID 10/21/19 21:00 10/23/19 15:39 100 MG Guaifenesin (Robitussin) 200 mg PRN Q4HRS PRN 10/17/19 11:45 Haloperidol Lactate (Haldol Inj) 5 mg PRN Q4HRS PRN 10/17/19 06:30 Info (CONTRAST GIVEN -- Rx MONITORING) 1 each PRN DAILY PRN 10/16/19 22:00 10/18/19 21:59 DC Iohexol (Omnipaque 300 Mg/ml) 75 ml 1X ONCE 10/16/19 21:45 10/16/19 21:46 DC 10/16/19 21:54 75 ML Lactobacillus Rhamnosus (Culturelle) 1 cap BID 10/17/19 21:00 10/23/19 10:30 1 CAP Lactulose (Lactulose) 20 gm BID 10/22/19 21:00 10/23/19 10:30 20 GM Levothyroxine Sodium (Synthroid) 88 mcg DAILY06 10/23/19 10:30 10/23/19 10:32 88 MCG Lorazepam (Ativan Inj) 4 mg PRN Q1HR PRN 10/17/19 06:30 Magnesium Sulfate 50 ml @ 25 mls/hr 1X ONCE 10/20/19 16:15 10/20/19 18:14 DC 10/20/19 18:22 25 MLS/HR Mirtazapine (Remeron) 15 mg QHS 10/19/19 21:00 10/22/19 21:47 15 MG Morphine Sulfate (Morphine Sulfate) 2 mg PRN Q2HR PRN 10/17/19 06:30 10/21/19 10:48 2 MG Multivitamins (Thera M Plus) 1 tab DAILY 10/20/19 09:00 10/23/19 10:30 1 TAB Multivitamins 10 ml/Thiamine HCl 100 mg/Folic Acid 1 mg/Sodium Chloride 1,011.2 ml @ 100 mls/ hr DAILY 10/17/19 09:00 10/19/19 10:57 DC 10/19/19 09:01 100 MLS/HR Ondansetron HCl (Zofran) 4 mg PRN Q6HRS PRN 10/18/19 17:15 10/23/19 10:30 4 MG Piperacillin Sod/ Tazobactam Sod 3.375 gm/Sodium Chloride 50 ml @ 100 mls/hr Q6HRS 10/17/19 06:00 10/20/19 09:10 DC 10/20/19 05:14 100 MLS/HR Piperacillin Sod/ Tazobactam Sod 4.5 gm/Sodium Chloride 100 ml @ 200 mls/hr 1X ONCE 10/17/19 00:45 10/17/19 01:14 DC 10/17/19 01:24 200 MLS/HR Potassium Bicarbonate (Potassium Effervescent Tablet) 40 meq Q4H 10/20/19 13:30 10/20/19 17:31 DC 10/20/19 17:30 40 MEQ Potassium Phosphate 13.6 mmol/Sodium Chloride 254.5333 ml @ 127.... Q2H 10/22/19 12:00 10/22/19 15:59 DC 10/22/19 18:38 127.267 MLS/HR Potassium Chloride (Klor-Con) 40 meq 1X ONCE 10/23/19 10:45 10/23/19 10:47 DC 10/23/19 12:42 40 MEQ Potassium Phos/ Sodium Phos (Phos-Nak) 1 pkt BID 10/20/19 21:00 10/21/19 09:01 DC 10/21/19 10:37 1 PKT Sodium Chloride 1,000 ml @ 100 mls/hr Q10H 10/17/19 11:38 10/19/19 10:50 DC 10/19/19 06:23 100 MLS/HR Sodium Chloride (Normal Saline Flush) 3 ml QSHIFT PRN 10/17/19 11:45 Thiamine Mononitrate (Vitamin B-1) 100 mg DAILY 10/20/19 09:00 10/23/19 10:30 100 MG Tramadol HCl (Ultram) 50 mg PRN Q6HRS PRN 10/21/19 22:00 10/23/19 10:31 50 MG Physical Exam: Mental Status Exam: Young gentleman appears as a stated age, fairly groomed, fairly nourished Cooperative and interactive appears tired Fully oriented Thought processes linear and mostly goal-directed Denies auditory or visual hallucinations No abnormal perception noted. Denies suicidal or homicidal thoughts. Mood is improving Affect is euthymic Insight is fair Judgment is fair Attention span and concentration fair Recent and remote memory intact. Physical Exam: Refer to Physician's note. MEAT PASSER: No focal deficit MSK: No EPS, TDK, or abnormal involuntary movements Diagnosis: 1. Alcohol use disorder, recurrent, severe 2. Major depressive disorder, recurrent, moderate 3. Generalized anxiety disorder 4. Rule out major depression/generalized anxiety due to substance use. Assessment: Young gentleman struggling with alcohol use disorder with medical complications. Additionally, struggling with psychiatric complications of alcohol including depression and anxiety. It is important at this point to select antidepressant which does not need too much adjustment in liver disease. Recommending to start Remeron which would help him with insomnia, depression, anxiety. Gabapentin to cut down alcohol craving and complicated withdrawals. He appears relatively better and in good mood. Slept relatively better than night before last. Overall feeling good. Mood is reportedly pretty good Plan: Increase gabapentin to 300mg 3 times daily for alcohol craving and withdrawal prevention. Continue Remeron 15 mg nightly for depression, anxiety, and insomnia. Risk, benefits, alternatives of the treatment are discussed. He is in agreement with plan and expressed understanding. Adverse drug reaction of the medications prescribed were discussed in detail. He is accepting medications and consented verbally. Monitor for symptomatology, mood, and safety. Will adjust medications accordingly. VANNESA JUNIOR MD Oct 23, 2019 19:09
[2019-10-23 23:00] VITALS: BP 117/77
[2019-10-23] MEDS: FAMOTIDINE 20 MG TABLET. PO SCH (23:31)
[2019-10-23] MEDS: MIRTAZAPINE 15 MG TABLET PO SCH (23:31)
[2019-10-24 03:00] VITALS: BP 106/62
[2019-10-24] MEDS: LEVOTHYROXINE 88 MCG TABLET PO SCH (06:18)
[2019-10-24 07:00] VITALS: BP 138/76
[2019-10-24 07:04] LABS: CALCIUM 8.2 mg/dL (8.5-10.1); CREATININE 0.9 mg/dL (0.7-1.3); GFR 99.8; POTASSIUM 3.3 mmol/L (3.5-5.1)
[2019-10-24 07:07] LABS: BASO # 0.1 x10^3/uL (0.0-0.2); BASO % 0 % (0-3); EOS # 0.4 x10^3/uL (0.0-0.7); EOS % 2 % (0-3); HEMOGLOBIN 14.5 g/dL (13.0-17.5); LYMPH # 1.6 x10^3/uL (1.0-4.8); LYMPH % 9 % (24-48); MEAN CORPUSCULAR HEMOGLOBIN 35 pg (25-35); MEAN CORPUSCULAR HGB CONC 35 g/dL (31-37); MEAN CORPUSCULAR VOLUME 102 fL (79-100); MONO # 1.8 x10^3/uL (0.0-1.1); MONO % 10 % (0-9); NEUT # 14.1 x10^3/uL (1.8-7.7); NEUT % 78 % (31-73); PLATELET COUNT 149 x10^3/uL (140-400); RED BLOOD COUNT 4.11 x10^6/uL (4.30-5.70); RED CELL DISTRIBUTION WIDTH 16.4 % (11.5-14.5); WHITE BLOOD COUNT 17.9 x10^3/uL (4.0-11.0)
--- NOTE | 2019-10-24 09:15 | RAD ---
Chest PA and lateral: Reason for examination: Hypoxia. Comparison is made to previous study dated 10/19/2019. The heart size is normal. Mediastinum is unremarkable. Lung corona show atelectasis at both lung bases. No gross pleural effusions or consolidative infiltrates are seen. No acute bony abnormalities are seen. Impression: Atelectasis at both lung bases. Electronically signed by: Ina Aragon MD (10/24/2019 9:12 AM) [id number]
[2019-10-24] MEDS: LACTOBACILLUS RHAMNOSUS GG 1 CAPSULE. PO SCH ×2 (09:19→22:23)
[2019-10-24] MEDS: GABAPENTIN 100 MG CAPSULE. PO SCH ×3 (09:19→22:23)
[2019-10-24] MEDS: THIAMINE 100 MG TABLET. PO SCH (09:19)
[2019-10-24] MEDS: MULTIVITAMIN with MINERAL TABLET. PO SCH (09:19)
[2019-10-24] MEDS: FUROSEMIDE 40 MG TABLET. PO SCH (09:19)
[2019-10-24] MEDS: FOLIC ACID 1 MG TABLET. PO SCH (09:19)
[2019-10-24] MEDS: LACTULOSE 20 GM/30 ML SOLUTION. PO SCH ×2 (09:24→22:23)
[2019-10-24 09:58] LABS: % BANDS 11 % (0-9); % EOS 1 % (0-5); % LYMPHS 9 % (24-48); % METAS 1 % (0-0); % MONOS 7 % (0-10); % SEGS 71 % (35-66); ANISOCYTOSIS SLIGHT; PLT ESTIMATE ADEQUATE (ADEQUATE)
--- NOTE | 2019-10-24 10:16 | PDOC ---
PROGRESS NOTES Date of Service: DATE: 10/24/19 TIME: 10:16 Chief Complaint Chief Complaint VTE Prophylaxis Ordered VTE Prophylaxis Devices: No VTE Pharmacological Prophylaxi: Yes Assessment/Plan Assessment/Plan impression painless jaundice attenuation of liver with adjacent fat stranding. //steato-hepatitis. apparent gallbladder wall thickening with debris within the lumen which could be from sludge or stones. // wall thickening is nonspecific in nature and could be related to primary gallbladder inflammation or reactive to adjacent hepatic disease.// gallbladder wall lesion is also not excluded. ALCOHOL ABUSE , severe Leukocytosis lactic acidosis thc abuse thrombocytopenia severe protein-caloric malnutrition MAJOR Depression metabolic encephalopathy hypothyroid state 10/18 inc edema, weigh, d/c iv fluids, iv lasix 40mg bid, NH4 LEVEL hepatic vein doppler 10/21 continues to be dysphoric and somewhat irritable. Stating he is anxious and depressed, CHK AM, PM SERUM CORTISOL k=2.9 chg lasix to 40mg po daily 10/21 Continue gabapentin 100 mg 3 times daily for alcohol craving and withdrawal prevention.Continue Remeron 15 mg nightly for depression, anxiety, and insomnia. 10/22 ABG PENDING, NOW ON O2 PRN // Atelectasis, IS plan ADMIT GI CONSULT Hepatitis dx panel ID CONSULT blood culture emperic iv antibiotics, iv zosyn urine culture d/c lovenox due to thrombocytopenia psych consult REVIEWED echo CARDIOLOGY CONSULT CONT TELE chg po lasix 40mg daily CT HEAD 10/21 synthroid 0.088 mg po daily 10/22 D/W MOTHER IN ROOM 10/23, mother 38 min pt exam, chart review, > 50% of time spent with exam, chart review, pt care coordination Justicifation of Admission Dx: Justifications for Admission: Justification of Admission Dx: Yes Sepsis: End-Organ Dysfunction History of Present Illness History of Present Illness Identification/Chief Complaint Chief Complaint seen in er for jaundice , 29 year old male who presents with painless jaundice for the last 3 weeks. Patient reports he was in [place] by a month ago denied any significant COVID exposure but reports that for the last 2 weeks he has had troubles with generalized body aches, fatigue and decrease in appetite. He denies any pain in his abdomen but does complain of some nausea. He also complains of early satiety. He reports that the food does not make him have any pain but also does make him feel any better either. His mom came over today and noticed that he had jaundice and sent him to the emergency room for further evaluation. denies any fever, chills or sweats. He denies any cough shortness of breath or chest pain. w/o c/w alcohol associated hepatitis denies recent tick bites , admits to heavy alcohol intake sine high school, now drinking one pint of vodka daily, USING thc last week in [place] Vitals Vitals Vital Signs Date Time Temp Pulse Resp B/P (MAP) Pulse Ox O2 Delivery O2 Flow Rate FiO2 10/24/19 07:00 97.9 100 18 138/76 (96) 94 Nasal Cannula 1.5 97.9 Physical Exam Physical Exam GENERAL: alert in NAD , SLEEPY gait unstable HEENT: Pupils equally round, reactive. Mild icterus. Oropharynx pink and moist. No lesions seen. NECK: Supple. LUNGS: Clear to auscultation. HEART: S1, S2 regular. ABDOMEN: Obese,distended, soft, nontender with bowel sounds present. EXTREMITIES: No gross edema or cyanosis. SKIN: Warm to touch without signs of rash. NEUROLOGIC: ALert, oriented. General: Alert, Oriented X3, Cooperative, No acute distress, mild distress, Other (drowsy ) Heart: Regular rate (SR/ST), Normal S1 Lungs: Clear Abdomen: Soft, Other (ascites ) Extremities: No cyanosis, Other (trace bilateral LE edema ) Skin: Other (jaundiced ) Labs LABS Chest PA and lateral: Reason for examination: Hypoxia. Comparison is made to previous study dated 10/19/2019. The heart size is normal. Mediastinum is unremarkable. Lung corona show atelectasis at both lung bases. No gross pleural effusions or consolidative infiltrates are seen. No acute bony abnormalities are seen. Impression: Atelectasis at both lung bases. Electronically signed by: Ina Israel MD (10/24/2019 9:12 AM) [id number] DICTATED and SIGNED BY: INA ISRAEL MD DATE: 10/24/19 09 Laboratory Tests Test 10/24/19 05:35 White Blood Count 17.9 x10^3/uL (4.0-11.0) Red Blood Count 4.11 x10^6/uL (4.30-5.70) Hemoglobin 14.5 g/dL (13.0-17.5) Hematocrit 42.0 % (39.0-53.0) Mean Corpuscular Volume 102 fL (79-100) Mean Corpuscular Hemoglobin 35 pg (25-35) Mean Corpuscular Hemoglobin Concent 35 g/dL (31-37) Red Cell Distribution Width 16.4 % (11.5-14.5) Platelet Count 149 x10^3/uL (140-400) Neutrophils (%) (Auto) 78 % (31-73) Lymphocytes (%) (Auto) 9 % (24-48) Monocytes (%) (Auto) 10 % (0-9) Eosinophils (%) (Auto) 2 % (0-3) Basophils (%) (Auto) 0 % (0-3) Neutrophils # (Auto) 14.1 x10^3/uL (1.8-7.7) Lymphocytes # (Auto) 1.6 x10^3/uL (1.0-4.8) Monocytes # (Auto) 1.8 x10^3/uL (0.0-1.1) Eosinophils # (Auto) 0.4 x10^3/uL (0.0-0.7) Basophils # (Auto) 0.1 x10^3/uL (0.0-0.2) Segmented Neutrophils % 71 % (35-66) Band Neutrophils % 11 % (0-9) Lymphocytes % 9 % (24-48) Monocytes % 7 % (0-10) Eosinophils % 1 % (0-5) Metamyelocytes % 1 % (0-0) Platelet Estimate Adequate (ADEQUATE) Anisocytosis Slight Sodium Level 135 mmol/L (136-145) Potassium Level 3.3 mmol/L (3.5-5.1) Chloride Level 97 mmol/L (98-107) Carbon Dioxide Level 31 mmol/L (21-32) Anion Gap 7 (6-14) Blood Urea Nitrogen 6 mg/dL (8-26) Creatinine 0.9 mg/dL (0.7-1.3) Estimated GFR (Cockcroft-Gault) 99.8 Glucose Level 75 mg/dL (70-99) Calcium Level 8.2 mg/dL (8.5-10.1) Magnesium Level 2.0 mg/dL (1.8-2.4) Assessment and Plan Assessmemt and Plan Problems Medical Problems: (1) Acute colitis Status: Acute (2) Dehydration Status: Acute (3) Painless jaundice Status: Acute (4) Sepsis Status: Acute * Independent Mobility devices used prior to admission * No Device Patient's IADLs Prior to Admission * Housekeeping Other Prior Level of Function Information * PLOF per Alie, girlfriend: Pt had medical and physical decline the past 2.5 wks. Prior to this, pt was I with all ADLS and IADLs. Pt lives with his girlfriend in a house with 2 steps to enter with no HR. Pt does not have a license so he does not drive. Pt does not work outside the home. Pt's girlfriend is currently layed-off so she is temporarily home 01/10 per report. Pt has not had to use any ADs for mobility therefore does not own any. Other Precautions * fall risk; slow to process and follow commands/instructions Level of Consciousness * Drowsy * Confused Oriented to: * Person * Place Cognition Comments * slow to process and follow commands Follows Direction * Simple Behavior * Cooperative Safety/Judgement * Decreased Safety * Verbal Cues Required * Due to Medical Status * Due to Strength/ROM Defic Communication * ltd verbalization 2/2 drowsiness; Proprioception * Decreased Coordination * Motor planning decreased * Gross motor cood. decr. Activity Tolerance * Poor + Activity Tolerance/ Vitals * Patient reported lighteheaded during ambulation limiting further distance this date. BP sitting in chair (after ambulation): 132/80; 99 bpm Range of Motion * B LEs wfl Strength * B LE quads grossly 4/5; Pt's knees began to buckle 2x during each walk to and from bathroom. Sitting Balance * 3 balances w/o UEs 1-30s. Standing Balance * 3 balances w/o UEs 1-30s. Pain Scale Type * Descriptive Pain Location * Low back pain Pain Quality * Sore Pain Intervention * Rest PT PAIN COMMENTS * LBP Supine to Sit Assistance Required * Independent Transfer Assistance Required * Contact Guard Assist Transfer Type * Sit to Stand Transfer Assistive Device * Roller Walker Ambulation Assistance Required * Contact Guard Assist Ambulation Assistive Device * Roller Walker Ambulation Distance * 45 feet Gait Impairments * Slow Bailey * Narrow Base of Support * Increased Lateral Sway Ambulation Comments * Patient limited to further distance secondary to lightheadedness. Patient admits to feeling "wobbly" this date. Minimal lateral sway noted with gait. No overt loss of balance observed. Stairs Comments * Patient states having only 1 step to climb up Sitting Exercises * Ankle Pumps * Long Arc Quads Sitting Exercises Comments * x 10 reps; rec 3x/day; demo'd nerve glides for sciatic nerve Problem List (body system elements) * Impaired fnctnl mobility * Strength * Cognition * Balance * Coordination * Knowledge-safe techniques * Pain Other Problems * Jaundice from ETOH hepatitis Pt/caregiver agrees with plan of care/goals * Yes * Decreased Mentation Patient condition at conclusion of therapy * Pt in chair * Personal alarm on * Call light in reach * Phone in reach * PtIn no apparent distress * Pt denies further needs * Visitor with patient Communicated Patient Care With (Name, Title) * JEFFERY Dsouza Goal 1 - Bed Mobility Assistance Required * Independent Goal 1 Assessment * Goal Met Goal 2 - Transfers Assistance Required * Independent Goal 2 - Transfer Type * Sit to Stand Goal 2 Assessment * Appropriate - Continue Goal 3 - Ambulation Assistance Required * Independent Goal 3 - Ambulation Distance * 100' Goal 3 - Ambulation Device * Roller Walker Goal 3 Assessment * Appropriate - Continue Goal 4 - Stairs Assistance Required * Independent Goal 4 - Number of Stairs * 2-4 Goal 4 - Device on Stairs * Roller Walker * Rail on Right Goal 4 Assessment * Appropriate - Continue Treatment Plan * Therapeutic Exercise * Bed Mobility Training * Transfer training * Gait Training Frequency of Treatment Expected * 7 visits/week Duration of Treatment Expected * 2 weeks Discharge Recommendations * Home with Assistance * Home with Home Health Discharge Recommendation - DME * Rolling Walker needed * in order to complete ADLs * and ambulation safely Comment Review of Relevant I have reviewed the following items larry (where applicable) has been applied. Labs Laboratory Tests Test 10/22/19 13:17 10/23/19 03:45 10/24/19 05:35 Ammonia < 10 mcmol/L (11-34) White Blood Count 13.5 x10^3/uL (4.0-11.0) 17.9 x10^3/uL (4.0-11.0) Red Blood Count 3.97 x10^6/uL (4.30-5.70) 4.11 x10^6/uL (4.30-5.70) Hemoglobin 14.1 g/dL (13.0-17.5) 14.5 g/dL (13.0-17.5) Hematocrit 40.6 % (39.0-53.0) 42.0 % (39.0-53.0) Mean Corpuscular Volume 102 fL (79-100) 102 fL (79-100) Mean Corpuscular Hemoglobin 36 pg (25-35) 35 pg (25-35) Mean Corpuscular Hemoglobin Concent 35 g/dL (31-37) 35 g/dL (31-37) Red Cell Distribution Width 16.3 % (11.5-14.5) 16.4 % (11.5-14.5) Platelet Count 139 x10^3/uL (140-400) 149 x10^3/uL (140-400) Neutrophils (%) (Auto) 72 % (31-73) 78 % (31-73) Lymphocytes (%) (Auto) 14 % (24-48) 9 % (24-48) Monocytes (%) (Auto) 11 % (0-9) 10 % (0-9) Eosinophils (%) (Auto) 3 % (0-3) 2 % (0-3) Basophils (%) (Auto) 1 % (0-3) 0 % (0-3) Neutrophils # (Auto) 9.6 x10^3/uL (1.8-7.7) 14.1 x10^3/uL (1.8-7.7) Lymphocytes # (Auto) 1.9 x10^3/uL (1.0-4.8) 1.6 x10^3/uL (1.0-4.8) Monocytes # (Auto) 1.4 x10^3/uL (0.0-1.1) 1.8 x10^3/uL (0.0-1.1) Eosinophils # (Auto) 0.4 x10^3/uL (0.0-0.7) 0.4 x10^3/uL (0.0-0.7) Basophils # (Auto) 0.1 x10^3/uL (0.0-0.2) 0.1 x10^3/uL (0.0-0.2) Sodium Level 137 mmol/L (136-145) 135 mmol/L (136-145) Potassium Level 3.0 mmol/L (3.5-5.1) 3.3 mmol/L (3.5-5.1) Chloride Level 100 mmol/L (98-107) 97 mmol/L (98-107) Carbon Dioxide Level 31 mmol/L (21-32) 31 mmol/L (21-32) Anion Gap 6 (6-14) 7 (6-14) Blood Urea Nitrogen 6 mg/dL (8-26) 6 mg/dL (8-26) Creatinine 0.8 mg/dL (0.7-1.3) 0.9 mg/dL (0.7-1.3) Estimated GFR (Cockcroft-Gault) 114.3 99.8 BUN/Creatinine Ratio 8 (6-20) Glucose Level 77 mg/dL (70-99) 75 mg/dL (70-99) Calcium Level 7.7 mg/dL (8.5-10.1) 8.2 mg/dL (8.5-10.1) Phosphorus Level 3.3 mg/dL (2.6-4.7) Total Bilirubin 17.7 mg/dL (0.2-1.0) Aspartate Amino Transf (AST/SGOT) 110 U/L (15-37) Alanine Aminotransferase (ALT/SGPT) 30 U/L (16-63) Alkaline Phosphatase 182 U/L (46-116) Total Protein 5.8 g/dL (6.4-8.2) Albumin 1.5 g/dL (3.4-5.0) Albumin/Globulin Ratio 0.3 (1.0-1.7) Vitamin B12 Level > 2000 pg/mL (247-911) Thyroid Stimulating Hormone (TSH) 6.763 uIU/mL (0.358-3.74) Thyroxine (T4) 6.0 ug/dL (4.5-12.0) Total Triiodothyronine 115 ng/dL (71-180) Segmented Neutrophils % 71 % (35-66) Band Neutrophils % 11 % (0-9) Lymphocytes % 9 % (24-48) Monocytes % 7 % (0-10) Eosinophils % 1 % (0-5) Metamyelocytes % 1 % (0-0) Platelet Estimate Adequate (ADEQUATE) Anisocytosis Slight Magnesium Level 2.0 mg/dL (1.8-2.4) Laboratory Tests Test 10/24/19 05:35 White Blood Count 17.9 x10^3/uL (4.0-11.0) Red Blood Count 4.11 x10^6/uL (4.30-5.70) Hemoglobin 14.5 g/dL (13.0-17.5) Hematocrit 42.0 % (39.0-53.0) Mean Corpuscular Volume 102 fL (79-100) Mean Corpuscular Hemoglobin 35 pg (25-35) Mean Corpuscular Hemoglobin Concent 35 g/dL (31-37) Red Cell Distribution Width 16.4 % (11.5-14.5) Platelet Count 149 x10^3/uL (140-400) Neutrophils (%) (Auto) 78 % (31-73) Lymphocytes (%) (Auto) 9 % (24-48) Monocytes (%) (Auto) 10 % (0-9) Eosinophils (%) (Auto) 2 % (0-3) Basophils (%) (Auto) 0 % (0-3) Neutrophils # (Auto) 14.1 x10^3/uL (1.8-7.7) Lymphocytes # (Auto) 1.6 x10^3/uL (1.0-4.8) Monocytes # (Auto) 1.8 x10^3/uL (0.0-1.1) Eosinophils # (Auto) 0.4 x10^3/uL (0.0-0.7) Basophils # (Auto) 0.1 x10^3/uL (0.0-0.2) Segmented Neutrophils % 71 % (35-66) Band Neutrophils % 11 % (0-9) Lymphocytes % 9 % (24-48) Monocytes % 7 % (0-10) Eosinophils % 1 % (0-5) Metamyelocytes % 1 % (0-0) Platelet Estimate Adequate (ADEQUATE) Anisocytosis Slight Sodium Level 135 mmol/L (136-145) Potassium Level 3.3 mmol/L (3.5-5.1) Chloride Level 97 mmol/L (98-107) Carbon Dioxide Level 31 mmol/L (21-32) Anion Gap 7 (6-14) Blood Urea Nitrogen 6 mg/dL (8-26) Creatinine 0.9 mg/dL (0.7-1.3) Estimated GFR (Cockcroft-Gault) 99.8 Glucose Level 75 mg/dL (70-99) Calcium Level 8.2 mg/dL (8.5-10.1) Magnesium Level 2.0 mg/dL (1.8-2.4) Microbiology 10/17/19 Blood Culture - Final, Complete NO GROWTH AFTER 5 DAYS 10/16/19 Urine Culture - Final, Complete Medications Current Medications Sodium Chloride 1,000 ml @ 1,000 mls/hr 1X ONCE IV Last administered on 10/16/19at 21:19; Start 10/16/19 at 21:15; Stop 10/16/19 at 22:14; Status DC Ondansetron HCl (Zofran) 4 mg 1X ONCE IVP Last administered on 10/16/19at 21:19; Start 10/16/19 at 21:15; Stop 10/16/19 at 21:16; Status DC Famotidine (Pepcid) 20 mg 1X ONCE PO Last administered on 10/16/19at 21:20; Start 10/16/19 at 21:15; Stop 10/16/19 at 21:16; Status DC Iohexol (Omnipaque 300 Mg/ml) 75 ml 1X ONCE IV Last administered on 10/16/19at 21:54; Start 10/16/19 at 21:45; Stop 10/16/19 at 21:46; Status DC Info (CONTRAST GIVEN -- Rx MONITORING) 1 each PRN DAILY PRN MC SEE COMMENTS; Start 10/16/19 at 22:00; Stop 10/18/19 at 21:59; Status DC Piperacillin Sod/ Tazobactam Sod 4.5 gm/Sodium Chloride 100 ml @ 200 mls/hr 1X ONCE IV Last administered on 10/17/19at 01:24; Start 10/17/19 at 00:45; Stop 10/17/19 at 01:14; Status DC Sodium Chloride 1,000 ml @ 2,460 mls/hr Q25M IV Last administered on 10/17/19at 01:56; Start 10/17/19 at 00:30; Stop 10/17/19 at 01:30; Status DC Sodium Chloride 1,000 ml @ 75 mls/hr [id number] IV Last administered on 10/17/19at 03:49; Start 10/17/19 at 02:15; Stop 10/17/19 at 15:57; Status DC Piperacillin Sod/ Tazobactam Sod 3.375 gm/Sodium Chloride 50 ml @ 100 mls/hr Q6HRS IV Last administered on 10/20/19at 05:14; Start 10/17/19 at 06:00; Stop 10/20/19 at 09:10; Status DC Morphine Sulfate (Morphine Sulfate) 2 mg PRN Q2HR PRN IV PAIN Last administered on 10/21/19at 10:48; Start 10/17/19 at 06:30 Lorazepam (Ativan Inj) 2 mg PRN Q1HR PRN IV For CIWA 8-14 Last administered on 10/24/19at 06:18; Start 10/17/19 at 06:30 Lorazepam (Ativan Inj) 4 mg PRN Q1HR PRN IV For CIWA 15 or greater; Start 10/17/19 at 06:30 Haloperidol Lactate (Haldol Inj) 5 mg PRN Q4HRS PRN IVP Hallucinatns,Confusn,Delirium; Start 10/17/19 at 06:30 Diphenhydramine HCl (Benadryl) 25 mg PRN Q15MIN PRN IVP EPS symptoms 2'Haldol admin; Start 10/17/19 at 06:30 Clonidine HCl (Catapres) 0.1 mg PRN Q1HR PRN PO SBP > 180 or DBP > 100, MRX3; Start 10/17/19 at 06:30 Multivitamins 10 ml/Thiamine HCl 100 mg/Folic Acid 1 mg/Sodium Chloride 1,011.2 ml @ 100 mls/ hr DAILY IV Last administered on 10/19/19at 09:01; Start 10/17/19 at 09:00; Stop 10/19/19 at 10:57; Status DC Sodium Chloride (Normal Saline Flush) 3 ml QSHIFT PRN IV AFTER MEDS AND BLOOD DRAWS; Start 10/17/19 at 11:45 Sodium Chloride 1,000 ml @ 100 mls/hr Q10H IV Last administered on 10/19/19at 06:23; Start 10/17/19 at 11:38; Stop 10/19/19 at 10:50; Status DC Al Hydroxide/Mg Hydroxide (Mylanta Plus Xs) 30 ml PRN DAILY PRN PO HEARTBURN / GAS; Start 10/17/19 at 11:45 Docusate Sodium (Colace) 100 mg PRN BID PRN PO HARD STOOLS; Start 10/17/19 at 11:45 Albuterol/ Ipratropium (Duoneb) 3 ml Q4HRS NEB Last administered on 10/18/19at 00:23; Start 10/17/19 at 12:00; Stop 10/18/19 at 00:38; Status DC Guaifenesin (Robitussin) 200 mg PRN Q4HRS PRN PO COUGH; Start 10/17/19 at 11:45 Enoxaparin Sodium (Lovenox 40mg Syringe) 40 mg Q24H SQ Last administered on 10/17/19at 15:05; Start 10/17/19 at 12:00; Stop 10/18/19 at 10:49; Status DC Lactobacillus Rhamnosus (Culturelle) 1 cap BID PO Last administered on 10/24/19at 09:19; Start 10/17/19 at 21:00 Albuterol Sulfate (Ventolin Neb Soln) 2.5 mg PRN Q4HRS PRN NEB SHORTNESS OF BREATH; Start 10/18/19 at 00:45 Ondansetron HCl (Zofran) 4 mg PRN Q6HRS PRN IVP NAUSEA/VOMITING Last administered on 10/23/19at 10:30; Start 10/18/19 at 17:15 Furosemide (Lasix) 40 mg BID92 IVP Last administered on 10/21/19at 14:12; Start 10/19/19 at 11:00; Stop 10/22/19 at 08:06; Status DC Folic Acid (Folic Acid) 1 mg DAILY PO Last administered on 10/24/19at 09:19; Start 10/20/19 at 09:00 Thiamine Mononitrate (Vitamin B-1) 100 mg DAILY PO Last administered on 10/24/19at 09:19; Start 10/20/19 at 09:00 Potassium Bicarbonate (Potassium Effervescent Tablet) 40 meq 1X ONCE FT ; Start 10/19/19 at 11:30; Stop 10/19/19 at 11:31; Status DC Magnesium Sulfate 50 ml @ 25 mls/hr Q24H IV Last administered on 10/20/19at 12:45; Start 10/19/19 at 12:00; Stop 10/21/19 at 13:59; Status DC Potassium Phos/ Sodium Phos (Phos-Nak) 1 pkt PRN BID PRN PO COMMENTS Last administered on 10/23/19at 10:33; Start 10/19/19 at 21:00 Potassium Bicarbonate (Potassium Effervescent Tablet) 40 meq Q4H PO ; Start 10/19/19 at 11:00; Stop 10/19/19 at 12:55; Status DC Multivitamins (Thera M Plus) 1 tab DAILY PO Last administered on 10/24/19at 09:19; Start 10/20/19 at 09:00 Potassium Bicarbonate (Potassium Effervescent Tablet) 40 meq PRN Q4HRS PRN PO COMMENTS; Start 10/19/19 at 13:00 Lactulose (Lactulose) 20 gm DAILY08 PO Last administered on 10/22/19at 08:36; Start 10/19/19 at 14:15; Stop 10/22/19 at 12:31; Status DC Mirtazapine (Remeron) 15 mg QHS PO Last administered on 10/23/19at 23:31; Start 10/19/19 at 21:00 Potassium Bicarbonate (Potassium Effervescent Tablet) 40 meq 1X ONCE FT Last administered on 10/20/19at 15:22; Start 10/20/19 at 13:30; Stop 10/20/19 at 13:31; Status DC Magnesium Sulfate 50 ml @ 25 mls/hr Q24H IV Last administered on 10/22/19at 16:22; Start 10/20/19 at 13:30; Stop 10/22/19 at 15:29; Status DC Potassium Phos/ Sodium Phos (Phos-Nak) 1 pkt BID PO Last administered on 10/21/19at 10:37; Start 10/20/19 at 21:00; Stop 10/21/19 at 09:01; Status DC Potassium Bicarbonate (Potassium Effervescent Tablet) 40 meq Q4H PO Last administered on 10/20/19at 17:30; Start 10/20/19 at 13:30; Stop 10/20/19 at 17:31; Status DC Magnesium Sulfate 50 ml @ 25 mls/hr 1X ONCE IV Last administered on 10/20/19 18:22; Start 10/20/19 at 16:15; Stop 10/20/19 at 18:14; Status DC Gabapentin (Neurontin) 100 mg TID PO Last administered on 10/24/19 09:19; Start 10/21/19 at 21:00 Tramadol HCl (Ultram) 50 mg PRN Q6HRS PRN PO MODERATE PAIN 4-6 Last administered on 10/23/19 23:32; Start 10/21/19 at 22:00 Furosemide (Lasix) 40 mg DAILY PO Last administered on 10/24/19 09:19; Start 10/22/19 at 09:00 Potassium Chloride (Klor-Con) 40 meq 1X ONCE PO Last administered on 10/22/19 08:35; Start 10/22/19 at 08:30; Stop 10/22/19 at 08:31; Status DC Potassium Phosphate 13.6 mmol/Sodium Chloride 254.5333 ml @ 127.... Q2H IV Last administered on 10/22/19 18:38; Start 10/22/19 at 12:00; Stop 10/22/19 at 15:59; Status DC Lactulose (Lactulose) 20 gm BID PO Last administered on 10/24/19 09:24; Start 10/22/19 at 21:00 Levothyroxine Sodium (Synthroid) 88 mcg DAILY06 PO Last administered on 10/24/19 06:18; Start 10/23/19 at 10:30 Potassium Chloride (Klor-Con) 40 meq 1X ONCE PO Last administered on 10/23/19at 12:42; Start 10/23/19 at 10:45; Stop 10/23/19 at 10:47; Status DC Famotidine (Pepcid) 20 mg QHS PO Last administered on 10/23/19 23:31; Start 10/23/19 at 21:00 Active Scripts Active Reported [inhaler] PRN [lisinopril +] DAILY Vitals/I & O Vital Sign - Last 24 Hours 10/23/19 10/23/19 10/23/19 10/23/19 10:31 11:15 12:23 15:00 Temp 97.7 98.2 97.7 98.2 Pulse 101 111 Resp 16 16 B/P (MAP) 127/76 (93) 149/90 (109) Pulse Ox 95 93 93 90 O2 Delivery Room Air Room Air Room Air Room Air O2 Flow Rate 2.0 10/23/19 10/23/19 10/23/19 10/23/19 19:00 20:00 23:00 23:32 Temp 98.2 98.3 98.2 98.3 Pulse 101 97 Resp 18 18 20 B/P (MAP) 119/77 (91) 117/77 (90) Pulse Ox 92 94 92 O2 Delivery Nasal Cannula Room Air Nasal Cannula Room Air O2 Flow Rate 3.0 3.0 10/24/19 10/24/19 10/24/19 00:32 03:00 07:00 Temp 98.3 97.9 98.3 97.9 Pulse 100 100 Resp 18 18 18 B/P (MAP) 106/62 (77) 138/76 (96) Pulse Ox 93 93 94 O2 Delivery Room Air Nasal Cannula Nasal Cannula O2 Flow Rate 3.0 1.5 Intake and Output 10/23/19 10/23/19 10/24/19 15:00 23:00 07:00 Intake Total 250 ml 400 ml Output Total 100 ml 300 ml Balance -100 ml -50 ml 400 ml Justicifation of Admission Dx: Justifications for Admission: Justification of Admission Dx: Yes Sepsis: End-Organ Dysfunction SANDY ZHU MD Oct 24, 2019 10:16
[2019-10-24] MEDS ORDERED: POTASSIUM CHLORIDE 20 MEQ TABLET.ER. PO ONE (10:30)
[2019-10-24 11:00] VITALS: BP 135/76
[2019-10-24] MEDS ORDERED: PHYTONADIONE 10 MG/ML AMPUL. SQ ONE (13:30)
--- NOTE | 2019-10-24 14:09 | PDOC ---
Infectious Disease Note Subjective: Subjective Patient more awake, says feels a little better He continues to have abdominal swelling, bloating, no vomitting Complains of generalized aches and pains Has intermittent loose bowel movement on lactulose Vital Signs: Vital Signs Vital Signs Date Time Temp Pulse Resp B/P (MAP) Pulse Ox O2 Delivery O2 Flow Rate FiO2 10/24/19 11:00 97.8 96 18 135/76 (95) 93 Room Air 1.5 97.8 Physical Exam: PHYSICAL EXAM GENERAL: alert in NAD , SLEEPY gait unstable HEENT: Pupils equally round, reactive. Mild icterus. Oropharynx pink and moist. No lesions seen. NECK: Supple. LUNGS: Clear to auscultation. HEART: S1, S2 regular. ABDOMEN: Obese,distended, soft, nontender with bowel sounds present. EXTREMITIES: No gross edema or cyanosis. SKIN: Warm to touch without signs of rash. NEUROLOGIC: ALert, oriented. Medications: Inpatient Meds: Current Medications Medications (Trade) Dose Ordered Sig/Kelly Start Time Stop Time Status Last Admin Dose Admin Al Hydroxide/Mg Hydroxide (Mylanta Plus Xs) 30 ml PRN DAILY PRN 10/17/19 11:45 Albuterol Sulfate (Ventolin Neb Soln) 2.5 mg PRN Q4HRS PRN 10/18/19 00:45 Albuterol/ Ipratropium (Duoneb) 3 ml Q4HRS 10/17/19 12:00 10/18/19 00:38 DC 10/18/19 00:23 3 ML Clonidine HCl (Catapres) 0.1 mg PRN Q1HR PRN 10/17/19 06:30 Diphenhydramine HCl (Benadryl) 25 mg PRN Q15MIN PRN 10/17/19 06:30 Docusate Sodium (Colace) 100 mg PRN BID PRN 10/17/19 11:45 Enoxaparin Sodium (Lovenox 40mg Syringe) 40 mg Q24H 10/17/19 12:00 10/18/19 10:49 DC 10/17/19 15:05 40 MG Famotidine (Pepcid) 20 mg QHS 10/23/19 21:00 10/23/19 23:31 20 MG Folic Acid (Folic Acid) 1 mg DAILY 10/20/19 09:00 10/24/19 09:19 1 MG Furosemide (Lasix) 40 mg DAILY 10/22/19 09:00 10/24/19 09:19 40 MG Gabapentin (Neurontin) 100 mg TID 10/21/19 21:00 10/24/19 13:55 100 MG Guaifenesin (Robitussin) 200 mg PRN Q4HRS PRN 10/17/19 11:45 Haloperidol Lactate (Haldol Inj) 5 mg PRN Q4HRS PRN 10/17/19 06:30 Info (CONTRAST GIVEN -- Rx MONITORING) 1 each PRN DAILY PRN 10/16/19 22:00 10/18/19 21:59 DC Iohexol (Omnipaque 300 Mg/ml) 75 ml 1X ONCE 10/16/19 21:45 10/16/19 21:46 DC 10/16/19 21:54 75 ML Lactobacillus Rhamnosus (Culturelle) 1 cap BID 10/17/19 21:00 10/24/19 09:19 1 CAP Lactulose (Lactulose) 20 gm BID 10/22/19 21:00 10/24/19 09:24 20 GM Levothyroxine Sodium (Synthroid) 88 mcg DAILY06 10/23/19 10:30 10/24/19 06:18 88 MCG Lorazepam (Ativan Inj) 4 mg PRN Q1HR PRN 10/17/19 06:30 Magnesium Sulfate 50 ml @ 25 mls/hr 1X ONCE 10/20/19 16:15 10/20/19 18:14 DC 10/20/19 18:22 25 MLS/HR Mirtazapine (Remeron) 15 mg QHS 10/19/19 21:00 10/23/19 23:31 15 MG Morphine Sulfate (Morphine Sulfate) 2 mg PRN Q2HR PRN 10/17/19 06:30 10/21/19 10:48 2 MG Multivitamins (Thera M Plus) 1 tab DAILY 10/20/19 09:00 10/24/19 09:19 1 TAB Multivitamins 10 ml/Thiamine HCl 100 mg/Folic Acid 1 mg/Sodium Chloride 1,011.2 ml @ 100 mls/ hr DAILY 10/17/19 09:00 10/19/19 10:57 DC 10/19/19 09:01 100 MLS/HR Ondansetron HCl (Zofran) 4 mg PRN Q6HRS PRN 10/18/19 17:15 10/23/19 10:30 4 MG Phytonadione (Mephyton Oral Soln) 5 mg DAILY08 10/25/19 08:00 Phytonadione (Vitamin K Ampule) 5 mg 1X ONCE 10/24/19 13:30 10/24/19 13:31 DC 10/24/19 13:56 5 MG Piperacillin Sod/ Tazobactam Sod 3.375 gm/Sodium Chloride 50 ml @ 100 mls/hr Q6HRS 10/17/19 06:00 10/20/19 09:10 DC 10/20/19 05:14 100 MLS/HR Piperacillin Sod/ Tazobactam Sod 4.5 gm/Sodium Chloride 100 ml @ 200 mls/hr 1X ONCE 10/17/19 00:45 10/17/19 01:14 DC 10/17/19 01:24 200 MLS/HR Potassium Bicarbonate (Potassium Effervescent Tablet) 40 meq Q4H 10/20/19 13:30 10/20/19 17:31 DC 10/20/19 17:30 40 MEQ Potassium Phosphate 13.6 mmol/Sodium Chloride 254.5333 ml @ 127.... Q2H 10/22/19 12:00 10/22/19 15:59 DC 10/22/19 18:38 127.267 MLS/HR Potassium Chloride (Klor-Con) 40 meq 1X ONCE 10/24/19 10:30 10/24/19 10:31 DC 10/24/19 13:55 40 MEQ Potassium Phos/ Sodium Phos (Phos-Nak) 1 pkt BID 10/20/19 21:00 10/21/19 09:01 DC 10/21/19 10:37 1 PKT Sodium Chloride 1,000 ml @ 100 mls/hr Q10H 10/17/19 11:38 10/19/19 10:50 DC 10/19/19 06:23 100 MLS/HR Sodium Chloride (Normal Saline Flush) 3 ml QSHIFT PRN 10/17/19 11:45 Thiamine Mononitrate (Vitamin B-1) 100 mg DAILY 10/20/19 09:00 10/24/19 09:19 100 MG Tramadol HCl (Ultram) 50 mg PRN Q6HRS PRN 10/21/19 22:00 10/23/19 23:32 50 MG Labs: Lab Laboratory Tests Test 10/24/19 05:35 White Blood Count 17.9 x10^3/uL (4.0-11.0) Red Blood Count 4.11 x10^6/uL (4.30-5.70) Hemoglobin 14.5 g/dL (13.0-17.5) Hematocrit 42.0 % (39.0-53.0) Mean Corpuscular Volume 102 fL (79-100) Mean Corpuscular Hemoglobin 35 pg (25-35) Mean Corpuscular Hemoglobin Concent 35 g/dL (31-37) Red Cell Distribution Width 16.4 % (11.5-14.5) Platelet Count 149 x10^3/uL (140-400) Neutrophils (%) (Auto) 78 % (31-73) Lymphocytes (%) (Auto) 9 % (24-48) Monocytes (%) (Auto) 10 % (0-9) Eosinophils (%) (Auto) 2 % (0-3) Basophils (%) (Auto) 0 % (0-3) Neutrophils # (Auto) 14.1 x10^3/uL (1.8-7.7) Lymphocytes # (Auto) 1.6 x10^3/uL (1.0-4.8) Monocytes # (Auto) 1.8 x10^3/uL (0.0-1.1) Eosinophils # (Auto) 0.4 x10^3/uL (0.0-0.7) Basophils # (Auto) 0.1 x10^3/uL (0.0-0.2) Segmented Neutrophils % 71 % (35-66) Band Neutrophils % 11 % (0-9) Lymphocytes % 9 % (24-48) Monocytes % 7 % (0-10) Eosinophils % 1 % (0-5) Metamyelocytes % 1 % (0-0) Platelet Estimate Adequate (ADEQUATE) Anisocytosis Slight Sodium Level 135 mmol/L (136-145) Potassium Level 3.3 mmol/L (3.5-5.1) Chloride Level 97 mmol/L (98-107) Carbon Dioxide Level 31 mmol/L (21-32) Anion Gap 7 (6-14) Blood Urea Nitrogen 6 mg/dL (8-26) Creatinine 0.9 mg/dL (0.7-1.3) Estimated GFR (Cockcroft-Gault) 99.8 Glucose Level 75 mg/dL (70-99) Calcium Level 8.2 mg/dL (8.5-10.1) Magnesium Level 2.0 mg/dL (1.8-2.4) Objective: Assessment: Leukocytosis likely multifactorial alcoholic hepatitis and possibly reactive,atelectasis Nausea and vomiting Jaundice. Diarrhea from lactulose Alcohol abuse. Alcoholic hepatitis. Lactic acidosis - improved Plan: Plan of Care Observe off antibiotics Maintain aspiration precaution encouraged PT and OT as tolerated Cultures neg to date D/w family at bedside Discussed with nursing staff MADISYN WHITEHEAD MD Oct 24, 2019 14:09
[2019-10-24 14:49] LABS: BASE EXCESS COOX 3 mmol/L (-3-3); HCO3 COOX 28 mmol/L (21-28); METHEMOGLOBIN 0.5 % (0.0-1.9); OXYHEMOGLOBIN 84.1 %; PCO2 COOX 42 mmHg (35-46); PO2 COOX 53 mmHg (85-108); SAT O2 COOX 86 % (92-99)
[2019-10-24 15:20] VITALS: BP 136/65
[2019-10-24 15:36] LABS: PROTHROMBIN TIME PATIENT 33.2 SEC (11.7-14.0)
[2019-10-24] MEDS: traMADol 50 MG TABLET PO PRN (18:29)
[2019-10-24 19:00] VITALS: BP 121/58
[2019-10-24] MEDS ORDERED: IOHEXOL 350 MG/ML 100 ML VIAL. IV ONE (20:30)
--- NOTE | 2019-10-24 21:10 | RAD ---
CT angiogram of the chest with contrast: Reason for examination: Hypoxia. Helical images were obtained through the chest with intravenous administration of 90 cc Omnipaque 300 using PE protocol. 3-D MIPS reconstruction was performed in sagittal and coronal planes. Exposure: One or more of the following individualized dose reduction techniques were utilized for this examination: 1. Automated exposure control 2. Adjustment of the mA and/or kV according to patient size 3. Use of iterative reconstruction technique. No abnormality seen at the thyroid gland. The trachea and mainstem bronchi show no intraluminal lesions. No abnormality seen at the esophagus. The thoracic aorta shows no aneurysmal dilatation or dissection. The heart size is normal with no pericardial effusion. Contrast is present in the pulmonary arteries due to timing of the bolus and pulmonary embolus cannot be excluded. Lung corona show some mild patchy groundglass infiltrate peripherally in the left upper lobe. There is also some atelectasis in the right middle lobe and there appear to be areas of consolidated infiltrates and/or discoid atelectasis in the posterior lung bases bilaterally, right greater than left with some air bronchograms. No gross pleural effusions are seen. No abnormality seen at the liver or spleen. There is however moderate amount of ascites present. No abnormalities are seen at the adrenal glands. IMPRESSION: Pulmonary embolus cannot be excluded due to timing of the contrast bolus with no contrast present in the pulmonary arteries. If there is strong clinical concern for pulmonary embolus, repeat scan will be necessary. Infiltrates and/or discoid atelectasis bilaterally at the lung bases and mild peripheral infiltrates seen in the left upper lobe. Moderate ascites. Electronically signed by: Ina Aragon MD (10/24/2019 9:07 PM) [place]
[2019-10-24] MEDS: MIRTAZAPINE 15 MG TABLET PO SCH (22:23)
[2019-10-24] MEDS: FAMOTIDINE 20 MG TABLET. PO SCH (22:23)
[2019-10-24 22:36] LABS: PROTHROMBIN TIME PATIENT 33.1 SEC (11.7-14.0)
[2019-10-24 23:00] VITALS: BP 122/71
[2019-10-25 03:07] VITALS: BP 101/68
[2019-10-25] MEDS: LEVOTHYROXINE 88 MCG TABLET PO SCH (05:42)
[2019-10-25 07:00] VITALS: BP 132/77
[2019-10-25 07:48] LABS: CALCIUM 8.3 mg/dL (8.5-10.1); GFR 88.3; POTASSIUM 3.5 mmol/L (3.5-5.1)
[2019-10-25 07:51] LABS: PROTHROMBIN TIME PATIENT 29.4 SEC (11.7-14.0)
[2019-10-25] MEDS: GABAPENTIN 100 MG CAPSULE. PO SCH ×3 (09:15→21:12)
[2019-10-25] MEDS: FUROSEMIDE 40 MG TABLET. PO SCH (09:16)
[2019-10-25] MEDS: PHYTONADIONE 10 MG/ML ORAL SOLUTION. PO SCH (09:16)
[2019-10-25] MEDS: THIAMINE 100 MG TABLET. PO SCH (09:16)
[2019-10-25] MEDS: FOLIC ACID 1 MG TABLET. PO SCH (09:16)
[2019-10-25] MEDS: MULTIVITAMIN with MINERAL TABLET. PO SCH (09:16)
[2019-10-25] MEDS: LACTOBACILLUS RHAMNOSUS GG 1 CAPSULE. PO SCH ×2 (09:16→21:12)
[2019-10-25] MEDS: LACTULOSE 20 GM/30 ML SOLUTION. PO SCH ×2 (09:18→21:12)
--- NOTE | 2019-10-25 10:44 | CONS ---
DATE OF CONSULTATION: 10/25/2019 I was asked to see this 29-year-old gentleman for hypoxemia. HISTORY OF PRESENT ILLNESS: He has history of 18-[id number]-pyia smoking, continues to smoke about half a pack per day. He does smoke marijuana. He also drinks heavily. His mother is at the bedside and answers most of my questions. He does have asthma, which he does use albuterol p.r.n. He presented to Emergency Room on 10/15 for 4 weeks history of not feeling well, tired, nausea, vomiting, abdominal pain. His ammonia level was elevated. GI was consulted. He does have alcoholic hepatitis. He has been on oxygen since admission. He had a CT angiogram of the chest done yesterday. He has occasional cough with small amount of sputum production. He does have some abdominal pain. He is mostly in bed. He has gastroesophageal reflux symptoms, but denies postnasal drip. PAST MEDICAL HISTORY: Asthma, hypertension, alcoholic hepatitis as mentioned as above. ALLERGIES: No known drug allergies. MEDICATIONS: Currently, he is on Pepcid, Synthroid, lactulose, Lasix, Neurontin, multivitamin, thiamine, folic acid, potassium. SOCIAL HISTORY: History of [id number] smoking. Continues to smoke. History of heavy drinking. He does smoke marijuana. FAMILY HISTORY: Hypertension. REVIEW OF SYSTEMS: As mentioned as above. He has snoring and excessive daytime sleepiness. Has not had sleep study. Other systems are otherwise negative. PHYSICAL EXAMINATION: GENERAL: This is an overweight gentleman. VITAL SIGNS: His O2 saturation on room air is 90%, respiratory rate 18, heart rate 100, blood pressure 132/77, temperature 97.8. HEENT: Normocephalic, atraumatic. Pupils equal, round, reactive to light. There is shallow oropharynx. Nose is clear. NECK: Short and thick. No lymphadenopathy or thyromegaly. CARDIOVASCULAR: Regular rate and rhythm. PMI is not displaced. CHEST: Inspection is normal. LUNGS: There are bibasilar crackles, dullness at the right base. ABDOMEN: Distended, but soft. Bowel sounds are good. EXTREMITIES: There is edema. LYMPHATICS: There is no lymphadenopathy. NEUROLOGIC: He is sleepy, but answers my questions. SKIN: Jaundice. LYMPHATICS: There is no lymphadenopathy. LABORATORY DATA: I reviewed the following lab data: CT angiogram yesterday did not show large pulmonary embolism. There are bibasilar infiltrates/atelectasis, moderate ascites. WBC 17.9, hemoglobin 14.5, platelet 149. Sodium 135, potassium 3.5, chloride 98, CO2 of 31, BUN 9, creatinine 1. Ammonia level on admission was 35, repeat less than 10 on 10/21. Total bilirubin 17.7. BNP 146. IMPRESSION: 1. Hypoxemia, suspect it is secondary to atelectasis due to intra-abdominal process. Doubt he has pulmonary embolism. He also has a history of asthma, suspect he has obstructive sleep apnea-hypopnea syndrome as well. 2. Abnormal CT of the chest. 3. Tobacco habituation. 4. Snoring and excessive daytime sleepiness, probable obstructive sleep apnea-hypopnea syndrome. 5. Alcoholic hepatitis. 6. Leukocytosis. 7. History of drug abuse. 8. History of heavy alcohol use. 9. Hypertension. PLAN AND RECOMMENDATIONS: 1. Titrate FiO2 to keep O2 saturation 92%. 2. Start incentive spirometer. He was advised to use multiple times an hour. 3. I will do a lower extremity venous Doppler. 4. Start bronchodilator q.i.d. 5. I had a long discussion with him regarding smoking cessation and also quit drinking and using drugs. 6. I do recommend a sleep study as an outpatient. 7. ID is on the case. He is now off antibiotic. We will monitor his leukocytosis. 8. The findings and recommendations were discussed with the patient and his mother, they understood and agreed to proceed with the plan. I have answered all of their questions. Thank you very much for allowing me to participate in care of this very nice gentleman. YOUSUF SILVERMAN M.D. : [place] JOB#: [id number] / [id number]
[2019-10-25 11:00] VITALS: BP 107/57
[2019-10-25] MEDS: IPRATRPIUM/ALBUTEROL 0.5/2.5MG 3 ML NEBU. NEB SCH ×3 (11:49→19:50)
--- NOTE | 2019-10-25 12:17 | PDOC ---
PROGRESS NOTES Date of Service: DATE: 10/25/19 TIME: 12:16 Chief Complaint Chief Complaint painless jaundice, acute liver failure, alcohol abuse, steato-hepatitis. apparent gallbladder wall thickening with debris within the lumen which could be from sludge or stones. // wall thickening is nonspecific in nature and could be related to primary gallbladder inflammation or reactive to adjacent hepatic disease.// gallbladder wall lesion is also not excluded. Leukocytosis lactic acidosis thc abuse thrombocytopenia severe protein-caloric malnutrition Depression metabolic encephalopathy hypothyroid state 38 min pt exam, chart review, > 50% of time spent with exam, chart review, pt care coordination Justicifation of Admission Dx: Justifications for Admission: Justification of Admission Dx: Yes Sepsis: End-Organ Dysfunction History of Present Illness History of Present Illness denies any fever, chills or sweats. He denies any cough shortness of breath or chest pain. irritable, has been confused Vitals Vitals Vital Signs Date Time Temp Pulse Resp B/P (MAP) Pulse Ox O2 Delivery O2 Flow Rate FiO2 10/25/19 11:49 Nasal Cannula 2.0 10/25/19 07:00 97.8 102 18 132/77 (95) 90 97.8 Physical Exam Physical Exam GENERAL: alert in NAD , SLEEPY gait unstable HEENT: Pupils equally round, reactive. Mild icterus. Oropharynx pink and moist. No lesions seen. NECK: Supple. LUNGS: Clear to auscultation. HEART: S1, S2 regular. ABDOMEN: Obese,distended, soft, nontender with bowel sounds present. EXTREMITIES: No gross edema or cyanosis. SKIN: Warm to touch without signs of rash. NEUROLOGIC: ALert, oriented. General: Alert, Oriented X3, Cooperative, No acute distress, mild distress, Other (drowsy ) Heart: Regular rate (SR/ST), Normal S1 Lungs: Clear Abdomen: Soft, Other (ascites ) Extremities: No cyanosis, Other (trace bilateral LE edema ) Skin: Other (jaundiced ) Labs LABS Laboratory Tests Test 10/24/19 14:18 10/24/19 14:48 10/24/19 22:22 10/25/19 05:45 Prothrombin Time 33.2 SEC (11.7-14.0) 33.1 SEC (11.7-14.0) 29.4 SEC (11.7-14.0) Prothromb Time International Ratio 3.2 (0.8-1.1) 3.2 (0.8-1.1) 2.8 (0.8-1.1) O2 Saturation 86 % (92-99) Arterial Blood pH 7.43 (7.35-7.45) Arterial Blood pCO2 at Patient Temp 42 mmHg (35-46) Arterial Blood pO2 at Patient Temp 53 mmHg (85-108) Arterial Blood HCO3 28 mmol/L (21-28) Arterial Blood Base Excess 3 mmol/L (-3-3) Oxyhemoglobin 84.1 % Methemoglobin 0.5 % (0.0-1.9) Carbon Monoxide, Quantitative 1.2 % (0.0-1.9) FiO2 21 Sodium Level 135 mmol/L (136-145) Potassium Level 3.5 mmol/L (3.5-5.1) Chloride Level 98 mmol/L (98-107) Carbon Dioxide Level 31 mmol/L (21-32) Anion Gap 6 (6-14) Blood Urea Nitrogen 9 mg/dL (8-26) Creatinine 1.0 mg/dL (0.7-1.3) Estimated GFR (Cockcroft-Gault) 88.3 Glucose Level 65 mg/dL (70-99) Calcium Level 8.3 mg/dL (8.5-10.1) Assessment and Plan Assessmemt and Plan Problems Medical Problems: (1) Acute colitis Status: Acute (2) Dehydration Status: Acute (3) Painless jaundice Status: Acute (4) Sepsis Status: Acute Comment Review of Relevant I have reviewed the following items larry (where applicable) has been applied. Labs Laboratory Tests Test 10/24/19 05:35 10/24/19 14:18 10/24/19 14:48 10/24/19 22:22 White Blood Count 17.9 x10^3/uL (4.0-11.0) Red Blood Count 4.11 x10^6/uL (4.30-5.70) Hemoglobin 14.5 g/dL (13.0-17.5) Hematocrit 42.0 % (39.0-53.0) Mean Corpuscular Volume 102 fL (79-100) Mean Corpuscular Hemoglobin 35 pg (25-35) Mean Corpuscular Hemoglobin Concent 35 g/dL (31-37) Red Cell Distribution Width 16.4 % (11.5-14.5) Platelet Count 149 x10^3/uL (140-400) Neutrophils (%) (Auto) 78 % (31-73) Lymphocytes (%) (Auto) 9 % (24-48) Monocytes (%) (Auto) 10 % (0-9) Eosinophils (%) (Auto) 2 % (0-3) Basophils (%) (Auto) 0 % (0-3) Neutrophils # (Auto) 14.1 x10^3/uL (1.8-7.7) Lymphocytes # (Auto) 1.6 x10^3/uL (1.0-4.8) Monocytes # (Auto) 1.8 x10^3/uL (0.0-1.1) Eosinophils # (Auto) 0.4 x10^3/uL (0.0-0.7) Basophils # (Auto) 0.1 x10^3/uL (0.0-0.2) Segmented Neutrophils % 71 % (35-66) Band Neutrophils % 11 % (0-9) Lymphocytes % 9 % (24-48) Monocytes % 7 % (0-10) Eosinophils % 1 % (0-5) Metamyelocytes % 1 % (0-0) Platelet Estimate Adequate (ADEQUATE) Anisocytosis Slight Sodium Level 135 mmol/L (136-145) Potassium Level 3.3 mmol/L (3.5-5.1) Chloride Level 97 mmol/L (98-107) Carbon Dioxide Level 31 mmol/L (21-32) Anion Gap 7 (6-14) Blood Urea Nitrogen 6 mg/dL (8-26) Creatinine 0.9 mg/dL (0.7-1.3) Estimated GFR (Cockcroft-Gault) 99.8 Glucose Level 75 mg/dL (70-99) Calcium Level 8.2 mg/dL (8.5-10.1) Magnesium Level 2.0 mg/dL (1.8-2.4) Prothrombin Time 33.2 SEC (11.7-14.0) 33.1 SEC (11.7-14.0) Prothromb Time International Ratio 3.2 (0.8-1.1) 3.2 (0.8-1.1) O2 Saturation 86 % (92-99) Arterial Blood pH 7.43 (7.35-7.45) Arterial Blood pCO2 at Patient Temp 42 mmHg (35-46) Arterial Blood pO2 at Patient Temp 53 mmHg (85-108) Arterial Blood HCO3 28 mmol/L (21-28) Arterial Blood Base Excess 3 mmol/L (-3-3) Oxyhemoglobin 84.1 % Methemoglobin 0.5 % (0.0-1.9) Carbon Monoxide, Quantitative 1.2 % (0.0-1.9) FiO2 21 Test 10/25/19 05:45 Prothrombin Time 29.4 SEC (11.7-14.0) Prothromb Time International Ratio 2.8 (0.8-1.1) Sodium Level 135 mmol/L (136-145) Potassium Level 3.5 mmol/L (3.5-5.1) Chloride Level 98 mmol/L (98-107) Carbon Dioxide Level 31 mmol/L (21-32) Anion Gap 6 (6-14) Blood Urea Nitrogen 9 mg/dL (8-26) Creatinine 1.0 mg/dL (0.7-1.3) Estimated GFR (Cockcroft-Gault) 88.3 Glucose Level 65 mg/dL (70-99) Calcium Level 8.3 mg/dL (8.5-10.1) Laboratory Tests Test 10/24/19 14:18 10/24/19 14:48 10/24/19 22:22 10/25/19 05:45 Prothrombin Time 33.2 SEC (11.7-14.0) 33.1 SEC (11.7-14.0) 29.4 SEC (11.7-14.0) Prothromb Time International Ratio 3.2 (0.8-1.1) 3.2 (0.8-1.1) 2.8 (0.8-1.1) O2 Saturation 86 % (92-99) Arterial Blood pH 7.43 (7.35-7.45) Arterial Blood pCO2 at Patient Temp 42 mmHg (35-46) Arterial Blood pO2 at Patient Temp 53 mmHg (85-108) Arterial Blood HCO3 28 mmol/L (21-28) Arterial Blood Base Excess 3 mmol/L (-3-3) Oxyhemoglobin 84.1 % Methemoglobin 0.5 % (0.0-1.9) Carbon Monoxide, Quantitative 1.2 % (0.0-1.9) FiO2 21 Sodium Level 135 mmol/L (136-145) Potassium Level 3.5 mmol/L (3.5-5.1) Chloride Level 98 mmol/L (98-107) Carbon Dioxide Level 31 mmol/L (21-32) Anion Gap 6 (6-14) Blood Urea Nitrogen 9 mg/dL (8-26) Creatinine 1.0 mg/dL (0.7-1.3) Estimated GFR (Cockcroft-Gault) 88.3 Glucose Level 65 mg/dL (70-99) Calcium Level 8.3 mg/dL (8.5-10.1) Microbiology 10/17/19 Blood Culture - Final, Complete NO GROWTH AFTER 5 DAYS 10/16/19 Urine Culture - Final, Complete Medications Current Medications Sodium Chloride 1,000 ml @ 1,000 mls/hr 1X ONCE IV Last administered on 10/16/19at 21:19; Start 10/16/19 at 21:15; Stop 10/16/19 at 22:14; Status DC Ondansetron HCl (Zofran) 4 mg 1X ONCE IVP Last administered on 10/16/19at 21:19; Start 10/16/19 at 21:15; Stop 10/16/19 at 21:16; Status DC Famotidine (Pepcid) 20 mg 1X ONCE PO Last administered on 10/16/19at 21:20; Start 10/16/19 at 21:15; Stop 10/16/19 at 21:16; Status DC Iohexol (Omnipaque 300 Mg/ml) 75 ml 1X ONCE IV Last administered on 10/16/19at 21:54; Start 10/16/19 at 21:45; Stop 10/16/19 at 21:46; Status DC Info (CONTRAST GIVEN -- Rx MONITORING) 1 each PRN DAILY PRN MC SEE COMMENTS; Start 10/16/19 at 22:00; Stop 10/18/19 at 21:59; Status DC Piperacillin Sod/ Tazobactam Sod 4.5 gm/Sodium Chloride 100 ml @ 200 mls/hr 1X ONCE IV Last administered on 10/17/19at 01:24; Start 10/17/19 at 00:45; Stop 10/17/19 at 01:14; Status DC Sodium Chloride 1,000 ml @ 2,460 mls/hr Q25M IV Last administered on 10/17/19at 01:56; Start 10/17/19 at 00:30; Stop 10/17/19 at 01:30; Status DC Sodium Chloride 1,000 ml @ 75 mls/hr [id number] IV Last administered on 10/17/19at 03:49; Start 10/17/19 at 02:15; Stop 10/17/19 at 15:57; Status DC Piperacillin Sod/ Tazobactam Sod 3.375 gm/Sodium Chloride 50 ml @ 100 mls/hr Q6HRS IV Last administered on 10/20/19at 05:14; Start 10/17/19 at 06:00; Stop 10/20/19 at 09:10; Status DC Morphine Sulfate (Morphine Sulfate) 2 mg PRN Q2HR PRN IV PAIN Last administered on 10/21/19at 10:48; Start 10/17/19 at 06:30 Lorazepam (Ativan Inj) 2 mg PRN Q1HR PRN IV For CIWA 8-14 Last administered on 10/24/19at 22:28; Start 10/17/19 at 06:30 Lorazepam (Ativan Inj) 4 mg PRN Q1HR PRN IV For CIWA 15 or greater; Start 10/17/19 at 06:30 Haloperidol Lactate (Haldol Inj) 5 mg PRN Q4HRS PRN IVP Halluci natns,Confusn,Delirium; Start 10/17/19 at 06:30 Diphenhydramine HCl (Benadryl) 25 mg PRN Q15MIN PRN IVP EPS symptoms 2'Haldol admin; Start 10/17/19 at 06:30 Clonidine HCl (Catapres) 0.1 mg PRN Q1HR PRN PO SBP > 180 or DBP > 100, MRX3; Start 10/17/19 at 06:30 Multivitamins 10 ml/Thiamine HCl 100 mg/Folic Acid 1 mg/Sodium Chloride 1,011.2 ml @ 100 mls/ hr DAILY IV Last administered on 10/19/19at 09:01; Start 10/17/19 at 09:00; Stop 10/19/19 at 10:57; Status DC Sodium Chloride (Normal Saline Flush) 3 ml QSHIFT PRN IV AFTER MEDS AND BLOOD DRAWS; Start 10/17/19 at 11:45 Sodium Chloride 1,000 ml @ 100 mls/hr Q10H IV Last administered on 10/19/19at 06:23; Start 10/17/19 at 11:38; Stop 10/19/19 at 10:50; Status DC Al Hydroxide/Mg Hydroxide (Mylanta Plus Xs) 30 ml PRN DAILY PRN PO HEARTBURN / GAS; Start 10/17/19 at 11:45 Docusate Sodium (Colace) 100 mg PRN BID PRN PO HARD STOOLS; Start 10/17/19 at 11:45 Albuterol/ Ipratropium (Duoneb) 3 ml Q4HRS NEB Last administered on 10/18/19at 00:23; Start 10/17/19 at 12:00; Stop 10/18/19 at 00:38; Status DC Guaifenesin (Robitussin) 200 mg PRN Q4HRS PRN PO COUGH; Start 10/17/19 at 11:45 Enoxaparin Sodium (Lovenox 40mg Syringe) 40 mg Q24H SQ Last administered on 10/17/19at 15:05; Start 10/17/19 at 12:00; Stop 10/18/19 at 10:49; Status DC Lactobacillus Rhamnosus (Culturelle) 1 cap BID PO Last administered on 10/25/19at 09:16; Start 10/17/19 at 21:00 Albuterol Sulfate (Ventolin Neb Soln) 2.5 mg PRN Q4HRS PRN NEB SHORTNESS OF BREATH; Start 10/18/19 at 00:45 Ondansetron HCl (Zofran) 4 mg PRN Q6HRS PRN IVP NAUSEA/VOMITING Last administered on 10/23/19at 10:30; Start 10/18/19 at 17:15 Furosemide (Lasix) 40 mg BID92 IVP Last administered on 10/21/19at 14:12; Start 10/19/19 at 11:00; Stop 10/22/19 at 08:06; Status DC Folic Acid (Folic Acid) 1 mg DAILY PO Last administered on 10/25/19at 09:16; Start 10/20/19 at 09:00 Thiamine Mononitrate (Vitamin B-1) 100 mg DAILY PO Last administered on 10/25/19at 09:16; Start 10/20/19 at 09:00 Potassium Bicarbonate (Potassium Effervescent Tablet) 40 meq 1X ONCE FT ; Start 10/19/19 at 11:30; Stop 10/19/19 at 11:31; Status DC Magnesium Sulfate 50 ml @ 25 mls/hr Q24H IV Last administered on 10/20/19at 12:45; Start 10/19/19 at 12:00; Stop 10/21/19 at 13:59; Status DC Potassium Phos/ Sodium Phos (Phos-Nak) 1 pkt PRN BID PRN PO COMMENTS Last administered on 10/23/19at 10:33; Start 10/19/19 at 21:00 Potassium Bicarbonate (Potassium Effervescent Tablet) 40 meq Q4H PO ; Start 10/19/19 at 11:00; Stop 10/19/19 at 12:55; Status DC Multivitamins (Thera M Plus) 1 tab DAILY PO Last administered on 10/25/19at 09:16; Start 10/20/19 at 09:00 Potassium Bicarbonate (Potassium Effervescent Tablet) 40 meq PRN Q4HRS PRN PO COMMENTS; Start 10/19/19 at 13:00 Lactulose (Lactulose) 20 gm DAILY08 PO Last administered on 10/22/19at 08:36; Start 10/19/19 at 14:15; Stop 10/22/19 at 12:31; Status DC Mirtazapine (Remeron) 15 mg QHS PO Last administered on 10/24/19at 22:23; Start 10/19/19 at 21:00 Potassium Bicarbonate (Potassium Effervescent Tablet) 40 meq 1X ONCE FT Last administered on 10/20/19at 15:22; Start 10/20/19 at 13:30; Stop 10/20/19 at 13:31; Status DC Magnesium Sulfate 50 ml @ 25 mls/hr Q24H IV Last administered on 10/22/19at 16:22; Start 10/20/19 at 13:30; Stop 10/22/19 at 15:29; Status DC Potassium Phos/ Sodium Phos (Phos-Nak) 1 pkt BID PO Last administered on 10/21/19at 10:37; Start 10/20/19 at 21:00; Stop 10/21/19 at 09:01; Status DC Potassium Bicarbonate (Potassium Effervescent Tablet) 40 meq Q4H PO Last administered on 10/20/19 17:30; Start 10/20/19 at 13:30; Stop 10/20/19 at 17:31; Status DC Magnesium Sulfate 50 ml @ 25 mls/hr 1X ONCE IV Last administered on 10/20/19 18:22; Start 10/20/19 at 16:15; Stop 10/20/19 at 18:14; Status DC Gabapentin (Neurontin) 100 mg TID PO Last administered on 10/25/19 09:15; Start 10/21/19 at 21:00 Tramadol HCl (Ultram) 50 mg PRN Q6HRS PRN PO MODERATE PAIN 4-6 Last administered on 10/24/19 18:29; Start 10/21/19 at 22:00 Furosemide (Lasix) 40 mg DAILY PO Last administered on 10/25/19 09:16; Start 10/22/19 at 09:00 Potassium Chloride (Klor-Con) 40 meq 1X ONCE PO Last administered on 10/22/19at 08:35; Start 10/22/19 at 08:30; Stop 10/22/19 at 08:31; Status DC Potassium Phosphate 13.6 mmol/Sodium Chloride 254.5333 ml @ 127.... Q2H IV Last administered on 10/22/19 18:38; Start 10/22/19 at 12:00; Stop 10/22/19 at 15:59; Status DC Lactulose (Lactulose) 20 gm BID PO Last administered on 10/25/19 09:18; Start 10/22/19 at 21:00 Levothyroxine Sodium (Synthroid) 88 mcg DAILY06 PO Last administered on 10/25/19 05:42; Start 10/23/19 at 10:30 Potassium Chloride (Klor-Con) 40 meq 1X ONCE PO Last administered on 10/23/19at 12:42; Start 10/23/19 at 10:45; Stop 10/23/19 at 10:47; Status DC Famotidine (Pepcid) 20 mg QHS PO Last administered on 10/24/19 22:23; Start 10/23/19 at 21:00 Potassium Chloride (Klor-Con) 40 meq 1X ONCE PO Last administered on 10/24/19at 13:55; Start 10/24/19 at 10:30; Stop 10/24/19 at 10:31; Status DC Phytonadione (Vitamin K Ampule) 5 mg 1X ONCE SQ Last administered on 10/24/19at 13:56; Start 10/24/19 at 13:30; Stop 10/24/19 at 13:31; Status DC Phytonadione (Mephyton Oral Soln) 5 mg DAILY08 PO Last administered on 10/25/19at 09:16; Start 10/25/19 at 08:00 Iohexol (Omnipaque 350 Mg/ml) 90 ml 1X ONCE IV Last administered on 10/24/19at 20:53; Start 10/24/19 at 20:30; Stop 10/24/19 at 20:31; Status DC Albuterol/ Ipratropium (Duoneb) 3 ml RTQID NEB Last administered on 10/25/19at 11:49; Start 10/25/19 at 12:00 Active Scripts Active Reported [inhaler] PRN [lisinopril +] DAILY Vitals/I & O Vital Sign - Last 24 Hours 10/24/19 10/24/19 10/24/19 10/24/19 15: 18:29 19:00 19:30 Temp 98.0 98.2 98.0 98.2 Pulse 88 92 Resp 18 20 18 B/P (MAP) 136/65 (88) 121/58 (79) Pulse Ox 95 94 91 91 O2 Delivery Room Air Room Air Room Air Room Air O2 Flow Rate 1.5 2.0 10/24/19 10/24/19 10/25/19 10/25/19 20:00 23:00 03:07 07:00 Temp 98.1 98.4 97.8 98.1 98.4 97.8 Pulse 102 106 102 Resp 18 18 18 B/P (MAP) 122/71 (88) 101/68 (79) 132/77 (95) Pulse Ox 91 93 90 O2 Delivery Nasal Cannula Nasal Cannula Room Air Room Air O2 Flow Rate 2.0 10/25/19 11:49 O2 Delivery Nasal Cannula O2 Flow Rate 2.0 Intake and Output 10/24/19 10/24/19 10/25/19 15:00 23:00 07:00 Output Total 50 ml Balance -50 ml Justicifation of Admission Dx: Justifications for Admission: Justification of Admission Dx: Yes Sepsis: End-Organ Dysfunction KACY DELGADO MD Oct 25, 2019 12:17
--- NOTE | 2019-10-25 12:39 | RAD ---
Bilateral lower extremity venous Doppler ultrasound History: Reason: le edema hypoxemia / Spl. Instructions: / History: Comparison: None. Procedure: Color flow Doppler, Doppler spectral analysis, and 2D images are obtained with and without compression in the area of the common femoral vein, superficial femoral vein - femoral vein junction, main femoral vein (superficial femoral vein) and popliteal vein. Veins of the proximal calf are also imaged. Findings: There is normal color flow, augmentation, and compressibility of all visualized vein segments. No evidence of deep venous thrombus is present. IMPRESSION: No evidence of right or left lower extremity deep venous thrombosis. Electronically signed by: Cecilio Rahman MD (10/25/2019 12:36 PM) [id number]
[2019-10-25 15:00] VITALS: BP 148/79
[2019-10-25 19:00] VITALS: BP 118/66
[2019-10-25] MEDS: MIRTAZAPINE 15 MG TABLET PO SCH (21:12)
[2019-10-25] MEDS: FAMOTIDINE 20 MG TABLET. PO SCH (21:12)
[2019-10-25 23:00] VITALS: BP 118/58
[2019-10-26 03:36] VITALS: BP 118/61
[2019-10-26 06:03] LABS: BASO # 0.1 x10^3/uL (0.0-0.2); BASO % 0 % (0-3); EOS # 0.4 x10^3/uL (0.0-0.7); EOS % 2 % (0-3); HEMATOCRIT 40.7 % (39.0-53.0); HEMOGLOBIN 14.4 g/dL (13.0-17.5); LYMPH # 1.9 x10^3/uL (1.0-4.8); LYMPH % 10 % (24-48); MEAN CORPUSCULAR HEMOGLOBIN 36 pg (25-35); MEAN CORPUSCULAR HGB CONC 35 g/dL (31-37); MEAN CORPUSCULAR VOLUME 103 fL (79-100); MONO # 2.1 x10^3/uL (0.0-1.1); MONO % 11 % (0-9); NEUT # 15.1 x10^3/uL (1.8-7.7); NEUT % 77 % (31-73); PLATELET COUNT 141 x10^3/uL (140-400); RED BLOOD COUNT 3.95 x10^6/uL (4.30-5.70); RED CELL DISTRIBUTION WIDTH 16.4 % (11.5-14.5); WHITE BLOOD COUNT 19.6 x10^3/uL (4.0-11.0)
[2019-10-26] MEDS: LEVOTHYROXINE 88 MCG TABLET PO SCH (06:11)
[2019-10-26 06:45] LABS: ALBUMIN 1.4 g/dL (3.4-5.0); ALBUMIN/GLOBULIN RATIO 0.3 (1.0-1.7); CALCIUM 7.9 mg/dL (8.5-10.1); GFR 88.3; POTASSIUM 3.1 mmol/L (3.5-5.1); TOTAL BILIRUBIN 21.6 mg/dL (0.2-1.0); TOTAL PROTEIN 5.7 g/dL (6.4-8.2)
[2019-10-26 06:46] LABS: PROTHROMBIN TIME PATIENT 33.1 SEC (11.7-14.0)
[2019-10-26 07:00] VITALS: BP 173/91
[2019-10-26] MEDS: IPRATRPIUM/ALBUTEROL 0.5/2.5MG 3 ML NEBU. NEB SCH ×4 (07:22→19:53)
[2019-10-26] MEDS: LACTULOSE 20 GM/30 ML SOLUTION. PO SCH ×2 (08:42→20:41)
[2019-10-26] MEDS: FUROSEMIDE 40 MG TABLET. PO SCH (08:43)
[2019-10-26] MEDS: GABAPENTIN 100 MG CAPSULE. PO SCH ×3 (08:43→20:39)
[2019-10-26] MEDS: FOLIC ACID 1 MG TABLET. PO SCH (08:43)
[2019-10-26] MEDS: THIAMINE 100 MG TABLET. PO SCH (08:43)
[2019-10-26] MEDS: MULTIVITAMIN with MINERAL TABLET. PO SCH (08:43)
[2019-10-26] MEDS: LACTOBACILLUS RHAMNOSUS GG 1 CAPSULE. PO SCH ×2 (08:43→20:39)
[2019-10-26] MEDS: traMADol 50 MG TABLET PO PRN ×3 (08:44→22:43)
[2019-10-26] MEDS: PHYTONADIONE 10 MG/ML ORAL SOLUTION. PO SCH (08:45)
--- NOTE | 2019-10-26 09:30 | PDOC ---
[facility] PROGRESS NOTE Date of Service DOS: DATE: 10/26/19 TIME: 09:25 Chief Complaint Chief Complaint A/P: painless jaundice, acute liver failure, alcohol abuse, steato-hepatitis. apparent gallbladder wall thickening with debris within the lumen which could be from sludge or stones. // wall thickening is nonspecific in nature and could be related to primary gallbladder inflammation or reactive to adjacent hepatic disease.// gallbladder wall lesion is also not excluded. Leukocytosis lactic acidosis thc abuse thrombocytopenia severe protein-caloric malnutrition Depression metabolic encephalopathy hypothyroid state 38 min pt exam, chart review, > 50% of time spent with exam, chart review, pt care coordination History of Present Illness History of Present Illness Mr Galan is a 29yo M with history of heavy alcohol use, who presented with complaints of generalized aches, fatigue, decreased appetite, and yellowing of skin. He was taking ibuprofen for symptom control. He is found to have a high bilirubin of 15.1 and AST of 166. CT abdomen and pelvis suggestive of steatohepatitis and colitis. He had an elevated white blood cell count of 13,900. Admitted for further care with GI, ID, General surgery, cardiology, psychiatry consults Today denies any fever, chills or sweats. He denies any cough shortness of breath or chest pain. irritable, has been confused. Seen ambulating with Physical therapy. D/w significant other the severity of his disease. Bilirubin 21 today. Vitals/I&O Vitals/I&O: Vital Signs Date Time Temp Pulse Resp B/P (MAP) Pulse Ox O2 Delivery O2 Flow Rate FiO2 10/26/19 07:23 95 Nasal Cannula 2.0 10/26/19 07:00 98.2 98 18 173/91 (118) 98.2 I & O 10/25/19 10/25/19 10/26/19 15:00 23:00 07:00 Intake Total 120 ml Balance 120 ml Physical Exam Physical Exam: GENERAL: alert in NAD , SLEEPY gait unstable HEENT: Pupils equally round, reactive. Mild icterus. Oropharynx pink and moist. No lesions seen. NECK: Supple. LUNGS: Clear to auscultation. HEART: S1, S2 regular. ABDOMEN: Obese,distended, soft, nontender with bowel sounds present. EXTREMITIES: No gross edema or cyanosis. SKIN: Warm to touch without signs of rash. NEUROLOGIC: ALert, oriented. General: Alert, Oriented X3, Cooperative, No acute distress, mild distress, Other (drowsy ) Heart: Regular rate (SR/ST), Normal S1 Lungs: Clear Abdomen: Soft, Other (ascites ) Extremities: No cyanosis, Other (trace bilateral LE edema ) Skin: Other (jaundiced ) Labs Labs: Laboratory Tests Test 10/26/19 05:35 White Blood Count 19.6 x10^3/uL (4.0-11.0) Red Blood Count 3.95 x10^6/uL (4.30-5.70) Hemoglobin 14.4 g/dL (13.0-17.5) Hematocrit 40.7 % (39.0-53.0) Mean Corpuscular Volume 103 fL (79-100) Mean Corpuscular Hemoglobin 36 pg (25-35) Mean Corpuscular Hemoglobin Concent 35 g/dL (31-37) Red Cell Distribution Width 16.4 % (11.5-14.5) Platelet Count 141 x10^3/uL (140-400) Neutrophils (%) (Auto) 77 % (31-73) Lymphocytes (%) (Auto) 10 % (24-48) Monocytes (%) (Auto) 11 % (0-9) Eosinophils (%) (Auto) 2 % (0-3) Basophils (%) (Auto) 0 % (0-3) Neutrophils # (Auto) 15.1 x10^3/uL (1.8-7.7) Lymphocytes # (Auto) 1.9 x10^3/uL (1.0-4.8) Monocytes # (Auto) 2.1 x10^3/uL (0.0-1.1) Eosinophils # (Auto) 0.4 x10^3/uL (0.0-0.7) Basophils # (Auto) 0.1 x10^3/uL (0.0-0.2) Prothrombin Time 33.1 SEC (11.7-14.0) Prothromb Time International Ratio 3.2 (0.8-1.1) Sodium Level 134 mmol/L (136-145) Potassium Level 3.1 mmol/L (3.5-5.1) Chloride Level 97 mmol/L (98-107) Carbon Dioxide Level 30 mmol/L (21-32) Anion Gap 7 (6-14) Blood Urea Nitrogen 10 mg/dL (8-26) Creatinine 1.0 mg/dL (0.7-1.3) Estimated GFR (Cockcroft-Gault) 88.3 BUN/Creatinine Ratio 10 (6-20) Glucose Level 82 mg/dL (70-99) Calcium Level 7.9 mg/dL (8.5-10.1) Total Bilirubin 21.6 mg/dL (0.2-1.0) Aspartate Amino Transf (AST/SGOT) 111 U/L (15-37) Alanine Aminotransferase (ALT/SGPT) 30 U/L (16-63) Alkaline Phosphatase 189 U/L (46-116) Total Protein 5.7 g/dL (6.4-8.2) Albumin 1.4 g/dL (3.4-5.0) Albumin/Globulin Ratio 0.3 (1.0-1.7) Assessment and Plan Assessmemt and Plan Problems Medical Problems: (1) Acute colitis Status: Acute (2) Dehydration Status: Acute (3) Painless jaundice Status: Acute (4) Sepsis Status: Acute Comment Review of Relevant I have reviewed the following items larry (where applicable) has been applied. Medications: Current Medications Medications (Trade) Dose Ordered Sig/Kelly Route PRN Reason Start Time Stop Time Status Last Admin Dose Admin Albuterol/ Ipratropium (Duoneb) 3 ml RTQID NEB 10/25/19 12:00 10/26/19 07:22 Justicifation of Admission Dx: Justifications for Admission: Justification of Admission Dx: Yes Sepsis: End-Organ Dysfunction MAYUR HUERTA MD Oct 26, 2019 09:30
--- NOTE | 2019-10-26 10:08 | PDOC ---
PULMONARY PROGRESS NOTES DATE: 10/26/19 TIME: 10:05 Subjective no increase soa on canula Vitals Vital Signs Date Time Temp Pulse Resp B/P (MAP) Pulse Ox O2 Delivery O2 Flow Rate FiO2 10/26/19 07:23 95 Nasal Cannula 2.0 10/26/19 07:00 98.2 98 18 173/91 (118) 98.2 General: Alert, No acute distress Lungs: Clear Cardiovascular: S1 Abdomen: Other (distended) Extremities: Other (trace edema) Skin: Warm Labs Laboratory Tests Test 10/24/19 14:18 10/24/19 14:48 10/24/19 22:22 10/25/19 05:45 Prothrombin Time 33.2 SEC (11.7-14.0) 33.1 SEC (11.7-14.0) 29.4 SEC (11.7-14.0) Prothromb Time International Ratio 3.2 (0.8-1.1) 3.2 (0.8-1.1) 2.8 (0.8-1.1) O2 Saturation 86 % (92-99) Arterial Blood pH 7.43 (7.35-7.45) Arterial Blood pCO2 at Patient Temp 42 mmHg (35-46) Arterial Blood pO2 at Patient Temp 53 mmHg (85-108) Arterial Blood HCO3 28 mmol/L (21-28) Arterial Blood Base Excess 3 mmol/L (-3-3) Oxyhemoglobin 84.1 % Methemoglobin 0.5 % (0.0-1.9) Carbon Monoxide, Quantitative 1.2 % (0.0-1.9) FiO2 21 Sodium Level 135 mmol/L (136-145) Potassium Level 3.5 mmol/L (3.5-5.1) Chloride Level 98 mmol/L (98-107) Carbon Dioxide Level 31 mmol/L (21-32) Anion Gap 6 (6-14) Blood Urea Nitrogen 9 mg/dL (8-26) Creatinine 1.0 mg/dL (0.7-1.3) Estimated GFR (Cockcroft-Gault) 88.3 Glucose Level 65 mg/dL (70-99) Calcium Level 8.3 mg/dL (8.5-10.1) Test 10/26/19 05:35 White Blood Count 19.6 x10^3/uL (4.0-11.0) Red Blood Count 3.95 x10^6/uL (4.30-5.70) Hemoglobin 14.4 g/dL (13.0-17.5) Hematocrit 40.7 % (39.0-53.0) Mean Corpuscular Volume 103 fL (79-100) Mean Corpuscular Hemoglobin 36 pg (25-35) Mean Corpuscular Hemoglobin Concent 35 g/dL (31-37) Red Cell Distribution Width 16.4 % (11.5-14.5) Platelet Count 141 x10^3/uL (140-400) Neutrophils (%) (Auto) 77 % (31-73) Lymphocytes (%) (Auto) 10 % (24-48) Monocytes (%) (Auto) 11 % (0-9) Eosinophils (%) (Auto) 2 % (0-3) Basophils (%) (Auto) 0 % (0-3) Neutrophils # (Auto) 15.1 x10^3/uL (1.8-7.7) Lymphocytes # (Auto) 1.9 x10^3/uL (1.0-4.8) Monocytes # (Auto) 2.1 x10^3/uL (0.0-1.1) Eosinophils # (Auto) 0.4 x10^3/uL (0.0-0.7) Basophils # (Auto) 0.1 x10^3/uL (0.0-0.2) Prothrombin Time 33.1 SEC (11.7-14.0) Prothromb Time International Ratio 3.2 (0.8-1.1) Sodium Level 134 mmol/L (136-145) Potassium Level 3.1 mmol/L (3.5-5.1) Chloride Level 97 mmol/L (98-107) Carbon Dioxide Level 30 mmol/L (21-32) Anion Gap 7 (6-14) Blood Urea Nitrogen 10 mg/dL (8-26) Creatinine 1.0 mg/dL (0.7-1.3) Estimated GFR (Cockcroft-Gault) 88.3 BUN/Creatinine Ratio 10 (6-20) Glucose Level 82 mg/dL (70-99) Calcium Level 7.9 mg/dL (8.5-10.1) Magnesium Level 2.0 mg/dL (1.8-2.4) Total Bilirubin 21.6 mg/dL (0.2-1.0) Aspartate Amino Transf (AST/SGOT) 111 U/L (15-37) Alanine Aminotransferase (ALT/SGPT) 30 U/L (16-63) Alkaline Phosphatase 189 U/L (46-116) Total Protein 5.7 g/dL (6.4-8.2) Albumin 1.4 g/dL (3.4-5.0) Albumin/Globulin Ratio 0.3 (1.0-1.7) Laboratory Tests Test 10/26/19 05:35 White Blood Count 19.6 x10^3/uL (4.0-11.0) Red Blood Count 3.95 x10^6/uL (4.30-5.70) Hemoglobin 14.4 g/dL (13.0-17.5) Hematocrit 40.7 % (39.0-53.0) Mean Corpuscular Volume 103 fL (79-100) Mean Corpuscular Hemoglobin 36 pg (25-35) Mean Corpuscular Hemoglobin Concent 35 g/dL (31-37) Red Cell Distribution Width 16.4 % (11.5-14.5) Platelet Count 141 x10^3/uL (140-400) Neutrophils (%) (Auto) 77 % (31-73) Lymphocytes (%) (Auto) 10 % (24-48) Monocytes (%) (Auto) 11 % (0-9) Eosinophils (%) (Auto) 2 % (0-3) Basophils (%) (Auto) 0 % (0-3) Neutrophils # (Auto) 15.1 x10^3/uL (1.8-7.7) Lymphocytes # (Auto) 1.9 x10^3/uL (1.0-4.8) Monocytes # (Auto) 2.1 x10^3/uL (0.0-1.1) Eosinophils # (Auto) 0.4 x10^3/uL (0.0-0.7) Basophils # (Auto) 0.1 x10^3/uL (0.0-0.2) Prothrombin Time 33.1 SEC (11.7-14.0) Prothromb Time International Ratio 3.2 (0.8-1.1) Sodium Level 134 mmol/L (136-145) Potassium Level 3.1 mmol/L (3.5-5.1) Chloride Level 97 mmol/L (98-107) Carbon Dioxide Level 30 mmol/L (21-32) Anion Gap 7 (6-14) Blood Urea Nitrogen 10 mg/dL (8-26) Creatinine 1.0 mg/dL (0.7-1.3) Estimated GFR (Cockcroft-Gault) 88.3 BUN/Creatinine Ratio 10 (6-20) Glucose Level 82 mg/dL (70-99) Calcium Level 7.9 mg/dL (8.5-10.1) Magnesium Level 2.0 mg/dL (1.8-2.4) Total Bilirubin 21.6 mg/dL (0.2-1.0) Aspartate Amino Transf (AST/SGOT) 111 U/L (15-37) Alanine Aminotransferase (ALT/SGPT) 30 U/L (16-63) Alkaline Phosphatase 189 U/L (46-116) Total Protein 5.7 g/dL (6.4-8.2) Albumin 1.4 g/dL (3.4-5.0) Albumin/Globulin Ratio 0.3 (1.0-1.7) Medications Active Scripts Medications Dose Route/Sig Max Daily Dose Days Date Category [inhaler] PRN 10/17/19 Reported [lisinopril +] DAILY 10/17/19 Reported Impression . 1. Hypoxemia, suspect it is secondary to atelectasis due to intra-abdominal process. Doubt he has pulmonary embolism. He also has a history of asthma, suspect he has obstructive sleep apnea-hypopnea syndrome as well. 2. Abnormal CT of the chest with basal discoid atelectasis 3. Tobacco habituation. 4. Snoring and excessive daytime sleepiness, probable obstructive sleep apnea-hypopnea syndrome. 5. Alcoholic hepatitis. 6. Leukocytosis. 7. History of drug abuse. 8. History of heavy alcohol use. 9. Hypertension. 10. 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 PLAN AND RECOMMENDATIONS: 1. Titrate FiO2 to keep O2 saturation 92%. 2. incentive spirometer. He was advised to use multiple times an hour. 3. Neg lower extremity venous Doppler. 4. bronchodilator q.i.d. 5. I had a long discussion with him regarding smoking cessation and also quit drinking and using drugs. 6. I do recommend a sleep study as an outpatient. 7. ID rec 8. The findings and recommendations were discussed with the patient and his mother, 9. Not much to add. will see DOYLE SINGH MD Oct 26, 2019 10:08
[2019-10-26] MEDS: POTASSIUM CHLORIDE 10MEQ 100 ML IV SCH ×4 (10:17→20:19)
[2019-10-26 11:00] VITALS: BP 115/50
--- NOTE | 2019-10-26 11:51 | PDOC ---
PROGRESS NOTES Assessment Problems Medical Problems: (1) Acute colitis Status: Acute (2) Dehydration Status: Acute (3) Painless jaundice Status: Acute (4) Sepsis Status: Acute Alcoholic neuropathy Metabolic encephalopathy, he is quite clear now, rule out medication effects, most likely just related to his liver dysfunction. History of single seizure remotely Elevated TSH, normal T4, compensated euthyroid, asked nurse to have IM address Plan Thyroid treatment per IM As per psychiatry; awaiting inpatient substance abuse treatment No need for additional neurological studies such as EEG. Fully discussed with patient and his girlfriend. Subjective Has some abdominal pain Objective Vital Signs Date Time Temp Pulse Resp B/P (MAP) Pulse Ox O2 Delivery O2 Flow Rate FiO2 10/26/19 11:00 98.2 18 115/50 (71) 90 98.2 10/26/19 07:23 Nasal Cannula 2.0 10/26/19 07:00 98 Intake and Output 10/26/19 07:00 Intake Total 120 ml Balance 120 ml Intake Oral 120 ml # Voids 5 PHYSICAL EXAM Jaundiced Alert. Oriented to time, place and person. PERRL. EOMI. CN: no focal findings. Muscle tone: normal. Muscle strength: 5/5 DTR: 2+ Plantar reflex: flexor Gait: not examined in bed. Sensory exam: no abnormal findings. No cerebellar signs elicited. Review of Relevant I have reviewed the following items larry (where applicable) has been applied. Labs Laboratory Tests Test 10/24/19 14:18 10/24/19 14:48 10/24/19 22:22 10/25/19 05:45 Prothrombin Time 33.2 SEC (11.7-14.0) 33.1 SEC (11.7-14.0) 29.4 SEC (11.7-14.0) Prothromb Time International Ratio 3.2 (0.8-1.1) 3.2 (0.8-1.1) 2.8 (0.8-1.1) O2 Saturation 86 % (92-99) Arterial Blood pH 7.43 (7.35-7.45) Arterial Blood pCO2 at Patient Temp 42 mmHg (35-46) Arterial Blood pO2 at Patient Temp 53 mmHg (85-108) Arterial Blood HCO3 28 mmol/L (21-28) Arterial Blood Base Excess 3 mmol/L (-3-3) Oxyhemoglobin 84.1 % Methemoglobin 0.5 % (0.0-1.9) Carbon Monoxide, Quantitative 1.2 % (0.0-1.9) FiO2 21 Sodium Level 135 mmol/L (136-145) Potassium Level 3.5 mmol/L (3.5-5.1) Chloride Level 98 mmol/L (98-107) Carbon Dioxide Level 31 mmol/L (21-32) Anion Gap 6 (6-14) Blood Urea Nitrogen 9 mg/dL (8-26) Creatinine 1.0 mg/dL (0.7-1.3) Estimated GFR (Cockcroft-Gault) 88.3 Glucose Level 65 mg/dL (70-99) Calcium Level 8.3 mg/dL (8.5-10.1) Test 10/26/19 05:35 White Blood Count 19.6 x10^3/uL (4.0-11.0) Red Blood Count 3.95 x10^6/uL (4.30-5.70) Hemoglobin 14.4 g/dL (13.0-17.5) Hematocrit 40.7 % (39.0-53.0) Mean Corpuscular Volume 103 fL (79-100) Mean Corpuscular Hemoglobin 36 pg (25-35) Mean Corpuscular Hemoglobin Concent 35 g/dL (31-37) Red Cell Distribution Width 16.4 % (11.5-14.5) Platelet Count 141 x10^3/uL (140-400) Neutrophils (%) (Auto) 77 % (31-73) Lymphocytes (%) (Auto) 10 % (24-48) Monocytes (%) (Auto) 11 % (0-9) Eosinophils (%) (Auto) 2 % (0-3) Basophils (%) (Auto) 0 % (0-3) Neutrophils # (Auto) 15.1 x10^3/uL (1.8-7.7) Lymphocytes # (Auto) 1.9 x10^3/uL (1.0-4.8) Monocytes # (Auto) 2.1 x10^3/uL (0.0-1.1) Eosinophils # (Auto) 0.4 x10^3/uL (0.0-0.7) Basophils # (Auto) 0.1 x10^3/uL (0.0-0.2) Prothrombin Time 33.1 SEC (11.7-14.0) Prothromb Time International Ratio 3.2 (0.8-1.1) Sodium Level 134 mmol/L (136-145) Potassium Level 3.1 mmol/L (3.5-5.1) Chloride Level 97 mmol/L (98-107) Carbon Dioxide Level 30 mmol/L (21-32) Anion Gap 7 (6-14) Blood Urea Nitrogen 10 mg/dL (8-26) Creatinine 1.0 mg/dL (0.7-1.3) Estimated GFR (Cockcroft-Gault) 88.3 BUN/Creatinine Ratio 10 (6-20) Glucose Level 82 mg/dL (70-99) Calcium Level 7.9 mg/dL (8.5-10.1) Magnesium Level 2.0 mg/dL (1.8-2.4) Total Bilirubin 21.6 mg/dL (0.2-1.0) Aspartate Amino Transf (AST/SGOT) 111 U/L (15-37) Alanine Aminotransferase (ALT/SGPT) 30 U/L (16-63) Alkaline Phosphatase 189 U/L (46-116) Total Protein 5.7 g/dL (6.4-8.2) Albumin 1.4 g/dL (3.4-5.0) Albumin/Globulin Ratio 0.3 (1.0-1.7) Laboratory Tests Test 10/26/19 05:35 White Blood Count 19.6 x10^3/uL (4.0-11.0) Red Blood Count 3.95 x10^6/uL (4.30-5.70) Hemoglobin 14.4 g/dL (13.0-17.5) Hematocrit 40.7 % (39.0-53.0) Mean Corpuscular Volume 103 fL (79-100) Mean Corpuscular Hemoglobin 36 pg (25-35) Mean Corpuscular Hemoglobin Concent 35 g/dL (31-37) Red Cell Distribution Width 16.4 % (11.5-14.5) Platelet Count 141 x10^3/uL (140-400) Neutrophils (%) (Auto) 77 % (31-73) Lymphocytes (%) (Auto) 10 % (24-48) Monocytes (%) (Auto) 11 % (0-9) Eosinophils (%) (Auto) 2 % (0-3) Basophils (%) (Auto) 0 % (0-3) Neutrophils # (Auto) 15.1 x10^3/uL (1.8-7.7) Lymphocytes # (Auto) 1.9 x10^3/uL (1.0-4.8) Monocytes # (Auto) 2.1 x10^3/uL (0.0-1.1) Eosinophils # (Auto) 0.4 x10^3/uL (0.0-0.7) Basophils # (Auto) 0.1 x10^3/uL (0.0-0.2) Prothrombin Time 33.1 SEC (11.7-14.0) Prothromb Time International Ratio 3.2 (0.8-1.1) Sodium Level 134 mmol/L (136-145) Potassium Level 3.1 mmol/L (3.5-5.1) Chloride Level 97 mmol/L (98-107) Carbon Dioxide Level 30 mmol/L (21-32) Anion Gap 7 (6-14) Blood Urea Nitrogen 10 mg/dL (8-26) Creatinine 1.0 mg/dL (0.7-1.3) Estimated GFR (Cockcroft-Gault) 88.3 BUN/Creatinine Ratio 10 (6-20) Glucose Level 82 mg/dL (70-99) Calcium Level 7.9 mg/dL (8.5-10.1) Magnesium Level 2.0 mg/dL (1.8-2.4) Total Bilirubin 21.6 mg/dL (0.2-1.0) Aspartate Amino Transf (AST/SGOT) 111 U/L (15-37) Alanine Aminotransferase (ALT/SGPT) 30 U/L (16-63) Alkaline Phosphatase 189 U/L (46-116) Total Protein 5.7 g/dL (6.4-8.2) Albumin 1.4 g/dL (3.4-5.0) Albumin/Globulin Ratio 0.3 (1.0-1.7) Microbiology 10/17/19 Blood Culture - Final, Complete NO GROWTH AFTER 5 DAYS 10/16/19 Urine Culture - Final, Complete Medications Current Medications Sodium Chloride 1,000 ml @ 1,000 mls/hr 1X ONCE IV Last administered on 10/16/19at 21:19; Start 10/16/19 at 21:15; Stop 10/16/19 at 22:14; Status DC Ondansetron HCl (Zofran) 4 mg 1X ONCE IVP Last administered on 10/16/19at 21:19; Start 10/16/19 at 21:15; Stop 10/16/19 at 21:16; Status DC Famotidine (Pepcid) 20 mg 1X ONCE PO Last administered on 10/16/19at 21:20; Start 10/16/19 at 21:15; Stop 10/16/19 at 21:16; Status DC Iohexol (Omnipaque 300 Mg/ml) 75 ml 1X ONCE IV Last administered on 10/16/19at 21:54; Start 10/16/19 at 21:45; Stop 10/16/19 at 21:46; Status DC Info (CONTRAST GIVEN -- Rx MONITORING) 1 each PRN DAILY PRN MC SEE COMMENTS; Start 10/16/19 at 22:00; Stop 10/18/19 at 21:59; Status DC Piperacillin Sod/ Tazobactam Sod 4.5 gm/Sodium Chloride 100 ml @ 200 mls/hr 1X ONCE IV Last administered on 10/17/19at 01:24; Start 10/17/19 at 00:45; Stop 10/17/19 at 01:14; Status DC Sodium Chloride 1,000 ml @ 2,460 mls/hr Q25M IV Last administered on 10/17/19at 01:56; Start 10/17/19 at 00:30; Stop 10/17/19 at 01:30; Status DC Sodium Chloride 1,000 ml @ 75 mls/hr [id number] IV Last administered on 10/17/19at 03:49; Start 10/17/19 at 02:15; Stop 10/17/19 at 15:57; Status DC Piperacillin Sod/ Tazobactam Sod 3.375 gm/Sodium Chloride 50 ml @ 100 mls/hr Q6HRS IV Last administered on 10/20/19at 05:14; Start 10/17/19 at 06:00; Stop 10/20/19 at 09:10; Status DC Morphine Sulfate (Morphine Sulfate) 2 mg PRN Q2HR PRN IV PAIN Last administered on 10/21/19at 10:48; Start 10/17/19 at 06:30 Lorazepam (Ativan Inj) 2 mg PRN Q1HR PRN IV For CIWA 8-14 Last administered on 10/24/19at 22:28; Start 10/17/19 at 06:30 Lorazepam (Ativan Inj) 4 mg PRN Q1HR PRN IV For CIWA 15 or greater; Start 10/17/19 at 06:30 Haloperidol Lactate (Haldol Inj) 5 mg PRN Q4HRS PRN IVP Hallucinatns,Confusn,Delirium; Start 10/17/19 at 06:30 Diphenhydramine HCl (Benadryl) 25 mg PRN Q15MIN PRN IVP EPS symptoms 2'Haldol admin; Start 10/17/19 at 06:30 Clonidine HCl (Catapres) 0.1 mg PRN Q1HR PRN PO SBP > 180 or DBP > 100, MRX3; Start 10/17/19 at 06:30 Multivitamins 10 ml/Thiamine HCl 100 mg/Folic Acid 1 mg/Sodium Chloride 1,011.2 ml @ 100 mls/ hr DAILY IV Last administered on 10/19/19at 09:01; Start 10/17/19 at 09:00; Stop 10/19/19 at 10:57; Status DC Sodium Chloride (Normal Saline Flush) 3 ml QSHIFT PRN IV AFTER MEDS AND BLOOD DRAWS; Start 10/17/19 at 11:45 Sodium Chloride 1,000 ml @ 100 mls/hr Q10H IV Last administered on 10/19/19at 06:23; Start 10/17/19 at 11:38; Stop 10/19/19 at 10:50; Status DC Al Hydroxide/Mg Hydroxide (Mylanta Plus Xs) 30 ml PRN DAILY PRN PO HEARTBURN / GAS; Start 10/17/19 at 11:45 Docusate Sodium (Colace) 100 mg PRN BID PRN PO HARD STOOLS; Start 10/17/19 at 11:45 Albuterol/ Ipratropium (Duoneb) 3 ml Q4HRS NEB Last administered on 10/18/19at 00:23; Start 10/17/19 at 12:00; Stop 10/18/19 at 00:38; Status DC Guaifenesin (Robitussin) 200 mg PRN Q4HRS PRN PO COUGH; Start 10/17/19 at 11:45 Enoxaparin Sodium (Lovenox 40mg Syringe) 40 mg Q24H SQ Last administered on 10/17/19at 15:05; Start 10/17/19 at 12:00; Stop 10/18/19 at 10:49; Status DC Lactobacillus Rhamnosus (Culturelle) 1 cap BID PO Last administered on 10/26/19at 08:43; Start 10/17/19 at 21:00 Albuterol Sulfate (Ventolin Neb Soln) 2.5 mg PRN Q4HRS PRN NEB SHORTNESS OF BREATH; Start 10/18/19 at 00:45 Ondansetron HCl (Zofran) 4 mg PRN Q6HRS PRN IVP NAUSEA/VOMITING Last administered on 10/23/19at 10:30; Start 10/18/19 at 17:15 Furosemide (Lasix) 40 mg BID92 IVP Last administered on 10/21/19at 14:12; Start 10/19/19 at 11:00; Stop 10/22/19 at 08:06; Status DC Folic Acid (Folic Acid) 1 mg DAILY PO Last administered on 10/26/19at 08:43; Start 10/20/19 at 09:00 Thiamine Mononitrate (Vitamin B-1) 100 mg DAILY PO Last administered on 10/26/19at 08:43; Start 10/20/19 at 09:00 Potassium Bicarbonate (Potassium Effervescent Tablet) 40 meq 1X ONCE FT ; Start 10/19/19 at 11:30; Stop 10/19/19 at 11:31; Status DC Magnesium Sulfate 50 ml @ 25 mls/hr Q24H IV Last administered on 10/20/19at 12:45; Start 10/19/19 at 12:00; Stop 10/21/19 at 13:59; Status DC Potassium Phos/ Sodium Phos (Phos-Nak) 1 pkt PRN BID PRN PO COMMENTS Last administered on 10/23/19at 10:33; Start 10/19/19 at 21:00 Potassium Bicarbonate (Potassium Effervescent Tablet) 40 meq Q4H PO ; Start 10/19/19 at 11:00; Stop 10/19/19 at 12:55; Status DC Multivitamins (Thera M Plus) 1 tab DAILY PO Last administered on 10/26/19 08:43; Start 10/20/19 at 09:00 Potassium Bicarbonate (Potassium Effervescent Tablet) 40 meq PRN Q4HRS PRN PO COMMENTS Last administered on 10/26/19 08:42; Start 10/19/19 at 13:00 Lactulose (Lactulose) 20 gm DAILY08 PO Last administered on 10/22/19 08:36; Start 10/19/19 at 14:15; Stop 10/22/19 at 12:31; Status DC Mirtazapine (Remeron) 15 mg QHS PO Last administered on 10/25/19 21:12; Start 10/19/19 at 21:00 Potassium Bicarbonate (Potassium Effervescent Tablet) 40 meq 1X ONCE FT Last administered on 10/20/19at 15:22; Start 10/20/19 at 13:30; Stop 10/20/19 at 13:31; Status DC Magnesium Sulfate 50 ml @ 25 mls/hr Q24H IV Last administered on 10/22/19at 16:22; Start 10/20/19 at 13:30; Stop 10/22/19 at 15:29; Status DC Potassium Phos/ Sodium Phos (Phos-Nak) 1 pkt BID PO Last administered on 10/21/19at 10:37; Start 10/20/19 at 21:00; Stop 10/21/19 at 09:01; Status DC Potassium Bicarbonate (Potassium Effervescent Tablet) 40 meq Q4H PO Last administered on 10/20/19at 17:30; Start 10/20/19 at 13:30; Stop 10/20/19 at 17:31; Status DC Magnesium Sulfate 50 ml @ 25 mls/hr 1X ONCE IV Last administered on 10/20/19 18:22; Start 10/20/19 at 16:15; Stop 10/20/19 at 18:14; Status DC Gabapentin (Neurontin) 100 mg TID PO Last administered on 10/26/19 08:43; Start 10/21/19 at 21:00 Tramadol HCl (Ultram) 50 mg PRN Q6HRS PRN PO MODERATE PAIN 4-6 Last administered on 10/26/19at 08:44; Start 10/21/19 at 22:00 Furosemide (Lasix) 40 mg DAILY PO Last administered on 10/26/19at 08:43; Start 10/22/19 at 09:00 Potassium Chloride (Klor-Con) 40 meq 1X ONCE PO Last administered on 10/22/19at 08:35; Start 10/22/19 at 08:30; Stop 10/22/19 at 08:31; Status DC Potassium Phosphate 13.6 mmol/Sodium Chloride 254.5333 ml @ 127.... Q2H IV Last administered on 10/22/19at 18:38; Start 10/22/19 at 12:00; Stop 10/22/19 at 15:59; Status DC Lactulose (Lactulose) 20 gm BID PO Last administered on 10/26/19at 08:42; Start 10/22/19 at 21:00 Levothyroxine Sodium (Synthroid) 88 mcg DAILY06 PO Last administered on 10/26/19at 06:11; Start 10/23/19 at 10:30 Potassium Chloride (Klor-Con) 40 meq 1X ONCE PO Last administered on 10/23/19at 12:42; Start 10/23/19 at 10:45; Stop 10/23/19 at 10:47; Status DC Famotidine (Pepcid) 20 mg QHS PO Last administered on 10/25/19at 21:12; Start 10/23/19 at 21:00 Potassium Chloride (Klor-Con) 40 meq 1X ONCE PO Last administered on 10/24/19at 13:55; Start 10/24/19 at 10:30; Stop 10/24/19 at 10:31; Status DC Phytonadione (Vitamin K Ampule) 5 mg 1X ONCE SQ Last administered on 10/24/19at 13:56; Start 10/24/19 at 13:30; Stop 10/24/19 at 13:31; Status DC Phytonadione (Mephyton Oral Soln) 5 mg DAILY08 PO Last administered on 10/26/19at 08:45; Start 10/25/19 at 08:00 Iohexol (Omnipaque 350 Mg/ml) 90 ml 1X ONCE IV Last administered on 10/24/19at 20:53; Start 10/24/19 at 20:30; Stop 10/24/19 at 20:31; Status DC Albuterol/ Ipratropium (Duoneb) 3 ml RTQID NEB Last administered on 10/26/19at 07:22; Start 10/25/19 at 12:00 Potassium Chloride/Water 100 ml @ 100 mls/hr Q1H IV Last administered on 10/26/19at 10:17; Start 10/26/19 at 10:00; Stop 10/26/19 at 13:59 Active Scripts Active Reported [inhaler] PRN [lisinopril +] DAILY Vitals/I & O Vital Sign - Last 24 Hours 10/25/19 10/25/19 10/25/19 10/25/19 15:00 16:28 19:00 19:53 Temp 98.1 99.0 98.1 99.0 Pulse 99 102 Resp 17 B/P (MAP) 148/79 (102) 118/66 (83) Pulse Ox 93 90 94 O2 Delivery Nasal Cannula Nasal Cannula Room Air Nasal Cannula O2 Flow Rate 2.0 2.0 2.0 10/25/19 10/25/19 10/26/19 10/26/19 20:30 23:00 03:36 07:00 Temp 98.1 98.1 98.2 98.1 98.1 98.2 Pulse 109 104 98 Resp 18 16 18 B/P (MAP) 118/58 (78) 118/61 (80) 173/91 (118) Pulse Ox 92 91 92 O2 Delivery Room Air Nasal Cannula Nasal Cannula Nasal Cannula 10/26/19 10/26/19 07:23 11:00 Temp 98.2 98.2 Resp 18 B/P (MAP) 115/50 (71) Pulse Ox 95 90 O2 Delivery Nasal Cannula O2 Flow Rate 2.0 Intake and Output 10/25/19 10/25/19 10/26/19 15:00 23:00 07:00 Intake Total 120 ml Balance 120 ml Justicifation of Admission Dx: Justifications for Admission: Justification of Admission Dx: Yes Sepsis: End-Organ Dysfunction ANITHA GRANADOS MD Oct 26, 2019 11:51
--- NOTE | 2019-10-26 12:57 | PDOC ---
Date of Service: DATE: 10/26/19 TIME: 12:50 Objective: Vital Signs: Vital Signs Date Time Temp Pulse Resp B/P (MAP) Pulse Ox O2 Delivery O2 Flow Rate FiO2 10/26/19 11:00 98.2 18 115/50 (71) 90 98.2 10/26/19 07:23 Nasal Cannula 2.0 10/26/19 07:00 98 Labs: Laboratory Tests Test 10/26/19 05:35 White Blood Count 19.6 x10^3/uL Red Blood Count 3.95 x10^6/uL Hemoglobin 14.4 g/dL Hematocrit 40.7 % Mean Corpuscular Volume 103 fL Mean Corpuscular Hemoglobin 36 pg Mean Corpuscular Hemoglobin Concent 35 g/dL Red Cell Distribution Width 16.4 % Platelet Count 141 x10^3/uL Neutrophils (%) (Auto) 77 % Lymphocytes (%) (Auto) 10 % Monocytes (%) (Auto) 11 % Eosinophils (%) (Auto) 2 % Basophils (%) (Auto) 0 % Neutrophils # (Auto) 15.1 x10^3/uL Lymphocytes # (Auto) 1.9 x10^3/uL Monocytes # (Auto) 2.1 x10^3/uL Eosinophils # (Auto) 0.4 x10^3/uL Basophils # (Auto) 0.1 x10^3/uL Prothrombin Time 33.1 SEC Prothromb Time International Ratio 3.2 Sodium Level 134 mmol/L Potassium Level 3.1 mmol/L Chloride Level 97 mmol/L Carbon Dioxide Level 30 mmol/L Anion Gap 7 Blood Urea Nitrogen 10 mg/dL Creatinine 1.0 mg/dL Estimated GFR (Cockcroft-Gault) 88.3 BUN/Creatinine Ratio 10 Glucose Level 82 mg/dL Calcium Level 7.9 mg/dL Magnesium Level 2.0 mg/dL Total Bilirubin 21.6 mg/dL Aspartate Amino Transf (AST/SGOT) 111 U/L Alanine Aminotransferase (ALT/SGPT) 30 U/L Alkaline Phosphatase 189 U/L Total Protein 5.7 g/dL Albumin 1.4 g/dL Albumin/Globulin Ratio 0.3 Imaging: LE US IMPRESSION: No evidence of right or left lower extremity deep venous thrombosis. CXR Impression: Atelectasis at both lung bases. Chest CTA IMPRESSION: Pulmonary embolus cannot be excluded due to timing of the contrast bolus with no contrast present in the pulmonary arteries. If there is strong clinical concern for pulmonary embolus, repeat scan will be necessary. Infiltrates and/or discoid atelectasis bilaterally at the lung bases and mild peripheral infiltrates seen in the left upper lobe. Moderate ascites. PE: GEN: NAD - a few bites taken from lunch tray LUNGS: room air, clear HEART: RRR SKIN: jaundiced NEURO/PSYCH: sleeping, not awakened - was seen walking halls earlier A/P: Alcoholic hepatitis, coagulopathy Hypoxemia - better; ascites noted on chest CTA -- Will review any new GI recs w/ Dr. Mclean. Justicifation of Admission Dx: Justifications for Admission: Justification of Admission Dx: Yes Sepsis: End-Organ Dysfunction THOMAS DUBON Oct 26, 2019 12:57
[2019-10-26 15:00] VITALS: BP 153/75
[2019-10-26] MEDS: ONDANSETRON PF 4 MG/2 ML VIAL. IVP PRN (15:11)
--- NOTE | 2019-10-26 15:43 | NUR ---
SW following. Spoke with RN and reviewed chart. Discharge plan remains home with self-care and family when stable.
--- NOTE | 2019-10-26 17:53 | PDOC ---
F/U PHYSCH PROG NOTE Subjective: Gentleman with alcohol use disorder is seen for routine follow-up. Progress is reviewed with nursing staff. No major event reported. He appears cooperative and interactive. He stating, he is feeling relatively better. Mood and anxiety are improving gradually. States, following discharge in case of panic attacks he needs something. Suggested hydroxyzine 25 mg which he agreed upon. Aside from that he denies overt depression or anxiety. Denies suicidal or homicidal thoughts. Denies auditory or visual hallucinations. No evidence of breann or hypomania. Tolerating medications and denies adverse drug reaction Objective: 14 point review of system is negative except for stated above Vital Signs: Vital Signs Date Time Temp Pulse Resp B/P (MAP) Pulse Ox O2 Delivery O2 Flow Rate FiO2 10/26/19 15:33 Nasal Cannula 2.0 10/26/19 15:00 98.0 18 153/75 (101) 96 98.0 10/26/19 07:00 98 Labs: Laboratory Tests Test 10/26/19 05:35 White Blood Count 19.6 x10^3/uL (4.0-11.0) H Red Blood Count 3.95 x10^6/uL (4.30-5.70) L Hemoglobin 14.4 g/dL (13.0-17.5) Hematocrit 40.7 % (39.0-53.0) Mean Corpuscular Volume 103 fL (79-100) H Mean Corpuscular Hemoglobin 36 pg (25-35) H Mean Corpuscular Hemoglobin Concent 35 g/dL (31-37) Red Cell Distribution Width 16.4 % (11.5-14.5) H Platelet Count 141 x10^3/uL (140-400) Neutrophils (%) (Auto) 77 % (31-73) H Lymphocytes (%) (Auto) 10 % (24-48) L Monocytes (%) (Auto) 11 % (0-9) H Eosinophils (%) (Auto) 2 % (0-3) Basophils (%) (Auto) 0 % (0-3) Neutrophils # (Auto) 15.1 x10^3/uL (1.8-7.7) H Lymphocytes # (Auto) 1.9 x10^3/uL (1.0-4.8) Monocytes # (Auto) 2.1 x10^3/uL (0.0-1.1) H Eosinophils # (Auto) 0.4 x10^3/uL (0.0-0.7) Basophils # (Auto) 0.1 x10^3/uL (0.0-0.2) Prothrombin Time 33.1 SEC (11.7-14.0) H Prothrombin Time INR 3.2 (0.8-1.1) H Sodium Level 134 mmol/L (136-145) L Potassium Level 3.1 mmol/L (3.5-5.1) L Chloride Level 97 mmol/L (98-107) L Carbon Dioxide Level 30 mmol/L (21-32) Anion Gap 7 (6-14) Blood Urea Nitrogen 10 mg/dL (8-26) Creatinine 1.0 mg/dL (0.7-1.3) Estimated GFR (Cockcroft-Gault) 88.3 BUN/Creatinine Ratio 10 (6-20) Glucose Level 82 mg/dL (70-99) Calcium Level 7.9 mg/dL (8.5-10.1) L Magnesium Level 2.0 mg/dL (1.8-2.4) Total Bilirubin 21.6 mg/dL (0.2-1.0) H Aspartate Amino Transferase (AST) 111 U/L (15-37) H Alanine Aminotransferase (ALT) 30 U/L (16-63) Alkaline Phosphatase 189 U/L (46-116) H Total Protein 5.7 g/dL (6.4-8.2) L Albumin 1.4 g/dL (3.4-5.0) L Albumin/Globulin Ratio 0.3 (1.0-1.7) L Laboratory Tests 10/26/19 05:35 Laboratory Tests 10/26/19 05:35 Medications: Current Medications Medications (Trade) Dose Ordered Sig/Kelly Start Time Stop Time Status Last Admin Dose Admin Al Hydroxide/Mg Hydroxide (Mylanta Plus Xs) 30 ml PRN DAILY PRN 10/17/19 11:45 Albuterol Sulfate (Ventolin Neb Soln) 2.5 mg PRN Q4HRS PRN 10/18/19 00:45 Albuterol/ Ipratropium (Duoneb) 3 ml RTQID 10/25/19 12:00 10/26/19 15:32 3 ML Clonidine HCl (Catapres) 0.1 mg PRN Q1HR PRN 10/17/19 06:30 Diphenhydramine HCl (Benadryl) 25 mg PRN Q15MIN PRN 10/17/19 06:30 Docusate Sodium (Colace) 100 mg PRN BID PRN 10/17/19 11:45 Enoxaparin Sodium (Lovenox 40mg Syringe) 40 mg Q24H 10/17/19 12:00 10/18/19 10:49 DC 10/17/19 15:05 40 MG Famotidine (Pepcid) 20 mg QHS 10/23/19 21:00 10/25/19 21:12 20 MG Folic Acid (Folic Acid) 1 mg DAILY 10/20/19 09:00 10/26/19 08:43 1 MG Furosemide (Lasix) 40 mg DAILY 10/22/19 09:00 10/26/19 08:43 40 MG Gabapentin (Neurontin) 100 mg TID 10/21/19 21:00 10/26/19 13:52 100 MG Guaifenesin (Robitussin) 200 mg PRN Q4HRS PRN 10/17/19 11:45 Haloperidol Lactate (Haldol Inj) 5 mg PRN Q4HRS PRN 10/17/19 06:30 Info (CONTRAST GIVEN -- Rx MONITORING) 1 each PRN DAILY PRN 10/16/19 22:00 10/18/19 21:59 DC Iohexol (Omnipaque 300 Mg/ml) 75 ml 1X ONCE 10/16/19 21:45 10/16/19 21:46 DC 10/16/19 21:54 75 ML Iohexol (Omnipaque 350 Mg/ml) 90 ml 1X ONCE 10/24/19 20:30 10/24/19 20:31 DC 10/24/19 20:53 90 ML Lactobacillus Rhamnosus (Culturelle) 1 cap BID 10/17/19 21:00 10/26/19 08:43 1 CAP Lactulose (Lactulose) 20 gm BID 10/22/19 21:00 10/26/19 08:42 20 GM Levothyroxine Sodium (Synthroid) 88 mcg DAILY06 10/23/19 10:30 10/26/19 06:11 88 MCG Lorazepam (Ativan Inj) 4 mg PRN Q1HR PRN 10/17/19 06:30 Magnesium Sulfate 50 ml @ 25 mls/hr 1X ONCE 10/20/19 16:15 10/20/19 18:14 DC 10/20/19 18:22 25 MLS/HR Mirtazapine (Remeron) 15 mg QHS 10/19/19 21:00 10/25/19 21:12 15 MG Morphine Sulfate (Morphine Sulfate) 2 mg PRN Q2HR PRN 10/17/19 06:30 10/21/19 10:48 2 MG Multivitamins (Thera M Plus) 1 tab DAILY 10/20/19 09:00 10/26/19 08:43 1 TAB Multivitamins 10 ml/Thiamine HCl 100 mg/Folic Acid 1 mg/Sodium Chloride 1,011.2 ml @ 100 mls/ hr DAILY 10/17/19 09:00 10/19/19 10:57 DC 10/19/19 09:01 100 MLS/HR Ondansetron HCl (Zofran) 4 mg PRN Q6HRS PRN 10/18/19 17:15 10/26/19 15:11 4 MG Phytonadione (Mephyton Oral Soln) 5 mg DAILY08 10/25/19 08:00 10/26/19 08:45 5 MG Phytonadione (Vitamin K Ampule) 5 mg 1X ONCE 10/24/19 13:30 10/24/19 13:31 DC 10/24/19 13:56 5 MG Piperacillin Sod/ Tazobactam Sod 3.375 gm/Sodium Chloride 50 ml @ 100 mls/hr Q6HRS 10/17/19 06:00 10/20/19 09:10 DC 10/20/19 05:14 100 MLS/HR Piperacillin Sod/ Tazobactam Sod 4.5 gm/Sodium Chloride 100 ml @ 200 mls/hr 1X ONCE 10/17/19 00:45 10/17/19 01:14 DC 10/17/19 01:24 200 MLS/HR Potassium Bicarbonate (Potassium Effervescent Tablet) 40 meq Q4H 10/20/19 13:30 10/20/19 17:31 DC 10/20/19 17:30 40 MEQ Potassium Chloride/Water 100 ml @ 100 mls/hr Q1H 10/26/19 10:00 10/26/19 13:59 DC 10/26/19 13:48 100 MLS/HR Potassium Phosphate 13.6 mmol/Sodium Chloride 254.5333 ml @ 127.... Q2H 10/22/19 12:00 10/22/19 15:59 DC 10/22/19 18:38 127.267 MLS/HR Potassium Chloride (Klor-Con) 40 meq 1X ONCE 10/24/19 10:30 10/24/19 10:31 DC 10/24/19 13:55 40 MEQ Potassium Phos/ Sodium Phos (Phos-Nak) 1 pkt BID 10/20/19 21:00 10/21/19 09:01 DC 10/21/19 10:37 1 PKT Sodium Chloride 1,000 ml @ 100 mls/hr Q10H 10/17/19 11:38 10/19/19 10:50 DC 10/19/19 06:23 100 MLS/HR Sodium Chloride (Normal Saline Flush) 3 ml QSHIFT PRN 10/17/19 11:45 Thiamine Mononitrate (Vitamin B-1) 100 mg DAILY 10/20/19 09:00 10/26/19 08:43 100 MG Tramadol HCl (Ultram) 50 mg PRN Q6HRS PRN 10/21/19 22:00 10/26/19 15:11 50 MG Physical Exam: Mental Status Exam: Young gentleman appears as a stated age, fairly groomed, fairly nourished Cooperative and interactive appears tired Fully oriented Thought processes linear and mostly goal-directed Denies auditory or visual hallucinations No abnormal perception noted. Denies suicidal or homicidal thoughts. Mood is better Affect is euthymic Insight is fair Judgment is fair Attention span and concentration fair Recent and remote memory intact. Physical Exam: Refer to Physician's note. [employer]ING [employer]ENT: No focal deficit MSK: No EPS, TDK, or abnormal involuntary movements Diagnosis: 1. Alcohol use disorder, recurrent, severe 2. Major depressive disorder, recurrent, moderate 3. Generalized anxiety disorder 4. Rule out major depression/generalized anxiety due to substance use. Assessment: Young gentleman struggling with alcohol use disorder with medical complications. Additionally, struggling with psychiatric complications of alcohol including depression and anxiety. It is important at this point to select antidepressant which does not need too much adjustment in liver disease. Recommending to start Remeron which would help him with insomnia, depression, anxiety. Gabapentin to cut down alcohol craving and complicated withdrawals. He appears relatively better and in good mood. Slept relatively better than night before last. Overall feeling good. Mood is reportedly pretty good 10/26/2019: Reporting, he is feeling relatively better today. Medications are working. States, he needs something for panic attacks just in case if it comes. Will add Atarax as needed for panic attack. Plan: Hydroxyzine 25 mg to abort panic attack as needed. Continue gabapentin to 300mg 3 times daily for alcohol craving and withdrawal prevention. Continue Remeron 15 mg nightly for depression, anxiety, and insomnia. Risk, benefits, alternatives of the treatment are discussed. He is in agreement with plan and expressed understanding. Adverse drug reaction of the medications prescribed were discussed in detail. He is accepting medications and consented verbally. Monitor for symptomatology, mood, and safety. Will adjust medications accordingl VANNESA JUNIOR MD Oct 26, 2019 17:53
[2019-10-26 19:00] VITALS: BP 112/64
[2019-10-26] MEDS: MIRTAZAPINE 15 MG TABLET PO SCH (20:40)
[2019-10-26] MEDS: FAMOTIDINE 20 MG TABLET. PO SCH (20:40)
[2019-10-26 23:00] VITALS: BP 105/52
[2019-10-27 03:00] VITALS: BP 119/69
[2019-10-27 05:15] LABS: BASO # 0.1 x10^3/uL (0.0-0.2); BASO % 0 % (0-3); EOS # 0.4 x10^3/uL (0.0-0.7); EOS % 2 % (0-3); HEMATOCRIT 40.6 % (39.0-53.0); HEMOGLOBIN 13.9 g/dL (13.0-17.5); LYMPH # 1.5 x10^3/uL (1.0-4.8); LYMPH % 8 % (24-48); MEAN CORPUSCULAR HEMOGLOBIN 36 pg (25-35); MEAN CORPUSCULAR HGB CONC 34 g/dL (31-37); MEAN CORPUSCULAR VOLUME 104 fL (79-100); MONO # 1.5 x10^3/uL (0.0-1.1); MONO % 8 % (0-9); NEUT # 14.8 x10^3/uL (1.8-7.7); NEUT % 82 % (31-73); PLATELET COUNT 136 x10^3/uL (140-400); RED BLOOD COUNT 3.92 x10^6/uL (4.30-5.70); RED CELL DISTRIBUTION WIDTH 16.3 % (11.5-14.5); WHITE BLOOD COUNT 18.2 x10^3/uL (4.0-11.0)
[2019-10-27] MEDS: traMADol 50 MG TABLET PO PRN ×2 (05:22→19:45)
[2019-10-27] MEDS: LEVOTHYROXINE 88 MCG TABLET PO SCH (05:22)
[2019-10-27 05:25] LABS: PROTHROMBIN TIME PATIENT 31.4 SEC (11.7-14.0)
[2019-10-27 05:56] LABS: ALBUMIN 1.4 g/dL (3.4-5.0); ALBUMIN/GLOBULIN RATIO 0.3 (1.0-1.7); CALCIUM 7.8 mg/dL (8.5-10.1); CREATININE 1.3 mg/dL (0.7-1.3); GFR 65.3; POTASSIUM 3.2 mmol/L (3.5-5.1); TOTAL BILIRUBIN 21.9 mg/dL (0.2-1.0); TOTAL PROTEIN 5.8 g/dL (6.4-8.2)
[2019-10-27 07:00] VITALS: BP 134/79
[2019-10-27] MEDS: IPRATRPIUM/ALBUTEROL 0.5/2.5MG 3 ML NEBU. NEB SCH ×4 (07:19→19:59)
--- NOTE | 2019-10-27 07:58 | PDOC ---
[employer] PROGRESS NOTE Date of Service DOS: DATE: 10/27/19 TIME: 07:58 Chief Complaint Chief Complaint A/P: painless jaundice, acute liver failure, alcohol abuse, steato-hepatitis. apparent gallbladder wall thickening with debris within the lumen which could be from sludge or stones. // wall thickening is nonspecific in nature and could be related to primary gallbladder inflammation or reactive to adjacent hepatic disease.// gallbladder wall lesion is also not excluded. Leukocytosis lactic acidosis thc abuse thrombocytopenia severe protein-caloric malnutrition Depression metabolic encephalopathy hypothyroid state 38 min pt exam, chart review, > 50% of time spent with exam, chart review, pt care coordination History of Present Illness History of Present Illness Mr Galan is a 29yo M with history of heavy alcohol use, who presented with complaints of generalized aches, fatigue, decreased appetite, and yellowing of skin. He was taking ibuprofen for symptom control. He is found to have a high bilirubin of 15.1 and AST of 166. CT abdomen and pelvis suggestive of steatohepatitis and colitis. He had an elevated white blood cell count of 13,900. Admitted for further care with GI, ID, General surgery, cardiology, psychiatry consults 10/25: irritable, has been confused. Seen ambulating with Physical therapy. D/w significant other the severity of his disease. Bilirubin 21 today. INR and bilirubin stable. Today denies any fever, chills or sweats. He denies any cough shortness of breath or chest pain. He did vomit this morning. No pain. Having multiple bowel movements. Vitals/I&O Vitals/I&O: Vital Signs Date Time Temp Pulse Resp B/P (MAP) Pulse Ox O2 Delivery O2 Flow Rate FiO2 10/27/19 07:20 91 Room Air 10/27/19 06:22 18 10/27/19 03:00 98.4 87 119/69 (86) 98.4 10/26/19 15:33 2.0 I & O 10/26/19 10/26/19 10/27/19 15:00 23:00 07:00 Intake Total 170 ml 290 ml 720 ml Balance 170 ml 290 ml 720 ml Physical Exam Physical Exam: GENERAL: alert in NAD , SLEEPY gait unstable HEENT: Pupils equally round, reactive. Mild icterus. Oropharynx pink and moist. No lesions seen. NECK: Supple. LUNGS: Clear to auscultation. HEART: S1, S2 regular. ABDOMEN: Obese,distended, soft, nontender with bowel sounds present. EXTREMITIES: No gross edema or cyanosis. SKIN: Warm to touch without signs of rash. NEUROLOGIC: ALert, oriented. General: Alert, Cooperative, No acute distress, mild distress, Other (drowsy ) Heart: Regular rate (SR/ST), Normal S1 Lungs: Clear Abdomen: Soft, Other (ascites ) Extremities: No cyanosis, Other (trace bilateral LE edema ) Skin: Other (jaundiced ) Labs Labs: Laboratory Tests Test 10/27/19 04:15 White Blood Count 18.2 x10^3/uL (4.0-11.0) Red Blood Count 3.92 x10^6/uL (4.30-5.70) Hemoglobin 13.9 g/dL (13.0-17.5) Hematocrit 40.6 % (39.0-53.0) Mean Corpuscular Volume 104 fL (79-100) Mean Corpuscular Hemoglobin 36 pg (25-35) Mean Corpuscular Hemoglobin Concent 34 g/dL (31-37) Red Cell Distribution Width 16.3 % (11.5-14.5) Platelet Count 136 x10^3/uL (140-400) Neutrophils (%) (Auto) 82 % (31-73) Lymphocytes (%) (Auto) 8 % (24-48) Monocytes (%) (Auto) 8 % (0-9) Eosinophils (%) (Auto) 2 % (0-3) Basophils (%) (Auto) 0 % (0-3) Neutrophils # (Auto) 14.8 x10^3/uL (1.8-7.7) Lymphocytes # (Auto) 1.5 x10^3/uL (1.0-4.8) Monocytes # (Auto) 1.5 x10^3/uL (0.0-1.1) Eosinophils # (Auto) 0.4 x10^3/uL (0.0-0.7) Basophils # (Auto) 0.1 x10^3/uL (0.0-0.2) Prothrombin Time 31.4 SEC (11.7-14.0) Prothromb Time International Ratio 3.0 (0.8-1.1) Activated Partial Thromboplast Time 68 SEC (24-38) Sodium Level 134 mmol/L (136-145) Potassium Level 3.2 mmol/L (3.5-5.1) Chloride Level 97 mmol/L (98-107) Carbon Dioxide Level 31 mmol/L (21-32) Anion Gap 6 (6-14) Blood Urea Nitrogen 10 mg/dL (8-26) Creatinine 1.3 mg/dL (0.7-1.3) Estimated GFR (Cockcroft-Gault) 65.3 BUN/Creatinine Ratio 8 (6-20) Glucose Level 86 mg/dL (70-99) Calcium Level 7.8 mg/dL (8.5-10.1) Total Bilirubin 21.9 mg/dL (0.2-1.0) Aspartate Amino Transf (AST/SGOT) 117 U/L (15-37) Alanine Aminotransferase (ALT/SGPT) 33 U/L (16-63) Alkaline Phosphatase 178 U/L (46-116) Total Protein 5.8 g/dL (6.4-8.2) Albumin 1.4 g/dL (3.4-5.0) Albumin/Globulin Ratio 0.3 (1.0-1.7) Assessment and Plan Assessmemt and Plan Problems Medical Problems: (1) Acute colitis Status: Acute (2) Dehydration Status: Acute (3) Painless jaundice Status: Acute (4) Sepsis Status: Acute Comment Review of Relevant I have reviewed the following items larry (where applicable) has been applied. Medications: Current Medications Medications (Trade) Dose Ordered Sig/Kelly Route PRN Reason Start Time Stop Time Status Last Admin Dose Admin Potassium Chloride/Water 100 ml @ 100 mls/hr Q1H IV 10/26/19 10:00 10/26/19 13:59 DC 10/26/19 20:19 Justicifation of Admission Dx: Justifications for Admission: Justification of Admission Dx: Yes Sepsis: End-Organ Dysfunction MAYUR HUERTA MD Oct 27, 2019 07:58
[2019-10-27] MEDS: PHYTONADIONE 10 MG/ML ORAL SOLUTION. PO SCH (08:17)
[2019-10-27] MEDS: LACTULOSE 20 GM/30 ML SOLUTION. PO SCH ×2 (08:18→19:45)
[2019-10-27] MEDS: GABAPENTIN 100 MG CAPSULE. PO SCH ×3 (08:18→19:45)
[2019-10-27] MEDS: FUROSEMIDE 40 MG TABLET. PO SCH (08:18)
[2019-10-27] MEDS: FOLIC ACID 1 MG TABLET. PO SCH (08:18)
[2019-10-27] MEDS: LACTOBACILLUS RHAMNOSUS GG 1 CAPSULE. PO SCH ×2 (08:18→19:45)
[2019-10-27] MEDS: MULTIVITAMIN with MINERAL TABLET. PO SCH (08:18)
[2019-10-27] MEDS: THIAMINE 100 MG TABLET. PO SCH (08:19)
[2019-10-27] MEDS: POTASSIUM CHLORIDE 10MEQ 100 ML IV SCH ×4 (08:21→21:16)
[2019-10-27] MEDS: ONDANSETRON PF 4 MG/2 ML VIAL. IVP PRN (09:05)
[2019-10-27] MEDS ORDERED: ONDANSETRON ODT 4 MG TAB.RAPDIS. PO PRN (10:45)
[2019-10-27 11:04] VITALS: BP 112/57
--- NOTE | 2019-10-27 11:10 | PDOC ---
Date of Service: DATE: 10/27/19 TIME: 11:08 Subjective: Subjective: Vomited earlier, doesn't feel great. Not forthcoming. Objective: Vital Signs: Vital Signs Date Time Temp Pulse Resp B/P (MAP) Pulse Ox O2 Delivery O2 Flow Rate FiO2 10/27/19 11:04 98.0 102 18 112/57 (75) 92 Nasal Cannula 98.0 10/26/19 15:33 2.0 Labs: Laboratory Tests Test 10/27/19 04:15 White Blood Count 18.2 x10^3/uL Red Blood Count 3.92 x10^6/uL Hemoglobin 13.9 g/dL Hematocrit 40.6 % Mean Corpuscular Volume 104 fL Mean Corpuscular Hemoglobin 36 pg Mean Corpuscular Hemoglobin Concent 34 g/dL Red Cell Distribution Width 16.3 % Platelet Count 136 x10^3/uL Neutrophils (%) (Auto) 82 % Lymphocytes (%) (Auto) 8 % Monocytes (%) (Auto) 8 % Eosinophils (%) (Auto) 2 % Basophils (%) (Auto) 0 % Neutrophils # (Auto) 14.8 x10^3/uL Lymphocytes # (Auto) 1.5 x10^3/uL Monocytes # (Auto) 1.5 x10^3/uL Eosinophils # (Auto) 0.4 x10^3/uL Basophils # (Auto) 0.1 x10^3/uL Prothrombin Time 31.4 SEC Prothromb Time International Ratio 3.0 Activated Partial Thromboplast Time 68 SEC Sodium Level 134 mmol/L Potassium Level 3.2 mmol/L Chloride Level 97 mmol/L Carbon Dioxide Level 31 mmol/L Anion Gap 6 Blood Urea Nitrogen 10 mg/dL Creatinine 1.3 mg/dL Estimated GFR (Cockcroft-Gault) 65.3 BUN/Creatinine Ratio 8 Glucose Level 86 mg/dL Calcium Level 7.8 mg/dL Total Bilirubin 21.9 mg/dL Aspartate Amino Transf (AST/SGOT) 117 U/L Alanine Aminotransferase (ALT/SGPT) 33 U/L Alkaline Phosphatase 178 U/L Total Protein 5.8 g/dL Albumin 1.4 g/dL Albumin/Globulin Ratio 0.3 PE: GEN: chronically ill LUNGS: clear ABD: stable distention, non-tender SKIN: jaundiced NEURO/PSYCH: A & O 3, flat A/P: Alcoholic hepatitis, coagulopathy, fatty liver Vomiting -- Started on IV Zofran. Consider PPI in place of H2 regino - mother previously mentioned h/o GERD. Justicifation of Admission Dx: Justifications for Admission: Justification of Admission Dx: Yes Sepsis: End-Organ Dysfunction THOMAS DUBON Oct 27, 2019 11:10
--- NOTE | 2019-10-27 13:11 | NUR ---
SW following. Reviewed chart and discussed with RN. SW met with pt and pt's mother at length today. Pt working with Mis from [facility] to apply for Medicaid and pt's mom is working on the disability application for pt. Pt has medications on the $4 list at [facility] and family purchased a home 02 concentrator and a nebulizer. Pt's mom plans to pay the $20 to get pt a walker at discharge but declined the need for HH. Pt's mom stated pt continues to improve daily and will continue the exercises from PT/OT at this hospital at home. Pt will have 24 hour care from his mom, girlfriend and roommate on discharge. SW encouraged completion of DPOA for HC and left the form/offered to notarize. SW to continue following as needed.
[2019-10-27] MEDS ORDERED: PHYTONADIONE 10 MG/ML AMPUL. SQ ONE (14:00)
[2019-10-27 15:10] VITALS: BP 126/66
--- NOTE | 2019-10-27 17:37 | PDOC ---
F/U PHYSCH PROG NOTE Subjective: Gentleman is seen for routine follow-up. Progress is reviewed with nursing staff. No major emotional or behavioral breakdown reported. He is compliant by his mother who also relate his history. States, he is doing fine. Sleep is disturbed however he is relating his sleep disturbance due to environmental factors and lot of stimulation during the night. States, once he will be home hoping he will have good sleep. Denies suicidal or homicidal thoughts. Denies auditory or visual hallucinations. No evidence of breann or hypomania. Tolerating medications. Denies adverse drug reaction. Objective: 14 point review of system is otherwise negative except for stated above Vital Signs: Vital Signs Date Time Temp Pulse Resp B/P (MAP) Pulse Ox O2 Delivery O2 Flow Rate FiO2 10/27/19 15:53 Room Air 10/27/19 15:10 98.2 89 18 126/66 (86) 95 98.2 10/26/19 15:33 2.0 Labs: Laboratory Tests Test 10/27/19 04:15 White Blood Count 18.2 x10^3/uL (4.0-11.0) H Red Blood Count 3.92 x10^6/uL (4.30-5.70) L Hemoglobin 13.9 g/dL (13.0-17.5) Hematocrit 40.6 % (39.0-53.0) Mean Corpuscular Volume 104 fL (79-100) H Mean Corpuscular Hemoglobin 36 pg (25-35) H Mean Corpuscular Hemoglobin Concent 34 g/dL (31-37) Red Cell Distribution Width 16.3 % (11.5-14.5) H Platelet Count 136 x10^3/uL (140-400) L Neutrophils (%) (Auto) 82 % (31-73) H Lymphocytes (%) (Auto) 8 % (24-48) L Monocytes (%) (Auto) 8 % (0-9) Eosinophils (%) (Auto) 2 % (0-3) Basophils (%) (Auto) 0 % (0-3) Neutrophils # (Auto) 14.8 x10^3/uL (1.8-7.7) H Lymphocytes # (Auto) 1.5 x10^3/uL (1.0-4.8) Monocytes # (Auto) 1.5 x10^3/uL (0.0-1.1) H Eosinophils # (Auto) 0.4 x10^3/uL (0.0-0.7) Basophils # (Auto) 0.1 x10^3/uL (0.0-0.2) Prothrombin Time 31.4 SEC (11.7-14.0) H Prothrombin Time INR 3.0 (0.8-1.1) H Activated Partial Thromboplast Time 68 SEC (24-38) H Sodium Level 134 mmol/L (136-145) L Potassium Level 3.2 mmol/L (3.5-5.1) L Chloride Level 97 mmol/L (98-107) L Carbon Dioxide Level 31 mmol/L (21-32) Anion Gap 6 (6-14) Blood Urea Nitrogen 10 mg/dL (8-26) Creatinine 1.3 mg/dL (0.7-1.3) Estimated GFR (Cockcroft-Gault) 65.3 BUN/Creatinine Ratio 8 (6-20) Glucose Level 86 mg/dL (70-99) Calcium Level 7.8 mg/dL (8.5-10.1) L Total Bilirubin 21.9 mg/dL (0.2-1.0) H Aspartate Amino Transferase (AST) 117 U/L (15-37) H Alanine Aminotransferase (ALT) 33 U/L (16-63) Alkaline Phosphatase 178 U/L (46-116) H Total Protein 5.8 g/dL (6.4-8.2) L Albumin 1.4 g/dL (3.4-5.0) L Albumin/Globulin Ratio 0.3 (1.0-1.7) L Laboratory Tests 10/27/19 04:15 Laboratory Tests 10/27/19 04:15 Medications: Current Medications Medications (Trade) Dose Ordered Sig/Kelly Start Time Stop Time Status Last Admin Dose Admin Al Hydroxide/Mg Hydroxide (Mylanta Plus Xs) 30 ml PRN DAILY PRN 10/17/19 11:45 Albuterol Sulfate (Ventolin Neb Soln) 2.5 mg PRN Q4HRS PRN 10/18/19 00:45 Albuterol/ Ipratropium (Duoneb) 3 ml RTQID 10/25/19 12:00 10/27/19 15:51 3 ML Clonidine HCl (Catapres) 0.1 mg PRN Q1HR PRN 10/17/19 06:30 Diphenhydramine HCl (Benadryl) 25 mg PRN Q15MIN PRN 10/17/19 06:30 Docusate Sodium (Colace) 100 mg PRN BID PRN 10/17/19 11:45 Enoxaparin Sodium (Lovenox 40mg Syringe) 40 mg Q24H 10/17/19 12:00 10/18/19 10:49 DC 10/17/19 15:05 40 MG Famotidine (Pepcid) 20 mg QHS 10/23/19 21:00 10/26/19 20:40 20 MG Folic Acid (Folic Acid) 1 mg DAILY 10/20/19 09:00 10/27/19 08:18 1 MG Furosemide (Lasix) 40 mg DAILY 10/22/19 09:00 10/27/19 08:18 40 MG Gabapentin (Neurontin) 100 mg TID 10/21/19 21:00 10/27/19 08:18 100 MG Guaifenesin (Robitussin) 200 mg PRN Q4HRS PRN 10/17/19 11:45 Haloperidol Lactate (Haldol Inj) 5 mg PRN Q4HRS PRN 10/17/19 06:30 Info (CONTRAST GIVEN -- Rx MONITORING) 1 each PRN DAILY PRN 10/16/19 22:00 10/18/19 21:59 DC Iohexol (Omnipaque 300 Mg/ml) 75 ml 1X ONCE 10/16/19 21:45 10/16/19 21:46 DC 10/16/19 21:54 75 ML Iohexol (Omnipaque 350 Mg/ml) 90 ml 1X ONCE 10/24/19 20:30 10/24/19 20:31 DC 10/24/19 20:53 90 ML Lactobacillus Rhamnosus (Culturelle) 1 cap BID 10/17/19 21:00 10/27/19 08:18 1 CAP Lactulose (Lactulose) 20 gm BID 10/22/19 21:00 10/27/19 08:18 20 GM Levothyroxine Sodium (Synthroid) 88 mcg DAILY06 10/23/19 10:30 10/27/19 05:22 88 MCG Lorazepam (Ativan Inj) 4 mg PRN Q1HR PRN 10/17/19 06:30 Magnesium Sulfate 50 ml @ 25 mls/hr 1X ONCE 10/20/19 16:15 10/20/19 18:14 DC 10/20/19 18:22 25 MLS/HR Mirtazapine (Remeron) 15 mg QHS 10/19/19 21:00 10/26/19 20:40 15 MG Morphine Sulfate (Morphine Sulfate) 2 mg PRN Q2HR PRN 10/17/19 06:30 10/21/19 10:48 2 MG Multivitamins (Thera M Plus) 1 tab DAILY 10/20/19 09:00 10/27/19 08:18 1 TAB Multivitamins 10 ml/Thiamine HCl 100 mg/Folic Acid 1 mg/Sodium Chloride 1,011.2 ml @ 100 mls/ hr DAILY 10/17/19 09:00 10/19/19 10:57 DC 10/19/19 09:01 100 MLS/HR Ondansetron HCl (Zofran Odt) 4 mg PRN QID PRN 10/27/19 10:45 Ondansetron HCl (Zofran) 4 mg PRN Q6HRS PRN 10/18/19 17:15 10/27/19 09:05 4 MG Phytonadione (Mephyton Oral Soln) 5 mg DAILY08 10/25/19 08:00 10/27/19 08:17 5 MG Phytonadione (Vitamin K Ampule) 10 mg 1X ONCE 10/27/19 14:00 10/27/19 14:01 DC 10/27/19 17:10 10 MG Piperacillin Sod/ Tazobactam Sod 3.375 gm/Sodium Chloride 50 ml @ 100 mls/hr Q6HRS 10/17/19 06:00 10/20/19 09:10 DC 10/20/19 05:14 100 MLS/HR Piperacillin Sod/ Tazobactam Sod 4.5 gm/Sodium Chloride 100 ml @ 200 mls/hr 1X ONCE 10/17/19 00:45 10/17/19 01:14 DC 10/17/19 01:24 200 MLS/HR Potassium Bicarbonate (Potassium Effervescent Tablet) 40 meq Q4H 10/20/19 13:30 10/20/19 17:31 DC 10/20/19 17:30 40 MEQ Potassium Chloride/Water 100 ml @ 100 mls/hr Q1H 10/27/19 08:15 10/27/19 12:14 DC 10/27/19 11:58 100 MLS/HR Potassium Phosphate 13.6 mmol/Sodium Chloride 254.5333 ml @ 127.... Q2H 10/22/19 12:00 10/22/19 15:59 DC 10/22/19 18:38 127.267 MLS/HR Potassium Chloride (Klor-Con) 40 meq 1X ONCE 10/24/19 10:30 10/24/19 10:31 DC 10/24/19 13:55 40 MEQ Potassium Phos/ Sodium Phos (Phos-Nak) 1 pkt BID 10/20/19 21:00 10/21/19 09:01 DC 10/21/19 10:37 1 PKT Sodium Chloride 1,000 ml @ 100 mls/hr Q10H 10/17/19 11:38 10/19/19 10:50 DC 10/19/19 06:23 100 MLS/HR Sodium Chloride (Normal Saline Flush) 3 ml QSHIFT PRN 10/17/19 11:45 Thiamine Mononitrate (Vitamin B-1) 100 mg DAILY 10/20/19 09:00 10/27/19 08:19 100 MG Tramadol HCl (Ultram) 50 mg PRN Q6HRS PRN 10/21/19 22:00 10/27/19 05:22 50 MG Physical Exam: Mental Status Exam: Young gentleman appears as a stated age, fairly groomed, fairly nourished Cooperative and interactive appears tired Fully oriented Thought processes linear and mostly goal-directed Denies auditory or visual hallucinations No abnormal perception noted. Denies suicidal or homicidal thoughts. Mood is better Affect is euthymic Insight is fair Judgment is fair Attention span and concentration fair Recent and remote memory intact. Physical Exam: Refer to Physician's note. RESIDENT CARE PROVIDER: No focal deficit MSK: No EPS, TDK, or abnormal involuntary movements Diagnosis: 1. Alcohol use disorder, recurrent, severe 2. Major depressive disorder, recurrent, moderate 3. Generalized anxiety disorder 4. Rule out major depression/generalized anxiety due to substance use. Assessment: Young gentleman struggling with alcohol use disorder with medical complications. Additionally, struggling with psychiatric complications of alcohol including depression and anxiety. It is important at this point to select antidepressant which does not need too much adjustment in liver disease. Recommending to start Remeron which would help him with insomnia, depression, anxiety. Gabapentin to cut down alcohol craving and complicated withdrawals. He appears relatively better and in good mood. Slept relatively better than night before last. Overall feeling good. Mood is reportedly pretty good 10/26/2019: Reporting, he is feeling relatively better today. Medications are working. States, he needs something for panic attacks just in case if it comes. Will add Atarax as needed for panic attack. 10/27/2019: He is reporting sustained improvement in mood. No emotional or behavioral breakdown. States, he had an allergic reaction and used hydroxyzine that helped and anxiety. He is satisfied that he would not get in a prescription of hydroxyzine upon discharge for anxiety. Plan: Hydroxyzine 25 mg to abort panic attack as needed. Continue gabapentin to 300mg 3 times daily for alcohol craving and withdrawal prevention. Continue Remeron 15 mg nightly for depression, anxiety, and insomnia. Risk, benefits, alternatives of the treatment are discussed. He is in agreement with plan and expressed understanding. Adverse drug reaction of the medications prescribed were discussed in detail. He is accepting medications and consented verbally. Monitor for symptomatology, mood, and safety. Will adjust medications a ccordingl VANNESA JUNIOR MD Oct 27, 2019 17:37
[2019-10-27 19:00] VITALS: BP 131/82
[2019-10-27] MEDS: FAMOTIDINE 20 MG TABLET. PO SCH (19:46)
[2019-10-27] MEDS: MIRTAZAPINE 15 MG TABLET PO SCH (19:46)
[2019-10-27 23:00] VITALS: BP 107/61
[2019-10-28 03:00] VITALS: BP 107/60
[2019-10-28 07:00] VITALS: BP 125/67
[2019-10-28] MEDS: LEVOTHYROXINE 88 MCG TABLET PO SCH (07:05)
[2019-10-28 07:32] LABS: PROTHROMBIN TIME PATIENT 33.7 SEC (11.7-14.0)
[2019-10-28] MEDS: IPRATRPIUM/ALBUTEROL 0.5/2.5MG 3 ML NEBU. NEB SCH ×2 (07:32→11:37)
[2019-10-28 07:57] LABS: ALBUMIN 1.5 g/dL (3.4-5.0); ALBUMIN/GLOBULIN RATIO 0.3 (1.0-1.7); CREATININE 1.3 mg/dL (0.7-1.3); GFR 65.3; POTASSIUM 3.4 mmol/L (3.5-5.1); TOTAL PROTEIN 5.8 g/dL (6.4-8.2)
[2019-10-28] MEDS ORDERED: POTASSIUM CHLORIDE 20 MEQ TABLET.ER. PO ONE (08:15)
--- NOTE | 2019-10-28 08:16 | PDOC ---
[employer] PROGRESS NOTE Date of Service DOS: DATE: 10/28/19 TIME: 08:16 Chief Complaint Chief Complaint A/P: painless jaundice, acute liver failure, alcohol abuse, steato-hepatitis. apparent gallbladder wall thickening with debris within the lumen which could be from sludge or stones. // wall thickening is nonspecific in nature and could be related to primary gallbladder inflammation or reactive to adjacent hepatic disease.// gallbladder wall lesion is also not excluded. Leukocytosis lactic acidosis thc abuse thrombocytopenia severe protein-caloric malnutrition Depression metabolic encephalopathy hypothyroid state 38 min pt exam, chart review, > 50% of time spent with exam, chart review, pt care coordination History of Present Illness History of Present Illness Mr Galan is a 29yo M with history of heavy alcohol use, who presented with complaints of generalized aches, fatigue, decreased appetite, and yellowing of skin. He was taking ibuprofen for symptom control. He is found to have a high bilirubin of 15.1 and AST of 166. CT abdomen and pelvis suggestive of steatohepatitis and colitis. He had an elevated white blood cell count of 13,900. Admitted for further care with GI, ID, General surgery, cardiology, psychiatry consults 10/25: irritable, has been confused. Seen ambulating with Physical therapy. D/w significant other the severity of his disease. Bilirubin 21 today. 10/26: INR and bilirubin stable. Today denies any fever, chills or sweats. He denies any cough shortness of breath or chest pain. He did vomit this morning. No pain. Having multiple bowel movements. No further vomiting. He is feeling better still with scant pedal edema. INR stable at 3.3 bilirubin down below 20. He and his family really want to go home and he is on a [facility] and likely will go to [facility] in the next day or 2 after he discharges home. Vitals/I&O Vitals/I&O: Vital Signs Date Time Temp Pulse Resp B/P (MAP) Pulse Ox O2 Delivery O2 Flow Rate FiO2 10/28/19 07:33 93 Room Air 10/28/19 03:00 98.3 95 20 107/60 (76) 98.3 10/27/19 20:45 2.0 I & O 10/27/19 10/27/19 10/28/19 15:00 23:00 07:00 Intake Total 600 ml 600 ml 540 ml Output Total 600 ml Balance 600 ml 600 ml -60 ml Physical Exam Physical Exam: GENERAL: alert in NAD , SLEEPY gait unstable HEENT: Pupils equally round, reactive. Mild icterus. Oropharynx pink and moist. No lesions seen. NECK: Supple. LUNGS: Clear to auscultation. HEART: S1, S2 regular. ABDOMEN: Obese,distended, soft, nontender with bowel sounds present. EXTREMITIES: No gross edema or cyanosis. SKIN: Warm to touch without signs of rash. NEUROLOGIC: ALert, oriented. General: Alert, Cooperative, No acute distress, mild distress, Other (drowsy ) Heart: Regular rate (SR/ST), Normal S1 Lungs: Clear Abdomen: Soft, Other (ascites ) Extremities: No cyanosis, Other (trace bilateral LE edema ) Skin: Other (jaundiced ) Labs Labs: Laboratory Tests Test 10/28/19 03:17 Prothrombin Time 33.7 SEC (11.7-14.0) Prothromb Time International Ratio 3.3 (0.8-1.1) Sodium Level 134 mmol/L (136-145) Potassium Level 3.4 mmol/L (3.5-5.1) Chloride Level 96 mmol/L (98-107) Carbon Dioxide Level 29 mmol/L (21-32) Anion Gap 9 (6-14) Blood Urea Nitrogen 11 mg/dL (8-26) Creatinine 1.3 mg/dL (0.7-1.3) Estimated GFR (Cockcroft-Gault) 65.3 BUN/Creatinine Ratio 8 (6-20) Glucose Level 51 mg/dL (70-99) Calcium Level 8.0 mg/dL (8.5-10.1) Total Bilirubin 20.0 mg/dL (0.2-1.0) Aspartate Amino Transf (AST/SGOT) 113 U/L (15-37) Alanine Aminotransferase (ALT/SGPT) 37 U/L (16-63) Alkaline Phosphatase 170 U/L (46-116) Total Protein 5.8 g/dL (6.4-8.2) Albumin 1.5 g/dL (3.4-5.0) Albumin/Globulin Ratio 0.3 (1.0-1.7) Assessment and Plan Assessmemt and Plan Problems Medical Problems: (1) Acute colitis Status: Acute (2) Dehydration Status: Acute (3) Painless jaundice Status: Acute (4) Sepsis Status: Acute Comment Review of Relevant I have reviewed the following items larry (where applicable) has been applied. Medications: Current Medications Medications (Trade) Dose Ordered Sig/Kelly Route PRN Reason Start Time Stop Time Status Last Admin Dose Admin Phytonadione (Vitamin K Ampule) 10 mg 1X ONCE SQ 10/27/19 14:00 10/27/19 14:01 DC 10/27/19 17:10 Justicifation of Admission Dx: Justifications for Admission: Justification of Admission Dx: Yes Sepsis: End-Organ Dysfunction MAYUR HUERTA MD Oct 28, 2019 08:16
[2019-10-28] MEDS: FUROSEMIDE 40 MG TABLET. PO SCH (08:37)
[2019-10-28] MEDS: FOLIC ACID 1 MG TABLET. PO SCH (08:37)
[2019-10-28] MEDS: traMADol 50 MG TABLET PO PRN ×2 (08:37→14:24)
[2019-10-28] MEDS: LACTOBACILLUS RHAMNOSUS GG 1 CAPSULE. PO SCH (08:37)
[2019-10-28] MEDS: THIAMINE 100 MG TABLET. PO SCH (08:37)
[2019-10-28] MEDS: GABAPENTIN 100 MG CAPSULE. PO SCH ×2 (08:37→14:23)
[2019-10-28] MEDS: LACTULOSE 20 GM/30 ML SOLUTION. PO SCH (08:37)
[2019-10-28] MEDS: PHYTONADIONE 10 MG/ML ORAL SOLUTION. PO SCH (08:37)
[2019-10-28] MEDS: MULTIVITAMIN with MINERAL TABLET. PO SCH (08:38)
[2019-10-28] MEDS: POTASSIUM CHLORIDE 10MEQ 100 ML IV SCH ×2 (09:24→10:19)
--- NOTE | 2019-10-28 10:03 | PDOC ---
PROGRESS NOTES Assessment Problems Medical Problems: (1) Acute colitis Status: Acute (2) Dehydration Status: Acute (3) Painless jaundice Status: Acute (4) Sepsis Status: Acute Alcoholic neuropathy Metabolic encephalopathy, he is quite clear now, rule out medication effects, most likely just related to his liver dysfunction. History of single seizure remotely Elevated TSH, normal T4, compensated euthyroid, asked nurse to have IM address Plan Thyroid treatment per IM I understand he is not going for inpatient substance abuse treatment, but going home No need for additional neurological studies such as EEG. Follow-up with neurology as needed Subjective Denies complaints Objective Vital Signs Date Time Temp Pulse Resp B/P (MAP) Pulse Ox O2 Delivery O2 Flow Rate FiO2 10/28/19 09:43 Room Air 10/28/19 07:33 93 10/28/19 07:00 98.1 91 18 125/67 (86) 2.0 98.1 Intake and Output 10/28/19 07:00 Intake Total 1740 ml Output Total 600 ml Balance 1140 ml Intake Oral 1740 ml Output Urine Total 600 ml # Voids 5 PHYSICAL EXAM Jaundiced Alert. Oriented to time, place and person. PERRL. EOMI. CN: no focal findings. Muscle tone: normal. Muscle strength: 5/5 DTR: 2+ Plantar reflex: flexor Gait: normal. Sensory exam: no abnormal findings. No cerebellar signs elicited. Review of Relevant I have reviewed the following items larry (where applicable) has been applied. Labs Laboratory Tests Test 10/27/19 04:15 10/28/19 03:17 White Blood Count 18.2 x10^3/uL (4.0-11.0) Red Blood Count 3.92 x10^6/uL (4.30-5.70) Hemoglobin 13.9 g/dL (13.0-17.5) Hematocrit 40.6 % (39.0-53.0) Mean Corpuscular Volume 104 fL (79-100) Mean Corpuscular Hemoglobin 36 pg (25-35) Mean Corpuscular Hemoglobin Concent 34 g/dL (31-37) Red Cell Distribution Width 16.3 % (11.5-14.5) Platelet Count 136 x10^3/uL (140-400) Neutrophils (%) (Auto) 82 % (31-73) Lymphocytes (%) (Auto) 8 % (24-48) Monocytes (%) (Auto) 8 % (0-9) Eosinophils (%) (Auto) 2 % (0-3) Basophils (%) (Auto) 0 % (0-3) Neutrophils # (Auto) 14.8 x10^3/uL (1.8-7.7) Lymphocytes # (Auto) 1.5 x10^3/uL (1.0-4.8) Monocytes # (Auto) 1.5 x10^3/uL (0.0-1.1) Eosinophils # (Auto) 0.4 x10^3/uL (0.0-0.7) Basophils # (Auto) 0.1 x10^3/uL (0.0-0.2) Prothrombin Time 31.4 SEC (11.7-14.0) 33.7 SEC (11.7-14.0) Prothromb Time International Ratio 3.0 (0.8-1.1) 3.3 (0.8-1.1) Activated Partial Thromboplast Time 68 SEC (24-38) Sodium Level 134 mmol/L (136-145) 134 mmol/L (136-145) Potassium Level 3.2 mmol/L (3.5-5.1) 3.4 mmol/L (3.5-5.1) Chloride Level 97 mmol/L (98-107) 96 mmol/L (98-107) Carbon Dioxide Level 31 mmol/L (21-32) 29 mmol/L (21-32) Anion Gap 6 (6-14) 9 (6-14) Blood Urea Nitrogen 10 mg/dL (8-26) 11 mg/dL (8-26) Creatinine 1.3 mg/dL (0.7-1.3) 1.3 mg/dL (0.7-1.3) Estimated GFR (Cockcroft-Gault) 65.3 65.3 BUN/Creatinine Ratio 8 (6-20) 8 (6-20) Glucose Level 86 mg/dL (70-99) 51 mg/dL (70-99) Calcium Level 7.8 mg/dL (8.5-10.1) 8.0 mg/dL (8.5-10.1) Total Bilirubin 21.9 mg/dL (0.2-1.0) 20.0 mg/dL (0.2-1.0) Aspartate Amino Transf (AST/SGOT) 117 U/L (15-37) 113 U/L (15-37) Alanine Aminotransferase (ALT/SGPT) 33 U/L (16-63) 37 U/L (16-63) Alkaline Phosphatase 178 U/L (46-116) 170 U/L (46-116) Total Protein 5.8 g/dL (6.4-8.2) 5.8 g/dL (6.4-8.2) Albumin 1.4 g/dL (3.4-5.0) 1.5 g/dL (3.4-5.0) Albumin/Globulin Ratio 0.3 (1.0-1.7) 0.3 (1.0-1.7) Laboratory Tests Test 10/28/19 03:17 Prothrombin Time 33.7 SEC (11.7-14.0) Prothromb Time International Ratio 3.3 (0.8-1.1) Sodium Level 134 mmol/L (136-145) Potassium Level 3.4 mmol/L (3.5-5.1) Chloride Level 96 mmol/L (98-107) Carbon Dioxide Level 29 mmol/L (21-32) Anion Gap 9 (6-14) Blood Urea Nitrogen 11 mg/dL (8-26) Creatinine 1.3 mg/dL (0.7-1.3) Estimated GFR (Cockcroft-Gault) 65.3 BUN/Creatinine Ratio 8 (6-20) Glucose Level 51 mg/dL (70-99) Calcium Level 8.0 mg/dL (8.5-10.1) Total Bilirubin 20.0 mg/dL (0.2-1.0) Aspartate Amino Transf (AST/SGOT) 113 U/L (15-37) Alanine Aminotransferase (ALT/SGPT) 37 U/L (16-63) Alkaline Phosphatase 170 U/L (46-116) Total Protein 5.8 g/dL (6.4-8.2) Albumin 1.5 g/dL (3.4-5.0) Albumin/Globulin Ratio 0.3 (1.0-1.7) Microbiology 10/17/19 Blood Culture - Final, Complete NO GROWTH AFTER 5 DAYS 10/16/19 Urine Culture - Final, Complete Medications Current Medications Sodium Chloride 1,000 ml @ 1,000 mls/hr 1X ONCE IV Last administered on 10/16/19at 21:19; Start 10/16/19 at 21:15; Stop 10/16/19 at 22:14; Status DC Ondansetron HCl (Zofran) 4 mg 1X ONCE IVP Last administered on 10/16/19at 21:19; Start 10/16/19 at 21:15; Stop 10/16/19 at 21:16; Status DC Famotidine (Pepcid) 20 mg 1X ONCE PO Last administered on 10/16/19at 21:20; Start 10/16/19 at 21:15; Stop 10/16/19 at 21:16; Status DC Iohexol (Omnipaque 300 Mg/ml) 75 ml 1X ONCE IV Last administered on 10/16/19at 21:54; Start 10/16/19 at 21:45; Stop 10/16/19 at 21:46; Status DC Info (CONTRAST GIVEN -- Rx MONITORING) 1 each PRN DAILY PRN MC SEE COMMENTS; Start 10/16/19 at 22:00; Stop 10/18/19 at 21:59; Status DC Piperacillin Sod/ Tazobactam Sod 4.5 gm/Sodium Chloride 100 ml @ 200 mls/hr 1X ONCE IV Last administered on 10/17/19at 01:24; Start 10/17/19 at 00:45; Stop 10/17/19 at 01:14; Status DC Sodium Chloride 1,000 ml @ 2,460 mls/hr Q25M IV Last administered on 10/17/19at 01:56; Start 10/17/19 at 00:30; Stop 10/17/19 at 01:30; Status DC Sodium Chloride 1,000 ml @ 75 mls/hr [id number] IV Last administered on 10/17/19at 03:49; Start 10/17/19 at 02:15; Stop 10/17/19 at 15:57; Status DC Piperacillin Sod/ Tazobactam Sod 3.375 gm/Sodium Chloride 50 ml @ 100 mls/hr Q6HRS IV Last administered on 10/20/19at 05:14; Start 10/17/19 at 06:00; Stop 10/20/19 at 09:10; Status DC Morphine Sulfate (Morphine Sulfate) 2 mg PRN Q2HR PRN IV PAIN Last administered on 10/21/19at 10:48; Start 10/17/19 at 06:30 Lorazepam (Ativan Inj) 2 mg PRN Q1HR PRN IV For CIWA 8-14 Last administered on 10/24/19at 22:28; Start 10/17/19 at 06:30 Lorazepam (Ativan Inj) 4 mg PRN Q1HR PRN IV For CIWA 15 or greater; Start 10/17/19 at 06:30 Haloperidol Lactate (Haldol Inj) 5 mg PRN Q4HRS PRN IVP Hallucinatns,Confusn,Delirium; Start 10/17/19 at 06:30 Diphenhydramine HCl (Benadryl) 25 mg PRN Q15MIN PRN IVP EPS symptoms 2'Haldol admin; Start 10/17/19 at 06:30 Clonidine HCl (Catapres) 0.1 mg PRN Q1HR PRN PO SBP > 180 or DBP > 100, MRX3; Start 10/17/19 at 06:30 Multivitamins 10 ml/Thiamine HCl 100 mg/Folic Acid 1 mg/Sodium Chloride 1,011.2 ml @ 100 mls/ hr DAILY IV Last administered on 10/19/19at 09:01; Start 10/17/19 at 09:00; Stop 10/19/19 at 10:57; Status DC Sodium Chloride (Normal Saline Flush) 3 ml QSHIFT PRN IV AFTER MEDS AND BLOOD DRAWS; Start 10/17/19 at 11:45 Sodium Chloride 1,000 ml @ 100 mls/hr Q10H IV Last administered on 10/19/19at 06:23; Start 10/17/19 at 11:38; Stop 10/19/19 at 10:50; Status DC Al Hydroxide/Mg Hydroxide (Mylanta Plus Xs) 30 ml PRN DAILY PRN PO HEARTBURN / GAS Last administered on 10/27/19at 21:21; Start 10/17/19 at 11:45 Docusate Sodium (Colace) 100 mg PRN BID PRN PO HARD STOOLS; Start 10/17/19 at 11:45 Albuterol/ Ipratropium (Duoneb) 3 ml Q4HRS NEB Last administered on 10/18/19at 00:23; Start 10/17/19 at 12:00; Stop 10/18/19 at 00:38; Status DC Guaifenesin (Robitussin) 200 mg PRN Q4HRS PRN PO COUGH; Start 10/17/19 at 11:45 Enoxaparin Sodium (Lovenox 40mg Syringe) 40 mg Q24H SQ Last administered on 10/17/19at 15:05; Start 10/17/19 at 12:00; Stop 10/18/19 at 10:49; Status DC Lactobacillus Rhamnosus (Culturelle) 1 cap BID PO Last administered on 10/28/19at 08:37; Start 10/17/19 at 21:00 Albuterol Sulfate (Ventolin Neb Soln) 2.5 mg PRN Q4HRS PRN NEB SHORTNESS OF RAMSES ATH; Start 10/18/19 at 00:45 Ondansetron HCl (Zofran) 4 mg PRN Q6HRS PRN IVP NAUSEA/VOMITING Last administered on 10/27/19at 09:05; Start 10/18/19 at 17:15 Furosemide (Lasix) 40 mg BID92 IVP Last administered on 10/21/19at 14:12; Start 10/19/19 at 11:00; Stop 10/22/19 at 08:06; Status DC Folic Acid (Folic Acid) 1 mg DAILY PO Last administered on 10/28/19at 08:37; Start 10/20/19 at 09:00 Thiamine Mononitrate (Vitamin B-1) 100 mg DAILY PO Last administered on 10/28/19at 08:37; Start 10/20/19 at 09:00 Potassium Bicarbonate (Potassium Effervescent Tablet) 40 meq 1X ONCE FT ; Start 10/19/19 at 11:30; Stop 10/19/19 at 11:31; Status DC Magnesium Sulfate 50 ml @ 25 mls/hr Q24H IV Last administered on 10/20/19at 12:45; Start 10/19/19 at 12:00; Stop 10/21/19 at 13:59; Status DC Potassium Phos/ Sodium Phos (Phos-Nak) 1 pkt PRN BID PRN PO COMMENTS Last administered on 10/23/19at 10:33; Start 10/19/19 at 21:00 Potassium Bicarbonate (Potassium Effervescent Tablet) 40 meq Q4H PO ; Start 10/19/19 at 11:00; Stop 10/19/19 at 12:55; Status DC Multivitamins (Thera M Plus) 1 tab DAILY PO Last administered on 10/28/19at 08:38; Start 10/20/19 at 09:00 Potassium Bicarbonate (Potassium Effervescent Tablet) 40 meq PRN Q4HRS PRN PO COMMENTS Last administered on 10/26/19 08:42; Start 10/19/19 at 13:00 Lactulose (Lactulose) 20 gm DAILY08 PO Last administered on 10/22/19at 08:36; Start 10/19/19 at 14:15; Stop 10/22/19 at 12:31; Status DC Mirtazapine (Remeron) 15 mg QHS PO Last administered on 10/27/19at 19:46; Start 10/19/19 at 21:00 Potassium Bicarbonate (Potassium Effervescent Tablet) 40 meq 1X ONCE FT Last administered on 10/20/19at 15:22; Start 10/20/19 at 13:30; Stop 10/20/19 at 13:31; Status DC Magnesium Sulfate 50 ml @ 25 mls/hr Q24H IV Last administered on 10/22/19at 16:22; Start 10/20/19 at 13:30; Stop 10/22/19 at 15:29; Status DC Potassium Phos/ Sodium Phos (Phos-Nak) 1 pkt BID PO Last administered on 10/21/19at 10:37; Start 10/20/19 at 21:00; Stop 10/21/19 at 09:01; Status DC Potassium Bicarbonate (Potassium Effervescent Tablet) 40 meq Q4H PO Last administered on 10/20/19at 17:30; Start 10/20/19 at 13:30; Stop 10/20/19 at 17:31; Status DC Magnesium Sulfate 50 ml @ 25 mls/hr 1X ONCE IV Last administered on 10/20/19at 18:22; Start 10/20/19 at 16:15; Stop 10/20/19 at 18:14; Status DC Gabapentin (Neurontin) 100 mg TID PO Last administered on 10/28/19at 08:37; Start 10/21/19 at 21:00 Tramadol HCl (Ultram) 50 mg PRN Q6HRS PRN PO MODERATE PAIN 4-6 Last administered on 10/28/19 08:37; Start 10/21/19 at 22:00 Furosemide (Lasix) 40 mg DAILY PO Last administered on 10/28/19at 08:37; Start 10/22/19 at 09:00 Potassium Chloride (Klor-Con) 40 meq 1X ONCE PO Last administered on 10/22/19at 08:35; Start 10/22/19 at 08:30; Stop 10/22/19 at 08:31; Status DC Potassium Phosphate 13.6 mmol/Sodium Chloride 254.5333 ml @ 127.... Q2H IV Last administered on 10/22/19at 18:38; Start 10/22/19 at 12:00; Stop 10/22/19 at 15:59; Status DC Lactulose (Lactulose) 20 gm BID PO Last administered on 10/28/19at 08:37; Start 10/22/19 at 21:00 Levothyroxine Sodium (Synthroid) 88 mcg DAILY06 PO Last administered on 10/28/19at 07:05; Start 10/23/19 at 10:30 Potassium Chloride (Klor-Con) 40 meq 1X ONCE PO Last administered on 10/23/19at 12:42; Start 10/23/19 at 10:45; Stop 10/23/19 at 10:47; Status DC Famotidine (Pepcid) 20 mg QHS PO Last administered on 10/27/19at 19:46; Start 10/23/19 at 21:00 Potassium Chloride (Klor-Con) 40 meq 1X ONCE PO Last administered on 10/24/19at 13:55; Start 10/24/19 at 10:30; Stop 10/24/19 at 10:31; Status DC Phytonadione (Vitamin K Ampule) 5 mg 1X ONCE SQ Last administered on 10/24/19at 13:56; Start 10/24/19 at 13:30; Stop 10/24/19 at 13:31; Status DC Phytonadione (Mephyton Oral Soln) 5 mg DAILY08 PO Last administered on 10/28/19at 08:37; Start 10/25/19 at 08:00 Iohexol (Omnipaque 350 Mg/ml) 90 ml 1X ONCE IV Last administered on 10/24/19at 20:53; Start 10/24/19 at 20:30; Stop 10/24/19 at 20:31; Status DC Albuterol/ Ipratropium (Duoneb) 3 ml RTQID NEB Last administered on 10/28/19at 07:32; Start 10/25/19 at 12:00 Potassium Chloride/Water 100 ml @ 100 mls/hr Q1H IV Last administered on 10/26/19at 20:19; Start 10/26/19 at 10:00; Stop 10/26/19 at 13:59; Status DC Potassium Chloride/Water 100 ml @ 100 mls/hr Q1H IV Last administered on 10/27/19at 21:16; Start 10/27/19 at 08:15; Stop 10/27/19 at 12:14; Status DC Ondansetron HCl (Zofran Odt) 4 mg PRN QID PRN PO NAUSEA/VOMITING; Start 10/27/19 at 10:45 Phytonadione (Vitamin K Ampule) 10 mg 1X ONCE SQ Last administered on 10/27/19at 17:10; Start 10/27/19 at 14:00; Stop 10/27/19 at 14:01; Status DC Potassium Chloride/Water 100 ml @ 100 mls/hr Q1H IV Last administered on 10/28/19at 09:24; Start 10/28/19 at 09:00; Stop 10/28/19 at 10:59 Potassium Chloride (Klor-Con) 40 meq 1X ONCE PO Last administered on 10/28/19at 08:37; Start 10/28/19 at 08:15; Stop 10/28/19 at 08:20; Status DC Active Scripts Active Reported [inhaler] PRN [lisinopril +] DAILY Vitals/I & O Vital Sign - Last 24 Hours 10/27/19 10/27/19 10/27/19 10/27/19 11:04 11:45 15:10 15:53 Temp 98.0 98.2 98.0 98.2 Pulse 102 89 Resp 18 18 B/P (MAP) 112/57 (75) 126/66 (86) Pulse Ox 92 95 O2 Delivery Nasal Cannula Room Air Nasal Cannula Room Air 10/27/19 10/27/19 10/27/19 10/27/19 19:00 19:45 20:00 20:01 Temp 98.0 98.0 Pulse 98 Resp 18 B/P (MAP) 131/82 (98) Pulse Ox 95 95 99 O2 Delivery Room Air Room Air Room Air Room Air 10/27/19 10/27/19 10/28/19 10/28/19 20:45 23:00 03:00 07:00 Temp 98.1 98.3 98.1 98.1 98.3 98.1 Pulse 108 95 91 Resp 18 B/P (MAP) 107/61 (76) 107/60 (76) 125/67 (86) Pulse Ox 99 92 91 95 O2 Delivery Room Air Room Air Room Air Nasal Cannula O2 Flow Rate 2.0 2.0 10/28/19 10/28/19 10/28/19 07:33 08:37 09:43 Pulse Ox 93 O2 Delivery Room Air Room Air Room Air Intake and Output 10/27/19 10/27/19 10/28/19 15:00 23:00 07:00 Intake Total 600 ml 600 ml 540 ml Output Total 600 ml Balance 600 ml 600 ml -60 ml Justicifation of Admission Dx: Justifications for Admission: Justification of Admission Dx: Yes Sepsis: End-Organ Dysfunction ANITHA GRANADOS MD Oct 28, 2019 10:03
--- NOTE | 2019-10-28 10:34 | PDOC ---
Date of Service: DATE: 10/28/19 TIME: 10:31 Subjective: Subjective: Some back pain, not feeling great. No recurrent vomiting. Discharging today? Objective: Vital Signs: Vital Signs Date Time Temp Pulse Resp B/P (MAP) Pulse Ox O2 Delivery O2 Flow Rate FiO2 10/28/19 09:43 Room Air 10/28/19 07:33 93 10/28/19 07:00 98.1 91 18 125/67 (86) 2.0 98.1 Labs: Laboratory Tests Test 10/28/19 03:17 Prothrombin Time 33.7 SEC Prothromb Time International Ratio 3.3 Sodium Level 134 mmol/L Potassium Level 3.4 mmol/L Chloride Level 96 mmol/L Carbon Dioxide Level 29 mmol/L Anion Gap 9 Blood Urea Nitrogen 11 mg/dL Creatinine 1.3 mg/dL Estimated GFR (Cockcroft-Gault) 65.3 BUN/Creatinine Ratio 8 Glucose Level 51 mg/dL Calcium Level 8.0 mg/dL Total Bilirubin 20.0 mg/dL Aspartate Amino Transf (AST/SGOT) 113 U/L Alanine Aminotransferase (ALT/SGPT) 37 U/L Alkaline Phosphatase 170 U/L Total Protein 5.8 g/dL Albumin 1.5 g/dL Albumin/Globulin Ratio 0.3 PE: GEN: NAD - more awake today - sitting on edge of bed ABD: stable distention NEURO/PSYCH: A & O 3 A/P: Alcoholic hepatitis, coagulopathy (INR 3.3 today), fatty liver -- Dc per primary, have discussed abstinence many times. Can back off on lactulose if needed - ammonia was never impressive. Justicifation of Admission Dx: Justifications for Admission: Justification of Admission Dx: Yes Sepsis: End-Organ Dysfunction THOMAS DUBON Oct 28, 2019 10:34
[2019-10-28 11:00] VITALS: BP 119/60
--- NOTE | 2019-10-28 11:50 | NUR ---
SW following. Reviewed chart and discussed with RN. SANTA for pt's mom to see about completion of POA for HC. Pt to pay for $20 walker prior to discharge per RN. Pt potential discharge today pending potassium levels. No further SW needs at this time. Addendum: 10/28/19 at 1622 by JUDIE CEJA Pt to discharge today. Discharge orders for home self-care. Pt and pt's mom declined completion of POA for HC and $20 walker at discharge.
[2019-10-28] MEDS ORDERED: FURO40TA4 PO (13:47)
[2019-10-28] MEDS ORDERED: ONDA4TAB12 PO (13:47)
[2019-10-28] MEDS ORDERED: POTA20TA40 PO (13:47)
[2019-10-28] MEDS ORDERED: FAMO20TA5 PO (13:47)
[2019-10-28] MEDS ORDERED: TRAM50TA PO (13:47)
[2019-10-28] MEDS ORDERED: LEVO88TA4 PO (13:47)
[2019-10-28] MEDS ORDERED: GABA-585 PO (13:47)
[2019-10-28] MEDS ORDERED: LACT20SO PO (13:47)
[2019-10-28] MEDS ORDERED: MIRT15TA3 PO (14:55)
--- NOTE | 2019-10-28 15:02 | PDOC3 ---
Discharge Summary Visit Information Date of Admission: Oct 17, 2019 Date of Discharge: Oct 28, 2019 Admitting Diagnosis: Acute alcoholic hepatitis Final Diagnosis Problems Medical Problems: (1) Acute colitis Status: Acute (2) Dehydration Status: Acute (3) Painless jaundice Status: Acute (4) Sepsis Status: Acute Brief Hospital Course Allergies Allergies Coded Allergies Type Severity Reaction Last Updated Verified No Known Drug Allergies 11/30/15 No Vital Signs Vital Signs Date Time Temp Pulse Resp B/P (MAP) Pulse Ox O2 Delivery O2 Flow Rate FiO2 10/28/19 14:24 Room Air 10/28/19 11:00 97.5 95 18 119/60 (79) 94 97.5 10/28/19 07:00 2.0 Lab Results Laboratory Tests Test 10/27/19 04:15 10/28/19 03:17 White Blood Count 18.2 x10^3/uL (4.0-11.0) Red Blood Count 3.92 x10^6/uL (4.30-5.70) Hemoglobin 13.9 g/dL (13.0-17.5) Hematocrit 40.6 % (39.0-53.0) Mean Corpuscular Volume 104 fL (79-100) Mean Corpuscular Hemoglobin 36 pg (25-35) Mean Corpuscular Hemoglobin Concent 34 g/dL (31-37) Red Cell Distribution Width 16.3 % (11.5-14.5) Platelet Count 136 x10^3/uL (140-400) Neutrophils (%) (Auto) 82 % (31-73) Lymphocytes (%) (Auto) 8 % (24-48) Monocytes (%) (Auto) 8 % (0-9) Eosinophils (%) (Auto) 2 % (0-3) Basophils (%) (Auto) 0 % (0-3) Neutrophils # (Auto) 14.8 x10^3/uL (1.8-7.7) Lymphocytes # (Auto) 1.5 x10^3/uL (1.0-4.8) Monocytes # (Auto) 1.5 x10^3/uL (0.0-1.1) Eosinophils # (Auto) 0.4 x10^3/uL (0.0-0.7) Basophils # (Auto) 0.1 x10^3/uL (0.0-0.2) Prothrombin Time 31.4 SEC (11.7-14.0) 33.7 SEC (11.7-14.0) Prothromb Time International Ratio 3.0 (0.8-1.1) 3.3 (0.8-1.1) Activated Partial Thromboplast Time 68 SEC (24-38) Sodium Level 134 mmol/L (136-145) 134 mmol/L (136-145) Potassium Level 3.2 mmol/L (3.5-5.1) 3.4 mmol/L (3.5-5.1) Chloride Level 97 mmol/L (98-107) 96 mmol/L (98-107) Carbon Dioxide Level 31 mmol/L (21-32) 29 mmol/L (21-32) Anion Gap 6 (6-14) 9 (6-14) Blood Urea Nitrogen 10 mg/dL (8-26) 11 mg/dL (8-26) Creatinine 1.3 mg/dL (0.7-1.3) 1.3 mg/dL (0.7-1.3) Estimated GFR (Cockcroft-Gault) 65.3 65.3 BUN/Creatinine Ratio 8 (6-20) 8 (6-20) Glucose Level 86 mg/dL (70-99) 51 mg/dL (70-99) Calcium Level 7.8 mg/dL (8.5-10.1) 8.0 mg/dL (8.5-10.1) Total Bilirubin 21.9 mg/dL (0.2-1.0) 20.0 mg/dL (0.2-1.0) Aspartate Amino Transf (AST/SGOT) 117 U/L (15-37) 113 U/L (15-37) Alanine Aminotransferase (ALT/SGPT) 33 U/L (16-63) 37 U/L (16-63) Alkaline Phosphatase 178 U/L (46-116) 170 U/L (46-116) Total Protein 5.8 g/dL (6.4-8.2) 5.8 g/dL (6.4-8.2) Albumin 1.4 g/dL (3.4-5.0) 1.5 g/dL (3.4-5.0) Albumin/Globulin Ratio 0.3 (1.0-1.7) 0.3 (1.0-1.7) Laboratory Tests Test 10/28/19 03:17 Prothrombin Time 33.7 SEC (11.7-14.0) Prothromb Time International Ratio 3.3 (0.8-1.1) Sodium Level 134 mmol/L (136-145) Potassium Level 3.4 mmol/L (3.5-5.1) Chloride Level 96 mmol/L (98-107) Carbon Dioxide Level 29 mmol/L (21-32) Anion Gap 9 (6-14) Blood Urea Nitrogen 11 mg/dL (8-26) Creatinine 1.3 mg/dL (0.7-1.3) Estimated GFR (Cockcroft-Gault) 65.3 BUN/Creatinine Ratio 8 (6-20) Glucose Level 51 mg/dL (70-99) Calcium Level 8.0 mg/dL (8.5-10.1) Total Bilirubin 20.0 mg/dL (0.2-1.0) Aspartate Amino Transf (AST/SGOT) 113 U/L (15-37) Alanine Aminotransferase (ALT/SGPT) 37 U/L (16-63) Alkaline Phosphatase 170 U/L (46-116) Total Protein 5.8 g/dL (6.4-8.2) Albumin 1.5 g/dL (3.4-5.0) Albumin/Globulin Ratio 0.3 (1.0-1.7) Brief Hospital Course Mr Galan is a 29yo M with history of heavy alcohol use, who presented with complaints of generalized aches, fatigue, decreased appetite, and yellowing of skin. He was taking ibuprofen for symptom control. He was found to have a high bilirubin of 15.1 and AST of 166. CT abdomen and pelvis suggestive of steatohepatitis and colitis. He had an elevated white blood cell count of 13,900. Ultimately he was found to have alcoholic hepatitis and fatty liver disease. Psychiatry has diagnosed generalized anxiety disorder and depression. Pulmonology found likely sleep apnea/hypopnea. Patient does have a history of a seizure in his teens. He has been drinking at least a pint of vodka a day for up to several years. Consults: GI, ID, General surgery, cardiology, psychiatry consults 10/25: irritable, has been confused. Seen ambulating with Physical therapy. D/w significant other the severity of his disease. Bilirubin 21 today. 10/26: INR and bilirubin stable. Today denies any fever, chills or sweats. He denies any cough shortness of breath or chest pain. He did vomit this morning. No pain. Having multiple bowel movements. No further vomiting. He is feeling better still with scant pedal edema. INR stable at 3.3 bilirubin down below 20. He and his family really want to go home and he is on a waiting list for [facility] for alcohol use disorder and likely will go to [facility] in the next day or 2 after he discharges home. Problem list: painless jaundice, acute liver failure, alcohol abuse, steato-hepatitis. apparent gallbladder wall thickening with debris within the lumen which could be from sludge or stones. // wall thickening is nonspecific in nature and could be related to primary gallbladder inflammation or reactive to adjacent hepatic disease.// gallbladder wall lesion is also not excluded. Leukocytosis lactic acidosis thc abuse thrombocytopenia severe protein-caloric malnutrition Depression metabolic encephalopathy hypothyroid state 38 min pt exam, chart review, > 50% of time spent with exam, chart review, pt care coordination Discharge Information Condition at Discharge: Improved Follow Up: Weeks (1) Disposition/Orders: D/C to Home Scheduled Famotidine (Famotidine) 20 Mg Tablet, 20 MG PO QHS for GERD for 90 Days, #90 Ref 3 Prescribed by: MAYUR HUERTA MD on 10/28/19 1347 Furosemide (Furosemide) 40 Mg Tablet, 40 MG PO DAILY for Ascites for 90 Days, #90 Prescribed by: MAYUR HUERTA MD on 10/28/19 1347 Gabapentin (Gabapentin ) 100 Mg Capsule, 100 MG PO TID for Alcohol Abuse for 90 Days, #270 Ref 2 Prescribed by: MAYUR HUERTA MD on 10/28/19 1347 Lactulose (Lactulose) 20 Gm/30 Ml Solution, 20 GM PO BID for Liver disease for 30 Days, #1200 Ref 2 Prescribed by: MAYUR HUERTA MD on 10/28/19 1347 Levothyroxine Sodium (Levothyroxine Sodium) 88 Mcg Tablet, 88 MCG PO DAILY06 for Hypothyroidism for 90 Days, #90 Ref 3 Prescribed by: MAYUR HUERTA MD on 10/28/19 1347 Mirtazapine (Mirtazapine) 15 Mg Tablet, 15 MG PO QHS for Depression for 90 Days, #90 Ref 2 Prescribed by: MAYUR HUERTA MD on 10/28/19 1455 [lisinopril +] , DAILY for HTN, (Reported) Entered as Reported by: QUIANA DE SANTIAGO on 10/17/19436 Last Action: New Order on 10/17/19436 by QUIANA DE SANTIAGO Scheduled PRN Ondansetron (Ondansetron Odt) 4 Mg Tab.rapdis, 4 MG PO PRN QID PRN for NAUSEA/VOMITING for 90 Days, #270 Ref 3 Prescribed by: MAYUR HUERTA MD on 10/28/19 1347 Potassium Bicarbonate/Cit Ac (Effer-K 20 Meq Tablet Eff) 20 Meq Tablet.eff, 40 MEQ PO DAILY PRN for hypokalemia for 90 Days, #180 Prescribed by: MAYUR HUERTA MD on 10/28/19 1347 Tramadol Hcl (Tramadol Hcl) 50 Mg Tablet, 50 MG PO PRN Q6HRS PRN for MODERATE PAIN 4-6 for 6 Days, #24 Ref 0 Prescribed by: MAYUR HUERTA MD on 10/28/19 1347 [inhaler] , for SHORTNESS OF BREATH, (Reported) Entered as Reported by: QUIANA DE SANTIAGO on 10/17/19436 Last Action: New Order on 10/17/19436 by QUIANA DE SANTIAGO Justicifation of Admission Dx: Justifications for Admission: Justification of Admission Dx: Yes Sepsis: End-Organ Dysfunction MAYUR HUERTA MD Oct 28, 2019 15:02
--- NOTE | 2019-10-28 16:23 | NUR ---
Discharge Note: MARYANA COOPER Discharge instructions and discharge home medications reviewed with Patient and a copy given. All questions have been answered and understanding verbalized. The following instructions and handouts were given: Patient given eduaction regarding all new medication and information regarding jaundice. Discontinued lines and drains: Iv removed per protocol. Patient discharged home, picked up by family members.
== END 2019-10-28 16:00 | disposition home or self-care (01) | DRG 432 ==
LOC: ER 18:17 → 5 NORTH 10-17 02:28
PROVIDERS: ADMIT Internal Medicine; ATTEND Internal Medicine
DX: K70.11 Alcoholic hepatitis with ascites (principal); G93.41 Metabolic encephalopathy; E43 Unspecified severe protein-calorie malnutrition; E87.2 Acidosis; D68.9 Coagulation defect, unspecified; J98.11 Atelectasis; R45.851 Suicidal ideations; F33.9 Major depressive disorder, recurrent, unspecified; K52.9 Noninfective gastroenteritis and colitis, unspecified; F17.210 Nicotine dependence, cigarettes, uncomplicated; F10.10 Alcohol abuse, uncomplicated; F12.10 Cannabis abuse, uncomplicated; D69.6 Thrombocytopenia, unspecified; F41.0 Panic disorder [episodic paroxysmal anxiety]; J45.909 Unspecified asthma, uncomplicated; K70.40 Alcoholic hepatic failure without coma; E87.6 Hypokalemia; E83.42 Hypomagnesemia; E86.0 Dehydration; K76.0 Fatty (change of) liver, not elsewhere classified; F41.1 Generalized anxiety disorder; G62.1 Alcoholic polyneuropathy; K21.9 Gastro-esophageal reflux disease without esophagitis; D75.89 Other specified diseases of blood and blood-forming organs; E03.9 Hypothyroidism, unspecified; G47.00 Insomnia, unspecified; I10 Essential (primary) hypertension; K70.31 Alcoholic cirrhosis of liver with ascites; R09.02 Hypoxemia; Z68.32 Body mass index [BMI] 32.0-32.9, adult; Z79.899 Other long term (current) drug therapy; Z91.81 History of falling; Z81.1 Family history of alcohol abuse and dependence; Z82.5 Family history of asthma and other chronic lower respiratory diseases; Z82.49 Family history of ischemic heart disease and other diseases of the circulatory system
CPT/HCPCS: 36415; 36600; 51798; 70450; 71045; 71046; 71275; 74177; 76705; 80048; 80053; 80307; 81001; 82140; 82390; 82533; 82607; 82805; 83605; 83690; 83735; 83880; 84100; 84145; 84436; 84443; 84480; 85007; 85025; 85384; 85610; 85730; 86705; 86709; 86803; 87040; 87086; 87340; 93005; 93306; 93970; 93975; 94640; 94760; 96361; 96365; 96375; G0238; G0480; J1650; J1940; J2060; J2270; J2405; J2543; J3411; J3430; J3475; J3480; J3490; J7030; J7050; Q9967; 97110-GP; 97116-GP; 97530-GO; 97530-GP; 97535-GO; 99291-25; G0378

== ENCOUNTER 2019-10-31 14:36 | Inpatient (IN) | payer SELFPAY ==
[~2019-10-31] VITALS: Ht 188 cm; Wt 114.7 kg
[~2019-10-31 14:36] MED LIST changes: +FAMO20TA5 PO; +FURO40TA4 PO; +GABA-585 PO; +LACT20SO PO; +LEVO88TA4 PO; +LISINOPRIL; +MIRT15TA3 PO; +ONDA4TAB12 PO; +POTA20TA40 PO; +TRAM50TA PO; +[UNRECOGNIZED DRUG - OTHER]; +inhaler; +lisino
--- NOTE | 2019-10-31 15:23 | RAD ---
EXAM: CHEST ONE VIEW. HISTORY: Shortness of breath. COMPARISON: 10/24/2019. FINDINGS: A frontal view of the chest is obtained. There is a mild airspace infiltrate in the left base, increased since the prior study. The inspiration is small. There is no pneumothorax or pleural effusion. The heart is not enlarged. IMPRESSION: 1. Increased left basilar infiltrate. Electronically signed by: Andrea Diego MD (10/31/2019 3:21 PM) [id number]
[2019-10-31] MEDS ORDERED: IV NORMAL SALINE 1000ML BAG 1,000 ML IV ONE ×2 (15:30→21:45)
[2019-10-31] MEDS ORDERED: fentaNYL PF VIAL 100 MCG/2 ML VIAL IVP ONE (15:30)
--- NOTE | 2019-10-31 15:36 | PHYS DOC ---
Past Medical History Past Medical History: Alcoholism, Asthma, Hypertension, Hepatitis Additional Past Medical Histor: ALCOHOLIC HEPATITIS WITH ASCITIES, (PILLOPRASHANTH M RCIS) Past Surgical History: No Surgical History (PILLOPRASHANTH M RCIS) Smoking Status: Current Every Day Smoker Alcohol Use: Heavy Drug Use: Marijuana (PILLOPRASHANTH M RCIS) General Adult EDM: Chief Complaint: SHORTNESS OF BREATH HPI: HPI: Patient is a 29 year old male who presents with was just admitted October 16 through October 27 for acute colitis. He states that he is just tired and has chronic low back pain he rates it 8 out of 10 and his abdomen is distended and he has abdominal pain that is intermittent. States is intermittent with nausea and vomiting. He states this been going on for very long time. States he has been drinking a " handle" a day. He states he has not drink since October 16. Patient skin is jaundice. Bilateral lower legs 2-3+ pitting and mottled. When asked about this if it is chronic "he states he had they get like that sometimes." Patient's abdomen is very distended and tight. It is nontender. His vital signs within normal limits. He speaks in full complete sentences. Sclera is yellow. He has a history of alcoholic hepatitis with ascites, asthma, jaundice, dizziness, hypertension, marijuana, smoking cigarettes, colitis. When patient gets here he states he is here for a " follow-up visit" because he is just not feeling better. The patient checks and he states that he is short of breath but when he is asked if he is short of breath or having any chest pain he states no. (PILLOPRASHANTH M RCIS) Review of Systems: Review of Systems: Constitutional: Denies fever or chills. [] Eyes: Denies change in visual acuity. [] HENT: Denies nasal congestion or sore throat. [] Respiratory: Denies cough. Intermittent shortness of breath. [] Cardiovascular: Denies chest pain. Bilateral lower edema. [] GI: Intermittent abdominal pain, nausea, vomiting, denies bloody stools or lalito rrhea. [] : Denies dysuria. [] Musculoskeletal: Chronic low back pain or denies joint pain. [] Integument: Denies rash. [] Neurologic: Denies headache, focal weakness or sensory changes. [] Endocrine: Denies polyuria or polydipsia. [] Lymphatic: Denies swollen glands. [] Psychiatric: Denies depression or anxiety. Alcoholism [] (LISSETTEPRASHANTH RCIS) Heart Score: Risk Factors: Risk Factors: DM, Current or recent (<one month) smoker, HTN, HLP, family history of CAD, obesity. Risk Scores: Score 0 - 3: 2.5% MACE over next 6 weeks - Discharge Home Score 4 - 6: 20.3% MACE over next 6 weeks - Admit for Clinical Observation Score 7 - 10: 72.7% MACE over next 6 weeks - Early Invasive Strategies (PRASHANTH FERRO RCIS) Current Medications: Current Medications Medications (Trade) Dose Ordered Sig/Kelly Start Time Stop Time Status Last Admin Dose Admin Fentanyl Citrate (Fentanyl 2ml Vial) 50 mcg 1X ONCE 10/31/19 15:30 10/31/19 15:31 Sodium Chloride 1,000 ml @ 1,000 mls/hr 1X ONCE 10/31/19 15:30 10/31/19 16:29 (LISSETTEPRASHANTH RCIS) Allergies: Allergies: Allergies Coded Allergies Type Severity Reaction Last Updated Verified No Known Drug Allergies 11/30/15 No (LISSETTEPRASHANTH M RCIS) Physical Exam: PE: Constitutional: Well developed, well nourished, no acute distress, non-toxic appearance. [] HENT: Normocephalic, atraumatic, bilateral external ears normal, oropharynx moist, no oral exudates, nose normal. [] Eyes: PERRLA, EOMI, conjunctiva jaundice, no discharge. [] Neck: Normal range of motion, no tenderness, supple, no stridor. [] Cardiovascular:Heart rate regular rhythm, no murmur [] Lungs & Thorax: Bilateral breath sounds clear in upper and diminished in lower to auscultation [] Abdomen: Bowel sounds normal, tight, distended, no tenderness, no masses, no pulsatile masses. [] Skin: Warm, dry, no erythema, no rash. Jaundice [] Back: No tenderness, no CVA tenderness. [] Extremities: No tenderness, no cyanosis, no clubbing, ROM intact, bilateral lower pitting 2-3+ edema. [] Neurologic: Alert and oriented X 3, normal motor function, normal sensory function, no focal deficits noted. [] Psychologic: Affect normal, judgement normal, mood normal. [] (PRASHANTH FERRO APRN) Current Patient Data: Vital Signs: Vital Signs Date Time Temp Pulse Resp B/P (MAP) Pulse Ox O2 Delivery O2 Flow Rate FiO2 10/31/19 14:55 98.3 97 20 138/75 (96) 93 Room Air 98.3 (PRASHANTH FERRO APRN) EKG: EK and read as Dr Rosenthal as Sinus Rhythm and no STEMI (PRASHANTH FERRO APRN) Radiology/Procedures: Radiology/Procedures: [] Impression: [address] [address] IMAGING REPORT Signed PATIENT: MARYANA COOPER ACCOUNT: [id number] : 1990 LOCATION: ER AGE: 29 SEX: M EXAM STATUS: PRE ER ORD. PHYSICIAN: PRASHANTH FERRO APRN REASON: SOA PROCEDURE: PORTABLE CHEST 1V EXAM: CHEST ONE VIEW. HISTORY: Shortness of breath. COMPARISON: 10/24/2019. FINDINGS: A frontal view of the chest is obtained. There is a mild airspace infiltrate in the left base, increased since the prior study. The inspiration is small. There is no pneumothorax or pleural effusion. The heart is not enlarged. IMPRESSION: 1. Increased left basilar infiltrate. Electronically signed by: Andrea Diego MD (10/31/2019 3:21 PM) [id number] DICTATED and SIGNED BY: DONA DIEGO MD DATE: 10/31/19 1521 [facility] [address] [place] [address] IMAGING REPORT Signed PATIENT: MARYANA COOPER ACCOUNT: [id number] : 1990 LOCATION: ER AGE: 29 SEX: M EXAM STATUS: REG ER ORD. PHYSICIAN: PRASHANTH FERRO APRN REASON: DISTENTION. HX ASCITIES PROCEDURE: CT ABD PELV W/ IV CONTRST ONLY CT abdomen and pelvis with IV contrast 10/31/2019. Reason for exam: Distention. History of ascites. CT images were obtained through the abdomen and pelvis using an infusion of 75 mL Omnipaque 300. No oral contrast was given. Exposure: One or more of the following individualized dose reduction techniques were utilized for this examination: 1. Automated exposure control 2. Adjustment of the mA and/or kV according to patient size 3. Use of iterative reconstruction technique. Comparison is made with a previous CT of 10/16/2019. FINDINGS: There is now a small left-sided pleural effusion and there is some atelectasis in both lower lobes. The liver and spleen are homogeneous in density and normal in configuration. There may be less fatty infiltration of the liver. No focal liver lesion is seen. Both kidneys enhance with contrast. There is no apparent mass or obstruction. The adrenal glands are not enlarged. There is no apparent pancreatic abnormality. No adenopathy is seen. There is greater ascites in the abdomen. Prominent varices are again demonstrated through the abdomen. No localized fluid collection is seen to suggest an abscess. There is no evidence of bowel obstruction. There is suggestion of some wall thickening of the right colon possibly related to congestion. This is probably similar to the prior study. Images through the pelvis show no abnormality of the distal ureters or bladder. No pelvic or inguinal adenopathy is seen. There is no apparent pelvic mass. There is moderate ascites in the upper pelvis. There is also greater edema through the anterior abdominal wall. IMPRESSION: There is increased ascites in the abdomen, although the volume is only moderate at most. There is also now some pleural fluid. Electronically signed by: Deanna Hugo Jr., MD (10/31/2019 4:07 PM) [id number] DICTATED and SIGNED BY: DEANNA HUGO Jr, MD DATE: 10/31/19 1601 (PRASHANTH FERRO APRN) Course & Med Decision Making: Course & Med Decision Making Pertinent Labs and Imaging studies reviewed. (See chart for details) The HPI. Alert and oriented x4. Patient is slow to answer questions but does answer appropriately. Speaks in full complete sentences. Lungs are clear in upper lobes and diminished in lower lobes. Patient denies tremors, hallucinations, SI, HI, anxiety, nausea or vomiting at this time, chest pain, shortness of breath, numbness or tingling, headache, dizziness, vision changes, diarrhea, fever, focal weakness. He is ambulatory with a steady gait. Patient has been admitted by Dr. Irwin for acute hepatic encephalopathy. I have given the patient lactulose for his high ammonia level. I will consult GI. [] (PRASHANTH FERRO APRN) Course & Med Decision Making I have reviewed the PA/DRAFTING TEACHER's note and Plan of Care. I was available for consultation as needed during the patient's visit in the emergency department. I agree with the clinical impression, plans and disposition. (ARIELA ROSENTHAL MD) Dragon Disclaimer: Dragon Disclaimer: This electronic medical record was generated, in whole or in part, using a voice recognition dictation system. (PRASHANTH FERRO APRN) Departure Departure Impression: Primary Impression: Acute hepatic encephalopathy Disposition: ADMITTED INPATIENT Admitting Physician: GERARD (PRASHANTH FERRO APRN) Condition: STABLE Referrals: NO PCP (PCP) Justicifation of Admission Dx: Justifications for Admission: Justification of Admission Dx: Yes Sepsis: End-Organ Dysfunction Comments: ACUTE HEPATIC ENCEPHALOPATHY (PRASHANTH FERRO APRN) PRASHANTH FERRO APRN Oct 31, 2019 15:36 ARIELA ROSENTHAL MD Oct 31, 2019 17:39
--- NOTE | 2019-10-31 15:50 | EKG ---
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
[2019-10-31] MEDS ORDERED: IOHEXOL 300 MG/ML 100ML VIAL. IV ONE (16:00)
[2019-10-31 16:08] LABS: PROTHROMBIN TIME PATIENT 28.8 SEC (11.7-14.0)
--- NOTE | 2019-10-31 16:10 | RAD ---
CT abdomen and pelvis with IV contrast 10/31/2019. Reason for exam: Distention. History of ascites. CT images were obtained through the abdomen and pelvis using an infusion of 75 mL Omnipaque 300. No oral contrast was given. Exposure: One or more of the following individualized dose reduction techniques were utilized for this examination: 1. Automated exposure control 2. Adjustment of the mA and/or kV according to patient size 3. Use of iterative reconstruction technique. Comparison is made with a previous CT of 10/16/2019. FINDINGS: There is now a small left-sided pleural effusion and there is some atelectasis in both lower lobes. The liver and spleen are homogeneous in density and normal in configuration. There may be less fatty infiltration of the liver. No focal liver lesion is seen. Both kidneys enhance with contrast. There is no apparent mass or obstruction. The adrenal glands are not enlarged. There is no apparent pancreatic abnormality. No adenopathy is seen. There is greater ascites in the abdomen. Prominent varices are again demonstrated through the abdomen. No localized fluid collection is seen to suggest an abscess. There is no evidence of bowel obstruction. There is suggestion of some wall thickening of the right colon possibly related to congestion. This is probably similar to the prior study. Images through the pelvis show no abnormality of the distal ureters or bladder. No pelvic or inguinal adenopathy is seen. There is no apparent pelvic mass. There is moderate ascites in the upper pelvis. There is also greater edema through the anterior abdominal wall. IMPRESSION: There is increased ascites in the abdomen, although the volume is only moderate at most. There is also now some pleural fluid. Electronically signed by: Nayan Hugo Jr., MD (10/31/2019 4:07 PM) [id number]
[2019-10-31 16:31] LABS: CALCIUM 8.3 mg/dL (8.5-10.1); CREATININE 1.8 mg/dL (0.7-1.3); GFR 44.8; POTASSIUM 3.8 mmol/L (3.5-5.1)
[2019-10-31 16:44] LABS: BASO # 0.1 x10^3/uL (0.0-0.2); BASO % 0 % (0-3); EOS # 0.4 x10^3/uL (0.0-0.7); EOS % 2 % (0-3); HEMATOCRIT 41.2 % (39.0-53.0); HEMOGLOBIN 14.6 g/dL (13.0-17.5); LYMPH # 1.4 x10^3/uL (1.0-4.8); LYMPH % 7 % (24-48); MEAN CORPUSCULAR HEMOGLOBIN 36 pg (25-35); MEAN CORPUSCULAR HGB CONC 35 g/dL (31-37); MEAN CORPUSCULAR VOLUME 102 fL (79-100); MONO # 2.1 x10^3/uL (0.0-1.1); MONO % 10 % (0-9); NEUT # 16.8 x10^3/uL (1.8-7.7); NEUT % 81 % (31-73); PLATELET COUNT 149 x10^3/uL (140-400); RED BLOOD COUNT 4.05 x10^6/uL (4.30-5.70); RED CELL DISTRIBUTION WIDTH 16.4 % (11.5-14.5); WHITE BLOOD COUNT 20.7 x10^3/uL (4.0-11.0)
[2019-10-31 16:45] LABS: ALBUMIN 1.5 g/dL (3.4-5.0); ALBUMIN/GLOBULIN RATIO 0.3 (1.0-1.7); TOTAL BILIRUBIN 24.1 mg/dL (0.2-1.0); TOTAL PROTEIN 5.8 g/dL (6.4-8.2)
[2019-10-31] MEDS ORDERED: LACTULOSE 20 GM/30 ML SOLUTION. PO ONE (16:45)
--- NOTE | 2019-10-31 17:02 | PDOC1 ---
History and Physical Date of Admission Date of Admission DATE: 10/31/19 TIME: 17:02 Identification/Chief Complaint Chief Complaint Abdominal pain Source Source: Caregiver, Chart review, Patient History of Present Illness History of Present Illness Mr Galan is a 29yo M w/ PMHx heavy alcohol use, who presented with worsening abdominal pain and swelling after a discharge 3 days prior. He was just admitted October 16 through October 27 for acute alcoholic hepatitis and fatty liver disease. Psychiatry has diagnosed generalized anxiety disorder and depression. Pulmonology found likely sleep apnea/hypopnea. GI recommended al cohol cessation. Patient does have a history of a seizure in his teens. He has been drinking at least a pint of vodka a day for up to several years. Now states he has not drink since October 16. He and his mother state he is here because he is just not feeling better. He and his mother state they think he has been having 3-5 bowel movements per day with lactulose and for one day urinated more with lasix, but the past 2 days has been urinating less and now has diffuse abdominal pain and he is short of breath with a slight cough. He has had no contacts with COVID 19 exposed patients and has only been with his mother and significant other and hospital staff at this facility since 10/17/2019. His mother notes worsening confusion and tremors. CT abdomen pelvis with moderate ascites and new left pleural effusion. Chest x- ray with left basilar infiltrate Labs reviewed with WBC 20.7 Hb 14.6, platelets 149, NA 133, K3.8, BUN 21, CR 1.8, glucose 90, bilirubin 24.1, AST 147, ALT 53, alk phos 189, ammonia 100, BNP 142, lipase 133, INR 2.7, Trop 0 Admitted for further treatment Past Medical History Cardiovascular: HTN Pulmonary: Asthma Hepatobiliary: Cirrhosis, Other Psych: Anxiety, Depression Endocrine: Hypothyroidism Past Surgical History Past Surgical History: No pertinent history Family History Family History: Hypertension Social History Smoke: 1 pack per day ALCOHOL: heavy Drugs: Marijuana Current Medications Current Medications Current Medications Sodium Chloride 1,000 ml @ 1,000 mls/hr 1X ONCE IV Last administered on 10/31/19at 15:30; Start 10/31/19 at 15:30; Stop 10/31/19 at 16:29; Status DC Fentanyl Citrate (Fentanyl 2ml Vial) 50 mcg 1X ONCE IVP Last administered on 10/31/19at 16:13; Start 10/31/19 at 15:30; Stop 10/31/19 at 15:31; Status DC Iohexol (Omnipaque 300 Mg/ml) 75 ml 1X ONCE IV Last administered on 10/31/19at 15:49; Start 10/31/19 at 16:00; Stop 10/31/19 at 16:01; Status DC Lactulose (Lactulose) 30 gm 1X ONCE PO ; Start 10/31/19 at 16:45; Stop 10/31/19 at 16:48; Status DC Active Scripts Active Mirtazapine 15 Mg Tablet 15 Mg PO QHS 90 Days Tramadol Hcl 50 Mg Tablet 50 Mg PO PRN Q6HRS PRN 6 Days Effer-K 20 Meq Tablet Eff (Potassium Bicarbonate/Cit Ac) 20 Meq Tablet.eff 40 Meq PO DAILY PRN 90 Days Furosemide 40 Mg Tablet 40 Mg PO DAILY 90 Days Ondansetron Odt (Ondansetron) 4 Mg Tab.rapdis 4 Mg PO PRN QID PRN 90 Days Famotidine 20 Mg Tablet 20 Mg PO QHS 90 Days Levothyroxine Sodium 88 Mcg Tablet 88 Mcg PO DAILY06 90 Days Lactulose 20 Gm/30 Ml Solution 20 Gm PO BID 30 Days Gabapentin (Gabapentin) 100 Mg Capsule 100 Mg PO TID 90 Days Reported [inhaler] PRN [lisinopril +] DAILY Allergies Allergies: Coded Allergies: No Known Drug Allergies (Unverified , 11/30/15) ROS General: YES: Fatigue, Malaise, Appetite; No: Chills, Night Sweats, Other PSYCHOLOGICAL ROS: YES: Anxiety, Depression, Disorientation, Sleep disturbances ; No: Behavioral Disorder, Concentration difficultie, Decreased libido, Hallucinations, Hostility, Irritablity, Memory difficulties, Mood Swings, Obsessive thoughts, Physical abuse, Sexual abuse, Suicidal ideation, Other Eyes: No Blurry vision, No Decreased vision, No Double vision, No Dry eyes, No Excessive tearing, No Eye Pain, No Itchy Eyes, No Loss of vision, No Photophobia, No Scotomata, No Uses contacts, No Uses glasses, No Other HEENT: No: Heacaches, Visual Changes, Hearing change, Nasal congestion, Nasal discharge, Oral lesions, Sinus pain, Sore Throat, Epistaxis, Sneezing, Snoring, Tinnitus, Vertigo, Vocal changes, Other ALLERGY AND IMMUNOLOGY: No: Hives, Insect Bite Sensitivity, Itchy/Watery Eyes, Nasal Congestion, Post Nasal Drip, Seasonal Allergies, Other Hematological and Lymphatic: No: Bleeding Problems, Blood Clots, Blood Transfusions, Brusing, Night Sweats, Pallor, Swollen Lymph Nodes, Other ENDOCRINE: No: Breast Changes, Galactorrhea, Hair Pattern Changes, Hot Flashes, Malaise/lethargy, Mood Swings, Palpitations, Polydipsia/polyuria, Skin Changes, Temperature Intolerance, Unexpected Weight Changes, Other Breast: No New/Changing Breast Lumps, No Nipple changes, No Nipple discharge, N o Other Respiratory: YES: Cough, Shortness of breath; No: Hemoptysis, Orthopnea, Pleuritic Pain, SOB with excertion, Sputum Changes, Stridor, Tachypnea, Wheezing, Other Cardiovascular: No Chest Pain, No Palpitations, No Orthopnea, No Paroxysmal Noc. Dyspnea, No Edema, No Lt Headedness, No Other Gastrointestinal: Yes Nausea, Yes Abdominal Pain; No Vomiting, No Diarrhea, No Constipation, No Melena, No Hematochezia, No Other Genitourinary: No Dysuria, No Frequency, No Incontinence, No Hematuria, No Retention, No Discharge, No Urgency, No Pain, No Flank Pain, No Other, No , No , No , No , No , No , No Musculoskeletal: Yes Gait Disturbance; No Joint Pain, No Joint Stiffness, No Joint Swelling, No Muscle Pain, No Muscular Weakness, No Pain In:, No Swelling In:, No Other Neurological: Yes Impaired Coord/balance, Yes Memory Loss, Yes Speech Problems, Yes Tremors; No Behavorial Changes, No Bowel/Bladder ControlChng, No Confusion, No Dizziness, No Gait Disturbance, No Headaches, No Numbness/Tingling, No Seizures, No Visual Changes, No Weakness, No Other Skin: No Dry Skin, No Eczema, No Hair Changes, No Lumps, No Mole Changes, No Mottling, No Nail Changes, No Pruritus, No Rash, No Skin Lesion Changes, No Other, No Acne Physical Exam General: Alert, Cooperative, moderate distress HEENT: Atraumatic, PERRLA, EOMI, Mucous membr. moist/pink, Other (scleral icterus) Lungs: Other (Bibasilar crackles) Heart: S1S2, RRR, no thrills, no rubs, no gallops, no murmurs Abdomen: Normal bowel sounds, Soft, Other (diffuse mild tenderness, positive fluid wave) Rectal Exam: not examined Extremities: No clubbing, No cyanosis, Normal pulses, No tenderness/swelling, Other (2+ pitting edema) Skin: No significant lesion Neuro: Normal speech, Strength at 5/5 X4 ext, Normal tone, Sensation intact, Cranial nerves 3-12 NL, Reflexes 2+, Other (Flapping tremor) Psych/Mental Status: Other (Confused) Vitals Vitals Vital Signs Date Time Temp Pulse Resp B/P (MAP) Pulse Ox O2 Delivery O2 Flow Rate FiO2 10/31/19 16:13 20 94 10/31/19 14:55 98.3 97 138/75 (96) Room Air 98.3 Labs Labs Laboratory Tests Test 10/31/19 15:32 Prothrombin Time 28.8 SEC (11.7-14.0) Prothromb Time International Ratio 2.7 (0.8-1.1) Sodium Level 133 mmol/L (136-145) Potassium Level 3.8 mmol/L (3.5-5.1) Chloride Level 96 mmol/L (98-107) Carbon Dioxide Level 29 mmol/L (21-32) Anion Gap 8 (6-14) Blood Urea Nitrogen 21 mg/dL (8-26) Creatinine 1.8 mg/dL (0.7-1.3) Estimated GFR (Cockcroft-Gault) 44.8 BUN/Creatinine Ratio 12 (6-20) Glucose Level 90 mg/dL (70-99) Calcium Level 8.3 mg/dL (8.5-10.1) Total Bilirubin 24.1 mg/dL (0.2-1.0) Aspartate Amino Transf (AST/SGOT) 147 U/L (15-37) Alanine Aminotransferase (ALT/SGPT) 53 U/L (16-63) Alkaline Phosphatase 189 U/L (46-116) Ammonia 100 mcmol/L (11-34) Troponin I Quantitative < 0.017 ng/mL (0.000-0.055) OJ-Eyh-Q-Type Natriuretic Peptide 142 pg/mL (0-124) Total Protein 5.8 g/dL (6.4-8.2) Albumin 1.5 g/dL (3.4-5.0) Albumin/Globulin Ratio 0.3 (1.0-1.7) Lipase 133 U/L (73-393) Ethyl Alcohol Level < 10 mg/dL (0-10) Laboratory Tests Test 10/31/19 15:32 Prothrombin Time 28.8 SEC (11.7-14.0) Prothromb Time International Ratio 2.7 (0.8-1.1) Sodium Level 133 mmol/L (136-145) Potassium Level 3.8 mmol/L (3.5-5.1) Chloride Level 96 mmol/L (98-107) Carbon Dioxide Level 29 mmol/L (21-32) Anion Gap 8 (6-14) Blood Urea Nitrogen 21 mg/dL (8-26) Creatinine 1.8 mg/dL (0.7-1.3) Estimated GFR (Cockcroft-Gault) 44.8 BUN/Creatinine Ratio 12 (6-20) Glucose Level 90 mg/dL (70-99) Calcium Level 8.3 mg/dL (8.5-10.1) Total Bilirubin 24.1 mg/dL (0.2-1.0) Aspartate Amino Transf (AST/SGOT) 147 U/L (15-37) Alanine Aminotransferase (ALT/SGPT) 53 U/L (16-63) Alkaline Phosphatase 189 U/L (46-116) Ammonia 100 mcmol/L (11-34) Troponin I Quantitative < 0.017 ng/mL (0.000-0.055) VS-Kjy-A-Type Natriuretic Peptide 142 pg/mL (0-124) Total Protein 5.8 g/dL (6.4-8.2) Albumin 1.5 g/dL (3.4-5.0) Albumin/Globulin Ratio 0.3 (1.0-1.7) Lipase 133 U/L (73-393) Ethyl Alcohol Level < 10 mg/dL (0-10) Images Images CXR: There is a mild airspace infiltrate in the left base, increased since the prior study. The inspiration is small. There is no pneumothorax or pleural effusion. The heart is not enlarged. IMPRESSION: 1. Increased left basilar infiltrate. CT abdomen/pelvis: There is now a small left-sided pleural effusion and there is some atelectasis in both lower lobes. The liver and spleen are homogeneous in density and normal in configuration. There may be less fatty infiltration of the liver. No focal liver lesion is seen. Both kidneys enhance with contrast. There is no apparent mass or obstruction. The adrenal glands are not enlarged. There is no apparent pancreatic abnormality. No adenopathy is seen. There is greater ascites in the abdomen. Prominent varices are again demonstrated through the abdomen. No localized fluid collection is seen to suggest an abscess. There is no evidence of bowel obstruction. There is suggestion of some wall thickening of the right colon possibly related to congestion. This is probably similar to the prior study. Images through the pelvis show no abnormality of the distal ureters or bladder. No pelvic or inguinal adenopathy is seen. There is no apparent pelvic mass. There is moderate ascites in the upper pelvis. There is also greater edema through the anterior abdominal wall. IMPRESSION: There is increased ascites in the abdomen, although the volume is only moderate at most. There is also now some pleural fluid. VTE Prophylaxis Ordered VTE Prophylaxis Devices: Contraindicated VTE Pharmacological Prophylaxi: Yes Assessment/Plan Assessment/Plan A/P: Abdominal pain - with leukocytosis, newly diagnosed hepatitis with ascites, concerning for SBP, will initiate antibiotics, will consult GI and likely consult IR for therapeutic and diagnostic paracentesis Acute hepatic encephalopathy - metabolic from hyperammonemia from liver disease, will continue lactulose Shortness of breath - likely from abdominal swelling and diaphragmatic compression with small left pleural effusion, no cough, but infiltrate is apparent. Check procalcitonin, Rocephin + doxy Sepsis - likely related to SBP vs pneumonia less likely, will continue fluids, however with his ascites may need diuresis / paracentesis + albumin ROSIO - concerning given his newly diagnosed liver failure. Will monitor after 2 liter fluid challenge. May need nephrology consultation if he fails fluid challenge Hyponatremia - likely from liver failure, will monitor trend after fluids Painless jaundice - related to acute liver failure Acute liver failure - no real improvement in bilirubin from prior stay, in fact it is elevated. INR stable, albumin low. ROSIO and hyponatremia are poor prognostic factors. Consult GI THC abuse - counseled Alcohol abuse - now in remission for 2 weeks due to hospitalization, did not relapse after discharge per he and his mother Thrombocytopenia - minimal, likely related to alcoholic liver diseasee Severe protein-caloric malnutrition - related to liver disease Depression - on remeron QHS with improvement in his mood Hypothyroid - on replacement now FEN - General diet PPX - Heparin. Will hold on 10/31 evening in anticipation of IR paracentesis potentially on 11/01 FULL CODE Dispo - inpatient at least 2 midnights. He has a poor overall prognosis he and family are aware. MAYUR HUERTA MD Oct 31, 2019 17:02
[2019-10-31 17:13] LABS: % BANDS 2 % (0-9); % EOS 3 % (0-5); % LYMPHS 9 % (24-48); % MONOS 4 % (0-10); % SEGS 82 % (35-66)
[2019-10-31 17:15] LABS: PLT ESTIMATE ADEQUATE (ADEQUATE); TOXIC GRANULATION SLIGHT
[2019-10-31] MEDS ORDERED: ONDANSETRON ODT 4 MG TAB.RAPDIS. PO PRN (17:15)
[2019-10-31] MEDS ORDERED: fentaNYL PF VIAL 100 MCG/2 ML VIAL IV PRN (17:15)
[2019-10-31] MEDS ORDERED: ONDANSETRON PF 4 MG/2 ML VIAL. IV PRN (17:15)
[2019-10-31] MEDS ORDERED: FUROSEMIDE 40 MG/4 ML VIAL. IVP ONE (17:30)
[2019-10-31 18:16] LABS: BILIRUBIN,URINE LARGE (NEG); CLARITY,URINE CLEAR; NITRITE,URINE NEGATIVE (NEG); PH,URINE 6.5 (<5.0-8.0); PROTEIN,URINE NEGATIVE (NEG-TRACE); UROBILINOGEN,URINE 0.2 mg/dL (0.2 mg/dL)
[2019-10-31 18:25] LABS: COLOR,URINE AMBER
[2019-10-31 18:26] LABS: AMORPHOUS SEDIMENT,UR PRESENT /HPF; BACTERIA,URINE 0 /HPF (0-FEW); RBC,URINE 0 /HPF (0-2); SQUAMOUS EPITHELIAL CELL,UR FEW /LPF; WBC,URINE RARE /HPF (0-4)
[2019-10-31 18:32] LABS: AMPHETAMINE/METHAMPHETAMINE NEG (NEG); BARBITURATES NEG (NEG)
[2019-10-31 18:33] LABS: BENZODIAZEPINES POS (NEG); CANNABINOIDS POS (NEG); COCAINE NEG (NEG); METHADONE NEG (NEG); OPIATES NEG (NEG); PHENCYCLIDINE NEG (NEG)
[2019-10-31 19:00] VITALS: BP 113/55
[2019-10-31] MEDS: GABAPENTIN 100 MG CAPSULE. PO SCH (21:22)
[2019-10-31] MEDS: LACTULOSE 20 GM/30 ML SOLUTION. PO SCH (21:22)
[2019-10-31] MEDS: MIRTAZAPINE 15 MG TABLET PO SCH (21:22)
[2019-10-31] MEDS: FAMOTIDINE 20 MG TABLET. PO SCH (21:22)
[2019-10-31] MEDS: cefTRIAXone IV Push 1 GM VIAL. IVP SCH (22:31)
[2019-10-31] MEDS: HEPARIN for SUB-Q USE 5,000 UNIT/ML VIAL. SQ SCH (22:34)
[2019-10-31 23:00] VITALS: BP 115/71
[2019-11-01 03:00] VITALS: BP 118/69
[2019-11-01] MEDS: LEVOTHYROXINE 88 MCG TABLET PO SCH (06:06)
[2019-11-01] MEDS: HEPARIN for SUB-Q USE 5,000 UNIT/ML VIAL. SQ SCH ×4 (06:09→21:19)
[2019-11-01 06:14] LABS: BASO # 0.1 x10^3/uL (0.0-0.2); BASO % 0 % (0-3); EOS # 0.4 x10^3/uL (0.0-0.7); EOS % 2 % (0-3); HEMOGLOBIN 13.6 g/dL (13.0-17.5); LYMPH # 1.2 x10^3/uL (1.0-4.8); LYMPH % 6 % (24-48); MEAN CORPUSCULAR HEMOGLOBIN 35 pg (25-35); MEAN CORPUSCULAR HGB CONC 34 g/dL (31-37); MEAN CORPUSCULAR VOLUME 102 fL (79-100); MONO # 2.1 x10^3/uL (0.0-1.1); MONO % 11 % (0-9); NEUT # 16.2 x10^3/uL (1.8-7.7); NEUT % 81 % (31-73); PLATELET COUNT 137 x10^3/uL (140-400); RED BLOOD COUNT 3.91 x10^6/uL (4.30-5.70); RED CELL DISTRIBUTION WIDTH 16.3 % (11.5-14.5); WHITE BLOOD COUNT 20.1 x10^3/uL (4.0-11.0)
[2019-11-01 06:19] LABS: PROTHROMBIN TIME PATIENT 29.8 SEC (11.7-14.0)
[2019-11-01 06:33] LABS: ALBUMIN 1.3 g/dL (3.4-5.0); ALBUMIN/GLOBULIN RATIO 0.3 (1.0-1.7); CALCIUM 8.2 mg/dL (8.5-10.1); CREATININE 1.9 mg/dL (0.7-1.3); GFR 42.1; POTASSIUM 3.3 mmol/L (3.5-5.1); TOTAL BILIRUBIN 21.8 mg/dL (0.2-1.0); TOTAL PROTEIN 5.6 g/dL (6.4-8.2)
[2019-11-01 07:30] VITALS: BP 103/67
[2019-11-01] MEDS: DOXYCYCLINE HYCLATE 100 MG in IV DEXTROSE 5% 100ML 100 ML IV SCH ×2 (08:07→21:17)
[2019-11-01] MEDS: GABAPENTIN 100 MG CAPSULE. PO SCH ×3 (08:07→21:16)
[2019-11-01] MEDS: LACTULOSE 20 GM/30 ML SOLUTION. PO SCH ×2 (08:08→21:16)
[2019-11-01] MEDS ORDERED: FUROSEMIDE 40 MG TABLET. PO SCH (09:00)
[2019-11-01] MEDS ORDERED: POTASSIUM CHLORIDE 20 MEQ TABLET.ER. PO ONE (10:00)
[2019-11-01] MEDS: LACTOBACILLUS RHAMNOSUS GG 1 CAPSULE. PO SCH ×2 (10:30→21:16)
[2019-11-01 11:00] VITALS: BP 126/63
--- NOTE | 2019-11-01 12:07 | PDOC ---
[employer] PROGRESS NOTE Date of Service DOS: DATE: 11/01/19 TIME: 11:50 Chief Complaint Chief Complaint A/P: Abdominal pain - with leukocytosis, newly diagnosed hepatitis with ascites, concerning for SBP, will initiate antibiotics, will consult GI and likely consult IR for therapeutic and diagnostic paracentesis Acute hepatic encephalopathy - metabolic from hyperammonemia from liver disease, will continue lactulose Shortness of breath - likely from abdominal swelling and diaphragmatic compression with small left pleural effusion, no cough, but infiltrate is apparent. Check procalcitonin, Rocephin + doxy Sepsis - likely related to SBP vs pneumonia less likely, will continue fluids, however with his ascites may need diuresis / paracentesis + albumin ROSIO - concerning given his newly diagnosed liver failure. Will monitor after 2 liter fluid challenge. May need nephrology consultation if he fails fluid challenge Hyponatremia - likely from liver failure, will monitor trend after fluids Painless jaundice - related to acute liver failure Acute liver failure - no real improvement in bilirubin from prior stay, in fact it is elevated. INR stable, albumin low. ROSIO and hyponatremia are poor pr ognostic factors. Consult GI THC abuse - counseled Alcohol abuse - now in remission for 2 weeks due to hospitalization, did not relapse after discharge per he and his mother Thrombocytopenia - minimal, likely related to alcoholic liver diseasee Severe protein-caloric malnutrition - related to liver disease Depression - on remeron QHS with improvement in his mood Hypothyroid - on replacement now FEN - General diet PPX - Heparin. Will hold on 10/31 evening in anticipation of IR paracentesis potentially on 11/01 FULL CODE Dispo - inpatient at least 2 midnights. He has a poor overall prognosis he and family are aware. History of Present Illness History of Present Illness Mr Galan is a 29yo M w/ PMHx heavy alcohol use, who presented with worsening abdominal pain and swelling after a discharge 3 days prior. He was just admitted October 16 through October 27 for acute alcoholic hepatitis and fatty liver disease. Psychiatry has diagnosed generalized anxiety disorder and depression. Pulmonology found likely sleep apnea/hypopnea. GI recommended alcohol cessation. Patient does have a history of a seizure in his teens. He has been drinking at least a pint of vodka a day for up to several years. Now states he has not drink since October 16. He and his mother state he is here because he is just not feeling better. He and his mother state they think he has been having 3-5 bowel movements per day with lactulose and for one day urinated more with lasix, but the past 2 days has been urinating less and now has diffuse abdominal pain and he is short of breath with a slight cough. He has had no contacts with COVID 19 exposed patients and has only been with his mother and significant other and hospital staff at this facility since 10/17/2019. His mother notes worsening confusion and tremors. CT abdomen pelvis with moderate ascites and new left pleural effusion. Chest x- ray with left basilar infiltrate Labs reviewed with WBC 20.7 Hb 14.6, platelets 149, NA 133, K3.8, BUN 21, CR 1.8, glucose 90, bilirubin 24.1, AST 147, ALT 53, alk phos 189, ammonia 100, BNP 142, lipase 133, INR 2.7, Trop 0 Admitted for further treatment Afebrile overnight. WBC still 20.1, Hb 13.6, platelets 137, K3.3, CR 1.9, INR 2.8, albumin 1.3 bilirubin 21.8, AST 133, ALT 47, alk phos 173. Still having pain. D/w his mother bedside is overall poor prognosis given the hyponatremia and ROSIO that was not responsive to fluids today. She is asking if she can have a referral to [facility] transplant hepatology if he is able to be safely discharged from the hospital.. Vitals/I&O Vitals/I&O: Vital Signs Date Time Temp Pulse Resp B/P (MAP) Pulse Ox O2 Delivery O2 Flow Rate FiO2 11/01/19 08:00 Room Air 11/01/19 07:30 98.5 98 16 103/67 (79) 93 98.5 I & O 10/31/19 10/31/19 11/01/19 15:00 23:00 07:00 Intake Total 1240 ml 360 ml Output Total 200 ml Balance 1240 ml 160 ml Physical Exam General: Alert, Cooperative, moderate distress Lungs: Clear Abdomen: Normal bowel sounds, Soft, Other (diffuse mild tenderness, positive fluid wave) Extremities: No clubbing, No cyanosis, Normal pulses, No tenderness/swelling, Other (2+ pitting edema) Skin: No significant lesion Labs Labs: Laboratory Tests Test 10/31/19 15:32 10/31/19 18:09 11/01/19 05:40 White Blood Count 20.7 x10^3/uL (4.0-11.0) 20.1 x10^3/uL (4.0-11.0) Red Blood Count 4.05 x10^6/uL (4.30-5.70) 3.91 x10^6/uL (4.30-5.70) Hemoglobin 14.6 g/dL (13.0-17.5) 13.6 g/dL (13.0-17.5) Hematocrit 41.2 % (39.0-53.0) 40.0 % (39.0-53.0) Mean Corpuscular Volume 102 fL (79-100) 102 fL (79-100) Mean Corpuscular Hemoglobin 36 pg (25-35) 35 pg (25-35) Mean Corpuscular Hemoglobin Concent 35 g/dL (31-37) 34 g/dL (31-37) Red Cell Distribution Width 16.4 % (11.5-14.5) 16.3 % (11.5-14.5) Platelet Count 149 x10^3/uL (140-400) 137 x10^3/uL (140-400) Neutrophils (%) (Auto) 81 % (31-73) 81 % (31-73) Lymphocytes (%) (Auto) 7 % (24-48) 6 % (24-48) Monocytes (%) (Auto) 10 % (0-9) 11 % (0-9) Eosinophils (%) (Auto) 2 % (0-3) 2 % (0-3) Basophils (%) (Auto) 0 % (0-3) 0 % (0-3) Neutrophils # (Auto) 16.8 x10^3/uL (1.8-7.7) 16.2 x10^3/uL (1.8-7.7) Lymphocytes # (Auto) 1.4 x10^3/uL (1.0-4.8) 1.2 x10^3/uL (1.0-4.8) Monocytes # (Auto) 2.1 x10^3/uL (0.0-1.1) 2.1 x10^3/uL (0.0-1.1) Eosinophils # (Auto) 0.4 x10^3/uL (0.0-0.7) 0.4 x10^3/uL (0.0-0.7) Basophils # (Auto) 0.1 x10^3/uL (0.0-0.2) 0.1 x10^3/uL (0.0-0.2) Segmented Neutrophils % 82 % (35-66) Band Neutrophils % 2 % (0-9) Lymphocytes % 9 % (24-48) Monocytes % 4 % (0-10) Eosinophils % 3 % (0-5) Toxic Granulation Slight Platelet Estimate Adequate (ADEQUATE) Macrocytosis Slight Prothrombin Time 28.8 SEC (11.7-14.0) 29.8 SEC (11.7-14.0) Prothromb Time International Ratio 2.7 (0.8-1.1) 2.8 (0.8-1.1) Sodium Level 133 mmol/L (136-145) 134 mmol/L (136-145) Potassium Level 3.8 mmol/L (3.5-5.1) 3.3 mmol/L (3.5-5.1) Chloride Level 96 mmol/L (98-107) 97 mmol/L (98-107) Carbon Dioxide Level 29 mmol/L (21-32) 30 mmol/L (21-32) Anion Gap 8 (6-14) 7 (6-14) Blood Urea Nitrogen 21 mg/dL (8-26) 22 mg/dL (8-26) Creatinine 1.8 mg/dL (0.7-1.3) 1.9 mg/dL (0.7-1.3) Estimated GFR (Cockcroft-Gault) 44.8 42.1 BUN/Creatinine Ratio 12 (6-20) 12 (6-20) Glucose Level 90 mg/dL (70-99) 93 mg/dL (70-99) Calcium Level 8.3 mg/dL (8.5-10.1) 8.2 mg/dL (8.5-10.1) Total Bilirubin 24.1 mg/dL (0.2-1.0) 21.8 mg/dL (0.2-1.0) Aspartate Amino Transf (AST/SGOT) 147 U/L (15-37) 133 U/L (15-37) Alanine Aminotransferase (ALT/SGPT) 53 U/L (16-63) 47 U/L (16-63) Alkaline Phosphatase 189 U/L (46-116) 173 U/L (46-116) Ammonia 100 mcmol/L (11-34) Troponin I Quantitative < 0.017 ng/mL (0.000-0.055) RA-Qeh-I-Type Natriuretic Peptide 142 pg/mL (0-124) Total Protein 5.8 g/dL (6.4-8.2) 5.6 g/dL (6.4-8.2) Albumin 1.5 g/dL (3.4-5.0) 1.3 g/dL (3.4-5.0) Albumin/Globulin Ratio 0.3 (1.0-1.7) 0.3 (1.0-1.7) Lipase 133 U/L (73-393) Procalcitonin 1.14 ng/mL (0.00-0.10) Ethyl Alcohol Level < 10 mg/dL (0-10) Urine Collection Type Unknown Urine Color [place] Urine Clarity Clear Urine pH 6.5 (<5.0-8.0) Urine Specific [place] >=1.030 (1.000-1.030) Urine Protein Negative mg/dL (NEG-TRACE) Urine Glucose (UA) Negative mg/dL (NEG) Urine Ketones (Stick) Negative mg/dL (NEG) Urine Blood Negative (NEG) Urine Nitrite Negative (NEG) Urine Bilirubin Large (NEG) Urine Urobilinogen Dipstick 0.2 mg/dL (0.2 mg/dL) Urine Leukocyte Esterase Negative (NEG) Urine RBC 0 /HPF (0-2) Urine WBC Rare /HPF (0-4) Urine Squamous Epithelial Cells Few /LPF Urine Amorphous Sediment Present /HPF Urine Bacteria 0 /HPF (0-FEW) Urine Mucus Slight /LPF Urine Opiates Screen Neg (NEG) Urine Methadone Screen Neg (NEG) Urine Barbiturates Neg (NEG) Urine Phencyclidine Screen Neg (NEG) Urine Amphetamine/Methamphetamine Neg (NEG) Urine Benzodiazepines Screen Pos (NEG) Urine Cocaine Screen Neg (NEG) Urine Cannabinoids Screen Pos (NEG) Urine Ethyl Alcohol Neg (NEG) Assessment and Plan Assessmemt and Plan Problems Medical Problems: (1) Acute hepatic encephalopathy Status: Acute Comment Review of Relevant I have reviewed the following items larry (where applicable) has been applied. Medications: Current Medications Medications (Trade) Dose Ordered Sig/Kelly Route PRN Reason Start Time Stop Time Status Last Admin Dose Admin Sodium Chloride 1,000 ml @ 1,000 mls/hr 1X ONCE IV 10/31/19 15:30 10/31/19 16:29 DC 10/31/19 15:30 Fentanyl Citrate (Fentanyl 2ml Vial) 50 mcg 1X ONCE IVP 10/31/19 15:30 10/31/19 15:31 DC 10/31/19 16:13 Iohexol (Omnipaque 300 Mg/ml) 75 ml 1X ONCE IV 10/31/19 16:00 10/31/19 16:01 DC 10/31/19 15:49 Lactulose (Lactulose) 30 gm 1X ONCE PO 10/31/19 16:45 10/31/19 16:48 DC 10/31/19 17:36 Famotidine (Pepcid) 20 mg QHS PO 10/31/19 21:00 10/31/19 21:22 Gabapentin (Neurontin) 100 mg TID PO 10/31/19 21:00 11/01/19 08:07 Lactulose (Lactulose) 20 gm BID PO 10/31/19 21:00 11/01/19 08:08 Levothyroxine Sodium (Synthroid) 88 mcg DAILY06 PO 11/01/19 06:00 11/01/19 06:06 Mirtazapine (Remeron) 15 mg QHS PO 10/31/19 21:00 10/31/19 21:22 Furosemide (Lasix) 40 mg 1X ONCE IVP 10/31/19 17:30 10/31/19 17:31 DC 10/31/19 17:39 Sodium Chloride 1,000 ml @ 75 mls/hr 1X ONCE IV 10/31/19 21:45 11/01/19 11:04 DC 10/31/19 22:31 Ceftriaxone Sodium (Rocephin) 1 gm Q24H IVP 10/31/19 22:00 10/31/19 22:31 Doxycycline Hyclate 100 mg/ Dextrose 100 ml @ 50 mls/hr Q12HR IV 11/01/19 09:00 11/01/19 08:07 Heparin Sodium (Porcine) (Heparin Sodium) 5,000 unit Q8HRS SQ 10/31/19 22:30 11/01/19 06:09 Lactobacillus Rhamnosus (Culturelle) 1 cap BID PO 11/01/19 09:00 11/01/19 10:30 Potassium Chloride (Klor-Con) 40 meq 1X ONCE PO 11/01/19 10:00 11/01/19 10:01 DC 11/01/19 10:30 Justicifation of Admission Dx: Justifications for Admission: Justification of Admission Dx: Yes Sepsis: End-Organ Dysfunction MAYUR HUERTA MD Nov 01, 2019 12:06
--- NOTE | 2019-11-01 12:09 | PDOC2 ---
CONSULT Date of Consult Date of Consult DATE: 11/01/19 TIME: 12:09 Reason for Consult Reason for Consult: ROSIO History of Present Illness Reason for Visit: Pt is a 29yo CM w/ Hx of heavy alcohol use, who presented with worsening abdominal pain and swelling He was just admitted October 16 through October 27 for acute alcoholic hepatitis and fatty liver disease. Psychiatry has diagnosed generalized anxiety disorder and depression. Pulmonology found likely sleep apnea/hypopnea. He has been drinking since he was 11 years old and has been drinking at least a pint of vodka a day for several years. He reports he has not had any drink since October 16 but smokes Marijuana . He is c/o diarrhea - 3-5 bowel movements / day with lactulose He reports that his UOP may be mildly diminished but its dark . He is c/o diffuse abdominal pain and he is short of breath with a slight cough. He has had no contacts with COVID 19 exposed patients His mother notes worsening confusion and tremors. He has a history of a seizure in his teens. He denies any N/V. No F/C . Denies use of NSAID's. He was dced on PO Lasix CT abdomen pelvis with moderate ascites and new left pleural effusion. Chest x- ray with left basilar infiltrate Past Medical History Cardiovascular: HTN Pulmonary: Asthma Hepatobiliary: Cirrhosis, Other Psych: Anxiety, Depression Endocrine: Hypothyroidism Past Surgical History Past Surgical History: No pertinent history Family History Family History: Hypertension Social History 1 pack per day ALCOHOL: heavy Drugs: Marijuana Lives: Roommate Current Problem List Problem List Problems Medical Problems: (1) Acute hepatic encephalopathy Status: Acute Current Medications Current Medications Current Medications Sodium Chloride 1,000 ml @ 1,000 mls/hr 1X ONCE IV Last administered on 10/31/19at 15:30; Start 10/31/19 at 15:30; Stop 10/31/19 at 16:29; Status DC Fentanyl Citrate (Fentanyl 2ml Vial) 50 mcg 1X ONCE IVP Last administered on 10/31/19at 16:13; Start 10/31/19 at 15:30; Stop 10/31/19 at 15:31; Status DC Iohexol (Omnipaque 300 Mg/ml) 75 ml 1X ONCE IV Last administered on 10/31/19at 15:49; Start 10/31/19 at 16:00; Stop 10/31/19 at 16:01; Status DC Lactulose (Lactulose) 30 gm 1X ONCE PO Last administered on 10/31/19at 17:36; Start 10/31/19 at 16:45; Stop 10/31/19 at 16:48; Status DC Famotidine (Pepcid) 20 mg QHS PO Last administered on 10/31/19at 21:22; Start 10/31/19 at 21:00 Furosemide (Lasix) 40 mg DAILY PO ; Start 11/01/19 at 09:00; Stop 10/31/19 at 21:39; Status DC Gabapentin (Neurontin) 100 mg TID PO Last administered on 11/01/19at 08:07; Start 10/31/19 at 21:00 Lactulose (Lactulose) 20 gm BID PO Last administered on 11/01/19at 08:08; Start 10/31/19 at 21:00 Levothyroxine Sodium (Synthroid) 88 mcg DAILY06 PO Last administered on 11/01/19at 06:06; Start 11/01/19 at 06:00 Mirtazapine (Remeron) 15 mg QHS PO Last administered on 10/31/19at 21:22; Start 10/31/19 at 21:00 Ondansetron HCl (Zofran Odt) 4 mg PRN QID PRN PO NAUSEA/VOMITING; Start 10/31/19 at 17:15 Potassium Bicarbonate (Potassium Effervescent Tablet) 40 meq DAILY PRN PO hypokalemia; Start 10/31/19 at 17:15 Tramadol HCl (Ultram) 50 mg PRN Q6HRS PRN PO MODERATE PAIN 4-6; Start 10/31/19 at 17:15 Ondansetron HCl (Zofran) 4 mg PRN Q8HRS PRN IV NAUSEA/VOMITING; Start 10/31/19 at 17:15; Stop 11/01/19 at 17:14 Fentanyl Citrate (Fentanyl 2ml Vial) 50 mcg PRN Q1HR PRN IV PAIN; Start 10/31/19 at 17:15 Furosemide (Lasix) 40 mg 1X ONCE IVP Last administered on 10/31/19at 17:39; Start 10/31/19 at 17:30; Stop 10/31/19 at 17:31; Status DC Sodium Chloride 1,000 ml @ 75 mls/hr 1X ONCE IV Last administered on 10/31/19at 22:31; Start 10/31/19 at 21:45; Stop 11/01/19 at 11:04; Status DC Ceftriaxone Sodium (Rocephin) 1 gm Q24H IVP Last administered on 10/31/19at 22:31; Start 10/31/19 at 22:00 Doxycycline Hyclate 100 mg/ Dextrose 100 ml @ 50 mls/hr Q12HR IV Last administered on 11/01/19at 08:07; Start 11/01/19 at 09:00 Heparin Sodium (Porcine) (Heparin Sodium) 5,000 unit Q8HRS SQ Last administered on 11/01/19at 06:09; Start 10/31/19 at 22:30 Lactobacillus Rhamnosus (Culturelle) 1 cap BID PO Last administered on 11/01/19at 10:30; Start 11/01/19 at 09:00 Potassium Chloride (Klor-Con) 40 meq 1X ONCE PO Last administered on 11/01/19at 10:30; Start 11/01/19 at 10:00; Stop 11/01/19 at 10:01; Status DC Active Scripts Active Mirtazapine 15 Mg Tablet 15 Mg PO QHS 90 Days Tramadol Hcl 50 Mg Tablet 50 Mg PO PRN Q6HRS PRN 6 Days Effer-K 20 Meq Tablet Eff (Potassium Bicarbonate/Cit Ac) 20 Meq Tablet.eff 40 Meq PO DAILY PRN 90 Days Furosemide 40 Mg Tablet 40 Mg PO DAILY 90 Days Ondansetron Odt (Ondansetron) 4 Mg Tab.rapdis 4 Mg PO PRN QID PRN 90 Days Famotidine 20 Mg Tablet 20 Mg PO QHS 90 Days Levothyroxine Sodium 88 Mcg Tablet 88 Mcg PO DAILY06 90 Days Lactulose 20 Gm/30 Ml Solution 20 Gm PO BID 30 Days Gabapentin (Gabapentin) 100 Mg Capsule 100 Mg PO TID 90 Days Reported [inhaler] PRN [lisinopril +] DAILY Allergies Allergies: Coded Allergies: No Known Drug Allergies (Unverified , 11/30/15) ROS Review of System Per HPI, rest of the ROS is negative Physical Exam Physical Exam General: NAD HEENT: Atraumatic, PERRLA, EOMI, Mucous membr. moist/pink, , scleral icterus+ Neck supple Lungs: crackles at bases, Non labored, On RA Heart: S1S2, RRR, n Abdomen: Normal bowel sounds, Soft, diffuse mild tenderness, positive fluid wave Extremities: LE edema present Skin: No significant lesion, No rash Neuro: Flapping tremor +, rest grossly normal No rothman, No CVA or SP tenderness Vital Signs Vital Signs Date Time Temp Pulse Resp B/P (MAP) Pulse Ox O2 Delivery O2 Flow Rate FiO2 11/01/19 08:00 Room Air 11/01/19 07:30 98.5 98 16 103/67 (79) 93 98.5 Assessment & Plan ROSIO - ATN/Hepatorenal No improvement with IVF - 2lts, UA unremarkable US / Ct unremarkable Kidneys , Hepatitis torres negative , Hold Diuretics Supportive care, Strict I/O, avoid Nephrotoxins , Monitor closely Hypokalemia - Replace Acute liver failure - Hyper albiuminemia, Elevated Bilirubin and LFT's , Elevated ammonia Alcohol abuse - None for 2 weeks Abdominal pain - with leukocytosis, suspecting SBP, On antibiotics, consulted GI Ascites - Paracentesis tomorrow Acute hepatic encephalopathy - hyperammonemia from liver disease On lactulose Lt basilar Infiltrate on Cxr Sepsis Hyponatremia - Mild Jaundice - related to acute liver failure THC abuse Severe protein-caloric malnutrition - related to liver disease Depression - seen by Psych Dw Dr Irwin and Pt and family Labs Labs Laboratory Tests Test 10/31/19 15:32 10/31/19 18:09 11/01/19 05:40 White Blood Count 20.7 x10^3/uL (4.0-11.0) 20.1 x10^3/uL (4.0-11.0) Red Blood Count 4.05 x10^6/uL (4.30-5.70) 3.91 x10^6/uL (4.30-5.70) Hemoglobin 14.6 g/dL (13.0-17.5) 13.6 g/dL (13.0-17.5) Hematocrit 41.2 % (39.0-53.0) 40.0 % (39.0-53.0) Mean Corpuscular Volume 102 fL (79-100) 102 fL (79-100) Mean Corpuscular Hemoglobin 36 pg (25-35) 35 pg (25-35) Mean Corpuscular Hemoglobin Concent 35 g/dL (31-37) 34 g/dL (31-37) Red Cell Distribution Width 16.4 % (11.5-14.5) 16.3 % (11.5-14.5) Platelet Count 149 x10^3/uL (140-400) 137 x10^3/uL (140-400) Neutrophils (%) (Auto) 81 % (31-73) 81 % (31-73) Lymphocytes (%) (Auto) 7 % (24-48) 6 % (24-48) Monocytes (%) (Auto) 10 % (0-9) 11 % (0-9) Eosinophils (%) (Auto) 2 % (0-3) 2 % (0-3) Basophils (%) (Auto) 0 % (0-3) 0 % (0-3) Neutrophils # (Auto) 16.8 x10^3/uL (1.8-7.7) 16.2 x10^3/uL (1.8-7.7) Lymphocytes # (Auto) 1.4 x10^3/uL (1.0-4.8) 1.2 x10^3/uL (1.0-4.8) Monocytes # (Auto) 2.1 x10^3/uL (0.0-1.1) 2.1 x10^3/uL (0.0-1.1) Eosinophils # (Auto) 0.4 x10^3/uL (0.0-0.7) 0.4 x10^3/uL (0.0-0.7) Basophils # (Auto) 0.1 x10^3/uL (0.0-0.2) 0.1 x10^3/uL (0.0-0.2) Segmented Neutrophils % 82 % (35-66) Band Neutrophils % 2 % (0-9) Lymphocytes % 9 % (24-48) Monocytes % 4 % (0-10) Eosinophils % 3 % (0-5) Toxic Granulation Slight Platelet Estimate Adequate (ADEQUATE) Macrocytosis Slight Prothrombin Time 28.8 SEC (11.7-14.0) 29.8 SEC (11.7-14.0) Prothromb Time International Ratio 2.7 (0.8-1.1) 2.8 (0.8-1.1) Sodium Level 133 mmol/L (136-145) 134 mmol/L (136-145) Potassium Level 3.8 mmol/L (3.5-5.1) 3.3 mmol/L (3.5-5.1) Chloride Level 96 mmol/L (98-107) 97 mmol/L (98-107) Carbon Dioxide Level 29 mmol/L (21-32) 30 mmol/L (21-32) Anion Gap 8 (6-14) 7 (6-14) Blood Urea Nitrogen 21 mg/dL (8-26) 22 mg/dL (8-26) Creatinine 1.8 mg/dL (0.7-1.3) 1.9 mg/dL (0.7-1.3) Estimated GFR (Cockcroft-Gault) 44.8 42.1 BUN/Creatinine Ratio 12 (6-20) 12 (6-20) Glucose Level 90 mg/dL (70-99) 93 mg/dL (70-99) Calcium Level 8.3 mg/dL (8.5-10.1) 8.2 mg/dL (8.5-10.1) Total Bilirubin 24.1 mg/dL (0.2-1.0) 21.8 mg/dL (0.2-1.0) Aspartate Amino Transf (AST/SGOT) 147 U/L (15-37) 133 U/L (15-37) Alanine Aminotransferase (ALT/SGPT) 53 U/L (16-63) 47 U/L (16-63) Alkaline Phosphatase 189 U/L (46-116) 173 U/L (46-116) Ammonia 100 mcmol/L (11-34) Troponin I Quantitative < 0.017 ng/mL (0.000-0.055) GP-Fif-W-Type Natriuretic Peptide 142 pg/mL (0-124) Total Protein 5.8 g/dL (6.4-8.2) 5.6 g/dL (6.4-8.2) Albumin 1.5 g/dL (3.4-5.0) 1.3 g/dL (3.4-5.0) Albumin/Globulin Ratio 0.3 (1.0-1.7) 0.3 (1.0-1.7) Lipase 133 U/L (73-393) Procalcitonin 1.14 ng/mL (0.00-0.10) Ethyl Alcohol Level < 10 mg/dL (0-10) Urine Collection Type Unknown Urine Color Vannessa Urine Clarity Clear Urine pH 6.5 (<5.0-8.0) Urine Specific Reeves >=1.030 (1.000-1.030) Urine Protein Negative mg/dL (NEG-TRACE) Urine Glucose (UA) Negative mg/dL (NEG) Urine Ketones (Stick) Negative mg/dL (NEG) Urine Blood Negative (NEG) Urine Nitrite Negative (NEG) Urine Bilirubin Large (NEG) Urine Urobilinogen Dipstick 0.2 mg/dL (0.2 mg/dL) Urine Leukocyte Esterase Negative (NEG) Urine RBC 0 /HPF (0-2) Urine WBC Rare /HPF (0-4) Urine Squamous Epithelial Cells Few /LPF Urine Amorphous Sediment Present /HPF Urine Bacteria 0 /HPF (0-FEW) Urine Mucus Slight /LPF Urine Opiates Screen Neg (NEG) Urine Methadone Screen Neg (NEG) Urine Barbiturates Neg (NEG) Urine Phencyclidine Screen Neg (NEG) Urine Amphetamine/Methamphetamine Neg (NEG) Urine Benzodiazepines Screen Pos (NEG) Urine Cocaine Screen Neg (NEG) Urine Cannabinoids Screen Pos (NEG) Urine Ethyl Alcohol Neg (NEG) Laboratory Tests Test 10/31/19 15:32 10/31/19 18:09 11/01/19 05:40 White Blood Count 20.7 x10^3/uL (4.0-11.0) 20.1 x10^3/uL (4.0-11.0) Red Blood Count 4.05 x10^6/uL (4.30-5.70) 3.91 x10^6/uL (4.30-5.70) Hemoglobin 14.6 g/dL (13.0-17.5) 13.6 g/dL (13.0-17.5) Hematocrit 41.2 % (39.0-53.0) 40.0 % (39.0-53.0) Mean Corpuscular Volume 102 fL (79-100) 102 fL (79-100) Mean Corpuscular Hemoglobin 36 pg (25-35) 35 pg (25-35) Mean Corpuscular Hemoglobin Concent 35 g/dL (31-37) 34 g/dL (31-37) Red Cell Distribution Width 16.4 % (11.5-14.5) 16.3 % (11.5-14.5) Platelet Count 149 x10^3/uL (140-400) 137 x10^3/uL (140-400) Neutrophils (%) (Auto) 81 % (31-73) 81 % (31-73) Lymphocytes (%) (Auto) 7 % (24-48) 6 % (24-48) Monocytes (%) (Auto) 10 % (0-9) 11 % (0-9) Eosinophils (%) (Auto) 2 % (0-3) 2 % (0-3) Basophils (%) (Auto) 0 % (0-3) 0 % (0-3) Neutrophils # (Auto) 16.8 x10^3/uL (1.8-7.7) 16.2 x10^3/uL (1.8-7.7) Lymphocytes # (Auto) 1.4 x10^3/uL (1.0-4.8) 1.2 x10^3/uL (1.0-4.8) Monocytes # (Auto) 2.1 x10^3/uL (0.0-1.1) 2.1 x10^3/uL (0.0-1.1) Eosinophils # (Auto) 0.4 x10^3/uL (0.0-0.7) 0.4 x10^3/uL (0.0-0.7) Basophils # (Auto) 0.1 x10^3/uL (0.0-0.2) 0.1 x10^3/uL (0.0-0.2) Segmented Neutrophils % 82 % (35-66) Band Neutrophils % 2 % (0-9) Lymphocytes % 9 % (24-48) Monocytes % 4 % (0-10) Eosinophils % 3 % (0-5) Toxic Granulation Slight Platelet Estimate Adequate (ADEQUATE) Macrocytosis Slight Prothrombin Time 28.8 SEC (11.7-14.0) 29.8 SEC (11.7-14.0) Prothromb Time International Ratio 2.7 (0.8-1.1) 2.8 (0.8-1.1) Sodium Level 133 mmol/L (136-145) 134 mmol/L (136-145) Potassium Level 3.8 mmol/L (3.5-5.1) 3.3 mmol/L (3.5-5.1) Chloride Level 96 mmol/L (98-107) 97 mmol/L (98-107) Carbon Dioxide Level 29 mmol/L (21-32) 30 mmol/L (21-32) Anion Gap 8 (6-14) 7 (6-14) Blood Urea Nitrogen 21 mg/dL (8-26) 22 mg/dL (8-26) Creatinine 1.8 mg/dL (0.7-1.3) 1.9 mg/dL (0.7-1.3) Estimated GFR (Cockcroft-Gault) 44.8 42.1 BUN/Creatinine Ratio 12 (6-20) 12 (6-20) Glucose Level 90 mg/dL (70-99) 93 mg/dL (70-99) Calcium Level 8.3 mg/dL (8.5-10.1) 8.2 mg/dL (8.5-10.1) Total Bilirubin 24.1 mg/dL (0.2-1.0) 21.8 mg/dL (0.2-1.0) Aspartate Amino Transf (AST/SGOT) 147 U/L (15-37) 133 U/L (15-37) Alanine Aminotransferase (ALT/SGPT) 53 U/L (16-63) 47 U/L (16-63) Alkaline Phosphatase 189 U/L (46-116) 173 U/L (46-116) Ammonia 100 mcmol/L (11-34) Troponin I Quantitative < 0.017 ng/mL (0.000-0.055) GK-Ytz-U-Type Natriuretic Peptide 142 pg/mL (0-124) Total Protein 5.8 g/dL (6.4-8.2) 5.6 g/dL (6.4-8.2) Albumin 1.5 g/dL (3.4-5.0) 1.3 g/dL (3.4-5.0) Albumin/Globulin Ratio 0.3 (1.0-1.7) 0.3 (1.0-1.7) Lipase 133 U/L (73-393) Procalcitonin 1.14 ng/mL (0.00-0.10) Ethyl Alcohol Level < 10 mg/dL (0-10) Urine Collection Type Unknown Urine Color Vannessa Urine Clarity Clear Urine pH 6.5 (<5.0-8.0) Urine Specific Reeves >=1.030 (1.000-1.030) Urine Protein Negative mg/dL (NEG-TRACE) Urine Glucose (UA) Negative mg/dL (NEG) Urine Ketones (Stick) Negative mg/dL (NEG) Urine Blood Negative (NEG) Urine Nitrite Negative (NEG) Urine Bilirubin Large (NEG) Urine Urobilinogen Dipstick 0.2 mg/dL (0.2 mg/dL) Urine Leukocyte Esterase Negative (NEG) Urine RBC 0 /HPF (0-2) Urine WBC Rare /HPF (0-4) Urine Squamous Epithelial Cells Few /LPF Urine Amorphous Sediment Present /HPF Urine Bacteria 0 /HPF (0-FEW) Urine Mucus Slight /LPF Urine Opiates Screen Neg (NEG) Urine Methadone Screen Neg (NEG) Urine Barbiturates Neg (NEG) Urine Phencyclidine Screen Neg (NEG) Urine Amphetamine/Methamphetamine Neg (NEG) Urine Benzodiazepines Screen Pos (NEG) Urine Cocaine Screen Neg (NEG) Urine Cannabinoids Screen Pos (NEG) Urine Ethyl Alcohol Neg (NEG) Review All relevant outside records, renal labs, imaging studies, telemetry/EKG's were reviewed. Images Images CT scan abdomen There is now a small left-sided pleural effusion and there is some atelectasis in both lower lobes. The liver and spleen are homogeneous in density and normal in configuration. There may be less fatty infiltration of the liver. No focal liver lesion is seen. Both kidneys enhance with contrast. There is no apparent mass or obstruction. The adrenal glands are not enlarged. There is no apparent pancreatic abnormality. No adenopathy is seen. There is greater ascites in the abdomen. Prominent varices are again demonstrated through the abdomen. No localized fluid collection is seen to suggest an abscess. There is no evidence of bowel obstruction. There is suggestion of some wall thickening of the right colon possibly related to congestion. This is probably similar to the prior study. Images through the pelvis show no abnormality of the distal ureters or bladder. No pelvic or inguinal adenopathy is seen. There is no apparent pelvic mass. There is moderate ascites in the upper pelvis. There is also greater edema through the anterior abdominal wall. IMPRESSION: There is increased ascites in the abdomen, although the volume is only moderate at most. There is also now some pleural fluid. RADHA BOYLE MD Nov 01, 2019 12:09
[2019-11-01] MEDS: LORazepam 0.5 MG TABLET PO PRN (13:25)
[2019-11-01 15:44] VITALS: BP 128/70
[2019-11-01 19:00] VITALS: BP 118/55
[2019-11-01] MEDS: cefTRIAXone IV Push 1 GM VIAL. IVP SCH (21:16)
[2019-11-01] MEDS: MIRTAZAPINE 15 MG TABLET PO SCH (21:16)
[2019-11-01] MEDS: FAMOTIDINE 20 MG TABLET. PO SCH (21:16)
[2019-11-01 23:12] VITALS: BP 136/63
[2019-11-02] MEDS: LORazepam 0.5 MG TABLET PO PRN ×3 (01:10→18:02)
[2019-11-02 03:06] VITALS: BP 117/59
[2019-11-02 04:25] LABS: BASO # 0.1 x10^3/uL (0.0-0.2); BASO % 0 % (0-3); EOS # 0.6 x10^3/uL (0.0-0.7); EOS % 3 % (0-3); HEMOGLOBIN 13.5 g/dL (13.0-17.5); LYMPH # 1.3 x10^3/uL (1.0-4.8); LYMPH % 6 % (24-48); MEAN CORPUSCULAR HEMOGLOBIN 35 pg (25-35); MEAN CORPUSCULAR HGB CONC 34 g/dL (31-37); MEAN CORPUSCULAR VOLUME 102 fL (79-100); MONO # 2.6 x10^3/uL (0.0-1.1); MONO % 13 % (0-9); NEUT # 16.1 x10^3/uL (1.8-7.7); NEUT % 78 % (31-73); PLATELET COUNT 131 x10^3/uL (140-400); RED BLOOD COUNT 3.91 x10^6/uL (4.30-5.70); RED CELL DISTRIBUTION WIDTH 15.9 % (11.5-14.5); WHITE BLOOD COUNT 20.7 x10^3/uL (4.0-11.0)
[2019-11-02 04:34] LABS: PROTHROMBIN TIME PATIENT 32.4 SEC (11.7-14.0)
[2019-11-02 04:51] LABS: ALBUMIN 1.2 g/dL (3.4-5.0); ALBUMIN/GLOBULIN RATIO 0.3 (1.0-1.7); CALCIUM 7.6 mg/dL (8.5-10.1); CREATININE 1.9 mg/dL (0.7-1.3); GFR 42.1; TOTAL BILIRUBIN 21.2 mg/dL (0.2-1.0); TOTAL PROTEIN 5.5 g/dL (6.4-8.2)
[2019-11-02] MEDS: LEVOTHYROXINE 88 MCG TABLET PO SCH (05:44)
[2019-11-02] MEDS: hydrOXYzine 10 MG TABLET PO PRN ×3 (05:47→21:33)
[2019-11-02 07:00] VITALS: BP 130/61
[2019-11-02] MEDS: LACTULOSE 20 GM/30 ML SOLUTION. PO SCH ×2 (08:08→21:28)
[2019-11-02] MEDS: LACTOBACILLUS RHAMNOSUS GG 1 CAPSULE. PO SCH ×2 (08:08→21:28)
[2019-11-02] MEDS: GABAPENTIN 100 MG CAPSULE. PO SCH ×3 (08:08→21:28)
[2019-11-02] MEDS: DOXYCYCLINE HYCLATE 100 MG in IV DEXTROSE 5% 100ML 100 ML IV SCH ×2 (08:09→21:29)
[2019-11-02] MEDS: HEPARIN for SUB-Q USE 5,000 UNIT/ML VIAL. SQ SCH ×3 (09:51→20:38)
[2019-11-02 11:00] VITALS: BP 107/57
--- NOTE | 2019-11-02 11:39 | PDOC ---
Date of Service: DATE: 11/02/19 TIME: 11:28 Subjective: Subjective: Admitted 10/16 to 10/28/19 w/ alcoholic hepatitis - please see past GI notes. Readmitted 10/30 - reviewed chart - "not getting better." Tells me this morning he feels ore bloated w/ abdominal discomfort. Objective: Objective: D/w nurse - flat affect, no paracentesis due to elevated INR. Stooling w/ lactulose. Vital Signs: Vital Signs Date Time Temp Pulse Resp B/P (MAP) Pulse Ox O2 Delivery O2 Flow Rate FiO2 11/02/19 08:00 Room Air 11/02/19 07:00 98.3 98 18 130/61 (84) 91 98.3 Labs: Laboratory Tests Test 11/02/19 04:10 White Blood Count 20.7 x10^3/uL Red Blood Count 3.91 x10^6/uL Hemoglobin 13.5 g/dL Hematocrit 40.0 % Mean Corpuscular Volume 102 fL Mean Corpuscular Hemoglobin 35 pg Mean Corpuscular Hemoglobin Concent 34 g/dL Red Cell Distribution Width 15.9 % Platelet Count 131 x10^3/uL Neutrophils (%) (Auto) 78 % Lymphocytes (%) (Auto) 6 % Monocytes (%) (Auto) 13 % Eosinophils (%) (Auto) 3 % Basophils (%) (Auto) 0 % Neutrophils # (Auto) 16.1 x10^3/uL Lymphocytes # (Auto) 1.3 x10^3/uL Monocytes # (Auto) 2.6 x10^3/uL Eosinophils # (Auto) 0.6 x10^3/uL Basophils # (Auto) 0.1 x10^3/uL Prothrombin Time 32.4 SEC Prothromb Time International Ratio 3.1 Sodium Level 134 mmol/L Potassium Level 3.0 mmol/L Chloride Level 98 mmol/L Carbon Dioxide Level 29 mmol/L Anion Gap 7 Blood Urea Nitrogen 22 mg/dL Creatinine 1.9 mg/dL Estimated GFR (Cockcroft-Gault) 42.1 BUN/Creatinine Ratio 12 Glucose Level 79 mg/dL Calcium Level 7.6 mg/dL Total Bilirubin 21.2 mg/dL Aspartate Amino Transf (AST/SGOT) 143 U/L Alanine Aminotransferase (ALT/SGPT) 46 U/L Alkaline Phosphatase 179 U/L Total Protein 5.5 g/dL Albumin 1.2 g/dL Albumin/Globulin Ratio 0.3 Imaging: CXR 10/30 IMPRESSION: 1. Increased left basilar infiltrate. CT A/P 10/30 IMPRESSION: There is increased ascites in the abdomen, although the volume is only moderate at most. There is also now some pleural fluid. PE: GEN: NAD, sitting on edge of bed eating breakfast HEENT: Atraumatic, PERRL LUNGS: clear anteriorly HEART: mild tachycardia ABD: some distention - fairly stable from last admit, maybe a little more tight EXTREMITY: No edema SKIN: +jaundice NEURO/PSYCH: A & O 3, flat A/P: Abd discomfort Alcoholic liver disease/alcoholic hepatitis, ascites ("moderate at most" per CT report) Leukocytosis, macrocytosis, thrombocytopenia, coagulopathy, ROSIO -- Will d/w Dr. Mclean - paracentesis on hold - ?vit K Justicifation of Admission Dx: Justifications for Admission: Justification of Admission Dx: Yes Sepsis: End-Organ Dysfunction THOMAS DUBON Nov 02, 2019 11:39
[2019-11-02] MEDS: POTASSIUM BICARB 20 MEQ EFFERVESCENT TABLET. PO PRN (11:49)
[2019-11-02] MEDS ORDERED: PHYTONADIONE 10 MG/ML AMPUL. SQ ONE (12:15)
[2019-11-02] MEDS ORDERED: PHYTONADIONE (VIT K1) IV 10 MG in IV DEXTROSE 5% 50 ML IV ONE (12:30)
--- NOTE | 2019-11-02 13:44 | PDOC ---
Renal-Progress Notes Subjective Notes Notes ALERT History of Present Illness Hx of present illness NO NEW COMPLAINTS Vitals Vitals Vital Signs Date Time Temp Pulse Resp B/P (MAP) Pulse Ox O2 Delivery O2 Flow Rate FiO2 11/02/19 11:00 98.3 97 16 107/57 (74) 95 Room Air 98.3 Weight Weight [ ] I.O. Intake and Output Intake and Output 11/02/19 07:00 Intake Total 720 ml Balance 720 ml Intake Oral 720 ml # Voids 5 Labs Labs Laboratory Tests Test 11/02/19 04:10 White Blood Count 20.7 x10^3/uL (4.0-11.0) Red Blood Count 3.91 x10^6/uL (4.30-5.70) Hemoglobin 13.5 g/dL (13.0-17.5) Hematocrit 40.0 % (39.0-53.0) Mean Corpuscular Volume 102 fL (79-100) Mean Corpuscular Hemoglobin 35 pg (25-35) Mean Corpuscular Hemoglobin Concent 34 g/dL (31-37) Red Cell Distribution Width 15.9 % (11.5-14.5) Platelet Count 131 x10^3/uL (140-400) Neutrophils (%) (Auto) 78 % (31-73) Lymphocytes (%) (Auto) 6 % (24-48) Monocytes (%) (Auto) 13 % (0-9) Eosinophils (%) (Auto) 3 % (0-3) Basophils (%) (Auto) 0 % (0-3) Neutrophils # (Auto) 16.1 x10^3/uL (1.8-7.7) Lymphocytes # (Auto) 1.3 x10^3/uL (1.0-4.8) Monocytes # (Auto) 2.6 x10^3/uL (0.0-1.1) Eosinophils # (Auto) 0.6 x10^3/uL (0.0-0.7) Basophils # (Auto) 0.1 x10^3/uL (0.0-0.2) Prothrombin Time 32.4 SEC (11.7-14.0) Prothromb Time International Ratio 3.1 (0.8-1.1) Sodium Level 134 mmol/L (136-145) Potassium Level 3.0 mmol/L (3.5-5.1) Chloride Level 98 mmol/L (98-107) Carbon Dioxide Level 29 mmol/L (21-32) Anion Gap 7 (6-14) Blood Urea Nitrogen 22 mg/dL (8-26) Creatinine 1.9 mg/dL (0.7-1.3) Estimated GFR (Cockcroft-Gault) 42.1 BUN/Creatinine Ratio 12 (6-20) Glucose Level 79 mg/dL (70-99) Calcium Level 7.6 mg/dL (8.5-10.1) Total Bilirubin 21.2 mg/dL (0.2-1.0) Aspartate Amino Transf (AST/SGOT) 143 U/L (15-37) Alanine Aminotransferase (ALT/SGPT) 46 U/L (16-63) Alkaline Phosphatase 179 U/L (46-116) Total Protein 5.5 g/dL (6.4-8.2) Albumin 1.2 g/dL (3.4-5.0) Albumin/Globulin Ratio 0.3 (1.0-1.7) Review of Systems Constitutional: yes: alert Ears/Nose/Throat: Yes: no symptom reported Eyes: Yes: no symptom reported Pulmonary: Yes no symptom reported Cardiovascular: Yes no symptom reported Gastrointestional: Yes: nausea, other (DISTENTION) Genitourinary: Yes: no symptom reported Musculoskeletal: Yes: muscle pain, muscle stiffness Psychiatric/Neurological: Yes: no symptom reported Endocrine: Yes: no symptom reported Physical Exam General Appearance: no apparent distress Skin: warm Respiratory: decreased breath sounds Heart: S1S2 Abdomen: distension Genitourinary: bladder flat Extremities: pulses present, edema Neurology: alert, oriented Assessment Assessment IMP ROSIO WITH CR OF 1.9 DUE TO RENOVASOCONSTRICTION LEUCOCYTOSIS HYPONATREMA ETOH HEPATITIS LIVER FAILURE ASCITES PLAN FLUID RESTRICTION SUGGEST ALBUMIN PRIOR TO PARACENTESIS POOR PROGNOSIS WILL FOLLOW RAUL LOWE MD Nov 02, 2019 13:44
--- NOTE | 2019-11-02 14:48 | PDOC ---
[facility] PROGRESS NOTE Date of Service DOS: DATE: 11/02/19 TIME: 14:45 Chief Complaint Chief Complaint A/P: Abdominal pain - with leukocytosis, newly diagnosed hepatitis with ascites, concerning for SBP, will initiate antibiotics, pending paracentesis. Pending for INR to drop below 2. GI consult appreciated Acute hepatic encephalopathy - metabolic from hyperammonemia from liver disease, will continue lactulose Shortness of breath - likely from abdominal swelling and diaphragmatic compression with small left pleural effusion, no cough, but infiltrate is apparent. Check procalcitonin, Rocephin + doxy Sepsis - likely related to SBP vs pneumonia less likely, will continue fluids, however with his ascites may need diuresis / paracentesis + albumin ROSIO - concerning given his newly diagnosed liver failure. Will monitor after 2 liter fluid challenge. May need nephrology consultation if he fails fluid challenge Hyponatremia - likely from liver failure, will monitor trend after fluids Painless jaundice - related to acute liver failure Acute liver failure - no real improvement in bilirubin from prior stay, in fact it is elevated. INR stable, albumin low. ROSIO and hyponatremia are poor prog nostic factors. Consult GI THC abuse - counseled Alcohol abuse - now in remission for 2 weeks due to hospitalization, did not re lapse after discharge per he and his mother Thrombocytopenia - minimal, likely related to alcoholic liver diseasee Severe protein-caloric malnutrition - related to liver disease Depression - on remeron QHS with improvement in his mood Hypothyroid - on replacement now FEN - General diet PPX - Heparin. Will hold on 10/31 evening in anticipation of IR paracentesis potentially on 11/01 FULL CODE Dispo - inpatient at least 2 midnights. He has a poor overall prognosis he and family are aware. History of Present Illness History of Present Illness Mr Galan is a 29yo M w/ PMHx heavy alcohol use, who presented with worsening abdominal pain and swelling after a discharge 3 days prior. He was just admitted October 16 through October 27 for acute alcoholic hepatitis and fatty liver disease. Psychiatry has diagnosed generalized anxiety disorder and depression. Pulmonology found likely sleep apnea/hypopnea. GI recommended alcohol cessation. Patient does have a history of a seizure in his teens. He has been drinking at least a pint of vodka a day for up to several years. Now states he has not drink since October 16. He and his mother state he is here because he is just not feeling better. He and his mother state they think he has been having 3-5 bowel movements per day with lactulose and for one day urinated more with lasix, but the past 2 days has been urinating less and now has diffuse abdominal pain and he is short of breath with a slight cough. He has had no contacts with COVID 19 exposed patients and has only been with his mother and significant other and hospital staff at this facility since 10/17/2019. His mother notes worsening confusion and tremors. CT abdomen pelvis with moderate ascites and new left pleural effusion. Chest x- ray with left basilar infiltrate Labs reviewed with WBC 20.7 Hb 14.6, platelets 149, NA 133, K3.8, BUN 21, CR 1.8, glucose 90, bilirubin 24.1, AST 147, ALT 53, alk phos 189, ammonia 100, BNP 142, lipase 133, INR 2.7, Trop 0 Admitted for further treatment Afebrile overnight. WBC still 20.1, Hb 13.6, platelets 137, K3.3, CR 1.9, INR 2.8, albumin 1.3 bilirubin 21.8, AST 133, ALT 47, alk phos 173. Still having pain. D/w his mother bedside is overall poor prognosis given the hyponatremia and ROSIO that was not responsive to fluids today. She is asking if she can have a referral to [facility] transplant hepatology if he is able to be safely discharged from the hospital.. 11/02/2019 No acute events overnight. Patient has no more altered mental status episodes. Patient is ambulating without assistance. Vitals/I&O Vitals/I&O: Vital Signs Date Time Temp Pulse Resp B/P (MAP) Pulse Ox O2 Delivery O2 Flow Rate FiO2 11/02/19 11:00 98.3 97 16 107/57 (74) 95 Room Air 98.3 I & O 11/01/19 11/01/19 11/02/19 15:00 23:00 07:00 Intake Total 620 ml 100 ml Balance 620 ml 100 ml Physical Exam Physical Exam: General: Alert, Cooperative, moderate distress Lungs: Clear Abdomen: Normal bowel sounds, Soft, diffuse mild tenderness, positive fluid wave Extremities: No clubbing, No cyanosis, Normal pulses, No tenderness/swelling, 2+ pitting edema Skin: No significant lesion General: Alert, Cooperative, moderate distress Lungs: Clear Abdomen: Normal bowel sounds, Soft, Other (diffuse mild tenderness, positive fluid wave) Extremities: No clubbing, No cyanosis, Normal pulses, No tenderness/swelling, Other (2+ pitting edema) Skin: No significant lesion Labs Labs: Laboratory Tests Test 11/02/19 04:10 White Blood Count 20.7 x10^3/uL (4.0-11.0) Red Blood Count 3.91 x10^6/uL (4.30-5.70) Hemoglobin 13.5 g/dL (13.0-17.5) Hematocrit 40.0 % (39.0-53.0) Mean Corpuscular Volume 102 fL (79-100) Mean Corpuscular Hemoglobin 35 pg (25-35) Mean Corpuscular Hemoglobin Concent 34 g/dL (31-37) Red Cell Distribution Width 15.9 % (11.5-14.5) Platelet Count 131 x10^3/uL (140-400) Neutrophils (%) (Auto) 78 % (31-73) Lymphocytes (%) (Auto) 6 % (24-48) Monocytes (%) (Auto) 13 % (0-9) Eosinophils (%) (Auto) 3 % (0-3) Basophils (%) (Auto) 0 % (0-3) Neutrophils # (Auto) 16.1 x10^3/uL (1.8-7.7) Lymphocytes # (Auto) 1.3 x10^3/uL (1.0-4.8) Monocytes # (Auto) 2.6 x10^3/uL (0.0-1.1) Eosinophils # (Auto) 0.6 x10^3/uL (0.0-0.7) Basophils # (Auto) 0.1 x10^3/uL (0.0-0.2) Prothrombin Time 32.4 SEC (11.7-14.0) Prothromb Time International Ratio 3.1 (0.8-1.1) Sodium Level 134 mmol/L (136-145) Potassium Level 3.0 mmol/L (3.5-5.1) Chloride Level 98 mmol/L (98-107) Carbon Dioxide Level 29 mmol/L (21-32) Anion Gap 7 (6-14) Blood Urea Nitrogen 22 mg/dL (8-26) Creatinine 1.9 mg/dL (0.7-1.3) Estimated GFR (Cockcroft-Gault) 42.1 BUN/Creatinine Ratio 12 (6-20) Glucose Level 79 mg/dL (70-99) Calcium Level 7.6 mg/dL (8.5-10.1) Total Bilirubin 21.2 mg/dL (0.2-1.0) Aspartate Amino Transf (AST/SGOT) 143 U/L (15-37) Alanine Aminotransferase (ALT/SGPT) 46 U/L (16-63) Alkaline Phosphatase 179 U/L (46-116) Total Protein 5.5 g/dL (6.4-8.2) Albumin 1.2 g/dL (3.4-5.0) Albumin/Globulin Ratio 0.3 (1.0-1.7) Assessment and Plan Assessmemt and Plan Problems Medical Problems: (1) Acute hepatic encephalopathy Status: Acute Comment Review of Relevant I have reviewed the following items larry (where applicable) has been applied. Medications: Current Medications Medications (Trade) Dose Ordered Sig/Kelly Route PRN Reason Start Time Stop Time Status Last Admin Dose Admin Hydroxyzine HCl (Atarax) 10 mg PRN Q6HRS PRN PO ITCHING 11/01/19 17:30 11/02/19 11:48 Phytonadione (Vitamin K Ampule) 10 mg 1X ONCE SQ 11/02/19 12:15 11/02/19 12:21 DC 11/02/19 12:37 TAWNYA HOLLY MD Nov 02, 2019 14:48
[2019-11-02 15:00] VITALS: BP 119/67
--- NOTE | 2019-11-02 17:15 | NUR ---
MARCIAL following. Reviewed chart and discussed with RN. Pt discharged on 10/27 with 24 hour care from his mom, significant other and roommate. Pt had a home 02 concentrator and nebulizer at discharged. Pt was affording his medication and had declined HH and a $20 walker on discharge. Pt currently on room air and IV Dextrose. [facility] completed another PAT referral to [facility]. Alessandro saw pt today and on last admission to provide resources for substance abuse. Pt is to follow up with an IOP for ETOH/substance abuse on discharge. Pt's INR is to high so a paracentesis is scheduled for tomorrow per RN. MARCIAL to follow. Addendum: 11/02/19 at 1728 by JUDIE CEJA MARCIAL was consulted r/t frequent hospitalizations and ETOH abuse. MARCIAL is following.
[2019-11-02] MEDS: traMADol 50 MG TABLET PO PRN (18:02)
[2019-11-02 19:00] VITALS: BP 123/75
[2019-11-02] MEDS: FAMOTIDINE 20 MG TABLET. PO SCH (21:28)
[2019-11-02] MEDS: MIRTAZAPINE 15 MG TABLET PO SCH (21:28)
[2019-11-02] MEDS: cefTRIAXone IV Push 1 GM VIAL. IVP SCH (21:29)
[2019-11-02 23:00] VITALS: BP 114/59
[2019-11-03 03:00] VITALS: BP 108/60
[2019-11-03] MEDS: LORazepam 0.5 MG TABLET PO PRN (03:52)
[2019-11-03] MEDS: traMADol 50 MG TABLET PO PRN (03:52)
[2019-11-03 05:15] LABS: CALCIUM 7.7 mg/dL (8.5-10.1); CREATININE 1.8 mg/dL (0.7-1.3); GFR 44.8; MAGNESIUM 2.1 mg/dL (1.8-2.4); PHOSPHORUS 3.4 mg/dL (2.6-4.7)
[2019-11-03 05:20] LABS: POTASSIUM 2.9 mmol/L (3.5-5.1)
--- NOTE | 2019-11-03 05:38 | NUR ---
Around 05 lab called w/ a critical K+ OF 2.9. Dr. Resendiz called back around 0532 and gave order for IV KCL 10 mg x4 bags.
[2019-11-03] MEDS: POTASSIUM CHLORIDE 10MEQ 100 ML IV SCH ×4 (06:43→10:38)
[2019-11-03] MEDS: LEVOTHYROXINE 88 MCG TABLET PO SCH (06:43)
[2019-11-03] MEDS: hydrOXYzine 10 MG TABLET PO PRN (06:43)
[2019-11-03] MEDS: POTASSIUM BICARB 20 MEQ EFFERVESCENT TABLET. PO PRN (06:44)
--- NOTE | 2019-11-03 06:54 | NUR ---
Pt. refused to keep Monitor on last night. Keeps taking monitor off when you put it on him. Will ask DrSrini to D/C it today.
[2019-11-03 07:00] VITALS: BP 112/54
[2019-11-03 09:12] LABS: PROTHROMBIN TIME PATIENT 31.5 SEC (11.7-14.0)
[2019-11-03] MEDS: GABAPENTIN 100 MG CAPSULE. PO SCH ×3 (09:14→21:05)
[2019-11-03] MEDS: LACTOBACILLUS RHAMNOSUS GG 1 CAPSULE. PO SCH ×2 (09:14→21:05)
[2019-11-03] MEDS: DOXYCYCLINE HYCLATE 100 MG in IV DEXTROSE 5% 100ML 100 ML IV SCH ×2 (09:14→21:06)
[2019-11-03] MEDS: LACTULOSE 20 GM/30 ML SOLUTION. PO SCH ×2 (09:14→21:05)
[2019-11-03 11:00] VITALS: BP 113/58
--- NOTE | 2019-11-03 12:12 | PDOC ---
Date of Service: DATE: 11/03/19 TIME: 12:08 Subjective: Subjective: Says doing pretty good today. Objective: Vital Signs: Vital Signs Date Time Temp Pulse Resp B/P (MAP) Pulse Ox O2 Delivery O2 Flow Rate FiO2 11/03/19 11:00 97.9 89 113/58 (76) 92 Room Air 97.9 11/03/19 07:00 18 Labs: Laboratory Tests Test 11/03/19 04:15 Prothrombin Time 31.5 SEC Prothromb Time International Ratio 3.0 Sodium Level 134 mmol/L Potassium Level 2.9 mmol/L Chloride Level 97 mmol/L Carbon Dioxide Level 27 mmol/L Anion Gap 10 Blood Urea Nitrogen 21 mg/dL Creatinine 1.8 mg/dL Estimated GFR (Cockcroft-Gault) 44.8 Glucose Level 64 mg/dL Calcium Level 7.7 mg/dL Phosphorus Level 3.4 mg/dL Magnesium Level 2.1 mg/dL PE: GEN: NAD LUNGS: CTAB HEART: RRR ABD: distended EXTREMITY: No edema SKIN: +jaundice NEURO/PSYCH: was asleep - easily awakened A/P: Alcoholic hepatitis, ascites, coagulopathy Hypokalemia, ROSIO -- INR still 3 despite vit K, paracentesis rescheduled for tomorrow. Reviewed w/ Dr. Mclean - will plan for 2 units FFP tomorrow before paracentesis - recheck INR after. D/w nurse. Justicifation of Admission Dx: Justifications for Admission: Justification of Admission Dx: Yes Sepsis: End-Organ Dysfunction THOMAS DUBON Nov 03, 2019 12:12
--- NOTE | 2019-11-03 13:46 | PDOC ---
Renal-Progress Notes Subjective Notes Notes NO NEW COMPLAINTS History of Present Illness Hx of present illness NO ACUTE CHANGES Vitals Vitals Vital Signs Date Time Temp Pulse Resp B/P (MAP) Pulse Ox O2 Delivery O2 Flow Rate FiO2 11/03/19 11:00 97.9 89 113/58 (76) 92 Room Air 97.9 11/03/19 07:00 18 Weight Weight [ ] I.O. Intake and Output Intake and Output 11/03/19 07:00 Intake Total 720 ml Balance 720 ml Intake Oral 720 ml # Voids 4 # Bowel Movements 2 Labs Labs Laboratory Tests Test 11/03/19 04:15 Prothrombin Time 31.5 SEC (11.7-14.0) Prothromb Time International Ratio 3.0 (0.8-1.1) Sodium Level 134 mmol/L (136-145) Potassium Level 2.9 mmol/L (3.5-5.1) Chloride Level 97 mmol/L (98-107) Carbon Dioxide Level 27 mmol/L (21-32) Anion Gap 10 (6-14) Blood Urea Nitrogen 21 mg/dL (8-26) Creatinine 1.8 mg/dL (0.7-1.3) Estimated GFR (Cockcroft-Gault) 44.8 Glucose Level 64 mg/dL (70-99) Calcium Level 7.7 mg/dL (8.5-10.1) Phosphorus Level 3.4 mg/dL (2.6-4.7) Magnesium Level 2.1 mg/dL (1.8-2.4) Review of Systems Constitutional: yes: alert Ears/Nose/Throat: Yes: no symptom reported Eyes: Yes: no symptom reported Pulmonary: Yes no symptom reported Cardiovascular: Yes no symptom reported Gastrointestional: Yes: nausea, other (DISTENTION) Genitourinary: Yes: no symptom reported Musculoskeletal: Yes: muscle pain, muscle stiffness Psychiatric/Neurological: Yes: no symptom reported Endocrine: Yes: no symptom reported Physical Exam General Appearance: no apparent distress Skin: warm Respiratory: decreased breath sounds Heart: S1S2 Abdomen: distension Genitourinary: bladder flat Extremities: pulses present, edema Neurology: alert, oriented Assessment Assessment IMP ROSIO WITH CR OF 1.9 DUE TO RENOVASOCONSTRICTION HYPOKALEMIA LEUCOCYTOSIS HYPONATREMA ETOH HEPATITIS LIVER FAILURE ASCITES PLAN K REPLACED FLUID RESTRICTION SUGGEST ALBUMIN PRIOR TO PARACENTESIS POOR PROGNOSIS WILL FOLLOW RAUL LOWE MD Nov 03, 2019 13:46
[2019-11-03] MEDS: HEPARIN for SUB-Q USE 5,000 UNIT/ML VIAL. SQ SCH ×2 (14:00→19:36)
--- NOTE | 2019-11-03 14:34 | PDOC ---
[facility] PROGRESS NOTE Date of Service DOS: DATE: 11/03/19 TIME: 14:32 Chief Complaint Chief Complaint A/P: Abdominal pain - with leukocytosis, newly diagnosed hepatitis with ascites, concerning for SBP, will initiate antibiotics, pending paracentesis. INR remains greater than 3. We will attempt FFP tomorrow morning before paracentesis. Acute hepatic encephalopathy - metabolic from hyperammonemia from liver disease, will continue lactulose Shortness of breath - likely from abdominal swelling and diaphragmatic compression with small left pleural effusion, no cough, but infiltrate is apparent. Check procalcitonin, Rocephin + doxy Sepsis - likely related to SBP vs pneumonia less likely, will continue fluids, however with his ascites may need diuresis / paracentesis + albumin ROSIO - concerning given his newly diagnosed liver failure. Will monitor after 2 liter fluid challenge. May need nephrology consultation if he fails fluid chal lenge Hyponatremia - likely from liver failure, will monitor trend after fluids Painless jaundice - related to acute liver failure Acute liver failure - no real improvement in bilirubin from prior stay, in fact it is elevated. INR stable, albumin low. ROSIO and hyponatremia are poor prognostic factors. Consult GI THC abuse - counseled Alcohol abuse - now in remission for 2 weeks due to hospitalization, did not relapse after discharge per he and his mother Thrombocytopenia - minimal, likely related to alcoholic liver diseasee Severe protein-caloric malnutrition - related to liver disease Depression - on remeron QHS with improvement in his mood Hypothyroid - on replacement now HypokalemiaIV and p.o. potassium replacement today FEN - General diet PPX - Heparin. Will hold on 10/31 evening in anticipation of IR paracentesis potentially on 11/01 FULL CODE Dispo - inpatient at least 2 midnights. He has a poor overall prognosis he and family are aware. History of Present Illness History of Present Illness Mr Galan is a 29yo M w/ PMHx heavy alcohol use, who presented with worsening abdominal pain and swelling after a discharge 3 days prior. He was just admitted October 16 through October 27 for acute alcoholic hepatitis and fatty liver disease. Psychiatry has diagnosed generalized anxiety disorder and depression. Pulmonology found likely sleep apnea/hypopnea. GI recommended alcohol cessation. Patient does have a history of a seizure in his teens. He has been drinking at least a pint of vodka a day for up to several years. Now states he has not drink since October 16. He and his mother state he is here because he is just not feeling better. He and his mother state they think he has been having 3-5 bowel movements per day with lactulose and for one day urinated more with lasix, but the past 2 days has been urinating less and now has diffuse abdominal pain and he is short of breath with a slight cough. He has had no contacts with COVID 19 exposed patients and has only been with his mother and significant other and hospital staff at this facility since 10/17/2019. His mother notes worsening confusion and tremors. CT abdomen pelvis with moderate ascites and new left pleural effusion. Chest x- ray with left basilar infiltrate Labs reviewed with WBC 20.7 Hb 14.6, platelets 149, NA 133, K3.8, BUN 21, CR 1.8, glucose 90, bilirubin 24.1, AST 147, ALT 53, alk phos 189, ammonia 100, BNP 142, lipase 133, INR 2.7, Trop 0 Admitted for further treatment Afebrile overnight. WBC still 20.1, Hb 13.6, platelets 137, K3.3, CR 1.9, INR 2.8, albumin 1.3 bilirubin 21.8, AST 133, ALT 47, alk phos 173. Still having pain. D/w his mother bedside is overall poor prognosis given the hyponatremia and ROSIO that was not responsive to fluids today. She is asking if she can have a referral to [facility] transplant hepatology if he is able to be safely discharged from the hospital.. 11/02/2019 No acute events overnight. Patient has no more altered mental status episodes. Patient is ambulating without assistance. 11/03/2019 No acute events overnight. Patient was seen and examined bedside. No altered mental status or increasing abdominal distention. Patient's chart, labs, images were reviewed and discussed with RN Vitals/I&O Vitals/I&O: Vital Signs Date Time Temp Pulse Resp B/P (MAP) Pulse Ox O2 Delivery O2 Flow Rate FiO2 11/03/19 11:00 97.9 89 113/58 (76) 92 Room Air 97.9 11/03/19 07:00 18 I & O 11/02/19 11/02/19 11/03/19 15:00 23:00 07:00 Intake Total 180 ml 200 ml 340 ml Balance 180 ml 200 ml 340 ml Physical Exam Physical Exam: General: No apparent distress. Jaundiced Lungs: Clear Abdomen: Normal bowel sounds, Soft, diffuse mild tenderness, positive fluid wave Extremities: No clubbing, No cyanosis, Normal pulses, No tenderness/swelling, 2+ pitting edema Skin: No significant lesion General: Alert, Cooperative, moderate distress Lungs: Clear Abdomen: Normal bowel sounds, Soft, Other (diffuse mild tenderness, positive fluid wave) Extremities: No clubbing, No cyanosis, Normal pulses, No tenderness/swelling, Other (2+ pitting edema) Skin: No significant lesion Labs Labs: Laboratory Tests Test 11/03/19 04:15 Prothrombin Time 31.5 SEC (11.7-14.0) Prothromb Time International Ratio 3.0 (0.8-1.1) Sodium Level 134 mmol/L (136-145) Potassium Level 2.9 mmol/L (3.5-5.1) Chloride Level 97 mmol/L (98-107) Carbon Dioxide Level 27 mmol/L (21-32) Anion Gap 10 (6-14) Blood Urea Nitrogen 21 mg/dL (8-26) Creatinine 1.8 mg/dL (0.7-1.3) Estimated GFR (Cockcroft-Gault) 44.8 Glucose Level 64 mg/dL (70-99) Calcium Level 7.7 mg/dL (8.5-10.1) Phosphorus Level 3.4 mg/dL (2.6-4.7) Magnesium Level 2.1 mg/dL (1.8-2.4) Assessment and Plan Assessmemt and Plan Problems Medical Problems: (1) Acute hepatic encephalopathy Status: Acute Comment Review of Relevant I have reviewed the following items larry (where applicable) has been applied. Medications: Current Medications Medications (Trade) Dose Ordered Sig/Kelly Route PRN Reason Start Time Stop Time Status Last Admin Dose Admin Potassium Chloride/Water 100 ml @ 100 mls/hr Q1H IV 11/03/19 06:30 11/03/19 10:29 DC 11/03/19 10:38 TAWNYA HOLLY MD Nov 03, 2019 14:34
[2019-11-03 15:00] VITALS: BP 105/53
--- NOTE | 2019-11-03 15:44 | NUR ---
SW following. Spoke with RN and reviewed chart. Discharge plan remains home with out-patient follow up r/t ETOH abuse. Pt remains on IV abx and will have a paracentesis tomorrow per RN. SW to continue following as needed.
[2019-11-03 19:00] VITALS: BP 109/53
[2019-11-03] MEDS: FAMOTIDINE 20 MG TABLET. PO SCH (21:05)
[2019-11-03] MEDS: MIRTAZAPINE 15 MG TABLET PO SCH (21:05)
[2019-11-03] MEDS: cefTRIAXone IV Push 1 GM VIAL. IVP SCH (21:06)
[2019-11-03 23:00] VITALS: BP 90/55
[2019-11-04] VITALS (19 sets, daily range): BP systolic 99–131; BP diastolic 45–75
[2019-11-04] MEDS: LEVOTHYROXINE 88 MCG TABLET PO SCH (05:43)
[2019-11-04 07:27] LABS: CALCIUM 7.8 mg/dL (8.5-10.1); GFR 39.7; POTASSIUM 3.2 mmol/L (3.5-5.1)
[2019-11-04 09:19] LABS: PROTHROMBIN TIME PATIENT 31.8 SEC (11.7-14.0)
[2019-11-04] MEDS: LACTOBACILLUS RHAMNOSUS GG 1 CAPSULE. PO SCH ×2 (10:18→21:20)
[2019-11-04] MEDS: LACTULOSE 20 GM/30 ML SOLUTION. PO SCH ×2 (10:18→21:19)
[2019-11-04] MEDS: GABAPENTIN 100 MG CAPSULE. PO SCH ×3 (10:18→21:20)
[2019-11-04] MEDS: DOXYCYCLINE HYCLATE 100 MG in IV DEXTROSE 5% 100ML 100 ML IV SCH ×2 (10:23→21:20)
--- NOTE | 2019-11-04 11:04 | PDOC ---
Date of Service: DATE: 11/04/19 TIME: 11:02 Subjective: Subjective: Family says abdomen more distended, hasn't gotten FFP yet. He says "not too good." Ate a little. Objective: Vital Signs: Vital Signs Date Time Temp Pulse Resp B/P (MAP) Pulse Ox O2 Delivery O2 Flow Rate FiO2 11/04/19 07:00 97.8 91 28 101/45 (63) 92 Room Air 97.8 Labs: Laboratory Tests Test 11/04/19 06:30 Prothrombin Time 31.8 SEC Prothromb Time International Ratio 3.1 Sodium Level 132 mmol/L Potassium Level 3.2 mmol/L Chloride Level 96 mmol/L Carbon Dioxide Level 27 mmol/L Anion Gap 9 Blood Urea Nitrogen 22 mg/dL Creatinine 2.0 mg/dL Estimated GFR (Cockcroft-Gault) 39.7 Glucose Level 81 mg/dL Calcium Level 7.8 mg/dL PE: GEN: NAD, resting ABD: sore, some distention SKIN:+jaundice NEURO/PSYCH:lethargic A/P: Alcoholic hepatitis, ascites, coagulopathy, ROSIO -- Still awaiting FFP before possible paracentesis. Justicifation of Admission Dx: Justifications for Admission: Justification of Admission Dx: Yes Sepsis: End-Organ Dysfunction THOMAS DUBON Nov 04, 2019 11:04
[2019-11-04] MEDS: LORazepam 0.5 MG TABLET PO PRN (13:28)
--- NOTE | 2019-11-04 14:20 | PDOC ---
[facility] PROGRESS NOTE Date of Service DOS: DATE: 11/04/19 TIME: 14:19 Chief Complaint Chief Complaint A/P: Abdominal pain - with leukocytosis, newly diagnosed hepatitis with ascites, concerning for SBP, will initiate antibiotics, pending paracentesis. INR remains greater than 3. We will attempt FFP this morning before paracentesis. Acute hepatic encephalopathy - metabolic from hyperammonemia from liver disease, will continue lactulose Shortness of breath - likely from abdominal swelling and diaphragmatic compression with small left pleural effusion, no cough, but infiltrate is apparent. Check procalcitonin, Rocephin + doxy Sepsis - likely related to SBP vs pneumonia less likely, will continue fluids, however with his ascites may need diuresis / paracentesis + albumin ROSIO - concerning given his newly diagnosed liver failure. Will monitor after 2 liter fluid challenge. May need nephrology consultation if he fails fluid challenge Hyponatremia - likely from liver failure, will monitor trend after fluids Painless jaundice - related to acute liver failure Acute liver failure - no real improvement in bilirubin from prior stay, in fact it is elevated. INR stable, albumin low. ROSIO and hyponatremia are poor prognostic factors. Consult GI THC abuse - counseled Alcohol abuse - now in remission for 2 weeks due to hospitalization, did not relapse after discharge per he and his mother Thrombocytopenia - minimal, likely related to alcoholic liver diseasee Severe protein-caloric malnutrition - related to liver disease Depression - on remeron QHS with improvement in his mood Hypothyroid - on replacement now HypokalemiaIV and p.o. potassium replacement today FEN - General diet PPX - Heparin. Will hold on 10/31 evening in anticipation of IR paracentesis potentially on 11/01 FULL CODE Dispo - inpatient at least 2 midnights. He has a poor overall prognosis he and family are aware. History of Present Illness History of Present Illness Mr Galan is a 29yo M w/ PMHx heavy alcohol use, who presented with worsening abdominal pain and swelling after a discharge 3 days prior. He was just admitted October 16 through October 27 for acute alcoholic hepatitis and fatty liver disease. Psychiatry has diagnosed generalized anxiety disorder and depression. Pulmonology found likely sleep apnea/hypopnea. GI recommended alcohol cessation. Patient does have a history of a seizure in his teens. He has been drinking at least a pint of vodka a day for up to several years. Now states he has not drink since October 16. He and his mother state he is here because he is just not feeling better. He and his mother state they think he has been having 3-5 bowel movements per day with lactulose and for one day urinated more with lasix, but the past 2 days has been urinating less and now has diffuse abdominal pain and he is short of breath with a slight cough. He has had no contacts with COVID 19 exposed patients and has only been with his mother and significant other and hospital staff at this facility since 10/17/2019. His mother notes worsening confusion and tremors. CT abdomen pelvis with moderate ascites and new left pleural effusion. Chest x- ray with left basilar infiltrate Labs reviewed with WBC 20.7 Hb 14.6, platelets 149, NA 133, K3.8, BUN 21, CR 1.8, glucose 90, bilirubin 24.1, AST 147, ALT 53, alk phos 189, ammonia 100, BNP 142, lipase 133, INR 2.7, Trop 0 Admitted for further treatment Afebrile overnight. WBC still 20.1, Hb 13.6, platelets 137, K3.3, CR 1.9, INR 2.8, albumin 1.3 bilirubin 21.8, AST 133, ALT 47, alk phos 173. Still having pain. D/w his mother bedside is overall poor prognosis given the hyponatremia and ROSIO that was not responsive to fluids today. She is asking if she can have a referral to [facility] transplant hepatology if he is able to be safely discharged from the hospital.. 11/02/2019 No acute events overnight. Patient has no more altered mental status episodes. Patient is ambulating without assistance. 11/03/2019 No acute events overnight. Patient was seen and examined bedside. No altered mental status or increasing abdominal distention. Patient's chart, labs, images were reviewed and discussed with RN 11/04/2019 No acute events overnight. Patient seen and examined bedside. Abdomen is more been more distended and the patient does not feel too good. Patient's chart, labs, images were reviewed and discussed with RN Vitals/I&O Vitals/I&O: Vital Signs Date Time Temp Pulse Resp B/P (MAP) Pulse Ox O2 Delivery O2 Flow Rate FiO2 11/04/19 12:27 98.0 91 20 118/52 98.0 11/04/19 11:00 93 Room Air I & O 11/03/19 11/03/19 11/04/19 15:00 23:00 07:00 Intake Total 500 ml 120 ml 0 ml Balance 500 ml 120 ml 0 ml Physical Exam Physical Exam: General: No apparent distress. Jaundiced Lungs: Clear Abdomen: Normal bowel sounds, Soft, diffuse mild tenderness, positive fluid wave Extremities: No clubbing, No cyanosis, Normal pulses, No tenderness/swelling, 2 + pitting edema Skin: No significant lesion General: Alert, Cooperative, moderate distress Lungs: Clear Abdomen: Normal bowel sounds, Soft, Other (diffuse mild tenderness, positive fluid wave) Extremities: No clubbing, No cyanosis, Normal pulses, No tenderness/swelling, Other (2+ pitting edema) Skin: No significant lesion Labs Labs: Laboratory Tests Test 11/04/19 06:30 Prothrombin Time 31.8 SEC (11.7-14.0) Prothromb Time International Ratio 3.1 (0.8-1.1) Sodium Level 132 mmol/L (136-145) Potassium Level 3.2 mmol/L (3.5-5.1) Chloride Level 96 mmol/L (98-107) Carbon Dioxide Level 27 mmol/L (21-32) Anion Gap 9 (6-14) Blood Urea Nitrogen 22 mg/dL (8-26) Creatinine 2.0 mg/dL (0.7-1.3) Estimated GFR (Cockcroft-Gault) 39.7 Glucose Level 81 mg/dL (70-99) Calcium Level 7.8 mg/dL (8.5-10.1) Assessment and Plan Assessmemt and Plan Problems Medical Problems: (1) Acute hepatic encephalopathy Status: Acute Comment Review of Relevant I have reviewed the following items larry (where applicable) has been applied. TAWNYA HOLLY MD Nov 04, 2019 14:20
--- NOTE | 2019-11-04 15:09 | PDOC ---
Renal-Progress Notes Subjective Notes Notes DISTENDED History of Present Illness Hx of present illness NO CHANGE Vitals Vitals Vital Signs Date Time Temp Pulse Resp B/P (MAP) Pulse Ox O2 Delivery O2 Flow Rate FiO2 11/04/19 14:59 97.9 93 18 101/52 (68) 94 Nasal Cannula 2.0 97.9 Weight Weight [ ] I.O. Intake and Output Intake and Output 11/04/19 07:00 Intake Total 620 ml Balance 620 ml Intake Oral 120 ml IV Total 500 ml # Voids 3 # Bowel Movements 2 Labs Labs Laboratory Tests Test 11/04/19 06:30 Prothrombin Time 31.8 SEC (11.7-14.0) Prothromb Time International Ratio 3.1 (0.8-1.1) Sodium Level 132 mmol/L (136-145) Potassium Level 3.2 mmol/L (3.5-5.1) Chloride Level 96 mmol/L (98-107) Carbon Dioxide Level 27 mmol/L (21-32) Anion Gap 9 (6-14) Blood Urea Nitrogen 22 mg/dL (8-26) Creatinine 2.0 mg/dL (0.7-1.3) Estimated GFR (Cockcroft-Gault) 39.7 Glucose Level 81 mg/dL (70-99) Calcium Level 7.8 mg/dL (8.5-10.1) Review of Systems Constitutional: yes: alert Ears/Nose/Throat: Yes: no symptom reported Eyes: Yes: no symptom reported Pulmonary: Yes no symptom reported Cardiovascular: Yes no symptom reported Gastrointestional: Yes: nausea, other (DISTENTION) Genitourinary: Yes: no symptom reported Musculoskeletal: Yes: muscle pain, muscle stiffness Psychiatric/Neurological: Yes: no symptom reported Endocrine: Yes: no symptom reported Physical Exam General Appearance: no apparent distress Skin: warm Respiratory: decreased breath sounds Heart: S1S2 Abdomen: distension Genitourinary: bladder flat Extremities: pulses present, edema Neurology: alert, oriented Assessment Assessment IMP ROSIO WITH CR OF 2.0 DUE TO RENOVASOCONSTRICTION HYPOKALEMIA LEUCOCYTOSIS HYPONATREMIA ETOH HEPATITIS LIVER FAILURE ASCITES PLAN K REPLACEMENT FLUID RESTRICTION FFP TODAY 50 GM ALBUMIN PRE PARACENTESIS POOR PROGNOSIS WILL FOLLOW RAUL LOWE MD Nov 04, 2019 15:09
[2019-11-04] MEDS ORDERED: LIDOCAINE WITH 8.4% SOD BICARB 3 ML DISP.SYRIN. ONE (15:21)
[2019-11-04] MEDS ORDERED: ALBUMIN HUMAN 25% 100 ML IV ONE ×4 (15:30→16:00)
[2019-11-04] MEDS ORDERED: LIDOCAINE WITH 8.4% SOD BICARB 3 ML DISP.SYRIN. IJ ONE (15:45)
--- NOTE | 2019-11-04 16:13 | NUR ---
Patient to IR for paracentesis. Drained 6900ml of abdomen, patient received Albumin [address] Ramos and 2nd Bottle per protocol. Patients vitals stable throughout. New IV to left AC placed by ultrasound. Report called to JEFFERY Narvaez on , patient transferred back to [address] [place] [address].
--- NOTE | 2019-11-04 17:39 | NUR ---
SW following. Spoke with RN and reviewed chart. Discharge plan remains home with out-patient follow up r/t ETOH abuse. SW following as needed.
[2019-11-04 20:44] LABS: BF SOURCE ASCITES
[2019-11-04 20:46] LABS: BF CLARITY CLEAR; BF COLOR YELLOW; BF MON % 87 %; BF PMN % 12 %; BF RBC COUNT 19 /cmm (Not Established); BF WBC COUNT 41 /cmm (Not Established)
[2019-11-04 20:47] LABS: BF OTHER % 1 %
[2019-11-04] MEDS: cefTRIAXone IV Push 1 GM VIAL. IVP SCH (21:19)
[2019-11-04] MEDS: MIRTAZAPINE 15 MG TABLET PO SCH (21:20)
[2019-11-04] MEDS: FAMOTIDINE 20 MG TABLET. PO SCH (21:20)
[2019-11-04 22:41] LABS: PROTHROMBIN TIME PATIENT 28.2 SEC (11.7-14.0)
[2019-11-05 03:00] VITALS: BP 112/54
[2019-11-05] MEDS: LEVOTHYROXINE 88 MCG TABLET PO SCH (05:11)
[2019-11-05 05:33] LABS: CALCIUM 7.8 mg/dL (8.5-10.1); GFR 39.7; POTASSIUM 3.1 mmol/L (3.5-5.1)
[2019-11-05 07:00] VITALS: BP 100/41
--- NOTE | 2019-11-05 08:00 | RAD ---
Ultrasound-guided paracentesis 11/05/2019 5:56 AM Procedure: The risks and benefits of the procedure were discussed the patient. Informed consent was obtained. A timeout procedure was performed. Sonographic evaluation of the abdomen was performed demonstrating ascites . The right lower quadrant was prepped and draped using maximum sterile barrier technique. 1% lidocaine without epinephrine was administered for local anesthesia. Real-time ultrasonographic guidance was used in passing a 5 Greek Yueh catheter into the fluid collection. 7 L of serous ascites was removed. The catheter was removed and pressure held to achieve hemostasis. A sterile dressing was applied. Impression: Successful ultrasound-guided paracentesis
[2019-11-05] MEDS: GABAPENTIN 100 MG CAPSULE. PO SCH ×2 (08:27→13:04)
[2019-11-05] MEDS: DOXYCYCLINE HYCLATE 100 MG in IV DEXTROSE 5% 100ML 100 ML IV SCH (08:27)
[2019-11-05] MEDS: LACTOBACILLUS RHAMNOSUS GG 1 CAPSULE. PO SCH (08:27)
[2019-11-05] MEDS: traMADol 50 MG TABLET PO PRN (08:27)
[2019-11-05] MEDS: LACTULOSE 20 GM/30 ML SOLUTION. PO SCH (08:27)
[2019-11-05] MEDS: POTASSIUM BICARB 20 MEQ EFFERVESCENT TABLET. PO PRN (08:27)
--- NOTE | 2019-11-05 09:46 | NUR ---
SW following. Spoke with RN and reviewed chart. Pt to discharge home today self-care with IOP follow up per Alessandro with PAT. No further SW needs at this time.
[2019-11-05 11:00] VITALS: BP 92/54
--- NOTE | 2019-11-05 11:20 | PDOC ---
Date of Service: DATE: 11/05/19 TIME: 11:18 Subjective: Subjective: Still doesn't feel great, says his mom will help him decide when it's time to leave. Objective: Vital Signs: Vital Signs Date Time Temp Pulse Resp B/P (MAP) Pulse Ox O2 Delivery O2 Flow Rate FiO2 11/05/19 09:50 Room Air 11/05/19 07:00 97.9 90 17 100/41 (60) 94 97.9 11/05/19 03:00 2.0 Labs: Laboratory Tests Test 11/04/19 15:40 11/04/19 22:20 11/05/19 04:45 Body Fluid Source Ascites Body Fluid Color Yellow Body Fluid Clarity Clear Body Fluid pH 7.70 Body Fluid Nucleated Cells 41 /cmm Body Fluid Mononuclear WBCs (%) 87 % Body Fluid Polymorphonuclear Cells 12 % Body Fluid Total RBCs Counted 19 /cmm Body Fluid Other Cells (%) 1 % Prothrombin Time 28.2 SEC Prothromb Time International Ratio 2.6 Sodium Level 134 mmol/L Potassium Level 3.1 mmol/L Chloride Level 98 mmol/L Carbon Dioxide Level 28 mmol/L Anion Gap 8 Blood Urea Nitrogen 23 mg/dL Creatinine 2.0 mg/dL Estimated GFR (Cockcroft-Gault) 39.7 Glucose Level 60 mg/dL Calcium Level 7.8 mg/dL Imaging: Paracentesis 11/03 7L PE: GEN: NAD LUNGS: CTAB HEART: RRR ABD: less distended NEURO/PSYCH: A & O 3 A/P: Alcoholic hepatitis, ascites, coagulopathy, ROSIO -- Nurse indicates possible DC today - have counseled in the past re: alcohol cessation, etc. Some fluid studies pending, will review w/ Dr. Mclean. Justicifation of Admission Dx: Justifications for Admission: Justification of Admission Dx: Yes Sepsis: End-Organ Dysfunction THOMAS DUBON Nov 05, 2019 11:20
--- NOTE | 2019-11-05 11:53 | PDOC ---
Renal-Progress Notes Subjective Notes Notes FEELS ABOUT THE SAME History of Present Illness Hx of present illness STABLE Vitals Vitals Vital Signs Date Time Temp Pulse Resp B/P (MAP) Pulse Ox O2 Delivery O2 Flow Rate FiO2 11/05/19 09:50 Room Air 11/05/19 07:00 97.9 90 17 100/41 (60) 94 97.9 11/05/19 03:00 2.0 Weight Weight [ ] I.O. Intake and Output Intake and Output 11/05/19 07:00 Intake Total 1753 ml Output Total 6900 ml Balance -5147 ml Intake Oral 800 ml IV Total 100 ml Blood Product IV Normal Saline Flush 853 ml Drainage Total 6900 ml # Voids 2 Labs Labs Laboratory Tests Test 11/04/19 15:40 11/04/19 22:20 11/05/19 04:45 Body Fluid Source Ascites Body Fluid Color Yellow Body Fluid Clarity Clear Body Fluid pH 7.70 Body Fluid Nucleated Cells 41 /cmm (Not Established) Body Fluid Mononuclear WBCs (%) 87 % Body Fluid Polymorphonuclear Cells 12 % Body Fluid Total RBCs Counted 19 /cmm (Not Established) Body Fluid Other Cells (%) 1 % Prothrombin Time 28.2 SEC (11.7-14.0) Prothromb Time International Ratio 2.6 (0.8-1.1) Sodium Level 134 mmol/L (136-145) Potassium Level 3.1 mmol/L (3.5-5.1) Chloride Level 98 mmol/L (98-107) Carbon Dioxide Level 28 mmol/L (21-32) Anion Gap 8 (6-14) Blood Urea Nitrogen 23 mg/dL (8-26) Creatinine 2.0 mg/dL (0.7-1.3) Estimated GFR (Cockcroft-Gault) 39.7 Glucose Level 60 mg/dL (70-99) Calcium Level 7.8 mg/dL (8.5-10.1) Review of Systems Constitutional: yes: alert Ears/Nose/Throat: Yes: no symptom reported Eyes: Yes: no symptom reported Pulmonary: Yes no symptom reported Cardiovascular: Yes no symptom reported Gastrointestional: Yes: nausea, other (DISTENTION) Genitourinary: Yes: no symptom reported Musculoskeletal: Yes: muscle pain, muscle stiffness Psychiatric/Neurological: Yes: no symptom reported Endocrine: Yes: no symptom reported Physical Exam General Appearance: no apparent distress Skin: warm Respiratory: decreased breath sounds Heart: S1S2 Abdomen: distension Genitourinary: bladder flat Extremities: pulses present, edema Neurology: alert, oriented Assessment Assessment IMP ROSIO WITH CR OF 2.0 DUE TO RENOVASOCONSTRICTION HYPOKALEMIA LEUCOCYTOSIS HYPONATREMIA-DUE TO LIVER FAILURE ETOH HEPATITIS LIVER FAILURE ASCITES PLAN K REPLACEMENT FLUID RESTRICTION POOR PROGNOSIS WILL FOLLOW PRN RAUL LOWE MD Nov 05, 2019 11:53
[2019-11-05] MEDS ORDERED: POTASSIUM CHLORIDE 20 MEQ TABLET.ER. PO ONE (12:00)
[2019-11-05] MEDS ORDERED: FURO40TA4 PO (12:16)
--- NOTE | 2019-11-05 12:19 | DISCH ---
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
[2019-11-05] MEDS ORDERED: FUROSEMIDE 40 MG TABLET. PO ONE (13:00)
--- NOTE | 2019-11-05 15:13 | NUR ---
Discharge Note: MARYANA COOPER Discharge instructions and discharge home medications reviewed with Patient and a copy given. All questions have been answered and understanding verbalized. The following instructions and handouts were given: Patient given education regarding fluid restriction and salt restriction. Discontinued lines and drains: Iv removed per protocol. Patient discharged home, picked up by parent.
--- NOTE | 2019-11-06 16:06 | PATHOLOGY ---
Note [facility] Accession Number: [id number] TESTS RESULT FLAG UNITS REF RANGE LAB Clinician Provided Cytology Information No. of containers..01 Other (Miscellaneous) Source: 01 ASCITES DIAGNOSIS: 02 ASCITES INCONCLUSIVE. REACTIVE MESOTHELIAL CELLS ARE PRESENT. THIS INTERPRETATION INCLUDES EVALUATION OF A CELL BLOCK. RARE ATYPICAL CELLS PRESENT AMONGST MESOTHELIAL CELLS WITH REACTIVE AND DEGENERATIVE CHANGES, ACUTE AND CHRONIC INFLAMMATORY CELLS AND VERY RARE RED BLOOD CELLS. THE CELL BLOCK IS VERY PAUCICELLULAR TO ACELLULAR. Pathologist ICD10: 02 R18.8 Signed out by: 02 Amarilis Munguia MD, Pathologist NPI- [id number] Performed by: Neyda Augustine, Card Grader ([facility]) Gross description: 01 35ML, CLEAR YELLOW, 1 TP 1 CB /LCS 11/05/[address] [place] [address] FLAG LEGEND: L-Low Normal,H-High Normal,LL-Alert Low,HH-Alert High <-Panic Low,>-Panic High,A-Abnormal,AA-Critical Abnormal Performed at: 01 [facility] [address] [place] [address] Juanpablo Law MD, [address] [facility] [address] Ck Nova MD, Specimen Comment: A courtesy copy of this report has been sent to [phone] Specimen Comment: Report sent to Specimen Comment: A duplicate report has been generated due to demographic updates. Performed at: [address], [place], [place] [id number] MD Juanpablo Law MD Phone: [phone]
--- NOTE | 2019-11-06 19:31 | PDOC3 ---
[facility]-Discharge Summary Date of Admission: Date of Admission: Oct 31, 2019 Date of Discharge: Date of Discharge: Nov 05, 2019 Admission Diagnosis: Admitting Diagnosis: Abdominal pain Acute hepatic encephalopathy Shortness of breath Sepsis ROSIO Hyponatremia Painless jaundice Acute liver failure THC abuse Alcohol abuse Thrombocytopenia Severe protein-caloric malnutrition Depression Hypothyroid Discharge Diagnosis: Discharge Diagnosis: Abdominal pain Acute hepatic encephalopathy Shortness of breath Sepsis ROSIO Hyponatremia Painless jaundice Acute liver failure THC abuse Alcohol abuse Thrombocytopenia Severe protein-caloric malnutrition Depression Hypothyroid Consults: Consults: Nephrology GI Procedures: Procedures: Paracentesis Hospital Course: Hospital Course: 29yo M w/ PMHx heavy alcohol use, who presented with worsening abdominal pain and swelling after a discharge 3 days prior. He was just admitted October 16 through October 27 for acute alcoholic hepatitis and fatty liver disease. Psychiatry has diagnosed generalized anxiety disorder and depression. Pulmonology found likely sleep apnea/hypopnea. GI recommended alcohol cessation. Patient does have a history of a seizure in his teens. He has been drinking at least a pint of vodka a day for up to several years. Now states he has not drink since October 16. He and his mother state he is here because he is just not feeling better. He and his mother state they think he has been having 3-5 bowel movements per day with lactulose and for one day urinated more with lasix, but the past 2 days has been urinating less and now has diffuse abdominal pain and he is short of breath with a slight cough. He has had no contacts with COVID 19 exposed patients and has only been with his mother and significant other and hospital staff at this facility since 10/17/2019. His mother notes worsening confusion and tremors. CT abdomen pelvis with moderate ascites and new left pleural effusion. Chest x- ray with left basilar infiltrate Patient was admitted for close observation and GI evaluation. Patient was clinically improving in his mental status and was stable for paracentesis. INR was 3.0 and the plan was to wait to see if INR would decrease to < 1.5 in order for a safe paracentesis. Finally, 2 units of FFP was given before the procedure and albumin was transfused immediately after. A total of 6.9 L were removed and the fluid did return as non-infected ascitic fluid consistent with portal HTN. Patient was resumed back on his home diuretic regimen and he was counseled on Na and fluid restriction. Patient will need to establish care with [facility] in order to see if he can qualify for the transplant list. Rest of the hospital course was uneventful. Disposition: Disposition/Orders: D/C to Home Activity: Activity: Resume previous activity Diet: Diet: Renal Medications: Home Meds Active Scripts Furosemide (FUROSEMIDE) 40 Mg Tablet, 20 MG PO BID for Ascites for 90 Days, #90 TAB Prov:TAWNYA HOLLY MD 11/05/19 Mirtazapine (MIRTAZAPINE) 15 Mg Tablet, 15 MG PO QHS for Depression for 90 Days, #90 TAB 2 Refills Prov:MAYUR HUERTA MD 10/28/19 Potassium Bicarbonate/Cit Ac (EFFER-K 20 MEQ TABLET EFF) 20 Meq Tablet.eff, 40 MEQ PO DAILY PRN for hypokalemia for 90 Days, #180 TAB Prov:MAYUR HUERTA MD 10/28/19 Ondansetron (ONDANSETRON ODT) 4 Mg Tab.rapdis, 4 MG PO PRN QID PRN for NAUSEA/VOMITING for 90 Days, #270 TAB 3 Refills Prov:MAYUR HUERTA MD 10/28/19 Famotidine (FAMOTIDINE) 20 Mg Tablet, 20 MG PO QHS for GERD for 90 Days, #90 TAB 3 Refills Prov:MAYUR HUERTA MD 10/28/19 Levothyroxine Sodium (LEVOTHYROXINE SODIUM) 88 Mcg Tablet, 88 MCG PO DAILY06 for Hypothyroidism for 90 Days, #90 TAB 3 Refills Prov:MAYUR HUERTA MD 10/28/19 Lactulose (LACTULOSE) 20 Gm/30 Ml Solution, 20 GM PO BID for Liver disease for 30 Days, #1200 ML 2 Refills Prov:MAYUR HUERTA MD 10/28/19 Gabapentin (GABAPENTIN ) 100 Mg Capsule, 100 MG PO TID for Alcohol Abuse for 90 Days, #270 CAP 2 Refills Prov:MAYUR HUERTA MD 10/28/19 Discontinued Reported Medications [inhaler] No Conflict Check, PRN for SHORTNESS OF BREATH 10/17/19 [lisinopril +] No Conflict Check, DAILY for HTN 10/17/19 Discontinued Scripts Tramadol Hcl (TRAMADOL HCL) 50 Mg Tablet, 50 MG PO PRN Q6HRS PRN for MODERATE PAIN 4-6 for 6 Days, #24 TAB 0 Refills Prov:MAYUR HUERTA MD 10/28/19 Scheduled Famotidine (Famotidine), 20 MG PO QHS Furosemide (Furosemide), 20 MG PO BID Gabapentin (Gabapentin ), 100 MG PO TID Lactulose (Lactulose), 20 GM PO BID Levothyroxine Sodium (Levothyroxine Sodium), 88 MCG PO DAILY06 Mirtazapine (Mirtazapine), 15 MG PO QHS Scheduled PRN Ondansetron (Ondansetron Odt), 4 MG PO PRN QID PRN for NAUSEA/VOMITING Potassium Bicarbonate/Cit Ac (Effer-K 20 Meq Tablet Eff), 40 MEQ PO DAILY PRN for hypokalemia Discontinued Medications Tramadol Hcl (Tramadol Hcl), 50 MG PO PRN Q6HRS PRN for MODERATE PAIN 4-6 [inhaler], for SHORTNESS OF BREATH, (Reported) [lisinopril +], DAILY, (Reported) Total Time: Total Time: Total time spent was 25 minutes in preparing scripts, discharge planning with SW and RN, and preparing this discharge summary. Justicifation of Admission Dx: Justifications for Admission: Justification of Admission Dx: Yes Sepsis: End-Organ Dysfunction TAWNYA HOLLY MD Nov 06, 2019 19:31
== END 2019-11-05 15:10 | disposition home or self-care (01) | DRG 871 ==
LOC: ER 14:36 → 5 NORTH 17:49
PROVIDERS: ADMIT Internal Medicine; ATTEND Internal Medicine
PROC: 30233K1 Transfusion of Nonautologous Frozen Plasma into Peripheral Vein, Percutaneous Approach (ICD-10-PCS; 2019-11-04)
PROC: 0W9G3ZZ Drainage of Peritoneal Cavity, Percutaneous Approach (ICD-10-PCS; principal; 2019-11-05)
DX: A41.9 Sepsis, unspecified organism (principal); K72.00 Acute and subacute hepatic failure without coma; E43 Unspecified severe protein-calorie malnutrition; N17.0 Acute kidney failure with tubular necrosis; E87.1 Hypo-osmolality and hyponatremia; D68.9 Coagulation defect, unspecified; J90 Pleural effusion, not elsewhere classified; F32.9 Major depressive disorder, single episode, unspecified; E03.9 Hypothyroidism, unspecified; D69.6 Thrombocytopenia, unspecified; F12.10 Cannabis abuse, uncomplicated; F10.10 Alcohol abuse, uncomplicated; K76.0 Fatty (change of) liver, not elsewhere classified; K70.11 Alcoholic hepatitis with ascites; F41.1 Generalized anxiety disorder; G47.30 Sleep apnea, unspecified; J45.909 Unspecified asthma, uncomplicated; I10 Essential (primary) hypertension; K74.60 Unspecified cirrhosis of liver; F41.9 Anxiety disorder, unspecified; E87.6 Hypokalemia; D75.89 Other specified diseases of blood and blood-forming organs; F17.210 Nicotine dependence, cigarettes, uncomplicated; G89.29 Other chronic pain; Z82.49 Family history of ischemic heart disease and other diseases of the circulatory system; Z79.899 Other long term (current) drug therapy; Z68.32 Body mass index [BMI] 32.0-32.9, adult
CPT/HCPCS: 36415; 49083; 71045; 74177; 80048; 80053; 80307; 81001; 82140; 82945; 83615; 83690; 83735; 83880; 83986; 84100; 84145; 84157; 84484; 85007; 85025; 85610; 86850; 86900; 86901; 86927; 87071; 87075; 88112; 88305; 89050; 93005; 96361; 96374; 96375; 99285; C1892; G0480; J0696; J1644; J1940; J3010; J3430; J3480; J3490; J7030; J7060; P9017; P9046; Q9967; G0378